=== PATIENT | female | born 1930 | race Caucasian/White ===

== ENCOUNTER 2016-05-29 21:05 | Emergency (ER) | payer MEDICARE ==
[~2016-05-29] VITALS: Ht 167.6 cm; Wt 59.0 kg
[~2016-05-29 21:05] MED LIST: /BISO10TA OR; ACET65TA; AMLO10TA PO; APRESOLINE; ASPI325T; ASPI325T PO; ASPI325T28 PO; BISO10TA6 PO; CALC1TAB21 PO; CALCIUM+D PO; CIPR-250 PO; CIPR500S PO; CIPR500T89 PO; CIPRO PO; COLA100C2; COUM2.5T11 PO; DIAZ10TA2 PO; ECOT500T OR; ESTR62CR PV; ESTR62CR VA; EXTR500C4 PO; FLAG500T PO; HYDR10TAB PO; HYDROXYCHLOROQUINE; HYDROXYCHLOROQUINE PO; INDA125TA PO; INDAPAMIDE; INDAPAMIDE PO; LISI-538 PO; LISI20TA5 PO; LISI5TAB; MAG400TA PO; METR500T10 PO; MIRA3350 PO; MULTCAP PO; OSCA200T PO; PRO-CAP PO; SENO8.6T10 PO; SERT25TA PO; TENO1TAB3 PO; THERGRAN; TRAM50TA2 PO; TUMS500C PO; TYLE650T30 PO; VALI5TAB; VALI5TAB PO; VALSARTAN PO; VITA500C14 PO; VITA500T; VITAMIN D; ZEBE5TAB PO
--- NOTE | 2016-05-29 21:58 | ECGEPIP ---
Stationary ECG Study [facility] - ED Test Date: 2016-05-29 Pat Name: TREVER STEWARD Department: Room: - Gender: F Clinic Lpn: reba : 1930 Requested By: RONY LANDERS Order Number: [id number] Reading MD: Rose Pemberton Measurements Intervals [place] Rate: 62 P: 69 IA: 137 QRS: -1 QRSD: 89 T: 63 QT: 465 QTc: 473 Interpretive Statements SINUS RHYTHM WITH SINUS ARRHYTHMIA NONSPECIFIC T-WAVE ABNORMALITY DELAYED R PROGRESSION DECREASED RATE 03/03/15 Electronically Signed On 05-29-2016 21:58:39 EDT by Rose Pemberton
[2016-05-29] MEDS ORDERED: NS 500 ML IV ONE (22:00)
[2016-05-29] MEDS ORDERED: MORPHINE 2 MG/ML 1ML SYRINGE IV ONE ×2 (22:00→23:15)
[2016-05-29 22:06] LABS: BASO % 0.1 % (0.0-1.0); EOS # 0.1 K/mm3 (0.0-0.50); EOS % 1.4 % (0.0-3.0); LARGE UNSTAINED CELL % 0.2 % (0.0-4.0); LYMPH # 0.6 K/mm3 (1.5-4.5); LYMPH % 7.2 % (24.0-44.0); MEAN CORPUSCULAR HGB CONC 33.6 g/dl (32.0-36.5); MEAN CORPUSCULAR VOLUME 98.2 fl (80.0-96.0); MONO # 0.1 K/mm3 (0.0-0.8); MONO % 1.4 % (0.0-5.0); NEUTROPHILS # 6.8 K/mm3 (1.8-7.7); NEUTROPHILS % 89.6 % (36.0-66.0); PLATELET COUNT, AUTOMATED 160 k/mm3 (150-450); RED CELL DISTRIBUTION WIDTH 12.6 % (11.5-14.5); WHITE BLOOD COUNT 7.6 K/mm3 (4.0-10.0)
[2016-05-29 22:18] LABS: ALBUMIN 3.5 GM/DL (3.2-5.2); ALBUMIN/GLOBULIN RATIO 1.03 (1.00-1.93); ALKALINE PHOSPHATASE 54 U/L (45-117); ALT/SGPT 13 U/L (12-78); AMYLASE 74 U/L (25-115); ANION GAP 9 MEQ/L (8-16); AST/SGOT 30 U/L (15-37); BILIRUBIN,DIRECT < 0.1 MG/DL (0.0-0.2); BILIRUBIN,TOTAL 0.4 MG/DL (0.2-1.0); BLOOD UREA NITROGEN 18 MG/DL (7-18); CALCIUM LEVEL 8.7 MG/DL (8.8-10.2); CARBON DIOXIDE LEVEL 25 MEQ/L (21-32); CHLORIDE LEVEL 102 MEQ/L (98-107); CREATININE FOR GFR 0.73 MG/DL (0.55-1.02); GLOMERULAR FILTRATION RATE > 60.0 (>32); GLUCOSE, FASTING 106 MG/DL (83-110); SODIUM LEVEL 136 MEQ/L (136-145); TOTAL PROTEIN 6.9 GM/DL (6.4-8.2)
[2016-05-29 22:23] LABS: POTASSIUM SERUM 3.3 MEQ/L (3.5-5.1)
[2016-05-29] MEDS ORDERED: ISOVUE-370 76% 100ML VIAL (Q9967) As Ordered ONE (22:32)
--- NOTE | 2016-05-29 23:10 | REPUSA ---
CT of the abdomen and pelvis with contrast Clinical statement: Pain. Technique: Multiple axial CT images were obtained from the base of the lungs through the floor of the pelvis utilizing 5 mm axial slices after administration of nonionic intravenous contrast. Coronal an d sagittal reconstructions were also obtained. No comparison is available. Findings: Chest: The visualized lung bases are clear. Abdomen: The liver, spleen, pancreas, kidneys, gallbladder, and adrenal glands are unremarkable. The aorta demonstrates moderate atherosclerotic disease, but is otherwise within normal limits. There is no evidence of abdominal lymphadenopathy or ascites. Pelvis: Extensive sigmoid diverticulosis is appreciated, without evidence of diverticulitis. The candy l is otherwise unremarkable, with no obstructive or inflammatory changes. The urinary bladder is with in normal limits. The other pelvic structures appear grossly intact. There is no evidence of pelvic l ymphadenopathy or ascites. Bones: There are no suspicious osseous abnormalities seen. Right hip arthroplasty is intact. There is severe joint space narrowing of the left hip joint with osteophytes noted. Moderate degenerative dis c disease is noted at L2/L3 and L3/L4. Mild disc bulging is seen at L3/L4 and L4/L5. Impression: 1. Extensive sigmoid diverticulosis without evidence of diverticulitis. No obstructive or inflammator y bowel changes. 2. Moderate spondylosis of the lumbar spine with degenerative disc disease as described. Mild disc bu lging is seen at L3/L4 and L4/L5. 3. Severe osteoarthritis of the left hip.
--- NOTE | 2016-05-29 23:10 | REPUSA ---
CT angiogram of the chest Clinical statement: Chest pain and shortness of breath. Technique: Multiple axial CT images were obtained from the thoracic inlet through the upper abdomen a fter a bolus administration of nonionic intravenous contrast. Coronal and sagittal reconstructions we re also obtained. No comparison is available. Findings: The pulmonary arteries are well-opacified with contrast, with no intraluminal filling defec ts to suggest embolism. The thoracic aorta demonstrates moderate atherosclerosis, without evidence of aneurysm or dissection. Thyroid gland is within normal limits. There is no thoracic lymphadenopathy. There are no pericardial or pleural effusions. The lungs are clear. Limited imaging of the upper abd omen is unremarkable. There are no suspicious osseous lesions. Impression: 1. No evidence of pulmonary embolism. 2. Moderate atherosclerosis of the thoracic aorta without evidence of aneurysm or dissection. 3. No acute intrapulmonary disease.
[2016-05-29] MEDS ORDERED: METOCLOPRAMIDE INJ 10MG/2ML VIAL (J2765) IV ONE (23:15)
[2016-05-29] MEDS ORDERED: METOCLOPRAMIDE INJ 10MG/2ML VIAL (J2765) As Ordered ONE (23:16)
[2016-05-30] MEDS ORDERED: ASPIRIN 325 MG TAB PO ONE (00:15)
[2016-05-30 07:19] VITALS: BP 180/82
--- NOTE | 2016-05-31 21:26 | ECGEPIP ---
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
== END 2016-05-30 07:43 | disposition home or self-care (01) ==
LOC: EDBD 21:05 → M ED 22:12
DX: R10.9 Unspecified abdominal pain (principal); I10 Essential (primary) hypertension; F41.9 Anxiety disorder, unspecified; K57.30 Diverticulosis of large intestine without perforation or abscess without bleeding; M32.9 Systemic lupus erythematosus, unspecified; M47.896 Other spondylosis, lumbar region; M16.11 Unilateral primary osteoarthritis, right hip; I70.0 Atherosclerosis of aorta; Z87.891 Personal history of nicotine dependence; Z79.899 Other long term (current) drug therapy; Z79.01 Long term (current) use of anticoagulants; Z91.040 Latex allergy status; Z91.013 Allergy to seafood; Z91.89 Other specified personal risk factors, not elsewhere classified; Z88.2 Allergy status to sulfonamides
CPT/HCPCS: 71260; 74177; 80048; 80076; 82150; 82550; 82553; 83605; 83690; 84484; 85025; 93005; 93041; 96374; 96375; 96376; 99285; J2765; Q9967

== ENCOUNTER 2016-09-12 10:44 | Emergency (ER) | payer MEDICARE ==
[~2016-09-12] VITALS: Ht 167.6 cm; Wt 59.1 kg
[~2016-09-12 10:44] MED LIST changes: +CIPR-249 PO; -CIPR500T89 PO; -COUM2.5T11 PO; +COUM2.5T17 PO; +METR1TAB66 PO; -METR500T10 PO
[2016-09-12] MEDS ORDERED: SYNT50TA PO (11:18)
[2016-09-12] MEDS ORDERED: HYDR200T3 PO (11:18)
[2016-09-12] MEDS ORDERED: ESTR62CR PV (11:18)
[2016-09-12] MEDS ORDERED: MIDO2.5T PO (11:18)
[2016-09-12] MEDS ORDERED: ESCI20TA PO (11:18)
[2016-09-12] MEDS ORDERED: MIDO5TA PO (11:18)
[2016-09-12] MEDS ORDERED: ACETAMINOPHEN TAB 650MG DOSE (2X325MG) PO ONE (12:30)
[2016-09-12] MEDS ORDERED: LIDOCAINE W/EPINEPHRINE 1% 20ML VIAL SC ONE (12:30)
--- NOTE | 2016-09-12 13:29 | REP ---
CT of the brain without IV contrast: Comparison is 03/03/2015. I suspect there is a small scalp contusion in the left temporal zone. This should be confirmed clinically. There is no subdural or epidural hematoma. There is no intracranial hemorrhage otherwise. The cortical stripe is unremarkable. Ventricles and sulci are mildly enlarged compatible with diffuse volume loss. This is unchanged. There is no edema, mass effect or midline shift. The visualized paranasal sinuses and mastoid air cells are unremarkable. Impression: No subdural hematoma or other hemorrhage. No edema, mass effect or midline shift. Mild diffuse volume loss. Question of left temporal scalp contusion. This should be confirmed clinically. Signed by Oscar Heredia MD 09/12/2016 01:20 P
--- NOTE | 2016-09-12 13:42 | REP ---
Maxillofacial CT: Axial images are acquired with helical scanning and a reformatted sagittal and coronal projections. There is no nasal bone fracture. There is no orbit fracture. No zygomatic arch fracture. No mandible fracture. The skull base and sella are unremarkable. The ocular lenses and globes are unremarkable. Orbital fat planes are unremarkable. Impression: There is no facial bone fracture. Signed by Oscar Heredia MD 09/12/2016 01:33 P
--- NOTE | 2016-09-12 14:02 | REP ---
CT CERVICAL SPINE WITHOUT CONTRAST: HISTORY: Injury. There is no acute fracture or subluxation. Disc bulges are present at the C3-4 and C4-5 levels. A disc bulge with associated osteophyte formation is present at the C5-6 level. There is minimal narrowing of the spinal canal. Uncinate process and/or facet hypertrophy are present at the C2-3 through C5-6 levels. These findings produce minimal to mild narrowing of the neural foramina. The C4-5 and C5-6 intervertebral discs are decreased in height consistent with disc degeneration. Scarring is present in the lung apices. IMPRESSION: 1. There is no acute fracture or subluxation. 2. There is cervical spondylosis at the C2-3 through C5-6 levels. Signed by Anmol Granado MD 09/12/2016 02:06 P
--- NOTE | 2016-09-12 14:24 | REP ---
LEFT SHOULDER SERIES: Three views. HISTORY: Pain after fall. FINDINGS: Glenohumeral and acromioclavicular joints are normally aligned. No fracture or subluxation is seen. There is some subcortical cyst formation in the superolateral humeral head. IMPRESSION: No acute abnormality. Signed by Mingo Mcnally MD 09/12/2016 04:35 P
[2016-09-12 15:51] VITALS: BP 170/95
== END 2016-09-12 15:58 | disposition home or self-care (01) ==
LOC: EDSEX 10:44 → M ED 10:44 → EDBD 10:44 → M ED 15:58
DX: S01.91XA Laceration without foreign body of unspecified part of head, initial encounter (principal); S00.83XA Contusion of other part of head, initial encounter; W19.XXXA Unspecified fall, initial encounter; Y92.099 Unspecified place in other non-institutional residence as the place of occurrence of the external cause; Y93.9 Activity, unspecified; Y99.9 Unspecified external cause status; I10 Essential (primary) hypertension; M32.9 Systemic lupus erythematosus, unspecified; H26.9 Unspecified cataract; K57.90 Diverticulosis of intestine, part unspecified, without perforation or abscess without bleeding; Z87.891 Personal history of nicotine dependence; M47.812 Spondylosis without myelopathy or radiculopathy, cervical region; Z79.899 Other long term (current) drug therapy; Z91.040 Latex allergy status; Z88.6 Allergy status to analgesic agent; Z91.013 Allergy to seafood; Z88.2 Allergy status to sulfonamides; Z91.89 Other specified personal risk factors, not elsewhere classified

== ENCOUNTER → 2016-09-20 | Outpatient (REF) | payer MEDICARE ==
[~2016-09-20] MED LIST changes: +ESCI20TA PO; +HYDR200T3 PO; +MIDO2.5T PO; +MIDO5TA PO; +SYNT50TA PO
[2016-09-20 16:46] LABS: BASO % 0.5 % (0.0-1.0); EOS # 0.1 K/mm3 (0.0-0.50); EOS % 2.8 % (0.0-3.0); LYMPH # 1.2 K/mm3 (1.5-4.5); LYMPH % 24.8 % (24.0-44.0); MEAN CORPUSCULAR HEMOGLOBIN 33.9 pg (27.0-33.0); MEAN CORPUSCULAR HGB CONC 34.6 g/dl (32.0-36.5); MEAN CORPUSCULAR VOLUME 98.2 fl (80.0-96.0); MONO # 0.3 K/mm3 (0.0-0.8); MONO % 6.6 % (0.0-5.0); NEUTROPHILS # 2.9 K/mm3 (1.8-7.7); NEUTROPHILS % 63.6 % (36.0-66.0); RED CELL DISTRIBUTION WIDTH 13.3 % (11.5-14.5); WHITE BLOOD COUNT 4.5 K/mm3 (4.0-10.0)
[2016-09-20 17:35] LABS: ALBUMIN 3.8 GM/DL (3.2-5.2); ALBUMIN/GLOBULIN RATIO 1.23 (1.00-1.93); ALKALINE PHOSPHATASE 52 U/L (45-117); ALT/SGPT 16 U/L (12-78); ANION GAP 7 MEQ/L (8-16); AST/SGOT 18 U/L (15-37); BILIRUBIN,TOTAL 0.4 MG/DL (0.2-1.0); BLOOD UREA NITROGEN 16 MG/DL (7-18); CALCIUM LEVEL 8.5 MG/DL (8.8-10.2); CARBON DIOXIDE LEVEL 28 MEQ/L (21-32); CHLORIDE LEVEL 97 MEQ/L (98-107); CHOLESTEROL LEVEL 171 MG/DL (<200); CREATININE FOR GFR 0.71 MG/DL (0.55-1.02); GLOMERULAR FILTRATION RATE > 60.0 (>32); GLUCOSE, FASTING 85 MG/DL (83-110); POTASSIUM SERUM 4.2 MEQ/L (3.5-5.1); SODIUM LEVEL 132 MEQ/L (136-145); TOTAL PROTEIN 6.9 GM/DL (6.4-8.2); TRIGLYCERIDES LEVEL 82 MG/DL (<150)
== END ==
LOC: M LABDRAW1 16:11
PROVIDERS: ATTEND Internal Medicine
DX: E03.9 Hypothyroidism, unspecified (principal); D64.9 Anemia, unspecified; E78.00 Pure hypercholesterolemia, unspecified; N03.9 Chronic nephritic syndrome with unspecified morphologic changes

== ENCOUNTER → 2017-01-11 | Outpatient (REF) | payer MEDICARE | LOC: M LAB REF 17:24 | PROVIDERS: ATTEND Internal Medicine | DX: Z11.59 Encounter for screening for other viral diseases (principal) ==

== ENCOUNTER 2017-03-29 09:10 | Emergency (ER) | payer MEDICARE ==
[2017-03-29 10:30] LABS: KETONE, URINE AUTO RFX NEGATIVE (NEGATIVE); LEUKOCYTE ESTERASE UR AUTO RFX NEGATIVE (NEGATIVE); NITRITE, URINE AUTO RFX NEGATIVE (NEGATIVE); RBC, URINE AUTO RFX 0 /HPF (0-3); SPECIFIC GRAVITY UR AUTO RFX 1.004 (1.002-1.035); SQUAM EPITHELIAL CELL UR AURFX 0 /HPF (0-6); WBC, URINE AUTO RFX 0 /HPF (0-3)
[2017-03-29 10:33] LABS: BASO % 0.2 % (0.0-1.0); EOS % 0.1 % (0.0-3.0); HEMATOCRIT 37.9 % (36.0-47.0); HEMOGLOBIN 12.8 g/dl (12.0-16.0); IMMATURE GRANULOCYTE % 0.3 % (0-0); LYMPH # 0.8 10^3/uL (1.5-4.5); LYMPH % 8.1 % (24.0-44.0); MEAN CORPUSCULAR HEMOGLOBIN 31.9 pg (27.0-33.0); MEAN CORPUSCULAR HGB CONC 33.8 g/dl (32.0-36.5); MEAN CORPUSCULAR VOLUME 94.5 fl (80.0-96.0); MONO # 0.8 10^3/uL (0.0-0.8); MONO % 8.6 % (0.0-5.0); NEUTROPHILS # 7.6 10^3/uL (1.8-7.7); NEUTROPHILS % 82.7 % (36.0-66.0); PLATELET COUNT, AUTOMATED 125 10^3/uL (150-450); RED BLOOD COUNT 4.01 10^6/uL (4.00-5.40); WHITE BLOOD COUNT 9.2 10^3/uL (4.0-10.0)
[2017-03-29 11:04] LABS: ANION GAP 6 MEQ/L (8-16); BLOOD UREA NITROGEN 11 MG/DL (7-18); CALCIUM LEVEL 8.2 MG/DL (8.8-10.2); CARBON DIOXIDE LEVEL 28 MEQ/L (21-32); CHLORIDE LEVEL 103 MEQ/L (98-107); CREATININE FOR GFR 0.88 MG/DL (0.55-1.30); FREE T4 0.97 NG/DL (0.76-1.46); GLOMERULAR FILTRATION RATE > 60.0 (>32); GLUCOSE, FASTING 104 MG/DL (70-100); POTASSIUM SERUM 3.5 MEQ/L (3.5-5.1); SODIUM LEVEL 137 MEQ/L (136-145)
== END 2017-03-29 13:56 | disposition home or self-care (01) ==
LOC: M ED 09:10
DX: I95.1 Orthostatic hypotension (principal); R32 Unspecified urinary incontinence; M54.5 Low back pain; G89.29 Other chronic pain; M32.9 Systemic lupus erythematosus, unspecified; E03.9 Hypothyroidism, unspecified; Z96.641 Presence of right artificial hip joint; Z87.891 Personal history of nicotine dependence
CPT/HCPCS: 84443

== ENCOUNTER 2017-08-24 04:00 | Emergency (ER) | payer MEDICARE ==
[2017-08-24] MEDS: cloNIDine 0.1 MG TAB PO (04:56)
[2017-08-24] MEDS: TETANUS/DIPHTHERIA TOX ADSORB ADULT 0.5ML SYR/VIAL (90714) IM (05:18)
== END 2017-08-24 06:55 | disposition home or self-care (01) ==
LOC: M ED 04:00
DX: I95.9 Hypotension, unspecified (principal); S00.81XA Abrasion of other part of head, initial encounter; W18.00XA Striking against unspecified object with subsequent fall, initial encounter; Y92.9 Unspecified place or not applicable; Y93.9 Activity, unspecified; Y99.9 Unspecified external cause status; Z87.891 Personal history of nicotine dependence; M12.9 Arthropathy, unspecified; Z79.82 Long term (current) use of aspirin; Z79.899 Other long term (current) drug therapy; Z88.5 Allergy status to narcotic agent; Z88.2 Allergy status to sulfonamides; Z91.013 Allergy to seafood; Z91.89 Other specified personal risk factors, not elsewhere classified

== ENCOUNTER 2017-08-24 07:13 | Inpatient (IN) | payer MEDICARE ==
[2017-08-24] MEDS: LEVOTHYROXINE 100MCG TABLET (0.1MG) PO (06:00)
[2017-08-24] MEDS: MIDODRINE 5 MG TAB PO ×3 (08:00→15:06)
[2017-08-24 08:18] LABS: BASO % 0.5 % (0.0-1.0); EOS # 0.1 10^3/uL (0.0-0.50); EOS % 1.7 % (0.0-3.0); HEMATOCRIT 35.4 % (36.0-47.0); HEMOGLOBIN 12.2 g/dl (12.0-15.5); IMMATURE GRANULOCYTE % 0.3 % (0-3.0); LYMPH # 1.5 10^3/uL (1.5-4.5); LYMPH % 24.8 % (24.0-44.0); MEAN CORPUSCULAR HEMOGLOBIN 32.6 pg (27.0-33.0); MEAN CORPUSCULAR HGB CONC 34.5 g/dl (32.0-36.5); MEAN CORPUSCULAR VOLUME 94.7 fl (80.0-96.0); MONO # 0.5 10^3/uL (0.0-0.8); NEUTROPHILS # 3.8 10^3/uL (1.8-7.7); NEUTROPHILS % 64.7 % (36.0-66.0); PLATELET COUNT, AUTOMATED 143 10^3/uL (150-450); RED BLOOD COUNT 3.74 10^6/uL (4.00-5.40); WHITE BLOOD COUNT 5.9 10^3/uL (4.0-10.0)
[2017-08-24 08:38] LABS: ANION GAP 8 MEQ/L (8-16); BLOOD UREA NITROGEN 21 MG/DL (7-18); CALCIUM LEVEL 7.8 MG/DL (8.8-10.2); CARBON DIOXIDE LEVEL 27 MEQ/L (21-32); CHLORIDE LEVEL 103 MEQ/L (98-107); CPK CREATINE PHOSPHOKINASE 54 U/L (26-192); CREATININE FOR GFR 0.83 MG/DL (0.55-1.30); FREE T4 0.89 NG/DL (0.76-1.46); GLOMERULAR FILTRATION RATE > 60.0 (>32); GLUCOSE, FASTING 82 MG/DL (70-100); POTASSIUM SERUM 3.9 MEQ/L (3.5-5.1); SODIUM LEVEL 138 MEQ/L (136-145); TROPONIN I < 0.02 NG/ML (< 0.10)
[2017-08-24 08:44] LABS: CK-MB VALUE MASS < 1.0 NG/ML (<3.6); MB/CK RELATIVE INDEX 1.85 (< OR =4)
[2017-08-24] MEDS: ENOXAPARIN 30 MG/0.3 ML SYR (J1650) SC (09:00)
[2017-08-24] MEDS ORDERED: ACETAMINOPHEN TAB 650MG DOSE (2X325MG) PO (09:30)
[2017-08-24] MEDS ORDERED: diazePAM 10 MG TAB PO (11:45)
[2017-08-24] MEDS ORDERED: ISOSORBIDE DIN. (ISORDIL) 5 MG TAB PO (11:45)
[2017-08-24] MEDS ORDERED: ACETAMINOPHEN 650MG ER TAB (TYLENOL ARTHRITIS) PO (11:45)
[2017-08-24] MEDS: ISOSORBIDE DIN. (ISORDIL) 5 MG TAB PO ×2 (14:42→21:00)
[2017-08-24] MEDS: ASPIRIN 325 MG TAB PO (15:05)
[2017-08-24] MEDS: NS 1,000 ML IV (15:05)
[2017-08-24] MEDS: MULTIVITAMINS/MINERALS THERAP 1 TAB PO (15:05)
[2017-08-24] MEDS: ASCORBIC ACID 500 MG TAB PO (15:06)
[2017-08-24] MEDS: FLUDROCORTISONE ACETATE 0.1 MG TAB PO (15:40)
[2017-08-24] MEDS: ESTROGENS VAGINAL CREAM 30GM PV (21:19)
[2017-08-24] MEDS: diazePAM 10 MG TAB PO (23:19)
[2017-08-25 05:24] LABS: AMORPHOUS SEDIMENT RFX SMALL (NEGATIVE); KETONE, URINE AUTO RFX NEGATIVE (NEGATIVE); LEUKOCYTE ESTERASE UR AUTO RFX NEGATIVE (NEGATIVE); MUCUS, URINE RFX SMALL (NEGATIVE); NITRITE, URINE AUTO RFX NEGATIVE (NEGATIVE); RBC, URINE AUTO RFX 4 /HPF (0-3); SPECIFIC GRAVITY UR AUTO RFX 1.005 (1.002-1.035); SQUAM EPITHELIAL CELL UR AURFX 0 /HPF (0-6); WBC, URINE AUTO RFX 5 /HPF (0-3)
[2017-08-25] MEDS: LEVOTHYROXINE 100MCG TABLET (0.1MG) PO (05:57)
[2017-08-25 05:58] LABS: HEMATOCRIT 32.4 % (36.0-47.0); HEMOGLOBIN 11.3 g/dl (12.0-15.5); MEAN CORPUSCULAR HEMOGLOBIN 32.7 pg (27.0-33.0); MEAN CORPUSCULAR HGB CONC 34.9 g/dl (32.0-36.5); MEAN CORPUSCULAR VOLUME 93.6 fl (80.0-96.0); PLATELET COUNT, AUTOMATED 135 10^3/uL (150-450); RED BLOOD COUNT 3.46 10^6/uL (4.00-5.40)
[2017-08-25 06:17] LABS: ANION GAP 7 MEQ/L (8-16); BLOOD UREA NITROGEN 20 MG/DL (7-18); CALCIUM LEVEL 7.8 MG/DL (8.8-10.2); CARBON DIOXIDE LEVEL 29 MEQ/L (21-32); CHLORIDE LEVEL 102 MEQ/L (98-107); CREATININE FOR GFR 0.68 MG/DL (0.55-1.30); GLOMERULAR FILTRATION RATE > 60.0 (>32); GLUCOSE, FASTING 89 MG/DL (70-100); POTASSIUM SERUM 3.8 MEQ/L (3.5-5.1); SODIUM LEVEL 138 MEQ/L (136-145)
[2017-08-25] MEDS: ISOSORBIDE DIN. (ISORDIL) 5 MG TAB PO (09:00)
[2017-08-25] MEDS: MIDODRINE 5 MG TAB PO ×2 (09:08→12:00)
[2017-08-25] MEDS: ASPIRIN 325 MG TAB PO (09:08)
[2017-08-25] MEDS: FLUDROCORTISONE ACETATE 0.1 MG TAB PO (09:08)
[2017-08-25] MEDS: ASCORBIC ACID 500 MG TAB PO (09:09)
[2017-08-25] MEDS: MULTIVITAMINS/MINERALS THERAP 1 TAB PO (09:09)
[2017-08-25] MEDS: ENOXAPARIN 30 MG/0.3 ML SYR (J1650) SC (09:10)
[2017-08-25] MEDS: cloNIDine 0.1 MG TAB PO (12:15)
== END 2017-08-25 13:18 | disposition home or self-care (01) | DRG 312 ==
LOC: M ED 07:13 → M ED INP 09:24 → M MSPAV 13:59
DX: I95.1 Orthostatic hypotension (principal); K57.32 Diverticulitis of large intestine without perforation or abscess without bleeding; E03.9 Hypothyroidism, unspecified; F41.1 Generalized anxiety disorder; E55.9 Vitamin D deficiency, unspecified; M19.90 Unspecified osteoarthritis, unspecified site; Z96.641 Presence of right artificial hip joint; Z88.2 Allergy status to sulfonamides; Z88.8 Allergy status to other drugs, medicaments and biological substances; Z91.040 Latex allergy status

== ENCOUNTER → 2017-09-19 | Outpatient (REF) | payer MEDICARE ==
[2017-09-19 17:45] LABS: APPEARANCE, URINE CLEAR (CLEAR); BACTERIA, URINE AUTO 1+ (NEGATIVE); BILIRUBIN, URINE AUTO NEGATIVE (NEGATIVE); BLOOD, URINE BLOOD NEGATIVE (NEGATIVE); COLOR, URINE YELLOW (YELLOW); GLUCOSE, URINE (UA) AUTO NEGATIVE (NEGATIVE); KETONE, URINE AUTO NEGATIVE (NEGATIVE); LEUKOCYTE ESTERASE, URINE AUTO NEGATIVE (NEGATIVE); NITRITE, URINE AUTO NEGATIVE (NEGATIVE); PROTEIN, URINE AUTO NEGATIVE (NEGATIVE); RBC, URINE AUTO 4 /HPF (0-3); SPECIFIC GRAVITY URINE AUTO 1.003 (1.002-1.035); SQUAMOUS EPITHELIAL CELL UR AU 0 /HPF (0-6); UROBILINOGEN, URINE AUTO 0.2 mg/dL (0.0-2.0); WBC, URINE AUTO 2 /HPF (0-3)
== END ==
LOC: M LAB REF 17:05
DX: N39.0 Urinary tract infection, site not specified (principal)
CPT/HCPCS: 81001

== ENCOUNTER → 2017-10-17 | Outpatient (REF) | payer MEDICARE ==
[2017-10-17 14:27] LABS: APPEARANCE, URINE CLEAR (CLEAR); BACTERIA, URINE AUTO 2+ (NEGATIVE); BILIRUBIN, URINE AUTO NEGATIVE (NEGATIVE); BLOOD, URINE BLOOD NEGATIVE (NEGATIVE); COLOR, URINE STRAW (YELLOW); GLUCOSE, URINE (UA) AUTO NEGATIVE (NEGATIVE); KETONE, URINE AUTO NEGATIVE (NEGATIVE); LEUKOCYTE ESTERASE, URINE AUTO NEGATIVE (NEGATIVE); NITRITE, URINE AUTO NEGATIVE (NEGATIVE); PROTEIN, URINE AUTO NEGATIVE (NEGATIVE); RBC, URINE AUTO 13 /HPF (0-3); SPECIFIC GRAVITY URINE AUTO 1.002 (1.002-1.035); SQUAMOUS EPITHELIAL CELL UR AU 0 /HPF (0-6); UROBILINOGEN, URINE AUTO 0.2 mg/dL (0.0-2.0); WBC, URINE AUTO 0 /HPF (0-3)
== END ==
LOC: M SMT 13:47
DX: R30.0 Dysuria (principal)
CPT/HCPCS: 81001

== ENCOUNTER → 2017-10-19 | Outpatient (CLI) | payer MEDICARE ==
[2017-10-19 12:11] LABS: ANION GAP 8 MEQ/L (8-16); BLOOD UREA NITROGEN 17 MG/DL (7-18); CALCIUM LEVEL 8.8 MG/DL (8.8-10.2); CARBON DIOXIDE LEVEL 29 MEQ/L (21-32); CHLORIDE LEVEL 105 MEQ/L (98-107); CREATININE FOR GFR 0.89 MG/DL (0.55-1.30); GLOMERULAR FILTRATION RATE > 60.0 (>32); GLUCOSE, FASTING 89 MG/DL (70-100); POTASSIUM SERUM 4.5 MEQ/L (3.5-5.1); SODIUM LEVEL 142 MEQ/L (136-145)
== END ==
LOC: M SMT 08:40
DX: R31.29 Other microscopic hematuria (principal)
CPT/HCPCS: 80048

== ENCOUNTER → 2017-10-25 | Outpatient (REF) | payer MEDICARE ==
[2017-10-25 18:51] LABS: APPEARANCE, URINE CLEAR (CLEAR); BACTERIA, URINE AUTO 2+ (NEGATIVE); BILIRUBIN, URINE AUTO NEGATIVE (NEGATIVE); BLOOD, URINE BLOOD NEGATIVE (NEGATIVE); COLOR, URINE YELLOW (YELLOW); GLUCOSE, URINE (UA) AUTO NEGATIVE (NEGATIVE); KETONE, URINE AUTO NEGATIVE (NEGATIVE); LEUKOCYTE ESTERASE, URINE AUTO NEGATIVE (NEGATIVE); NITRITE, URINE AUTO NEGATIVE (NEGATIVE); PROTEIN, URINE AUTO NEGATIVE (NEGATIVE); RBC, URINE AUTO 1 /HPF (0-3); SPECIFIC GRAVITY URINE AUTO 1.006 (1.002-1.035); SQUAMOUS EPITHELIAL CELL UR AU 0 /HPF (0-6); UROBILINOGEN, URINE AUTO 0.2 mg/dL (0.0-2.0); WBC, URINE AUTO 1 /HPF (0-3)
== END ==
LOC: M SMT 17:27
DX: R31.29 Other microscopic hematuria (principal)
CPT/HCPCS: 81001

== ENCOUNTER 2018-03-01 10:14 | Inpatient (IN) | payer MEDICARE ==
[~2018-03-01] VITALS: Ht 167.6 cm; Wt 67.5 kg
[~2018-03-01 10:14] MED LIST changes: +AMOX500C; +ASCO500T PO; +ASPI-222 PO; -ASPI325T28 PO; +ECOT81TA5 PO; +FLUD0.1T PO; +ISOS5TA PO; +LEVO100T5 PO; +METR-201 PO; -METR1TAB66 PO; +MIDO10TA PO; +VITA500C24 PO; +VITMTA PO
[2018-03-01] MEDS ORDERED: ISOSORBIDE DIN. (ISORDIL) 5 MG TAB PO ONE (11:30)
[2018-03-01] MEDS ORDERED: ACETAMINOPHEN TAB 650MG DOSE (2X325MG) PO ONE (11:30)
[2018-03-01] MEDS ORDERED: methylPREDNISolone INJ 125 MG/2 ML VIAL (J2930) IV ONE (11:30)
[2018-03-01] MEDS ORDERED: TUSS1SUS2 PO (11:33)
[2018-03-01] MEDS ORDERED: AZIT-12 PO (11:33)
[2018-03-01] MEDS ORDERED: VENTAER INH (11:33)
[2018-03-01 11:36] LABS: BASO % 0.2 % (0.0-1.0); EOS % 0.1 % (0.0-3.0); HEMATOCRIT 37.4 % (36.0-47.0); HEMOGLOBIN 13.2 g/dl (12.0-15.5); LYMPH # 0.8 10^3/uL (1.5-4.5); LYMPH % 5.8 % (24.0-44.0); MEAN CORPUSCULAR HEMOGLOBIN 33.9 pg (27.0-33.0); MEAN CORPUSCULAR HGB CONC 35.3 g/dl (32.0-36.5); MEAN CORPUSCULAR VOLUME 96.1 fl (80.0-96.0); MONO % 7.4 % (0.0-5.0); NEUTROPHILS # 11.8 10^3/uL (1.8-7.7); NEUTROPHILS % 86.1 % (36.0-66.0); PLATELET COUNT, AUTOMATED 163 10^3/uL (150-450); RED BLOOD COUNT 3.89 10^6/uL (4.00-5.40); WHITE BLOOD COUNT 13.7 10^3/uL (4.0-10.0)
[2018-03-01] MEDS: IPRATROPIUM 0.5MG/ALBUTEROL 2.5MG INH SOL UD 3ML (DUONEB)(J7620) NEB PRN ×3 (11:40→12:01)
[2018-03-01 11:42] LABS: ABG BASE EXCESS 0.3 (-2.0-2.0); ABG O2 SATURATION 95.7 % (95.0-99.0); ABG PARTIAL PRESSURE CO2 40.4 mmHg (35.0-45.0); ABG PARTIAL PRESSURE O2 77.5 mmHg (75.0-100.0); ABG STANDARD HCO3 24.8 MEQ/L (22.0-26.0); ABG TOTAL CO2 26.2 MEQ/L (23.0-31.0); ABG pH (ARTERIAL) 7.409 UNITS (7.350-7.450)
[2018-03-01 11:49] LABS: BLOOD UREA NITROGEN 9 MG/DL (7-18); CALCIUM LEVEL 7.9 MG/DL (8.8-10.2); CARBON DIOXIDE LEVEL 28 MEQ/L (21-32); CHLORIDE LEVEL 94 MEQ/L (98-107); CPK CREATINE PHOSPHOKINASE 83 U/L (26-192); CREATININE FOR GFR 0.78 MG/DL (0.55-1.30); GLOMERULAR FILTRATION RATE > 60.0 (>32); GLUCOSE, FASTING 105 MG/DL (70-100); MB/CK RELATIVE INDEX 1.57 (< OR =4); NT-PRO BNP 8603 PG/ML (<450); POTASSIUM SERUM 3.9 MEQ/L (3.5-5.1); SODIUM LEVEL 130 MEQ/L (136-145); TROPONIN I 0.22 NG/ML (< 0.10)
[2018-03-01] MEDS ORDERED: FUROSEMIDE 40 MG/4 ML VIAL (J1940) IV ONE (12:45)
--- NOTE | 2018-03-01 12:49 | REP ---
Chest two views HISTORY: Shortness of breath Comparison: 03/03/2015 A calcified granuloma is present in the right upper lobe. The left lung is clear. The heart is normal in size. The pulmonary vasculature is normal in appearance. The bony structure is intact. IMPRESSION: No acute disease. Electronically Signed by Anmol Granado MD 03/01/2018 12:40 P
[2018-03-01 13:45] LABS: MB/CK RELATIVE INDEX 1.5 (< OR =4); TROPONIN I 0.21 NG/ML (< 0.10)
[2018-03-01] MEDS ORDERED: ACE65ERTAB PO (14:29)
[2018-03-01] MEDS ORDERED: ISOS5TA PO (14:32)
[2018-03-01] MEDS ORDERED: LEVO75TA4 PO (14:46)
[2018-03-01] MEDS ORDERED: NS 1,000 ML IV SCH (15:25)
[2018-03-01] MEDS ORDERED: ACETAMINOPHEN 650MG ER TAB (TYLENOL ARTHRITIS) PO PRN (15:30)
[2018-03-01] MEDS ORDERED: ALBUTEROL SULFATE 2.5 MG/0.5 ML INH NEB SOLN INH PRN (15:30)
[2018-03-01] MEDS ORDERED: MIDODRINE 5 MG TAB PO PRN (15:30)
[2018-03-01] MEDS ORDERED: ONDANSETRON 4 MG TAB (S0181) PO PRN (15:30)
--- NOTE | 2018-03-01 16:18 | HPEPDOC ---
[facility] Medical History & Physical Date of Admission Mar 01, 2018 Primary Care Physician: JIMI ALEGRIA DO Attending Physician: DEMETRA CALLES MD History and Physical CHIEF COMPLAINT: Cough, shortness of breath, weakness HISTORY OF PRESENT ILLNESS: Patient is an 87-year-old female who presents with 3 days worth of cough that is nonproductive, breathing difficulty. Patient presented to urgent care and was prescribed a Z-Rober and Ventolin inhaler. Upon returning home, she noticed that her symptoms had gotten worse. She admits to low-grade fever at home that Tylenol helps. She denies nausea, vomiting, d iarrhea. She denies any recent travel. She admits to recent sick contacts from her grandkids. On initial presentation, patient was found to be wheezing on physical exam, use of his sensory muscles, with O2 saturation of 87. She was then placed on 2 liters on nasal cannula. Initial EKG was sinus, without any ST elevation, she had a white count of 13.7, sodium of 130, chloride of 94, BNP of 8603, troponin of 0.21, and respiratory panel was positive for RSV. Hospitalist team was called for admission. PAST MEDICAL HISTORY: 1. Labile hypertension. 2. Orthostasis. 3. Diverticulitis. 4. Recurrent urinary tract infection with Klebsiella. 5. Discoid lupus erythematosus. 6. Hypertension without heart failure. 7. Carotid artery disease with carotid endarterectomy. 8. Generalized anxiety disorder. 9. Osteoarthritis of the hips PAST SURGICAL HISTORY: PAST SURGICAL HISTORY: 1. Right hip replacement. 2. Total hysterectomy. SOCIAL HISTORY: Retired, lives alone, most of them was in [place]. Denies alcohol. Denies drugs. Denies cigarette smoking. Patient's daughter is Ankita Early, phone number [phone] FAMILY HISTORY: Mother had CVA, father had CAD, family history is positive for NM ALLERGIES: Please see below. REVIEW OF SYSTEMS: ROS CONSTITUTIONAL: No fevers, denies chills, denies weight loss, denies lethargy, Alert no acute distress. Admits to one episode of fever HEENT: No rhinorrhea, no itchy eyes, no congesion, CARDIOVASCULAR: No chest pain, no palpitations RESPIRATORY: Admits to cough, nonproductive, no hemoptysis GASTROINTESTINAL: No nausea, no vomiting, no difficulty swallowing, no pain with eating, no diarrhea HEMATOLOGICAL: No bleeding GENITOURINARY:No Issues HEMATOLOGIC/LYMPHATIC: No swelling PE GENERAL APPEARANCE: Elderly pleasant female, has difficulty completing sentences without concern of breath SKIN: Warm, well perfused. ENT: Throat is moist, false teeth THORAX: Symmetrical. LUNGS: Expiratory wheeze heard throughout bilateral lung canales upper and lower lungs, no use of accessory muscles, HEART: Normal S1, S2. No murmurs, no rubs, no gallops ABDOMEN: Soft. No masses. Bowel sounds are present. TRUNK/SPINE:Straight. EXTREMITIES: Moves all extremities equally. No gross deformities. PULSES: 2+ upper and lower extremity . HOME MEDICATIONS: Please see below. LABORATORY DATA: See below. IMAGING: [place] x-ray on 03/01/2017: IMPRESSION: No acute disease. MICROBIOLOGY: Positive for RSV ASSESSMENT: Patient is a 87-year-old female with multiple medical conditions, detailed above. Presenting for 3 days worth of cough, difficulty breathing, body weakness. In the ED, she tested positive for RSV. She admitted to positive sick contacts at home. Patient's past medical history is significant for labile hypertension that is either in hypotensive state or hypotensive state. Her current management for this is the use of isosorbide dinitrate for hypertension over 180 or midodrine for Systolic blood pressure less than 115. She will be admitted for supportive management of RSV. PLAN: Shortness of breath, secondary to RSV bronchiolitis -IV fluid hydration, oxygen support via nasal cannula, DuoNeb's ordered PRN for wheezing, and schedule -Continue azithromycin for total 5 days Elevated Troponin -Most likely due to patient's demand ischemia -EKG had no ST elevation Labile hypertension: Uncontrolled Please measure patient's blood pressure on demand. If patient's blood pressure is elevated, above 180 systolic ,please give patient 5 mg of isosorbide dinitrate. If patient's blood pressure is below 115 systolic. Please give patient Midodrine 10 mg. this is for patient's labile hypertension. Patient has been using this regimen for several years and completely understands it. When in doubt, please defer to patient's wishes. --Nursing order place with above instructions. Elevated BNP without diagnosis of CHF --Last echocardiogram had an ejection fraction of 65% to 70%. This was done in 2010. --ECho Pending --BNP of 8603 On presentation, patient does not appear to be fluid overloaded. --Recieved 40 mg of lasix in ED Hypothyroidism Continue home meds Anxiety. On as needed valium. Vitamin C deficiency. On vitamin C daily. Cutaneous Lupus. outpt fu w dermatology DVT -Lovenox Vital Signs Vital Signs Date Time Temp Pulse Resp B/P (MAP) Pulse Ox O2 Delivery O2 Flow Rate FiO2 03/01/18 15:00 88 186/83 (117) Nasal Cannula 2.0 03/01/18 14:00 94 03/01/18 12:27 98.2 03/01/18 10:27 22 Laboratory Data Labs 24H Laboratory Tests 2 03/01/18 10:59: Immature Granulocyte % (Auto) 0.4, White Blood Count 13.7H, Red Blood Count 3.89L, Hemoglobin 13.2, Hematocrit 37.4, Mean Corpuscular Volume 96.1H, Mean Corpuscular Hemoglobin 33.9H, Mean Corpuscular Hemoglobin Concent 35.3, Red Cell Distribution Width 13.0, Platelet Count 163, Neutrophils (%) (Auto) 86.1H, Lymphocytes (%) (Auto) 5.8L, Monocytes (%) (Auto) 7.4H, Eosinophils (%) (Auto) 0.1, Basophils (%) (Auto) 0.2, Neutrophils # (Auto) 11.8H, Lymphocytes # (Auto) 0.8L, Monocytes # (Auto) 1.0H, Eosinophils # (Auto) 0.0, Basophils # (Auto) 0.0, Nucleated Red Blood Cells % (auto) 0.0, Anion Gap 8, Glomerular Filtration Rate > 60.0, Lactic Acid Level 0.9, Blood Urea Nitrogen 9, Creatinine 0.78, Sodium Level 130L, Potassium Level 3.9, Chloride Level 94L, Carbon Dioxide Level 28, Calcium Level 7.9L, Total Creatine Kinase 83, Creatine Kinase MB 1.0, Creatine Kinase MB Relative Index 1.57, Troponin I 0.22H, EQ-Wio-D-Type Natriuretic Peptide 8603H, Thyroid Stimulating Hormone (TSH) 6.170H 03/01/18 11:33: Blood Gas Bicarbonate Standard 24.8, Arterial Blood pH 7.409, Arterial Blood Partial Pressure CO2 40.4, Arterial Blood Partial Pressure O2 77.5, Arterial Blood Total CO2 26.2, Arterial Blood HCO3 25.0, Arterial Blood Base Excess 0.3, Arterial Blood Oxygen Saturation 95.7 03/01/18 13:01: Total Creatine Kinase 80, Creatine Kinase MB 1.0, Creatine Kinase MB Relative Index 1.50, Troponin I 0.21H CBC/BMP Laboratory Tests 03/01/18 10:59 Red Blood Count 3.89 L, Mean Corpuscular Volume 96.1 H, Mean Corpuscular Hemoglobin 33.9 H, Mean Corpuscular Hemoglobin Concent 35.3, Red Cell Distribution Width 13.0, Neutrophils (%) (Auto) 86.1 H, Lymphocytes (%) (Auto) 5.8 L, Monocytes (%) (Auto) 7.4 H, Eosinophils (%) (Auto) 0.1, Basophils (%) (Auto) 0.2, Neutrophils # (Auto) 11.8 H, Lymphocytes # (Auto) 0.8 L, Monocytes # (Auto) 1.0 H, Eosinophils # (Auto) 0.0, Basophils # (Auto) 0.0, Calcium Level 7.9 L, Total Creatine Kinase 83 Microbiology Microbiology 03/01/18 Blood Culture, Received Pending 03/01/18 Blood Culture, Received Pending 03/01/18 Respiratory Virus Panel (PCR) ([facility]) - Final, Complete Respiratory Syncytial Virus Home Medications Scheduled (Calcium 600 + D 600-200 mg-Unit) 1 Tab Tab, 1 TAB PO DAILY Albuterol Sulfate (Ventolin Hfa) 108 Mcg/Act Aer, 2 PUFFS INH QID Ascorbic Acid (Ascorbic Acid) 500 Mg Tab, 500 MG PO DAILY Aspirin (Aspirin) 325 Mg Tab, 325 MG PO DAILY Azithromycin (Azithromycin) 250 Mg Tab, 250 MG PO DAILY X 5 DAYS. STARTED SUNDAY. Conjugated Estrogens (Premarin) 1 Dose/30 Gm Cr, 1 DOSE PV QHS ONE-HALF APPLICATORFUL Levothyroxine Sodium (Synthroid) 75 Mcg Tab, 75 MCG PO DAILY Multivitamins *[facility] STOCKED* (Thera M Plus *[facility] STOCKED*) 1 Tab Tab, 1 TAB PO DAILY Scheduled PRN Acetaminophen (Acetaminophen ER) 650 Mg Tab, 650 MG PO Q4H PRN for PAIN / FEVER Chlorphenir/Hydrocod Polistir (Tussionex Pennkinetic Ext 10-8 mg/5Ml) 1 Marleni Marleni, 5 ML PO BID PRN for cough STARTED SUNDAY. Diazepam (Diazepam) 10 Mg Tab, 10 MG PO QHSP PRN for SLEEP Isosorbide Dinitrate (Isosorbide Dinitrate) 5 Mg Tab, 5 MG PO BID PRN for HYPERTENSION PATIENT TAKES BLOOD PRESSURE FOUR TIMES EACH DAY. Midodrine HCl (Midodrine HCl) 10 Mg Tab, 10 MG PO TID PRN for HYPOTENSION PATIENT TAKES BLOOD PRESSURE FOUR TIMES EACH DAY. Allergies Coded Allergies: Amoxicillin (Verified Allergy, Unknown, 03/01/18) NAUSEA AT HIGH DOSAGE Shellfish Allergy (Verified Allergy, Unknown, PT HAD ? REACTION AFTER EATING SHELLFISH, 03/01/18) Sulfa Drugs (Unverified Adverse Reaction, Intermediate, GI UPSET, 01/27/15) TAPE (Verified Adverse Reaction, Intermediate, SKIN FRAGILE, 01/27/15) Naproxen (Verified Adverse Reaction, Mild, nausea, 08/24/17) Attending Note Attending Note I have both independently examined this patient as well as reviewed the H and P. I have discussed in detail with the resident the findings and plan of treatment as documented in the resident's note. DAVIE JURADO DO Mar 01, 2018 16:17 DEMETRA CALLES MD Mar 01, 2018 22:27
--- NOTE | 2018-03-01 17:13 | ECGEPIP ---
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
--- NOTE | 2018-03-01 17:16 | ECGEPIP ---
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
[2018-03-01 17:40] LABS: HEMATOCRIT 38.2 % (36.0-47.0); HEMOGLOBIN 13.3 g/dl (12.0-15.5); MEAN CORPUSCULAR HEMOGLOBIN 33.2 pg (27.0-33.0); MEAN CORPUSCULAR HGB CONC 34.8 g/dl (32.0-36.5); MEAN CORPUSCULAR VOLUME 95.3 fl (80.0-96.0); PLATELET COUNT, AUTOMATED 165 10^3/uL (150-450); RED BLOOD COUNT 4.01 10^6/uL (4.00-5.40); WHITE BLOOD COUNT 10.5 10^3/uL (4.0-10.0)
[2018-03-01] MEDS: IPRATROPIUM 0.5MG/ALBUTEROL 2.5MG INH SOL UD 3ML (DUONEB)(J7620) NEB SCH (19:33)
--- NOTE | 2018-03-01 19:49 | ECHO ---
DATE OF PROCEDURE: 03/01/2018 REFERRING PHYSICIAN: Dr. Nick Chan INDICATION: Heart failure, unspecified. HEIGHT: 167 cm. WEIGHT: 61 kg. DESCRIPTION: 1. Rhythm was sinus. Severe left ventricle hypertrophy.(Concentric of each)was present. Associated reduced left ventricular (LV) cavity size due to LVH. Hyperdynamic LV systolic function. LVEF 80% by visual estimate. Grade 1 LV diastolic dysfunction. 2. Moderate mitral annular calcification. Very mild mitral regurgitation. No mitral stenosis. 3. Mild aortic valve sclerosis of a three-cupid aortic valve. Very mild aortic regurgitation. 4. Suggestive of mild elevation of estimated right ventricle systolic pressure (35 mmHg). Normal RV systolic function. 5. Tiny pericardial effusion which measured 3 mm over the posterior base of the each ventricle. No diastolic chamber collapse. 2D MEASUREMENTS: Aortic root: 3.2 cm Left atrium: 3.3 cm Ventricular septum: 1.65 cm Posterior wall: 1.64 cm Left ventricle diastole: 3.0 cm DOPPLER MEASUREMENTS: Very mild aortic regurgitation aortic valve velocity 94.8 cm/s LVOT velocity: 100 cm/s LVOT VTI: 19.2 cm Trace mitral regurgitation. Mitral E velocity: 38.3 cm/s Mitral A velocity: 82.0 cm/s Mitral deceleration time: 363 ms Mild tricuspid regurgitation. Estimated right ventricle systolic pressure 35 mmHg assuming a right atrial pressure of 5 mmHg. Pulmonary artery systolic pressure 30 mmHg by pulmonary acceleration time method. MITRAL ANNULAR TISSUE DOPPLER: E-prime lateral: 5.4 cm/s Rhythm was sinus during the study. Image quality was fair. This is a 2D, M-mode, color flow Doppler and pulse wave Doppler examination including mitral annular tissue Doppler. cc: Benja Saldana MD, FACC Ami Michael DO
[2018-03-01] MEDS ORDERED: ALBUTEROL 90 MCG/ACT 8GM HFA INHALER INH SCH (21:00)
[2018-03-01 21:51] LABS: HEMATOCRIT 40.1 % (36.0-47.0); HEMOGLOBIN 13.9 g/dl (12.0-15.5); MEAN CORPUSCULAR HEMOGLOBIN 32.9 pg (27.0-33.0); MEAN CORPUSCULAR HGB CONC 34.7 g/dl (32.0-36.5); PLATELET COUNT, AUTOMATED 163 10^3/uL (150-450); RED BLOOD COUNT 4.22 10^6/uL (4.00-5.40); WHITE BLOOD COUNT 8.2 10^3/uL (4.0-10.0)
[2018-03-01] MEDS: ESTROGENS VAGINAL CREAM 30GM PV SCH (22:29)
[2018-03-01] MEDS: ISOSORBIDE DIN. (ISORDIL) 5 MG TAB PO PRN (22:30)
[2018-03-01] MEDS: diazePAM 10 MG TAB PO PRN (22:38)
[2018-03-02] MEDS: IPRATROPIUM 0.5MG/ALBUTEROL 2.5MG INH SOL UD 3ML (DUONEB)(J7620) NEB SCH ×4 (02:00→22:53)
[2018-03-02 03:20] LABS: HEMATOCRIT 35.8 % (36.0-47.0); HEMOGLOBIN 12.6 g/dl (12.0-15.5); MEAN CORPUSCULAR HEMOGLOBIN 33.1 pg (27.0-33.0); MEAN CORPUSCULAR HGB CONC 35.2 g/dl (32.0-36.5); PLATELET COUNT, AUTOMATED 157 10^3/uL (150-450); RED BLOOD COUNT 3.81 10^6/uL (4.00-5.40); WHITE BLOOD COUNT 6.5 10^3/uL (4.0-10.0)
[2018-03-02 03:47] LABS: CALCIUM LEVEL 8.2 MG/DL (8.8-10.2); CREATININE FOR GFR 0.96 MG/DL (0.55-1.30); GLOMERULAR FILTRATION RATE 58.8 (>32); POTASSIUM SERUM 3.6 MEQ/L (3.5-5.1)
[2018-03-02] MEDS ORDERED: hydrALAZINE INJ 20 MG/ML VIAL IV STA ×2 (04:15→15:18)
[2018-03-02] MEDS ORDERED: ISOSORBIDE DIN. (ISORDIL) 30 MG TAB PO STA ×2 (04:56→16:23)
[2018-03-02] MEDS: LEVOTHYROXINE 75MCG TABLET (0.075MG) PO SCH (06:00)
[2018-03-02] MEDS: IPRATROPIUM 0.5MG/ALBUTEROL 2.5MG INH SOL UD 3ML (DUONEB)(J7620) NEB PRN ×2 (06:04→12:00)
[2018-03-02 08:09] LABS: HEMATOCRIT 36.1 % (36.0-47.0); HEMOGLOBIN 12.7 g/dl (12.0-15.5); MEAN CORPUSCULAR HEMOGLOBIN 33.5 pg (27.0-33.0); MEAN CORPUSCULAR HGB CONC 35.2 g/dl (32.0-36.5); MEAN CORPUSCULAR VOLUME 95.3 fl (80.0-96.0); PLATELET COUNT, AUTOMATED 165 10^3/uL (150-450); RED BLOOD COUNT 3.79 10^6/uL (4.00-5.40); WHITE BLOOD COUNT 11.3 10^3/uL (4.0-10.0)
[2018-03-02] MEDS: ASCORBIC ACID 500 MG TAB PO SCH (08:54)
[2018-03-02] MEDS: AZITHROMYCIN 250 MG TAB PO SCH (08:54)
[2018-03-02] MEDS: PANTOPRAZOLE 40MG TAB (PROTONIX) PO SCH (08:54)
[2018-03-02] MEDS: MULTIVITAMINS/MINERALS THERAP 1 TAB PO SCH (08:54)
[2018-03-02] MEDS: ENOXAPARIN 30 MG/0.3 ML SYR (J1650) SC SCH (08:56)
[2018-03-02] MEDS: methylPREDNISolone INJ 40 MG/1 ML VIAL (J2920) IV SCH ×2 (10:00→17:43)
[2018-03-02] MEDS: ISOSORBIDE DIN. (ISORDIL) 5 MG TAB PO PRN (13:00)
--- NOTE | 2018-03-02 15:31 | IPNPDOC ---
Text Note Date of Service The patient was seen on 03/02/18. NOTE Subjective: Patient is an 87 year old female with a PMHx of Labile HTN, Carotid endarterectomy, Hypothyroidism, Discoid Lupus, Hx of UTIs (Klebsiella), Ge neralized anxiety disorder, Diverticulosis, OA of hips, who presented to the ER with complaints of shortness of breath and nonproductive cough. Patient went to urgent care and received azithromycin as well as an albuterol inhaler. Patient failed to improve and presented to the ER for further evaluation. In the emergency room, patient was found to have a positive RSV on her respiratory panel. He was admitted to hospitalist service for further evaluation and treatment. Patient was seen and examined at the bedside. . Currently, patient reports that her breathing is doing better than yesterday. She denies any chest pain or palpitations. Denies nausea, vomiting, abdominal pain, constipation, diarrhea or discomfort with urination. Objective: Vitals (See below) General: Lying in bed, no acute distress, comfortable, AAOx3 HEENT: NC, AT CVS: RRR, +S1S2 Lungs: Fair air entry b/l, mild wheezing can be appreciated bilaterally. No evidence of rhonchi, rales Abdomen: Soft, ND, NT Extremities: - Edema, - Calf tenderness Assessment and plan: Shortness of breath - possibly 2/2 RSV infection - Presented to the hospital with complaints of shortness of breath associated with a nonproductive cough - Physical reveals wheezing bilaterally - No significant leukocytosis on admission; no lactic acidosis - Respiratory panel 03/01: Respiratory syncytial virus - Blood cultures 03/01: No growth at 24 hours - CXR 03/01: No acute disease. - c/w Azithromycin for immunomodulatory effect - Will start Solumedrol - s/p IV fluids - c/w inhaled therapy as ordered Elevated troponin - likely 2/2 demand ischemia - She denies any chest pain or palpitations - EKG is without any ischemic changes - Troponin have trended down - Will continue to monitor Leukocytosis - possibly 2/2 corticosteroids - Will continue to monitor Labile HTN - Patient has a very fluctuant blood pressure - Patient indicates that she follows with Dr. Cloud an outpatient - She notes a regimen that includes isosorbide as well as a midodrine given her blood pressure measurements - Adjusted. Blood pressure medications with appropriate holding parameters - Will transfer to PCU for potential IV medication control Diastolic CHF - Patient does not appear to be in any signs of fluid overload - BNP mildly elevated - ECHO 03/01: EF of 80%, grade 1 diastolic dysfunction, moderate mitral annular calcification, mild mitral regurgitation, mild aortic stenosis, mild aortic regurgitation, tiny pericardial effusion - s/p Furosemide 40 IV x 1 dose in ER - c/w strict ins/outs, daily weights - Will continue to monitor Carotid endarterectomy - Will restart ASA Hypothyroidism - c/w Levothyroxine Discoid Lupus - Currently not on any medications Hx of UTI (Klebsiella) Generalized anxiety disorder - c/w Alprazolam PRN Hx of Diverticulosis - No evidence of exacerbation / acute flare OA of hips - c/w Tylenol PRN GI prophylaxis - c/w Protonix DVT prophylaxis - c/w Lovenox VS,Fishbone, I+O VS, Fishbone, I+O Laboratory Tests 03/01/18 17:25 Red Blood Count 4.01, Mean Corpuscular Volume 95.3, Mean Corpuscular Hemoglobin 33.2 H, Mean Corpuscular Hemoglobin Concent 34.8, Red Cell Distribution Width 12.9 03/01/18 21:44 Red Blood Count 4.22, Mean Corpuscular Volume 95.0, Mean Corpuscular Hemoglobin 32.9, Mean Corpuscular Hemoglobin Concent 34.7, Red Cell Distribution Width 12.8 03/02/18 03:10 Red Blood Count 3.81 L, Mean Corpuscular Volume 94.0, Mean Corpuscular Hemoglobin 33.1 H, Mean Corpuscular Hemoglobin Concent 35.2, Red Cell Distribution Width 12.6, Calcium Level 8.2 L 03/02/18 07:59 Red Blood Count 3.79 L, Mean Corpuscular Volume 95.3, Mean Corpuscular Hemo globin 33.5 H, Mean Corpuscular Hemoglobin Concent 35.2, Red Cell Distribution Width 12.8 Vital Signs Date Time Temp Pulse Resp B/P (MAP) Pulse Ox O2 Delivery O2 Flow Rate FiO2 03/02/18 13:00 195/84 03/02/18 10:38 90 96 Nasal Cannula 4.0 03/02/18 09:53 97.6 03/02/18 07:01 16 KAIT ELDRIDGE MD Mar 02, 2018 15:31
[2018-03-02 18:33] LABS: AMORPHOUS SEDIMENT MODERATE (NEGATIVE); APPEARANCE, URINE CLOUDY (CLEAR); BACTERIA, URINE AUTO 2+ (NEGATIVE); BILIRUBIN, URINE AUTO NEGATIVE (NEGATIVE); BLOOD, URINE BLOOD NEGATIVE (NEGATIVE); COLOR, URINE YELLOW (YELLOW); GLUCOSE, URINE (UA) AUTO NEGATIVE (NEGATIVE); KETONE, URINE AUTO NEGATIVE (NEGATIVE); LEUKOCYTE ESTERASE, URINE AUTO NEGATIVE (NEGATIVE); MUCUS, URINE SMALL (NEGATIVE); NITRITE, URINE AUTO NEGATIVE (NEGATIVE); PROTEIN, URINE AUTO NEGATIVE (NEGATIVE); RBC, URINE AUTO 2 /HPF (0-3); SPECIFIC GRAVITY URINE AUTO 1.008 (1.002-1.035); SQUAMOUS EPITHELIAL CELL UR AU 3 /HPF (0-6); UROBILINOGEN, URINE AUTO 0.2 mg/dL (0.0-2.0); WBC, URINE AUTO 2 /HPF (0-3)
[2018-03-02 20:00] VITALS: BP 152/80
[2018-03-02] MEDS: diazePAM 10 MG TAB PO PRN (21:17)
[2018-03-02] MEDS: ESTROGENS VAGINAL CREAM 30GM PV SCH (21:18)
[2018-03-03] VITALS (7 sets, daily range): BP systolic 142–180; BP diastolic 78–100
[2018-03-03] MEDS: methylPREDNISolone INJ 40 MG/1 ML VIAL (J2920) IV SCH ×3 (01:58→17:40)
[2018-03-03] MEDS: IPRATROPIUM 0.5MG/ALBUTEROL 2.5MG INH SOL UD 3ML (DUONEB)(J7620) NEB SCH ×4 (02:40→21:57)
[2018-03-03 05:48] LABS: BASO % 0.1 % (0.0-1.0); HEMATOCRIT 34.1 % (36.0-47.0); HEMOGLOBIN 12.1 g/dl (12.0-15.5); LYMPH # 0.9 10^3/uL (1.5-4.5); LYMPH % 4.8 % (24.0-44.0); MEAN CORPUSCULAR HEMOGLOBIN 33.5 pg (27.0-33.0); MEAN CORPUSCULAR HGB CONC 35.5 g/dl (32.0-36.5); MEAN CORPUSCULAR VOLUME 94.5 fl (80.0-96.0); MONO # 0.5 10^3/uL (0.0-0.8); MONO % 2.9 % (0.0-5.0); NEUTROPHILS # 16.9 10^3/uL (1.8-7.7); NEUTROPHILS % 91.5 % (36.0-66.0); PLATELET COUNT, AUTOMATED 183 10^3/uL (150-450); RED BLOOD COUNT 3.61 10^6/uL (4.00-5.40); WHITE BLOOD COUNT 18.4 10^3/uL (4.0-10.0)
[2018-03-03] MEDS: LEVOTHYROXINE 75MCG TABLET (0.075MG) PO SCH (06:04)
[2018-03-03 06:14] LABS: BLOOD UREA NITROGEN 25 MG/DL (7-18); CALCIUM LEVEL 8.3 MG/DL (8.8-10.2); CARBON DIOXIDE LEVEL 25 MEQ/L (21-32); CHLORIDE LEVEL 87 MEQ/L (98-107); CREATININE FOR GFR 0.87 MG/DL (0.55-1.30); GLOMERULAR FILTRATION RATE > 60.0 (>32); GLUCOSE, FASTING 127 MG/DL (70-100); POTASSIUM SERUM 3.5 MEQ/L (3.5-5.1); SODIUM LEVEL 123 MEQ/L (136-145)
[2018-03-03 08:36] LABS: FREE T4 0.86 NG/DL (0.76-1.46); THYROID STIMULATING HORMONE 1.35 uIU/ML (0.358-3.740)
[2018-03-03] MEDS: ASPIRIN 325 MG TAB PO SCH (08:59)
[2018-03-03] MEDS: PANTOPRAZOLE 40MG TAB (PROTONIX) PO SCH (08:59)
[2018-03-03] MEDS: MULTIVITAMINS/MINERALS THERAP 1 TAB PO SCH (09:00)
[2018-03-03] MEDS: ASCORBIC ACID 500 MG TAB PO SCH (09:00)
[2018-03-03] MEDS: AZITHROMYCIN 250 MG TAB PO SCH (09:00)
[2018-03-03] MEDS ORDERED: FLUBLOK(EGG FREE)(QUAD)INFLUENZA VACC 0.5ML SYRINGE (90682)18YRS&OLDER IM ONE (09:00)
[2018-03-03] MEDS: ENOXAPARIN 30 MG/0.3 ML SYR (J1650) SC SCH (09:02)
[2018-03-03] MEDS ORDERED: SODIUM CHLORIDE NASAL 0.65% SPRAY BTL (OCEAN) PRN (10:30)
[2018-03-03 12:48] LABS: AMORPHOUS SEDIMENT MODERATE (NEGATIVE); APPEARANCE, URINE HAZY (CLEAR); BACTERIA, URINE AUTO 2+ (NEGATIVE); BILIRUBIN, URINE AUTO NEGATIVE (NEGATIVE); BLOOD, URINE BLOOD NEGATIVE (NEGATIVE); COLOR, URINE YELLOW (YELLOW); GLUCOSE, URINE (UA) AUTO NEGATIVE (NEGATIVE); KETONE, URINE AUTO NEGATIVE (NEGATIVE); LEUKOCYTE ESTERASE, URINE AUTO NEGATIVE (NEGATIVE); MUCUS, URINE SMALL (NEGATIVE); NITRITE, URINE AUTO NEGATIVE (NEGATIVE); PROTEIN, URINE AUTO NEGATIVE (NEGATIVE); RBC, URINE AUTO 4 /HPF (0-3); SPECIFIC GRAVITY URINE AUTO 1.005 (1.002-1.035); SQUAMOUS EPITHELIAL CELL UR AU 0 /HPF (0-6); UROBILINOGEN, URINE AUTO 0.2 mg/dL (0.0-2.0); WBC, URINE AUTO 3 /HPF (0-3)
[2018-03-03 13:03] LABS: OSMOLALITY URINE 239 MOSM/KG (500-800)
[2018-03-03 13:14] LABS: CREATININE,RANDOM URINE 34.5 MG/DL; SODIUM,RANDOM URINE < 10 MEQ/L
--- NOTE | 2018-03-03 16:38 | IPNPDOC ---
Text Note Date of Service The patient was seen on 03/03/18. NOTE Subjective: Patient is an 87 year old female with a PMHx of Labile HTN, Carotid endarterectomy, Hypothyroidism, Discoid Lupus, Hx of UTIs (Klebsiella), Ge neralized anxiety disorder, Diverticulosis, OA of hips, who presented to the ER with complaints of shortness of breath and nonproductive cough. Patient went to urgent care and received azithromycin as well as an albuterol inhaler. Patient failed to improve and presented to the ER for further evaluation. In the emergency room, patient was found to have a positive RSV on her respiratory panel. He was admitted to hospitalist service for further evaluation and treatment. Patient was seen and examined at the bedside. Patient is that her breathing is doing better. She denies any chest pain or palpitations. Denies nausea, vomiting, abdominal pain, constipation, diarrhea or discomfort with urination. Objective: Vitals (See below) General: Lying in bed, no acute distress, comfortable, AAOx3 HEENT: NC, AT CVS: RRR, +S1S2 Lungs: Fair air entry b/l, auscultation does reveal mild wheezing (however, improved), no appreciable rhonchi or rales Abdomen: Soft, nondistended, without tenderness Extremities: No LE edema, - Calf tenderness Assessment and plan: Shortness of breath - possibly 2/2 RSV infection - Presented to the hospital with complaints of shortness of breath associated with a nonproductive cough - Physical reveals improved aeration - Leukocytosis, likely result of corticosteroid effect - Respiratory panel 03/01: Respiratory syncytial virus - Blood cultures 03/01: No growth at 48 hours - CXR 03/01: No acute disease. 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 Cloud an outpatient - She notes a regimen that includes isosorbide as well as a midodrine given her blood pressure measurements - c/w adjusted blood pressure medications with appropriate holding parameters Diastolic CHF - Patient does not appear to be in any signs of fluid overload - BNP mildly elevated - ECHO 03/01: EF of 80%, grade 1 diastolic dysfunction, moderate mitral annular calcification, mild mitral regurgitation, mild aortic stenosis, mild aortic regurgitation, tiny pericardial effusion - s/p Furosemide 40 IV x 1 dose in ER - c/w strict ins/outs, daily weights - Will continue to monitor Carotid endarterectomy - c/w ASA Hypothyroidism - c/w Levothyroxine Discoid Lupus - Currently not on any medications Hx of UTI (Klebsiella) Generalized anxiety disorder - c/w Alprazolam PRN Hx of Diverticulosis - No evidence of exacerbation / acute flare OA of hips - c/w Tylenol PRN GI prophylaxis - c/w Protonix DVT prophylaxis - c/w Lovenox VS,Fishbone, I+O VS, Fishbone, I+O Laboratory Tests 03/03/18 04:42 Red Blood Count 3.61 L, Mean Corpuscular Volume 94.5, Mean Corpuscular Hemoglobin 33.5 H, Mean Corpuscular Hemoglobin Concent 35.5, Red Cell Distribution Width 12.5, Neutrophils (%) (Auto) 91.5 H, Lymphocytes (%) (Auto) 4.8 L, Monocytes (%) (Auto) 2.9, Eosinophils (%) (Auto) 0.0, Basophils (%) (Auto) 0.1, Neutrophils # (Auto) 16.9 H, Lymphocytes # (Auto) 0.9 L, Monocytes # (Auto) 0.5, Eosinophils # (Auto) 0.0, Basophils # (Auto) 0.0, Calcium Level 8.3 L 03/03/18 06:48 Vital Signs Date Time Temp Pulse Resp B/P (MAP) Pulse Ox O2 Delivery O2 Flow Rate FiO2 03/03/18 15:48 97.4 87 20 142/92 (109) 94 Room Air 03/03/18 08:00 2.0 I&O- Last 24 Hours up to 6 AM 03/03/18 06:00 Intake Total 840 ml Output Total 1200 ml Balance -360 ml ELDRIDGE,VIJESH MD Mar 03, 2018 16:37
[2018-03-03 18:01] LABS: BLOOD UREA NITROGEN 23 MG/DL (7-18); CALCIUM LEVEL 8.4 MG/DL (8.8-10.2); CARBON DIOXIDE LEVEL 24 MEQ/L (21-32); CHLORIDE LEVEL 88 MEQ/L (98-107); GLOMERULAR FILTRATION RATE > 60.0 (>32); GLUCOSE, FASTING 122 MG/DL (70-100); MAGNESIUM LEVEL 2.2 MG/DL (1.8-2.4); POTASSIUM SERUM 3.9 MEQ/L (3.5-5.1); SODIUM LEVEL 121 MEQ/L (136-145)
[2018-03-03] MEDS: ESTROGENS VAGINAL CREAM 30GM PV SCH (21:00)
[2018-03-03] MEDS: diazePAM 10 MG TAB PO PRN (21:34)
[2018-03-03] MEDS: ISOSORBIDE DIN. (ISORDIL) 5 MG TAB PO PRN (23:57)
[2018-03-04] VITALS (8 sets, daily range): BP systolic 146–210; BP diastolic 60–100
[2018-03-04] MEDS: methylPREDNISolone INJ 40 MG/1 ML VIAL (J2920) IV SCH ×3 (02:00→17:28)
[2018-03-04] MEDS: IPRATROPIUM 0.5MG/ALBUTEROL 2.5MG INH SOL UD 3ML (DUONEB)(J7620) NEB SCH ×4 (02:00→20:49)
[2018-03-04 05:21] LABS: BASO % 0.1 % (0.0-1.0); HEMATOCRIT 31.4 % (36.0-47.0); HEMOGLOBIN 11.1 g/dl (12.0-15.5); LYMPH # 0.8 10^3/uL (1.5-4.5); LYMPH % 4.9 % (24.0-44.0); MEAN CORPUSCULAR HEMOGLOBIN 33.3 pg (27.0-33.0); MEAN CORPUSCULAR HGB CONC 35.4 g/dl (32.0-36.5); MEAN CORPUSCULAR VOLUME 94.3 fl (80.0-96.0); MONO # 0.7 10^3/uL (0.0-0.8); MONO % 4.7 % (0.0-5.0); NEUTROPHILS % 89.7 % (36.0-66.0); PLATELET COUNT, AUTOMATED 184 10^3/uL (150-450); RED BLOOD COUNT 3.33 10^6/uL (4.00-5.40); WHITE BLOOD COUNT 15.6 10^3/uL (4.0-10.0)
[2018-03-04 05:33] LABS: BLOOD UREA NITROGEN 27 MG/DL (7-18); CALCIUM LEVEL 8.1 MG/DL (8.8-10.2); CARBON DIOXIDE LEVEL 25 MEQ/L (21-32); CHLORIDE LEVEL 90 MEQ/L (98-107); CREATININE FOR GFR 0.92 MG/DL (0.55-1.30); GLOMERULAR FILTRATION RATE > 60.0 (>32); GLUCOSE, FASTING 121 MG/DL (70-100); MAGNESIUM LEVEL 2.3 MG/DL (1.8-2.4); POTASSIUM SERUM 4.2 MEQ/L (3.5-5.1); SODIUM LEVEL 124 MEQ/L (136-145)
[2018-03-04] MEDS: LEVOTHYROXINE 75MCG TABLET (0.075MG) PO SCH (05:50)
[2018-03-04] MEDS: PANTOPRAZOLE 40MG TAB (PROTONIX) PO SCH (08:33)
[2018-03-04] MEDS: ASPIRIN 325 MG TAB PO SCH (08:33)
[2018-03-04] MEDS: MULTIVITAMINS/MINERALS THERAP 1 TAB PO SCH (08:33)
[2018-03-04] MEDS: ASCORBIC ACID 500 MG TAB PO SCH (08:33)
[2018-03-04] MEDS: ENOXAPARIN 30 MG/0.3 ML SYR (J1650) SC SCH (08:34)
[2018-03-04 11:56] LABS: CORTISOL BASELINE 16.9 UG/DL (4.3-22.4)
[2018-03-04 11:57] LABS: TOTAL T3 39.2 NG/DL (60.0-181.0)
[2018-03-04] MEDS: DOCUSATE SODIUM 100 MG CAP PO SCH (13:46)
[2018-03-04] MEDS: FLUTICASONE PROP 0.05% NASAL SPRAY 16 GM (FLONASE) NARES SCH (13:46)
--- NOTE | 2018-03-04 13:48 | IPNPDOC ---
Date Seen The patient was seen on 03/04/18. Progress Note Subjective: Patient is an 87 year old female with a PMHx of Labile HTN, Carotid endarterectomy, Hypothyroidism, Discoid Lupus, Hx of UTIs (Klebsiella), Generalized anxiety disorder, Diverticulosis, OA of hips, who presented to the ER with complaints of shortness of breath and nonproductive cough. Patient went to urgent care and received azithromycin as well as an albuterol inhaler. Patient failed to improve and presented to the ER for further evaluation. In the emergency room, patient was found to have a positive RSV on her respiratory panel. He was admitted to hospitalist service for further evaluation and treatment. Patient was seen and examined at the bedside. Patient states that her breathing is doing better. She does have a cough which she says is due to drainage from her sinuses. She denies chest pain, fever, but states she did have night sweats overnight. Objective: Vitals (See below) General: Lying in bed, no acute distress, comfortable, AAOx3 HEENT: NC, AT CVS: RRR, +S1S2 Lungs: Fair air entry b/l, auscultation does not reveal any wheezes, rhonchi, or crackles Abdomen: Soft, nondistended, without tenderness Extremities: No LE edema, - Calf tenderness Assessment and plan: Shortness of breath - possibly 2/2 RSV infection - Presented to the hospital with complaints of shortness of breath associated with a nonproductive cough - Physical reveals improved aeration - Leukocytosis, likely result of corticosteroid effect - Respiratory panel 03/01: Respiratory syncytial virus - Blood cultures 03/01: No growth at 72 hours - CXR 03/01: No acute disease - Will DC Azithromycin - c/w Solumedrol - s/p IV fluids - c/w inhaled therapy as ordered Cough possibly 2/2 post-nasal drip - Start Flonase Elevated troponin - likely 2/2 demand ischemia - She denies any chest pain or palpitations - EKG is without any ischemic changes - Troponin have improved Hyponatremia - likely 2/2 hypotonic hypovolemic etiology - 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 Cloud an outpatient - She notes a regimen that includes isosorbide as well as a midodrine given her blood pressure measurements - c/w adjusted blood pressure medications with appropriate holding parameters Diastolic CHF - Patient does not appear to be in any signs of fluid overload - BNP mildly elevated - ECHO 03/01: EF of 80%, grade 1 diastolic dysfunction, moderate mitral annular calcification, mild mitral regurgitation, mild aortic stenosis, mild aortic regurgitation, tiny pericardial effusion - s/p Furosemide 40 IV x 1 dose in ER - c/w strict ins/outs, daily weights - Will continue to monitor Carotid endarterectomy - c/w ASA Hypothyroidism - c/w Levothyroxine Discoid Lupus - Currently not on any medications Hx of UTI (Klebsiella) Generalized anxiety disorder - c/w Alprazolam PRN Hx of Diverticulosis - No evidence of exacerbation / acute flare OA of hips - c/w Tylenol PRN GI prophylaxis - c/w Protonix DVT prophylaxis - c/w Lovenox Consitpation - Start Colace VS, I&O, 24H, Fishbone Vital Signs/I&O Vital Signs Date Time Temp Pulse Resp B/P (MAP) Pulse Ox O2 Delivery O2 Flow Rate FiO2 03/04/18 12:00 97.2 76 18 152/60 (90) 99 Room Air 03/03/18 08:00 2.0 I&O- Last 24 Hours up to 6 AM 03/04/18 06:00 Intake Total 950 ml Output Total 1250 ml Balance -300 ml Laboratory Data 24H LABS Laboratory Tests 2 03/03/18 17:16: Anion Gap 9, Glomerular Filtration Rate > 60.0, Blood Urea Nitrogen 23H, Creatinine 0.90, Sodium Level 121L, Potassium Level 3.9, Chloride Level 88L, Carbon Dioxide Level 24, Calcium Level 8.4L, Magnesium Level 2.2 03/04/18 04:40: Anion Gap 9, Glomerular Filtration Rate > 60.0, Blood Urea Nitrogen 27H, Creatinine 0.92, Sodium Level 124L, Potassium Level 4.2, Chloride Level 90L, Carbon Dioxide Level 25, Calcium Level 8.1L, Magnesium Level 2.3, Immature Granulocyte % (Auto) 0.6, White Blood Count 15.6H, Red Blood Count 3.33L, Hemoglobin 11.1L, Hematocrit 31.4L, Mean Corpuscular Volume 94.3, Mean Corpuscular Hemoglobin 33.3H, Mean Corpuscular Hemoglobin Concent 35.4, Red Cell Distribution Width 12.5, Platelet Count 184, Neutrophils (%) (Auto) 89.7H, Lymphocytes (%) (Auto) 4.9L, Monocytes (%) (Auto) 4.7, Eosinophils (%) (Auto) 0.0, Basophils (%) (Auto) 0.1, Neutrophils # (Auto) 14.0H, Lymphocytes # (Auto) 0.8L, Monocytes # (Auto) 0.7, Eosinophils # (Auto) 0.0, Basophils # (Auto) 0.0, Nucleated Red Blood Cells % (auto) 0.0 CBC/BMP Laboratory Tests 03/03/18 17:16 Calcium Level 8.4 L 03/04/18 04:40 Calcium Level 8.1 L, Red Blood Count 3.33 L, Mean Corpuscular Volume 94.3, Mean Corpuscular Hemoglobin 33.3 H, Mean Corpuscular Hemoglobin Concent 35.4, Red Cell Distribution Width 12.5, Neutrophils (%) (Auto) 89.7 H, Lymphocytes (%) (Auto) 4.9 L, Monocytes (%) (Auto) 4.7, Eosinophils (%) (Auto) 0.0, Basophils (%) (Auto) 0.1, Neutrophils # (Auto) 14.0 H, Lymphocytes # (Auto) 0.8 L, Monocy prabhakar # (Auto) 0.7, Eosinophils # (Auto) 0.0, Basophils # (Auto) 0.0 Microbiology Microbiology 03/01/18 Blood Culture - Preliminary, Resulted No Growth after 72 hours. All specime... 03/01/18 Blood Culture - Preliminary, Resulted No Growth after 72 hours. All specime... 03/01/18 Respiratory Virus Panel (PCR) ([facility]) - Final, Complete Respiratory Syncytial Virus GME ATTESTATION GME ATTESTATION My faculty preceptor for this patient encounter was physically present during the encounter and was fully available. All aspects of the patient interview, examination, medical decision making process, and medical care plan development were reviewed and approved by the faculty preceptor. The faculty preceptor is aware and concurs with the plan as stated in the body of this note and will attest to such by his/her cosignature. ATTENDING NOTE I, Alfonso Eldridge, have both independently examined this patient as well as reviewed the documentation. I have discussed in detail with the resident the findings and plan of treatment as documented in the residents documentation. I will continue to follow the patient and offer further guidance to the patients care as necessary during this hospital stay. MAXIM GLORIA DO Mar 04, 2018 13:48 ALFONSO ELDRIDGE MD Mar 04, 2018 17:46
[2018-03-04 14:46] LABS: BLOOD UREA NITROGEN 31 MG/DL (7-18); CALCIUM LEVEL 8.1 MG/DL (8.8-10.2); CARBON DIOXIDE LEVEL 23 MEQ/L (21-32); CHLORIDE LEVEL 89 MEQ/L (98-107); CREATININE FOR GFR 0.93 MG/DL (0.55-1.30); GLOMERULAR FILTRATION RATE > 60.0 (>32); GLUCOSE, FASTING 109 MG/DL (70-100); MAGNESIUM LEVEL 2.3 MG/DL (1.8-2.4); POTASSIUM SERUM 4.1 MEQ/L (3.5-5.1); SODIUM LEVEL 123 MEQ/L (136-145)
[2018-03-04] MEDS: ISOSORBIDE DIN. (ISORDIL) 5 MG TAB PO PRN (20:12)
[2018-03-04] MEDS: ESTROGENS VAGINAL CREAM 30GM PV SCH (21:38)
[2018-03-04] MEDS: diazePAM 10 MG TAB PO PRN (21:38)
[2018-03-05] VITALS (7 sets, daily range): BP systolic 182–226; BP diastolic 90–108
[2018-03-05] MEDS: methylPREDNISolone INJ 40 MG/1 ML VIAL (J2920) IV SCH ×2 (01:29→09:27)
[2018-03-05] MEDS: ISOSORBIDE DIN. (ISORDIL) 5 MG TAB PO PRN ×2 (01:43→09:26)
[2018-03-05] MEDS: IPRATROPIUM 0.5MG/ALBUTEROL 2.5MG INH SOL UD 3ML (DUONEB)(J7620) NEB SCH ×2 (02:00→07:51)
[2018-03-05] MEDS: LEVOTHYROXINE 75MCG TABLET (0.075MG) PO SCH (05:47)
[2018-03-05 06:06] LABS: BASO % 0.1 % (0.0-1.0); HEMATOCRIT 30.8 % (36.0-47.0); HEMOGLOBIN 10.9 g/dl (12.0-15.5); LYMPH # 0.7 10^3/uL (1.5-4.5); LYMPH % 5.2 % (24.0-44.0); MEAN CORPUSCULAR HEMOGLOBIN 32.8 pg (27.0-33.0); MEAN CORPUSCULAR HGB CONC 35.4 g/dl (32.0-36.5); MEAN CORPUSCULAR VOLUME 92.8 fl (80.0-96.0); MONO # 0.5 10^3/uL (0.0-0.8); MONO % 4.1 % (0.0-5.0); NEUTROPHILS # 11.3 10^3/uL (1.8-7.7); NEUTROPHILS % 89.6 % (36.0-66.0); PLATELET COUNT, AUTOMATED 206 10^3/uL (150-450); RED BLOOD COUNT 3.32 10^6/uL (4.00-5.40); WHITE BLOOD COUNT 12.6 10^3/uL (4.0-10.0)
[2018-03-05 06:25] LABS: BLOOD UREA NITROGEN 28 MG/DL (7-18); CALCIUM LEVEL 8.2 MG/DL (8.8-10.2); CARBON DIOXIDE LEVEL 26 MEQ/L (21-32); CHLORIDE LEVEL 94 MEQ/L (98-107); CREATININE FOR GFR 0.92 MG/DL (0.55-1.30); GLOMERULAR FILTRATION RATE > 60.0 (>32); GLUCOSE, FASTING 112 MG/DL (70-100); MAGNESIUM LEVEL 2.5 MG/DL (1.8-2.4); POTASSIUM SERUM 4.5 MEQ/L (3.5-5.1); SODIUM LEVEL 128 MEQ/L (136-145)
[2018-03-05] MEDS: ASPIRIN 325 MG TAB PO SCH (09:26)
[2018-03-05] MEDS: PANTOPRAZOLE 40MG TAB (PROTONIX) PO SCH (09:26)
[2018-03-05] MEDS: DOCUSATE SODIUM 100 MG CAP PO SCH (09:26)
[2018-03-05] MEDS: MULTIVITAMINS/MINERALS THERAP 1 TAB PO SCH (09:26)
[2018-03-05] MEDS: ASCORBIC ACID 500 MG TAB PO SCH (09:26)
[2018-03-05] MEDS: ENOXAPARIN 30 MG/0.3 ML SYR (J1650) SC SCH (09:27)
[2018-03-05] MEDS: FLUTICASONE PROP 0.05% NASAL SPRAY 16 GM (FLONASE) NARES SCH (09:27)
[2018-03-05] MEDS ORDERED: PRED10TA2 PO (10:57)
[2018-03-05] MEDS ORDERED: FLON1SPR NARES (17:54)
--- NOTE | 2018-03-05 18:10 | DS.PDOC ---
Discharge Summary General Date of Admission Mar 01, 2018 at 16:26 Date of Discharge 03/05/2018 Primary Care Physician: JIMI ALEGRIA DO Attending Physician: DELMER NAVARRO MD Discharge Summary PROCEDURES PERFORMED DURING STAY: 1. Transthoracic echocardiogram - left ventricular hypertrophy on the grade 1 left ventricular diastolic dysfunction with left ventricular ejection fraction 80%, moderate mitral annular calcification, mild mitral regurgitation, mild aort ic valve sclerosis, very mild aortic regurgitation, mild pulmonary hypertension. ADMITTING DIAGNOSES: 1. Shortness of breath secondary to RSV bronchiolitis. 2. Elevated troponin. 3. Uncontrolled labile hypertension. 4. Elevated BNP without diagnosis of CHF. 5. Hypothyroidism. 6. Anxiety. 7. Vitamin C deficiency. 8. Cutaneous lupus. DISCHARGE DIAGNOSES: 1. RSV bronchiolitis. 2. Labile hypertension. 3. Postnasal drip. 4. Hyponatremia likely secondary to SIADH. 5. Leukocytosis likely secondary to corticosteroid administration. 6. Elevated troponin likely secondary to demand ischemia. 7. Compensated diastolic congestive heart failure with left ventricular ejection fraction 80%. 8. Discoid lupus. 9. Generalized anxiety disorder. 10. Hypothyroidism. COMPLICATIONS/CHIEF COMPLAINT: Labile Essential Hypertension, RSV Bronchitis. HISTORY OF PRESENT ILLNESS: Ms. Grayson is an 87-year-old female who presents with 3 days worth of cough that is nonproductive, breathing difficulty. Patient presented to urgent care and was prescribed a Z-Rober and Ventolin inhaler. Upon returning home, she noticed that her symptoms had gotten worse. She admits to low-grade fever at home that Tylenol helps. She denies nausea, vomiting, diarrhea. She denies any recent travel. She admits to recent sick contacts from her grandkids. On initial presentation, patient was found to be wheezing on physical exam, use of his sensory muscles, with O2 saturation of 87. She was then placed on 2 liters on nasal cannula. Initial EKG was sinus, without any ST elevation, she had a white count of 13.7, sodium of 130, chloride of 94, BNP of 8603, troponin of 0.21, and respiratory panel was positive for RSV. Hospitalist team was called for admission.. HOSPITAL COURSE: Patient was admitted and started on intravenous fluid resuscitation, oxygen support, DuoNeb scheduled and as needed for wheezing. Continued azithromycin for a total of 5 days. Respiratory panel for respiratory syncytial virus. Blood cultures were negative. Started patient on Solu-Medrol which resulted in increase in white blood cell count. Discharged on tapering dose of prednisone. Patient developed hyponatremia likely secondary to SIADH. Fluid restriction implemented. BMP ordered for Sunday. Patient developed cough secondary to postnasal drainage. Fluticasone nasal spray ordered and prescribed at discharge. Obtained an electrocardiogram which did not reveal any ST elevation. Maintain the patient's blood pressure based on chronic management wit h isosorbide dinitrate and midodrine. Obtained a transthoracic echocardiogram with results above. Chronic medical conditions otherwise satisfactorily managed. Patient improved symptomatically throughout hospitalization was stable at time of discharge. DISCHARGE MEDICATIONS: Please see below. ALLERGIES: Please see below. PHYSICAL EXAMINATION ON DISCHARGE: VITAL SIGNS: Please see below. GENERAL: Well-nourished, well-developed female, appropriately dressed in hospital attire, alert and conversant, answers questions appropriately, in no acute distress. HEENT: Atraumatic, normocephalic, PERRL, EOMI, oral mucosa appears pink and moist, nasal septum appears midline, nares are patent. NECK: He is midline, no thyromegaly, no lymphadenopathy. CARDIOVASCULAR EXAMINATION: Regular rate and rhythm, normal S1 and S2, no murmur, rub, click. RESPIRATORY EXAMINATION: Clear to auscultation bilaterally in all lung canales, symmetric air entry, no wheeze, rhonchi, crackles, bronchial signs appreciated on the anterior chest wall listening to the heart. ABDOMINAL EXAMINATION: Soft, nontender, nondistended, no organomegaly, no rebound, no guarding, bowel sounds appreciated. EXTREMITIES: No cyanosis, no clubbing, no peripheral edema, peripheral pulses are equal to medical bilaterally. SKIN: Warm, dry, intact, face appears somewhat flushed. NEUROLOGICAL EXAMINATION: No neurological deficits. PSYCHIATRIC EXAMINATION: Mood and affect appear appropriate. LABORATORY DATA: Please see below. IMAGIN. Chest x-ray, two-view, PA and lateral on 03/01/2018 - no acute disease. PROGNOSIS: Stable. ACTIVITY: Continue with activity as prior to admission and as tolerated. DIET: As prior to admission. DISCHARGE PLAN: Problem: Managing health at home Goal: Improve health & wellness Instructions: Follow DC Instruction DISPOSITION: Home, Self-Care. DISCHARGE INSTRUCTIONS: 1. Follow-up with primary care provider, Dr. Alegria, on 03/14/2018 at 2:45 PM. 2. Follow-up with cardiology, Dr. Saldana, on 03/11/2018 at [address] Saldana's office if blood pressure remains elevated and nonresponsive to isosorbide. 4. Return to the emergency department after symptoms worsen or persist. 5. Obtain a basic metabolic profile on Sunday. 6. Complete tapering dose of prednisone. 7. Use Flonase as needed for postnasal drip. 8. Stopped taking azithromycin. ITEMS TO FOLLOWUP ON ON OUTPATIENT: 1. RSV bronchiolitis. 2. Labile hypertension. DISCHARGE CONDITION: Stable. TIME SPENT ON DISCHARGE: Greater than 30 minutes. Vital Signs/I&Os Vital Signs Date Time Temp Pulse Resp B/P (MAP) Pulse Ox O2 Delivery O2 Flow Rate FiO2 03/05/18 11:04 184/92 (122) 03/05/18 09:07 84 80 97 03/05/18 08:00 97.7 18 92 Room Air 03/03/18 08:00 2.0 I&O- Last 24 Hours up to 6 AM 03/05/18 06:00 Intake Total 600 ml Output Total 1225 ml Balance -625 ml Laboratory Data Labs 24H Laboratory Tests 2 03/05/18 05:35: Immature Granulocyte % (Auto) 1.0, White Blood Count 12.6H, Red Blood Count 3.32L, Hemoglobin 10.9L, Hematocrit 30.8L, Mean Corpuscular Volume 92.8, Mean Corpuscular Hemoglobin 32.8, Mean Corpuscular Hemoglobin Concent 35.4, Red Cell Distribution Width 12.5, Platelet Count 206, Neutrophils (%) (Auto) 89.6H, Lymphocytes (%) (Auto) 5.2L, Monocytes (%) (Auto) 4.1, Eosinophils (%) (Auto) 0.0, Basophils (%) (Auto) 0.1, Neutrophils # (Auto) 11.3H, Lymphocytes # (Auto) 0.7L, Monocytes # (Auto) 0.5, Eosinophils # (Auto) 0.0, Basophils # (Auto) 0.0, Nucleated Red Blood Cells % (auto) 0.0, Anion Gap 8, Glomerular Filtration Rate > 60.0, Blood Urea Nitrogen 28H, Creatinine 0.92, Sodium Level 128L, Potassium Level 4.5, Chloride Level 94L, Carbon Dioxide Level 26, Calcium Level 8.2L, Magnesium Level 2.5H CBC/BMP Laboratory Tests 03/05/18 05:35 Red Blood Count 3.32 L, Mean Corpuscular Volume 92.8, Mean Corpuscular Hemo globin 32.8, Mean Corpuscular Hemoglobin Concent 35.4, Red Cell Distribution Width 12.5, Neutrophils (%) (Auto) 89.6 H, Lymphocytes (%) (Auto) 5.2 L, Monocytes (%) (Auto) 4.1, Eosinophils (%) (Auto) 0.0, Basophils (%) (Auto) 0.1, Neutrophils # (Auto) 11.3 H, Lymphocytes # (Auto) 0.7 L, Monocytes # (Auto) 0.5, Eosinophils # (Auto) 0.0, Basophils # (Auto) 0.0, Calcium Level 8.2 L Microbiology Microbiology 03/01/18 Blood Culture - Preliminary, Resulted No Growth after 72 hours. All specime... 03/01/18 Blood Culture - Preliminary, Resulted No Growth after 72 hours. All specime... 03/01/18 Respiratory Virus Panel (PCR) ([facility]) - Final, Complete Respiratory Syncytial Virus Discharge Medications Scheduled (Calcium 600 + D 600-200 mg-Unit) 1 Tab Tab, 1 TAB PO DAILY, (Reported) Albuterol Sulfate (Ventolin Hfa) 108 Mcg/Act Aer, 2 PUFFS INH QID, (Reported) Ascorbic Acid (Ascorbic Acid) 500 Mg Tab, 500 MG PO DAILY, (Reported) Aspirin (Aspirin) 325 Mg Tab, 325 MG PO DAILY, (Reported) Conjugated Estrogens (Premarin) 1 Dose/30 Gm Cr, 1 DOSE PV QHS, (Reported) ONE-HALF APPLICATORFUL Fluticasone Propionate (Flonase Allergy Relief) 50 Mcg/Act Spr, 2 SPRAY NARES DAILY Levothyroxine Sodium (Synthroid) 75 Mcg Tab, 75 MCG PO DAILY, (Reported) Multivitamins *[facility] STOCKED* (Thera M Plus *[facility] STOCKED*) 1 Tab Tab, 1 TAB PO DAILY, (Reported) Prednisone (Prednisone) 10 Mg Tab, 10 MG PO TAPER Take 4 tabs daily x 3 days, then 3 tabs daily x 3 days, then 2 tabs daily x 3 days, then 1 tab daily x 3 days and stop Scheduled PRN Acetaminophen (Acetaminophen ER) 650 Mg Tab, 650 MG PO Q4H PRN for PAIN / FEVER, (Reported) Chlorphenir/Hydrocod Polistir (Tussionex Pennkinetic Ext 10-8 mg/5Ml) 1 Marleni Marleni, 5 ML PO BID PRN for cough, (Reported) STARTED SUNDAY. Diazepam (Diazepam) 10 Mg Tab, 10 MG PO QHSP PRN for SLEEP, (Reported) Isosorbide Dinitrate (Isosorbide Dinitrate) 5 Mg Tab, 5 MG PO BID PRN for HYPERTENSION, (Reported) PATIENT TAKES BLOOD PRESSURE FOUR TIMES EACH DAY. Midodrine HCl (Midodrine HCl) 10 Mg Tab, 10 MG PO TID PRN for HYPOTENSION, (Reported) PATIENT TAKES BLOOD PRESSURE FOUR TIMES EACH DAY. Allergies Coded Allergies: Amoxicillin (Verified Allergy, Unknown, 03/01/18) NAUSEA AT HIGH DOSAGE Hydralazine (Verified Allergy, Unknown, 03/02/18) RASH Shellfish Allergy (Verified Allergy, Unknown, PT HAD ? REACTION AFTER EATING SHELLFISH, 03/01/18) Sulfa Drugs (Unverified Adverse Reaction, Intermediate, GI UPSET, 01/27/15) TAPE (Verified Adverse Reaction, Intermediate, SKIN FRAGILE, 01/27/15) Naproxen (Verified Adverse Reaction, Mild, nausea, 08/24/17) MAXIM GLORIA DO Mar 05, 2018 18:10
== END 2018-03-05 12:21 | disposition home or self-care (01) | DRG 202 ==
LOC: EDBD 10:14 → M ED 10:14 → M ED INP 16:26 → M PCU 03-02 17:10
PROVIDERS: ADMIT Internal Medicine; ATTEND Internal Medicine
DX: J21.0 Acute bronchiolitis due to respiratory syncytial virus (principal); I50.32 Chronic diastolic (congestive) heart failure; E22.2 Syndrome of inappropriate secretion of antidiuretic hormone; I24.8 Other forms of acute ischemic heart disease; I11.0 Hypertensive heart disease with heart failure; E03.9 Hypothyroidism, unspecified; E55.9 Vitamin D deficiency, unspecified; D72.829 Elevated white blood cell count, unspecified; F41.1 Generalized anxiety disorder; L93.0 Discoid lupus erythematosus; Z79.899 Other long term (current) drug therapy; Z79.82 Long term (current) use of aspirin; Z88.0 Allergy status to penicillin; Z88.2 Allergy status to sulfonamides; Z88.8 Allergy status to other drugs, medicaments and biological substances; Z91.013 Allergy to seafood; M16.0 Bilateral primary osteoarthritis of hip; Z96.641 Presence of right artificial hip joint; K57.30 Diverticulosis of large intestine without perforation or abscess without bleeding

== ENCOUNTER → 2018-03-08 | Outpatient (REF) | payer MEDICARE ==
[~2018-03-08] MED LIST changes: +ACE65ERTAB PO; +AZIT-12 PO; +FLON1SPR NARES; +LEVO75TA4 PO; +PRED10TA2 PO; +TUSS1SUS2 PO; +VENTAER INH
[2018-03-08 16:33] LABS: BASO % 0.2 % (0.0-1.0); EOS # 0.3 10^3/uL (0.0-0.50); EOS % 1.9 % (0.0-3.0); HEMATOCRIT 42.3 % (36.0-47.0); HEMOGLOBIN 14.2 g/dl (12.0-15.5); LYMPH % 21.5 % (24.0-44.0); MEAN CORPUSCULAR HGB CONC 33.6 g/dl (32.0-36.5); MEAN CORPUSCULAR VOLUME 98.4 fl (80.0-96.0); MONO # 1.3 10^3/uL (0.0-0.8); MONO % 9.2 % (0.0-5.0); NEUTROPHILS # 9.2 10^3/uL (1.8-7.7); PLATELET COUNT, AUTOMATED 314 10^3/uL (150-450); WHITE BLOOD COUNT 13.9 10^3/uL (4.0-10.0)
[2018-03-08 16:52] LABS: ALBUMIN 3.4 GM/DL (3.2-5.2); ALT/SGPT 23 U/L (12-78); BILIRUBIN,TOTAL 0.5 MG/DL (0.2-1.0); BLOOD UREA NITROGEN 19 MG/DL (7-18); CALCIUM LEVEL 8.7 MG/DL (8.8-10.2); CARBON DIOXIDE LEVEL 28 MEQ/L (21-32); CHLORIDE LEVEL 95 MEQ/L (98-107); CHOLESTEROL LEVEL 208 MG/DL (<200); CHOLESTEROL RISK RATIO 2.666 (<5); GLOMERULAR FILTRATION RATE > 60.0 (>32); GLUCOSE, FASTING 71 MG/DL (70-100); HDL CHOLESTEROL 78 MG/DL (>40); LDL CHOLESTEROL 115 MG/DL (<100); NON-HDL-C 130 MG/DL; POTASSIUM SERUM 4.3 MEQ/L (3.5-5.1); SODIUM LEVEL 134 MEQ/L (136-145); TOTAL PROTEIN 7.6 GM/DL (6.4-8.2); TRIGLYCERIDES LEVEL 74 MG/DL (<150)
== END ==
LOC: M LABDRAW1 16:00
PROVIDERS: ATTEND Internal Medicine
DX: E03.9 Hypothyroidism, unspecified (principal); I95.1 Orthostatic hypotension; D64.9 Anemia, unspecified; I65.23 Occlusion and stenosis of bilateral carotid arteries; E87.1 Hypo-osmolality and hyponatremia

== ENCOUNTER 2018-04-05 05:24 | Emergency (ER) | payer MEDICARE ==
[~2018-04-05] VITALS: Ht 167.6 cm; Wt 65.5 kg
[2018-04-05 05:44] LABS: VENOUS BASE EXCESS 0.2 (-2.0-2.0); VENOUS HCO3 26.7 MEQ/L (23.0-27.0); VENOUS O2 SATURATION 59.8 % (60.0-80.0); VENOUS PARTIAL PRESSURE CO2 50.2 mmHg (38.0-50.0); VENOUS PARTIAL PRESSURE O2 34.3 mmHg (30.0-50.0); VENOUS PH 7.343 UNITS (7.330-7.430); VENOUS STANDARD HCO3 23.7 MEQ/L; VENOUS TOTAL CO2 28.2 MEQ/L (24.0-28.0)
[2018-04-05] MEDS ORDERED: NS 1,000 ML IV ONE (05:45)
[2018-04-05 05:50] LABS: BASO % 0.4 % (0.0-1.0); EOS # 0.1 10^3/uL (0.0-0.50); EOS % 1.7 % (0.0-3.0); HEMATOCRIT 40.3 % (36.0-47.0); HEMOGLOBIN 13.6 g/dl (12.0-15.5); LYMPH # 1.4 10^3/uL (1.5-4.5); LYMPH % 18.8 % (24.0-44.0); MEAN CORPUSCULAR HEMOGLOBIN 32.9 pg (27.0-33.0); MEAN CORPUSCULAR HGB CONC 33.7 g/dl (32.0-36.5); MEAN CORPUSCULAR VOLUME 97.6 fl (80.0-96.0); MONO # 0.7 10^3/uL (0.0-0.8); MONO % 10.2 % (0.0-5.0); NEUTROPHILS # 4.9 10^3/uL (1.8-7.7); NEUTROPHILS % 68.5 % (36.0-66.0); PLATELET COUNT, AUTOMATED 239 10^3/uL (150-450); RED BLOOD COUNT 4.13 10^6/uL (4.00-5.40); WHITE BLOOD COUNT 7.2 10^3/uL (4.0-10.0)
--- NOTE | 2018-04-05 06:09 | REPVR ---
EXAM: CT Head Without Contrast EXAM DATE/TIME: 04/05/2018 5:32 AM CLINICAL HISTORY: 87 years old, female; Signs and symptoms; Altered mental status/memory loss TECHNIQUE: Axial computed tomography images of the head/brain without contrast. All CT scans at this facility use at least one of these dose optimization techniques: automated exposure control; mA and/or kV adjustment per patient size (includes targeted exams where dose is matched to clinical indication); or iterative reconstruction. COMPARISON: CT Head without contrast 08/24/2017 4:56 AM FINDINGS: Brain: There is patchy periventricular and subcortical white matter hypoattenuation without mass effect. Ventricles: There is age-related cerebral atrophy with secondary ventricular dilatation. Bones/joints: Unremarkable. No acute fracture. Sinuses: Visualized sinuses are unremarkable. No acute sinusitis. Mastoid air cells: Visualized mastoid air cells are unremarkable. No mastoid effusion. Soft tissues: Unremarkable. Vasculature: There is significant calcification the carotid arteries in their cavernous portion. IMPRESSION: 1. No CT evidence of intracranial hemorrhage, mass effect or midline shift no enlarged acute territorial infarct. 2. Age-related cerebral atrophy with chronic microangiopathic changes, grossly unchanged since 08/24/2017. Electronically signed by: Arvin Begum On 04/05/2018 06:08:51 AM
[2018-04-05 06:22] LABS: ACETAMINOPHEN LEVEL < 2.0 UG/ML (10.0-30.0); ALBUMIN 3.3 GM/DL (3.2-5.2); ALT/SGPT 10 U/L (12-78); BILIRUBIN,DIRECT 0.2 MG/DL (0.0-0.2); BILIRUBIN,TOTAL 0.5 MG/DL (0.2-1.0); BLOOD UREA NITROGEN 10 MG/DL (7-18); CARBON DIOXIDE LEVEL 26 MEQ/L (21-32); CHLORIDE LEVEL 99 MEQ/L (98-107); CK-MB VALUE MASS < 1.0 NG/ML (<3.6); CPK CREATINE PHOSPHOKINASE 29 U/L (26-192); CREATININE FOR GFR 0.91 MG/DL (0.55-1.30); ETHYL ALCOHOL (ETHANOL) < 0.003 % (0.000-0.010); GLOMERULAR FILTRATION RATE > 60.0 (>32); GLUCOSE, FASTING 111 MG/DL (70-100); MB/CK RELATIVE INDEX 3.45 (< OR =4); POTASSIUM SERUM 3.3 MEQ/L (3.5-5.1); SALICYLATE LEVEL < 1.7 MG/DL (5.0-30.0); SODIUM LEVEL 135 MEQ/L (136-145); TOTAL PROTEIN 6.7 GM/DL (6.4-8.2); TROPONIN I 0.02 NG/ML (< 0.10)
[2018-04-05] MEDS ORDERED: CIPR250T3 PO (07:46)
[2018-04-05] MEDS ORDERED: SYNT75TA PO (07:46)
[2018-04-05] MEDS ORDERED: BENA25CA4 PO (07:46)
[2018-04-05] MEDS ORDERED: LIDOCAINE 2% 5ML JELLY UROJET TOP ONE (08:45)
--- NOTE | 2018-04-05 08:47 | REP ---
Chest x-ray: Two frontal views. History: Altered mental status. Comparison study: March 01, 2018. Findings: There is bibasilar linear fibrosis versus fibro atelectatic change. This is more prominent on the right that appears unchanged. The lungs overall are hyperinflated. Heart is not enlarged. The aorta is calcific and tortuous. Pulmonary vasculature is not increased. EKG electrodes are seen. No significant bony abnormality is seen. Impression: Bibasilar linear densities consistent with fibrosis versus atelectasis. Otherwise no acute disease. Electronically Signed by Mingo Mcnally MD 04/05/2018 08:38 A
[2018-04-05 10:11] LABS: AMPHETAMINES LEVEL URINE NEGATIVE (NEGATIVE); BARBITURATES URINE NEGATIVE (NEGATIVE); BENZODIAZEPINES URINE POSITIVE (NEGATIVE); CANNABINOIDS URINE NEGATIVE (NEGATIVE); COCAINE METABOLITE URINE NEGATIVE (NEGATIVE); METHADONE URINE NEGATIVE (NEGATIVE); OPIATES URINE NEGATIVE (NEGATIVE); PHENCYCLIDINE URINE NEGATIVE (NEGATIVE)
[2018-04-05 10:20] VITALS: BP 194/75
[2018-04-05] MEDS ORDERED: HYDR-3363 PO (10:33)
--- NOTE | 2018-04-05 13:17 | ECGEPIP ---
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
== END 2018-04-05 11:32 | disposition home or self-care (01) ==
LOC: M ED 05:24
DX: R55 Syncope and collapse (principal); I10 Essential (primary) hypertension; K57.30 Diverticulosis of large intestine without perforation or abscess without bleeding; Z87.440 Personal history of urinary (tract) infections; F41.1 Generalized anxiety disorder; M19.90 Unspecified osteoarthritis, unspecified site; Z79.82 Long term (current) use of aspirin; Z79.899 Other long term (current) drug therapy; Z88.0 Allergy status to penicillin; Z88.2 Allergy status to sulfonamides; Z88.8 Allergy status to other drugs, medicaments and biological substances; Z91.89 Other specified personal risk factors, not elsewhere classified; Z91.013 Allergy to seafood

== ENCOUNTER 2018-04-07 09:04 | Inpatient (IN) | payer MEDICARE ==
[~2018-04-07] VITALS: Ht 167.6 cm; Wt 61.3 kg
[~2018-04-07 09:04] MED LIST changes: +BENA25CA4 PO; +CIPR250T3 PO; +HYDR-3363 PO; +SYNT75TA PO; +methylPREDNISolone INJ 125 MG/2 ML VIAL (J2930) IV SCH
[2018-04-07 10:36] LABS: BASO % 0.8 % (0.0-1.0); EOS % 0.8 % (0.0-3.0); HEMATOCRIT 39.1 % (36.0-47.0); HEMOGLOBIN 13.2 g/dl (12.0-15.5); LYMPH # 0.8 10^3/uL (1.5-4.5); LYMPH % 15.8 % (24.0-44.0); MEAN CORPUSCULAR HEMOGLOBIN 32.4 pg (27.0-33.0); MEAN CORPUSCULAR HGB CONC 33.8 g/dl (32.0-36.5); MEAN CORPUSCULAR VOLUME 96.1 fl (80.0-96.0); MONO # 0.7 10^3/uL (0.0-0.8); MONO % 13.1 % (0.0-5.0); NEUTROPHILS # 3.4 10^3/uL (1.8-7.7); NEUTROPHILS % 69.1 % (36.0-66.0); PLATELET COUNT, AUTOMATED 210 10^3/uL (150-450); RED BLOOD COUNT 4.07 10^6/uL (4.00-5.40)
[2018-04-07] MEDS ORDERED: ISOSORBIDE DIN. (ISORDIL) 5 MG TAB PO ONE (11:00)
[2018-04-07 11:04] LABS: INR 1.17; PARTIAL THROMBOPLASTIN TIME 28.9 SECONDS (25.4-37.6); PROTHROMBIN TIME 15.1 SECONDS (12.1-14.4)
[2018-04-07 11:10] LABS: ALT/SGPT 10 U/L (12-78); BILIRUBIN,DIRECT 0.2 MG/DL (0.0-0.2); BILIRUBIN,TOTAL 0.4 MG/DL (0.2-1.0); BLOOD UREA NITROGEN 7 MG/DL (7-18); CALCIUM LEVEL 8.2 MG/DL (8.8-10.2); CARBON DIOXIDE LEVEL 27 MEQ/L (21-32); CHLORIDE LEVEL 100 MEQ/L (98-107); CK-MB VALUE MASS < 1.0 NG/ML (<3.6); CPK CREATINE PHOSPHOKINASE 35 U/L (26-192); CREATININE FOR GFR 0.82 MG/DL (0.55-1.30); FREE T4 1.54 NG/DL (0.76-1.46); GLOMERULAR FILTRATION RATE > 60.0 (>32); GLUCOSE, FASTING 88 MG/DL (70-100); LIPASE 143 U/L (73-393); MB/CK RELATIVE INDEX 2.86 (< OR =4); NT-PRO BNP 4364 PG/ML (<450); POTASSIUM SERUM 3.2 MEQ/L (3.5-5.1); SODIUM LEVEL 135 MEQ/L (136-145); TOTAL PROTEIN 6.8 GM/DL (6.4-8.2); TROPONIN I 0.03 NG/ML (< 0.10)
[2018-04-07] MEDS ORDERED: ISOVUE-370 76% 100ML VIAL (Q9967) As Ordered ONE (11:33)
--- NOTE | 2018-04-07 11:36 | REP ---
CHEST, SINGLE VIEW: AP view of the chest is performed. Bibasilar fibrotic scarring is unchanged. There is no new infiltrate. Heart is normal in size and there is calcification of the thoracic aorta. Mediastinal silhouette is unchanged. IMPRESSION: Stable chronic findings without acute infiltrate. Electronically Signed by Oscar Mcgrath MD 04/07/2018 07:01 P
--- NOTE | 2018-04-07 12:28 | REP ---
CT BRAIN WITHOUT IV CONTRAST: CT brain performed without IV contrast and compared to a prior study of 04/05/2018. Once again there is moderate atrophy. There is no midline shift of mass effect. There are mild to moderate periventricular small vessel ischemic changes. There is no acute intracranial hemorrhage. There is no extra-axial fluid collection. Vascular calcifications are seen in the carotid siphons. IMPRESSION: Atrophy and small vessel ischemic changes. No acute midline shift, mass effect, or hemorrhage. Electronically Signed by Oscar Mcgrath MD 04/07/2018 07:03 P
[2018-04-07 12:56] LABS: C REACTIVE PROTEIN QUANTITATIV 1.09 MG/DL (0.00-0.30); COMPLEMENT C3 111 MG/DL (90-180); COMPLEMENT C4 23 MG/DL (10-40); RHEUMATOID FACTOR QUANT < 10.0 IU/ML (<15.0)
[2018-04-07] MEDS ORDERED: PERCOCET 5MG/325MG TAB PO PRN ×2 (13:45)
--- NOTE | 2018-04-07 14:18 | REP ---
CT ANGIOGRAM OF THE CHEST: TECHNIQUE: Axial contrast enhanced images from the thoracic inlet to the upper abdomen using 100 mL Isovue 370 intravenous contrast material with multiplanar reformations. There is no CT evidence of pulmonary embolism. There is no thoracic aortic aneurysm or dissection with moderate atherosclerotic calcification of the thoracic aorta. Heart is slightly enlarged. There is mild pericardial fluid. No pleural fluid is seen. There is no adenopathy in the chest. Mild patchy densities in each lung base represent mild patchy bibasilar atelectasis/infiltrate. There are other scattered areas of pleural and parenchymal scarring appearing similar to the prior CT of 05/29/2016. There are degenerative changes of the spine. IMPRESSION: No CT evidence of pulmonary embolism or aortic dissection. Mild cardiomegaly and pericardial fluid. Mild patchy bibasilar atelectasis/infiltrate. Electronically Signed by Oscar Mcgrath MD 04/07/2018 07:07 P
--- NOTE | 2018-04-07 14:23 | REP ---
CT ABDOMEN AND PELVIS WITH IV CONTRAST: TECHNIQUE: Axial contrast enhanced images from the lung bases to the pubic symphysis using 100 mL Isovue 370 intravenous contrast material with multiplanar reformations. Liver demonstrates diffuse fatty infiltration with a small cyst in the right lobe of the liver. Gallbladder is not well distended, but appears grossly unremarkable. I do not see significant biliary dilatation. Spleen, adrenals, and pancreas are unremarkable. There is no hydronephrosis bilaterally. There is a tiny cyst in the upper pole of the left kidney. There is no abdominal aortic aneurysm. There is no adenopathy, free air or free fluid. No bowel wall thickening is seen. There is colonic diverticulosis predominantly involving the sigmoid and left colon. No acute diverticulitis is noted. Urinary bladder is grossly unremarkable. There is streak artifact limiting evaluation of the pelvic structures from a metallic right hip prosthesis. There are degenerative changes of the spine. IMPRESSION: No acute abnormalities detected. No free air or free fluid. Sigmoid diverticulosis without evidence of acute diverticulitis. Fatty infiltration of the liver. Electronically Signed by Oscar Mcgrath MD 04/07/2018 07:07 P
--- NOTE | 2018-04-07 14:40 | HPEPDOC ---
[facility] Medical History & Physical Date of Admission Apr 07, 2018 History and Physical CHIEF COMPLAINT: CHEST PAIN HISTORY OF PRESENT ILLNESS: This is an 87 yo female with multiple comorbidities who presented to the ED for disseminated rash and chest pain from her throat to pelvis.Patient was recently dx with RSV infection and was started on steroids which was tapered off few days after. Patient noted that after the steroids ended she started having a erythematous rash on her left thigh then it spread to the rest of body. She spoke to her banquet captain about this who recommended to start benadryl; however that was unsuccessful, she came to ED today because she start having chest pain from her throat to he pelvis area. She denied fever, chills, sob, wheezes , headache or blurred vision. PAST MEDICAL HISTORY: last admission - RSV virus 1. Labile hypertension. 2. Orthostasis. 3. Diverticulitis. 4. Recurrent urinary tract infection with Klebsiella. 5. Discoid lupus erythematosus. 6. Hypertension without heart failure. 7. Carotid artery disease with carotid endarterectomy. 8. Generalized anxiety disorder. 9. Osteoarthritis of the hips PAST SURGICAL HISTORY: 1. Right hip replacement. 2. Total hysterectomy. SOCIAL HISTORY: Retired, lives alone, most of them was in [place]. Denies alcohol. Denies drugs. Denies cigarette smoking. Patient's daughter is Ankita Early, phone number [phone] FAMILY HISTORY: Mother had CVA, father had CAD, family history is positive for [place] ALLERGIES: Please see below. REVIEW OF SYSTEMS: All 14 points ROS is negative except what's stated in HPI PHYSICAL EXAMINATION: GEN: no acute distress HEENT : no lymphadenopathy, PERRLA , no oropharyngeal erythema or exudates CVS: Normal S1/s2, no murmurs, rubs or gallops, RESP: Lungs are clear to auscultation bilaterally, no crackles, wheezes or rhonchi Abd: soft, nontender, nondistended, + BS MSK: full ROM, 5/5 strength in all extremities - some weakness in her left leg strength 4/5 Integumentary: disseminated erythematous nonblanching rashes, no bruises Neuro: AOAx3, left leg weakness psych: normal mood, good judgement and cooperative -EKG - no acute findings, unchanged, sinus rhythm at 91 bpm labs see below images - CXR , CT brain - no acute process CTA and CT abd - mild cardiomegaly and pericardial fluid. basilar infiltrate./atelectasis Assessment and Plan Rashes, chest pain (throat to pelvis), intermittent left sided weakness - unsure of etiology but could be 2/2 viral examthem vs lyme dz, vs Iga vasculitis f/u DsDNA, ELIU, RF. C3, 4 and CH50, lyme maría blot and IgA f/u crp and esr f/u procal f/u rheum consult - pls call tomorrow - not available today monitor off abx will start systemic steroids calamyne lotion for itching c/w contact isolation for now ID consult - paged waiting for call back - pls f./u neuro consult for left sided weakness paged waiting for call back - pls f./u will start 60mg of iv steroids with GI ppx Labile hypertension: Uncontrolled If patient's blood pressure is elevated, above 180 systolic ,please give patient 5 mg of isosorbide dinitrate. If patient's blood pressure is below 115 systolic. Please give patient Midodrine 10 mg. this is for patient's labile hypertension. Patient has been using this regimen for several years and completely understands it. When in doubt, please defer to patient's wishes. --Nursing order place with above instructions. Elevated BNP - Recently dx diastolic HF -- last echo EF of 80% , with diastolic dysfxn --BNP of 4000 On presentation, patient does not appear to be fluid overloaded. --c/w lasix 40mg daily Hypothyroidism Continue home meds Anxiety. On as needed valium. Vitamin C deficiency. On vitamin C daily. Cutaneous Lupus please consult parcel post carrier tomorrow - she is not probation worker schedule today f/u dsdna./eliu will start pain on 60mg of steroids daily dvt ppx - scd gi ppx - protonix full code , from home Vital Signs Vital Signs Date Time Temp Pulse Resp B/P (MAP) Pulse Ox O2 Delivery O2 Flow Rate FiO2 04/07/18 13:00 92 140/61 (87) 95 Room Air 04/07/18 09:21 97.8 19 Laboratory Data Labs 24H Laboratory Tests 2 04/07/18 10:20: Immature Granulocyte % (Auto) 0.4, White Blood Count 5.0, Red Blood Count 4.07, Hemoglobin 13.2, Hematocrit 39.1, Mean Corpuscular Volume 96.1H, Mean Corpuscular Hemoglobin 32.4, Mean Corpuscular Hemoglobin Concent 33.8, Red Cell Distribution Width 12.6, Platelet Count 210, Neutrophils (%) (Auto) 69.1H, L ymphocytes (%) (Auto) 15.8L, Monocytes (%) (Auto) 13.1H, Eosinophils (%) (Auto) 0.8, Basophils (%) (Auto) 0.8, Neutrophils # (Auto) 3.4, Lymphocytes # (Auto) 0.8L, Monocytes # (Auto) 0.7, Eosinophils # (Auto) 0.0, Basophils # (Auto) 0.0, Nucleated Red Blood Cells % (auto) 0.0, Prothrombin Time 15.1H, Prothromb Time International Ratio 1.17, Activated Partial Thromboplast Time 28.9, Anion Gap 8, Glomerular Filtration Rate > 60.0, Calcium Level 8.2L, Aspartate Amino Transf (AST/SGOT) 22, Alanine Aminotransferase (ALT/SGPT) 10L, Alkaline Phosphatase 69, Total Bilirubin 0.4, Direct Bilirubin 0.2, Total Creatine Kinase 35, Creatine Kinase MB < 1.0, Creatine Kinase MB Relative Index 2.86, Troponin I 0.03, C- Reactive Protein, Quantitative 1.09H, RD-Xac-X-Type Natriuretic Peptide 4364H, Total Protein 6.8, Albumin 3.0L, Albumin/Globulin Ratio 0.79L, Lipase 143, Thyroid Stimulating Hormone (TSH) 1.170, Free Thyroxine 1.54H, Rheumatoid Factor < 10.0, Complement C3 111, Complement C4 23 04/07/18 12:49: Erythrocyte Sedimentation Rate 24 CBC/BMP Laboratory Tests 04/07/18 10:20 Red Blood Count 4.07, Mean Corpuscular Volume 96.1 H, Mean Corpuscular Hemoglo bin 32.4, Mean Corpuscular Hemoglobin Concent 33.8, Red Cell Distribution Width 12.6, Neutrophils (%) (Auto) 69.1 H, Lymphocytes (%) (Auto) 15.8 L, Monocytes (%) (Auto) 13.1 H, Eosinophils (%) (Auto) 0.8, Basophils (%) (Auto) 0.8, Neutrophils # (Auto) 3.4, Lymphocytes # (Auto) 0.8 L, Monocytes # (Auto) 0.7, Eosinophils # (Auto) 0.0, Basophils # (Auto) 0.0 Microbiology Microbiology 04/07/18 Blood Culture, Received Pending 04/07/18 Blood Culture, Received Pending Home Medications Scheduled (Calcium 600 + D 600-200 mg-Unit) 1 Tab Tab, 1 TAB PO DAILY Ascorbic Acid (Ascorbic Acid) 500 Mg Tab, 500 MG PO DAILY Aspirin (Aspirin) 325 Mg Tab, 325 MG PO DAILY Conjugated Estrogens (Premarin) 1 Dose/30 Gm Cr, 1 DOSE PV QHS ONE-HALF APPLICATORFUL Levothyroxine Sodium (Synthroid) 75 Mcg Tab, 75 MCG PO DAILY Multivitamins *[facility] STOCKED* (Thera M Plus *[facility] STOCKED*) 1 Tab Tab, 1 TAB PO DAILY Scheduled PRN Acetaminophen (Acetaminophen ER) 650 Mg Tab, 650 MG PO Q4H PRN for PAIN / FEVER Diazepam (Diazepam) 10 Mg Tab, 10 MG PO QHSP PRN for SLEEP Isosorbide Dinitrate (Isosorbide Dinitrate) 5 Mg Tab, 5 MG PO BID PRN for HYPERTENSION PATIENT TAKES BLOOD PRESSURE FOUR TIMES EACH DAY. Midodrine HCl (Midodrine HCl) 10 Mg Tab, 10 MG PO TID PRN for HYPOTENSION PATIENT TAKES BLOOD PRESSURE FOUR TIMES EACH DAY. Allergies Coded Allergies: Hydralazine (Verified Allergy, Mild, RASH, 04/07/18) Shellfish Allergy (Verified Allergy, Unknown, PT HAD ? REACTION AFTER EATING SHELLFISH, 03/01/18) TAPE (Verified Adverse Reaction, Intermediate, SKIN FRAGILE, 01/27/15) Amoxicillin (Verified Adverse Reaction, Mild, NAUSEA AT HIGH DOSAGE, 04/07/18) Diphenhydramine (Unverified Adverse Reaction, Mild, SEVERE NAUSEA/DIAR HHEA, 04/07/18) Naproxen (Verified Adverse Reaction, Mild, nausea, 08/24/17) Sulfa Drugs (Unverified Adverse Reaction, Mild, GI UPSET, 04/07/18) LD AUGUSTE MD Apr 07, 2018 13:46
[2018-04-07] MEDS ORDERED: methylPREDNISolone INJ 40 MG/1 ML VIAL (J2920) IV SCH (15:00)
--- NOTE | 2018-04-07 17:49 | REP ---
CAROTID ULTRASOUND: Real-time ultrasound evaluation and duplex Doppler interrogation of the extracranial carotid vasculature is performed. There is moderate plaquing and narrowing in both carotid bulbs extending into the internal and external carotid arteries. Luminal narrowing is less than 50%. There is no evidence of hemodynamically significant stenosis of either internal carotid artery. Normal flow velocities are seen. The vertebral arteries demonstrate normal direction of flow. RIGHT LEFT Peak systolic velocity ICA 112.5 cm/s 95.6 cm/s End diastolic velocity ICA 14.1 cm/s 19.5 cm/s Peak systolic velocity CCA 164.9 cm/s 175.8 cm/s Peak systolic velocity ECA 135.5 cm/s 224.88 cm/s ICA/CCA ratio 0.68 0.54 IMPRESSION: Bilateral luminal narrowing of the internal carotid arteries less than 50%. No evidence of hemodynamically significant stenosis. Electronically Signed by Oscar Mcgrath MD 04/07/2018 05:40 P
[2018-04-07] MEDS: ISOSORBIDE DIN. (ISORDIL) 5 MG TAB PO PRN (18:46)
[2018-04-07 19:20] VITALS: BP 230/140
[2018-04-07 19:30] VITALS: BP 230/140
[2018-04-07 19:40] VITALS: BP 190/110
--- NOTE | 2018-04-07 19:43 | ECGEPIP ---
Stationary ECG Study [facility] - ED Test Date: 2018-04-07 Pat Name: TREVER STEWARD Department: Room: - Gender: F Direct Sales Consultant: EYAL : [id number] Requested By: Tracie Bauer Order Number: [id number] Reading MD: Tracie Bauer Measurements Intervals [place] Rate: 91 P: 80 HI: 150 QRS: -4 QRSD: 85 T: 67 QT: 379 QTc: 467 Interpretive Statements SINUS RHYTHM WITH OCCASIONAL SUPRAVENTRICULAR PREMATURE COMPLEXES VOLTAGE CRITERIA FOR LVH AND ST T WAVE CHANGES - Left ventricular hypertrophyVS ISCHEMIA NONSPECIFIC T ISCHEMIA NONSPECIFIC T-WAVE ABNORMALITY LEFTWARD AXIS DELAYED R WAVE PROGRESSION PROLONGED QTC CW 04/05/18 RATE INCREASED Electronically Signed On 04-07-2018 19:43:16 EST by Tracie Bauer
[2018-04-07] MEDS: PANTOPRAZOLE 40MG TAB (PROTONIX) PO SCH (19:55)
[2018-04-07] MEDS: SENOKOT S TAB PO SCH (19:55)
[2018-04-07] MEDS: ACETAMINOPHEN TAB 650MG DOSE (2X325MG) PO PRN (19:59)
[2018-04-07] MEDS ORDERED: diphenhydrAMINE INJ 50MG/ML VIAL (J1200) IV ONE (20:30)
[2018-04-07] MEDS: ESTROGENS VAGINAL CREAM 30GM PV SCH (21:00)
[2018-04-07] MEDS ORDERED: amLODIPine 10 MG TAB PO ONE (21:15)
[2018-04-07 21:30] VITALS: BP 188/110
[2018-04-07 22:00] VITALS: BP 180/110
[2018-04-07 22:07] VITALS: BP 180/110
--- NOTE | 2018-04-07 22:44 | IPNPDOC ---
Date Seen The patient was seen on 04/07/18. Progress Note Rapid assessment was called at about 10:05 PM on account of Ms. Kenan Berry, who was admitted today with labile hypertension and been worked up for possible viral exanthem, versus Lyme disease. She was said to have had inability to move her left lower extremity unsure if this also affected her left upper extremity. However, at time of examination, patient was found back to baseline. Patient reports that this is not new to her. This happens to her as home to that when this happens, she simply falls to the ground and then waits until she can get herself back up. She had a CT brain that was negative for any acute event done today. Patient came up to the unit with systolic blood pressure 200 to 230, and we had earlier started to slowly bring down her blood pressure. Exam VITAL SIGNS: pulse 91, blood pressure 188/110, GENERAL APPEARANCE: Elderly woman, lying calmly in bed, not in any apparent distress. She is communicative, no apparent neurological deficits. Assessment It is Likely this patient has hypertensive emergency at this time and goal is to slowly bring down her blood pressure at least into the range systolic BP between 160 and 180. Further subsequent reduction of her blood pressure can continue in the a.m. tomorrow Plan Patient received a dose of amlodipine 10 mg already. Repeat blood pressure and goal to start Coreg 12.5 mg twice a day keep systolic BP between 160 and 180 for now. We will continue cardiac monitoring. In the event of a repeat episode. We will send patient for a CTA of head and neck. Continue current medical treatment. VS, I&O, 24H, Fishbone Vital Signs/I&O Vital Signs Date Time Temp Pulse Resp B/P (MAP) Pulse Ox O2 Delivery O2 Flow Rate FiO2 04/07/18 22:07 102 18 180/110 99 04/07/18 18:11 98.4 Room Air Laboratory Data 24H LABS Laboratory Tests 2 04/07/18 10:20: Immature Granulocyte % (Auto) 0.4, White Blood Count 5.0, Red Blood Count 4.07, Hemoglobin 13.2, Hematocrit 39.1, Mean Corpuscular Volume 96.1H, Mean Corpuscular Hemoglobin 32.4, Mean Corpuscular Hemoglobin Concent 33.8, Red Cell Distribution Width 12.6, Platelet Count 210, Neutrophils (%) (Auto) 69.1H, Lymphocytes (%) (Auto) 15.8L, Monocytes (%) (Auto) 13.1H, Eosinophils (%) (Auto) 0.8, Basophils (%) (Auto) 0.8, Neutrophils # (Auto) 3.4, Lymphocytes # (Auto) 0.8L, Monocytes # (Auto) 0.7, Eosinophils # (Auto) 0.0, Basophils # (Auto) 0.0, Nucleated Red Blood Cells % (auto) 0.0, Prothrombin Time 15.1H, Prothromb Time International Ratio 1.17, Activated Partial Thromboplast Time 28.9, Anion Gap 8, Glomerular Filtration Rate > 60.0, Calcium Level 8.2L, Aspartate Amino Transf (AST/SGOT) 22, Alanine Aminotransferase (ALT/SGPT) 10L, Alkaline Phosphatase 69, Total Bilirubin 0.4, Direct Bilirubin 0.2, Total Creatine Kinase 35, Creatine Kinase MB < 1.0, Creatine Kinase MB Relative Index 2.86, Troponin I 0.03, C- Reactive Protein, Quantitative 1.09H, [place]-Ain-K-Type Natriuretic Peptide 4364H, Total Protein 6.8, Albumin 3.0L, Albumin/Globulin Ratio 0.79L, Lipase 143, Thyroid Stimulating Hormone (TSH) 1.170, Free Thyroxine 1.54H, Rheumatoid Factor < 10.0, Complement C3 111, Complement C4 23 04/07/18 12:19: 04/07/18 12:49: Erythrocyte Sedimentation Rate 24 CBC/BMP Laboratory Tests 04/07/18 10:20 Red Blood Count 4.07, Mean Corpuscular Volume 96.1 H, Mean Corpuscular Hemoglobin 32.4, Mean Corpuscular Hemoglobin Concent 33.8, Red Cell Distribution Width 12.6, Neutrophils (%) (Auto) 69.1 H, Lymphocytes (%) (Auto) 15.8 L, Monocytes (%) (Auto) 13.1 H, Eosinophils (%) (Auto) 0.8, Basophils (%) (Auto) 0.8, Neutrophils # (Auto) 3.4, Lymphocytes # (Auto) 0.8 L, Monocytes # (Auto) 0.7, Eosinophils # (Auto) 0.0, Basophils # (Auto) 0.0 Microbiology Microbiology 04/07/18 Blood Culture, Received Pending 04/07/18 Blood Culture, Received Pending LANDON KAYE MD Apr 07, 2018 22:44
[2018-04-07] MEDS: CARVedilol 12.5 MG TAB PO SCH (23:47)
[2018-04-08] VITALS (7 sets, daily range): BP systolic 93–174; BP diastolic 58–86
[2018-04-08] MEDS: LEVOTHYROXINE 75MCG TABLET (0.075MG) PO SCH (05:41)
[2018-04-08 06:14] LABS: BASO % 1.1 % (0.0-1.0); EOS # 0.1 10^3/uL (0.0-0.50); EOS % 3.2 % (0.0-3.0); HEMOGLOBIN 11.8 g/dl (12.0-15.5); LYMPH # 0.8 10^3/uL (1.5-4.5); LYMPH % 27.6 % (24.0-44.0); MEAN CORPUSCULAR HEMOGLOBIN 31.9 pg (27.0-33.0); MEAN CORPUSCULAR HGB CONC 32.8 g/dl (32.0-36.5); MEAN CORPUSCULAR VOLUME 97.3 fl (80.0-96.0); MONO # 0.4 10^3/uL (0.0-0.8); MONO % 15.1 % (0.0-5.0); NEUTROPHILS # 1.5 10^3/uL (1.8-7.7); NEUTROPHILS % 52.6 % (36.0-66.0); PLATELET COUNT, AUTOMATED 199 10^3/uL (150-450); WHITE BLOOD COUNT 2.8 10^3/uL (4.0-10.0)
[2018-04-08 06:43] LABS: CALCIUM LEVEL 7.8 MG/DL (8.8-10.2); CREATININE FOR GFR 0.98 MG/DL (0.55-1.30); GLOMERULAR FILTRATION RATE 57.4 (>32); MAGNESIUM LEVEL 1.9 MG/DL (1.8-2.4); POTASSIUM SERUM 3.3 MEQ/L (3.5-5.1)
[2018-04-08] MEDS: ASPIRIN 325 MG TAB PO SCH (08:44)
[2018-04-08] MEDS: MULTIVITAMINS/MINERALS THERAP 1 TAB PO SCH (08:44)
[2018-04-08] MEDS: PANTOPRAZOLE 40MG TAB (PROTONIX) PO SCH (08:44)
[2018-04-08] MEDS: SENOKOT S TAB PO SCH ×3 (08:48→21:17)
[2018-04-08] MEDS: CARVedilol 12.5 MG TAB PO SCH ×2 (08:48→21:18)
[2018-04-08] MEDS: predniSONE 20 MG TAB PO SCH (09:00)
[2018-04-08] MEDS ORDERED: CARVedilol 12.5 MG TAB PO SCH (09:00)
[2018-04-08] MEDS: MIDODRINE 5 MG TAB PO PRN (12:05)
[2018-04-08] MEDS: diazePAM 10 MG TAB PO PRN (14:14)
[2018-04-08] MEDS ORDERED: PROHANCE 279.3MG/ML 15ML VIAL (A9576) As Ordered ONE (14:44)
--- NOTE | 2018-04-08 15:21 | IPN ---
DATE: 04/08/2018 SUBJECTIVE: The patient tells me she is feeling well at the present time. She denies any physical complaints at this moment. Overnight events, she is able to tell me that she had an episode, where she was on the toilet, where she began to have weakness and shakiness in her left leg causing her to fall to her left. At which point, a rapid assessment team was called. At present time, she tells me that her symptoms are resolved. OBJECTIVE: Vital signs: Temperature is 96.8, pulse 65, respiratory rate 16, blood pressure 103/58, oxygen saturation 94% on room air. General: She is a very pleasant, articulate, elderly female, sitting up in bed, speaking in complete sentences, awake, alert, oriented times three. She is a very reliable historian. She does not appear to be in any acute distress whatsoever. HEENT: Moist mucous membranes and no elevation in central venous pressure (CVP). Cardiovascular Exam: S1, S2, regular. Respiratory exam is fairly clear. Abdominal exam was benign. Extremities: No cyanosis or edema. She has diffuse erythematous flaking rash over all four extremities which is nonblanching. LABORATORY STUDIES: WBC 2.8, hemoglobin 11.8, platelet count 199. ESR is 24. Chemistry panel: Sodium 137, potassium 3.3, chloride 101, bicarbonate 27, BUN 11, creatinine 0.9. CRP is 1.0. TSH is within normal limits. Procalcitonin is negative. Rheumatoid factor is negative. Component levels are C3, C4 are within normal limits. Lyme screen is pending. Blood cultures are negative. IMAGING: The patient did have a carotid ultrasound that revealed bilateral luminal narrowing of the internal carotid artery less than 50%. No hemodynamically significant stenosis. She had a CT scan of the abdomen and pelvis that revealed no acute abnormalities and no free air. She did have sigmoid diverticulosis without evidence of diverticulitis. She did have some fatty infiltration of the liver. She had a CT angiography of her chest that revealed no evidence of pulmonary embolism (PE) or dissection. Mild patchy bibasilar atelectasis or infiltrate. She also did have a CT scan of her head that revealed that atrophy and small vessel ischemic changes. ASSESSMENT AND PLAN: This is an 87-year-old female who returns to the hospital with episodes of weakness. PROBLEMS: 1. Weakness predominantly in the left lower extremity. She describes shakiness and loss of motor strength and has had this almost exclusive while she is using the toilet. This happened for the last several months. She has spoken about it with her shank piece tacker, Dr. Saldana, who thought it might have been related to her labile blood pressures and orthostasis. However, it did not upon standing but rather when she remains sitting. She is unable to maintain balance on a commode or a toilet. An MRI/MRA of the brain and the carotids have been ordered. I have also ordered an MRI of the spine as well. A neurology consult has been placed. They have ensured me that they will be seeing the patient. I have ordered the patient physical therapy (PT) and occupational therapy (OT) in addition to this. The etiology is not immediately clear. We will check a B12 level. She does have some macrocytosis. Please note that since this happened on the toilet there was some thought that this could have been a vagal response. However, she does not appear to have loss consciousness during any of the episodes. While she is in hospital, we will monitor closely for this. 2. Diffuse erythema. At this time, I would not call it explicitly erythroderma. However, she does have fairly diffuse erythema and rash for the last, approximately 2 weeks. She tells me it is flaking and beginning to improve and is no longer as pruritic. I did recommend she try taking Solu-Medrol. However, the patient has declined this. She feels though the steroids may have caused her rash since the rash came on at approximately the same time. She was tapering her steroids. I did explain to her that I feel that the steroids if anything may have been playing a protective role from the rash and that when she sees them it may have emerged at that time and not necessarily been the cause for it. We will attempt to contact dermatology consult and provide with her with low dose prednisone. She does not have significant eosinophilia. She does have a history of discoid lupus. However, she tells me that this is not how it typically presents for her. 3. Chest pain. Based on her symptoms and it was substernal, lasted only 5 minutes and was associated with indigestion and passage of gas, I suspect it was more likely related to gastroesophageal reflux disease than to any cardiac issue and she has been monitored on telemetry without event. She has a set of cardiac enzymes which are negative. I will check a second set to definitively rule her out. She may be able to come off telemetry as early as tomorrow, and she is on a proton pump inhibitor (PPI) at this time and has no further symptoms. 4. Menopausal symptoms. She is currently on estrogen and this could certainly increase her risk of transient ischemic attack (TIA) or cerebrovascular accident (CVA). I do not think this is what happened, but it certainly if the MRI returns positive would discontinue this. 5. Hypothyroidism. Thyroid-stimulating hormone (TSH) within normal limits. Continue with levothyroxine. 6. Hypertension. Continue with Coreg and isosorbide dinitrate. She has labile blood pressures and also episodic hypotension. Says she is on midodrine three times a day as needed, hypotension, which she normally follows with Dr. Saldana regarding. 7. Insomnia. She is normally on diazepam at home. This is currently held. 8. Deep venous thrombosis (DVT) prophylaxis. Thromboembolism deterrents (TEDs) and sequentials. DISPOSITION: Pending her clinical improvement.
[2018-04-08 18:22] LABS: TROPONIN I 0.03 NG/ML (< 0.10)
--- NOTE | 2018-04-08 18:35 | REP ---
MRA BRAIN WITHOUT CONTRAST: HISTORY: Left side weakness. 3D [id number] MR angiography was performed at the level of the [place]. COMPARISON: 07/06/2010. Mild atherosclerotic disease involves the cavernous and supraclinoid internal carotid arteries, middle cerebral artery trifurcations and posterior cerebral arteries. Moderate atherosclerotic disease involves the A1 segment of the right anterior cerebral artery. Mild atherosclerotic disease involves the distal right vertebral artery. The distal left vertebral artery is not seen. This is secondary to severe stenosis , occlusion or aplasia. 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 There is collateral blood flow to the posterior cerebral arteries via the posterior communicating arteries. The remaining major intracranial vessels are patent. IMPRESSION:1. There is no aneurysm or arteriovenous malformation. 2. 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 Electronically Signed by Anmol Granado MD 04/09/2018 07:58 A
--- NOTE | 2018-04-08 18:44 | REP ---
MR BRAIN WITHOUT CONTRAST: HISTORY: Left side weakness. COMPARISON: MR 07/06/[address] 04/07/2018. An area of increased signal intensity on T2 weighted images is present in the left thalamus. This represents an old lacunar infarction. Areas of increased signal intensity on T2 weighted images are present in the periventricular and subcortical white matter. This represents small vessel ischemic disease. There is no intraparenchymal hemorrhage, acute infarct mass, or midline shift. The ventricular system and cortical sulci as well as subarachnoid space and the posterior fossa are dilated consistent with mild volume loss. There is no extracerebral collection. The sinuses are clear. IMPRESSION:1. 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 2. Small vessel ischemic disease. 3. Mild volume loss. Electronically Signed by Anmol Granado MD 04/09/2018 07:58 A
--- NOTE | 2018-04-08 19:16 | REP ---
MR CERVICAL SPINE WITHOUT CONTRAST: HISTORY: Left side weakness. A small central disc protrusion is present at the C3-4 level. There is minimal effacement of the thecal sac without spinal cord compression. The C3 neural foramina are patent. A disc bulge is present at the C4-5 level. There is minimal effacement of the thecal sac without spinal cord compression. The C4 neural foramina are patent. A disc bulge with associated osteophyte formation is present at the C5-6 level. There is mild effacement of the thecal sac without spinal cord compression. Bilateral uncinate process hypertrophy is present. This produces minimal and mild narrowing of the right and left C5 neural foramina respectively. A small central disc protrusion is present at the C6-7 level. There is minimal effacement of the thecal sac without spinal cord compression. The C6 neural foramina are patent. There is no other disc bulge or herniation. The remaining neural foramina are patent. The spinal cord is normal in signal intensity. The C4-5 and C5-6 intervertebral discs are decreased in height consistent with disc degeneration. Normal signal intensity is present in the cervical vertebral bodies. IMPRESSION:There is cervical spondylosis at the C3-4 through C6-7 levels without spinal cord compression. Electronically Signed by Anmol Granado MD 04/09/2018 07:59 A
[2018-04-08] MEDS: ESTROGENS VAGINAL CREAM 30GM PV SCH (21:18)
[2018-04-09] MEDS: LEVOTHYROXINE 75MCG TABLET (0.075MG) PO SCH (05:43)
[2018-04-09 05:44] VITALS: BP_SYST 170; BP_SYST 189; BP_DIAS 92; BP_DIAS 93
[2018-04-09 06:00] VITALS: BP 189/93
[2018-04-09] MEDS: ISOSORBIDE DIN. (ISORDIL) 5 MG TAB PO PRN (06:07)
[2018-04-09 07:02] LABS: BASO % 0.6 % (0.0-1.0); EOS # 0.1 10^3/uL (0.0-0.50); EOS % 1.9 % (0.0-3.0); HEMATOCRIT 36.5 % (36.0-47.0); HEMOGLOBIN 12.6 g/dl (12.0-15.5); LYMPH # 0.8 10^3/uL (1.5-4.5); LYMPH % 14.6 % (24.0-44.0); MEAN CORPUSCULAR HEMOGLOBIN 32.2 pg (27.0-33.0); MEAN CORPUSCULAR HGB CONC 34.5 g/dl (32.0-36.5); MEAN CORPUSCULAR VOLUME 93.4 fl (80.0-96.0); MONO # 0.6 10^3/uL (0.0-0.8); MONO % 11.1 % (0.0-5.0); NEUTROPHILS # 3.8 10^3/uL (1.8-7.7); NEUTROPHILS % 71.2 % (36.0-66.0); PLATELET COUNT, AUTOMATED 202 10^3/uL (150-450); RED BLOOD COUNT 3.91 10^6/uL (4.00-5.40); WHITE BLOOD COUNT 5.3 10^3/uL (4.0-10.0)
[2018-04-09 07:19] LABS: BLOOD UREA NITROGEN 15 MG/DL (7-18); CARBON DIOXIDE LEVEL 28 MEQ/L (21-32); CHLORIDE LEVEL 99 MEQ/L (98-107); CREATININE FOR GFR 0.86 MG/DL (0.55-1.30); GLOMERULAR FILTRATION RATE > 60.0 (>32); GLUCOSE, FASTING 85 MG/DL (70-100); MAGNESIUM LEVEL 1.8 MG/DL (1.8-2.4); POTASSIUM SERUM 3.2 MEQ/L (3.5-5.1); SODIUM LEVEL 134 MEQ/L (136-145)
[2018-04-09] MEDS ORDERED: POTASSIUM CHLORIDE 10 MEQ SR TABLET PO ONE (08:00)
--- NOTE | 2018-04-09 08:35 | REP ---
MRA CAROTIDS WITHOUT AND WITH CONTRAST: HISTORY: Left sided weakness. CONTRAST: ProHance 12 mL. Unenhanced 3D [id number] and contrast enhanced MR angiography were performed at the level of the carotid bifurcations. The patient appears to be status post right carotid endarterectomy. There is mild stenosis of 35% of the distal right common carotid artery immediately proximal to the endarterectomy. The endarterectomy is patent. There is no significant stenosis at the origin of the right internal carotid artery. There is mild stenosis of 20% of the right external carotid artery at its origin. The distal left common carotid artery and origins of the left external and internal carotid arteries are normal. 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 There is reconstitution of the right vertebral artery at the level of the right carotid bifurcation. Mild to moderate atherosclerotic disease involves the right vertebral artery. The right vertebral artery is dominant. Mild atherosclerotic disease involves the left vertebral artery. IMPRESSION: 1. The patient appears to be status post right carotid endarterectomy. The endarterectomy is patent. 2. 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 Mild to moderate atherosclerotic disease involves the right vertebral artery. 3. Mild atherosclerotic disease involves the left vertebral artery. Electronically Signed by Anmol Granado MD 04/09/2018 08:44 A
[2018-04-09] MEDS: PANTOPRAZOLE 40MG TAB (PROTONIX) PO SCH (08:39)
[2018-04-09] MEDS: ASPIRIN 325 MG TAB PO SCH (08:39)
[2018-04-09] MEDS: MULTIVITAMINS/MINERALS THERAP 1 TAB PO SCH (08:39)
[2018-04-09] MEDS: CARVedilol 12.5 MG TAB PO SCH ×2 (08:39→20:57)
[2018-04-09] MEDS: SENOKOT S TAB PO SCH ×2 (08:40→20:58)
[2018-04-09] MEDS: predniSONE 20 MG TAB PO SCH (09:00)
[2018-04-09] MEDS: MIDODRINE 5 MG TAB PO PRN ×2 (10:00→15:02)
[2018-04-09 10:01] VITALS: BP 82/56
--- NOTE | 2018-04-09 10:10 | CR ---
DATE OF CONSULTATION: 04/08/2018 REASON FOR CONSULTATION: Is intermittent left-sided weakness with shaking episode, possible focal motor seizure. The patient is an 87-year-old female with a past medical history significant for uncontrolled labile hypertension, hypotension, probable underlying dysautonomia, with symptoms of sudden weakness of the left lower extremity with shaking progressing to the whole body resulting in a collapse. During these episodes, the patient has checked her blood pressure. Her blood pressure can drop from 150 down to 80 systolic. The patient recovers afterwards. The patient has not had any generalized tonic-clonic seizure. The patient is currently under the care of Dr. Benja Saldana. MRI of the brain was completed. The official report at the time of the patient evaluation was not available. Upon my independent review, the patient was noted to have an acute stroke involving the left basal ganglia. Later, the MRI report came back as negative for an acute stroke. I had a discussion with Dr. Anmol Granado, the reading radiologist, who agreed that the stroke is evident, and a corrected dictation will be provided for the radiological report. The patient did have MRA carotids, which reveals occlusion of the right vertebral artery with reconstitution of the level of the right carotid bifurcation. Mild to moderate atherosclerotic disease involving the right vertebral artery was noted. Mild atherosclerotic disease involving the left vertebral artery was noted. The patient appears to be status post right carotid endarterectomy. The endarterectomy is patent. There is mild stenosis 35% of the distal right common carotid artery immediately proximal to the endarterectomy. There is no significant stenosis origin of the right internal carotid artery. There is mild stenosis of 20% of the right external carotid artery. The distal left common carotid artery and origins of the left external and internal carotid arteries were normal. The patient was placed on aspirin 325 mg therapy since this admission. Likely, this dose can be reduced down to 81 mg to be taken every day. The patient should remain on statin therapy. The patient currently is not treated with statin therapy. Atorvastatin 40 mg daily can be added. Systolic blood pressures can remain 140-180 over the next 72 hours. The patient will need to wear compression stockings to prevent significant sudden decline in blood pressure with her dysautonomia. Electroencephalogram (EEG) would be beneficial to rule out any seizure. PAST MEDICAL HISTORY: Labile hypertension, orthostatic hypotension, diverticulitis, recurrent urinary tract infections with Klebsiella, discoid lupus erythematosus, hypertension without heart failure, carotid artery disease status post carotid endarterectomy on the right, generalized anxiety disorder, osteoarthritis of the hips. PAST SURGICAL HISTORY: Right hip replacement, total hysterectomy. SOCIAL HISTORY: The patient to denies use of tobacco, alcohol, or illicit drugs. FAMILY HISTORY: Mother with stroke. Father with coronary artery disease. ALLERGIES: AMOXICILLIN, DIPHENHYDRAMINE, HYDRALAZINE, NAPROXEN, SHELLFISH ALLERGY, SULFA DRUGS, TAPE. REVIEW OF SYSTEMS: 14-point review of systems obtained and is negative except as per history of present illness (HPI). PHYSICAL EXAMINATION: Blood pressure is 174/80, pulse rate 69, respiratory rate is 17, oxygenation is 96% on room air, temperature is 97.1 degrees Fahrenheit. Current height is 5 feet 6 inches. Current weight is 61.3 kg. The patient is awake, alert, oriented to person, place, and time. Speech, language, comprehension, and repetition are intact. Pupils are 3 mm, round, reactive to light. Extraocular movements are intact in all directions. Sensation V1, V2, V3 is intact to light touch. No facial asymmetry to activation. Palate elevates symmetrically. Tongue is midline. No weakness of sternocleidomastoids bilaterally. There is no pronator drift. Strength is 5/5, including bilateral deltoids, biceps, triceps, handgrip, iliopsoas, quadriceps, anterior tibialis. Deep tendon reflexes are 2s throughout. Babinski signs are absent. Sensory is intact to light touch in all four extremities. Coordination: Normal [id number] without any signs of ataxia or dysmetria. Gait deferred. ASSESSMENT: 1. 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 Likely resulting from uncontrolled hypertension. 2. Abnormal involuntary movement of the left lower extremity resulting in spread to the entire body. Possible focal motor seizure with secondary generalization. 3. Possible orthostatic hypotension causing hypoperfusion resulting in abnormal involuntary movement and episodes of near syncope and syncope. PLAN: 1. Obtain EEG. 2. Continue aspirin, however, can reduce dosage to 81 mg by mouth every day unless cardiology wants her to remain on a higher dosage. 3. Start atorvastatin 40 mg by mouth every day. 4. Obtain echocardiogram. 5. Continue telemetry monitoring. 6. MR angiogram of the carotids and head already completed. 7. Physical therapy (PT) and occupational therapy (OT) evaluation. History obtained from both the patient the patient's friend at bedside.
[2018-04-09 11:34] LABS: C REACTIVE PROTEIN QUANTITATIV 0.87 MG/DL (0.00-0.30)
--- NOTE | 2018-04-09 12:18 | REP ---
MR THORACIC SPINE WITHOUT CONTRAST: HISTORY: Left side weakness. A disc bulge is present at the T12-L1 level. There is minimal effacement of the thecal sac without spinal cord compression. The T12 neural foramina are patent. There is no other disc bulge or herniation. The remaining neural foramina are patent. The spinal cord is normal in signal intensity. There are old compression fractures of the T5 and T8-10 vertebral bodies with minimal height loss. Normal signal intensity is present in the thoracic vertebral bodies. IMPRESSION:Disc bulge at the T12-L1 level without spinal cord compression. Electronically Signed by Anmol Granado MD 04/09/2018 07:59 A
--- NOTE | 2018-04-09 12:19 | REP ---
MRI LUMBAR SPINE WITHOUT CONTRAST: HISTORY: Lower extremity weakness. Decreased signal intensity on T2 weighted is present in the L1-2 through L5-S1 intervertebral discs. The L2-3 through L4-5 intervertebral discs are decreased in height. These findings are consistent with disc degeneration. A diffuse disc bulge is present at the L1-2 level. There is minimal compression of the thecal sac. The L1 nerves exit the neural foramina without compression. A diffuse disc bulge is present at the L2-3 level. There is hypertrophy of the ligamenta flava and posterior articulating facets. These findings produce minimal central canal stenosis. The L2 nerves exit the neural foramina without compression. A diffuse disc bulge and small disc protrusion central and eccentric to the right are present at the L3-4 level. There is hypertrophy of the ligamenta flava and posterior articulating facets. There are 2 mm of retrolisthesis of L3 on 4. These findings produce mild central canal stenosis. The L3 nerves exit the neural foramina without compression. A diffuse disc bulge is present at the L4-5 level. There is hypertrophy of the ligamenta flava and posterior articulating facets. These findings produce mild central canal stenosis. The L4 nerves exit the neural foramina without compression. A diffuse disc bulge is present at the L5-S1 level. There is minimal compression of the thecal sac. There is hypertrophy of the posterior articulating facets. The L5 nerves exit the neural foramina without compression. The conus medullaris is normal in appearance terminating at the level of the T12-L1 intervertebral discs . Increased signal intensity on T2-weighted images is present in the end plates of the L2-4 vertebral bodies. This represents degenerative change. There is scoliosis convex to the left. IMPRESSION: 1. Diffuse disc bulges at the L1-2 and L5-S1 levels with minimal thecal sac compression. 2. Minimal central canal stenosis at the L2-3 level secondary to disc bulge, ligamentous, and facet hypertrophy. 3. Mild central canal stenosis at the L3-4 level secondary to disc bulge, disc protrusion, ligamentous and facet hypertrophy and retrolisthesis. 4. Mild central canal stenosis at the L4-5 level secondary to disc bulge, ligamentous and facet hypertrophy. Electronically Signed by Anmol Granado MD 04/09/2018 08:01 A
[2018-04-09 14:30] VITALS: BP_SYST 134; BP_SYST 158; BP_DIAS 74; BP_DIAS 76
--- NOTE | 2018-04-09 19:49 | IPNPDOC ---
Text Note Date of Service The patient was seen on 04/09/18. NOTE Subjective: Patient is an 87 year old female with a PMHx of Labile HTN, Carotid endarterectomy, Hypothyroidism, Discoid Lupus, Hx of UTIs (Klebsiella), G eneralized anxiety disorder, Diverticulosis, OA of hips, who presented to the ER with complaints of frequent falls and complaints of left sided weakness. Patient was admitted to the hospitalist service for further evaluation and treatment. Patient was seen and examined at the bedside. Patient notes that her BP has been much more labile than usual. She denies any CP, SOB or palpitations. Denies any N/V, abdominal pain, C/D. Has not complained of any urinary discomfort this morning. Objective: Vitals (See below) General: Lying in bed, no acute distress, comfortable, AAOx3 HEENT: NC, AT CVS: RRR, +S1S2 Lungs: Fair air entry b/l,-w/r/r Abdomen: Soft, nondistended, without tenderness Extremities: No LE edema, - Calf tenderness Skin: Erythematous skin rash diffusely over arms / legs, chest back - non- blanching, non-itching Assessment and plan: Lower extremity weakness, predominately on left leg - possibly 2/2 acute CVA - Physical does not reveal any significant weakness - MRA Brain 04/09: 1. There is no aneurysm or arteriovenous malformation. 2. 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 - MRI Brain 04/09: 1. 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 2. Small vessel ischemic disease. 3. Mild volume loss. 4. A punctate focus of increased signal intensity on diffusion weighted images is present in the left basal ganglia. This is decreased in signal intensity on ADCimages and is consistent with an acute infarction. - Cervical MRI 04/09: There is cervical spondylosis at the C3-4 through C6-7 levels without spinal cord compression. - Cervical MRA 04/09: 1. The patient appears to be status post right carotid endarterectomy. The endarterectomy is patent. 2. 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 Mild to moderate atherosclerotic disease involves the right vertebral artery. 3. Mild atherosclerotic disease involves the left vertebral artery. - Will continue with physical therapy outpatient therapy - EEG pending an ECHO complete; report pending - c/w Atorvastatin 40, ASA 81 - c/w Telemetry monitoring - Neurology on consultation; appreciate their input Diffuse erythema - Has occurred after completion of Prednisone - Patient is a rash to prednisone; over possible that prednisone has provided her protective mechanism and rash has cleared after discontinuation - Elevated ESR / CRP - Discussed with patient about considering starting Prednisone for controlling rash - currently is refusing s/p Atypical chest pain - likely 2/2 GI etiology - EKG without ischemic changes - Troponin negative - c/w Atorvastatin and ASA s/p RSV infection - s/p Prednisone taper as an outpatient Labile HTN - possibly 2/2 adrenal insufficiency - Patient has a very fluctuant blood pressure - Patient indicates that she follows with Dr. Saldana as an outpatient - She notes a regimen that includes isosorbide as well as a midodrine given her blood pressure measurements - c/w adjusted blood pressure medications with appropriate holding parameters - Baseline cortisol level low - Will check cosyntropin stimulation test Diastolic CHF - Patient does not appear to be in any signs of fluid overload - ECHO 03/01: EF of 80%, grade 1 diastolic dysfunction, moderate mitral annular calcification, mild mitral regurgitation, mild aortic stenosis, mild aortic regurgitation, tiny pericardial effusion - c/w strict ins/outs, daily weights - Will continue to monitor Carotid endarterectomy - c/w ASA Hypothyroidism - c/w Levothyroxine Discoid Lupus - Currently not on any medications Hx of UTI (Klebsiella) Generalized anxiety disorder - c/w Alprazolam PRN Hx of Diverticulosis - No evidence of exacerbation / acute flare OA of hips - c/w Tylenol PRN GI prophylaxis - c/w Protonix DVT prophylaxis - c/w Lovenox VS,Fishbone, I+O VS, Fishbone, I+O Laboratory Tests 04/09/18 05:27 Red Blood Count 3.91 L, Mean Corpuscular Volume 93.4, Mean Corpuscular Hemoglobin 32.2, Mean Corpuscular Hemoglobin Concent 34.5, Red Cell Distribution Width 12.7, Neutrophils (%) (Auto) 71.2 H, Lymphocytes (%) (Auto) 14.6 L, Monocytes (%) (Auto) 11.1 H, Eosinophils (%) (Auto) 1.9, Basophils (%) (Auto) 0.6, Neutrophils # (Auto) 3.8, Lymphocytes # (Auto) 0.8 L, Monocytes # (Auto) 0.6, Eosinophils # (Auto) 0.1, Basophils # (Auto) 0.0, Calcium Level 8.0 L Vital Signs Date Time Temp Pulse Resp B/P (MAP) Pulse Ox O2 Delivery O2 Flow Rate FiO2 04/09/18 14:30 72 158/76 (103) 80 134/74 (94) 04/09/18 06:00 98.5 17 98 04/07/18 18:11 Room Air I&O- Last 24 Hours up to 6 AM 04/09/18 06:00 Intake Total 800 ml Output Total 400 ml Balance 400 ml KAIT ELDRIDGE MD Apr 09, 2018 19:49
[2018-04-09] MEDS: CIPROFLOXACIN 250 MG TAB PO SCH (20:57)
[2018-04-09] MEDS: ESTROGENS VAGINAL CREAM 30GM PV SCH (20:58)
[2018-04-09] MEDS: diazePAM 10 MG TAB PO PRN (20:58)
[2018-04-09 22:00] VITALS: BP_SYST 168; BP_SYST 173; BP_SYST 93; BP_DIAS 61; BP_DIAS 98; BP_DIAS 99
[2018-04-10 00:11] LABS: COMPLEMENT TOTAL (CH50) > 60 U/mL (>41)
[2018-04-10] MEDS ORDERED: COSYNTROPIN 0.25 MG/ML VIAL (J0834 PER 0.25MG) IV ONE (05:00)
[2018-04-10] MEDS: CIPROFLOXACIN 250 MG TAB PO SCH ×2 (05:30→17:43)
[2018-04-10] MEDS: LEVOTHYROXINE 75MCG TABLET (0.075MG) PO SCH (05:30)
[2018-04-10 06:00] VITALS: BP_SYST 107; BP_SYST 148; BP_SYST 154; BP_DIAS 62; BP_DIAS 87
[2018-04-10] MEDS: MIDODRINE 5 MG TAB PO PRN ×2 (06:04→14:23)
[2018-04-10 06:30] LABS: BASO % 0.3 % (0.0-1.0); EOS % 0.8 % (0.0-3.0); HEMOGLOBIN 12.4 g/dl (12.0-15.5); LYMPH # 0.6 10^3/uL (1.5-4.5); LYMPH % 15.6 % (24.0-44.0); MEAN CORPUSCULAR HEMOGLOBIN 32.4 pg (27.0-33.0); MEAN CORPUSCULAR HGB CONC 34.4 g/dl (32.0-36.5); MONO # 0.5 10^3/uL (0.0-0.8); MONO % 13.6 % (0.0-5.0); NEUTROPHILS # 2.8 10^3/uL (1.8-7.7); NEUTROPHILS % 68.9 % (36.0-66.0); PLATELET COUNT, AUTOMATED 201 10^3/uL (150-450); RED BLOOD COUNT 3.83 10^6/uL (4.00-5.40)
[2018-04-10 06:53] LABS: BLOOD UREA NITROGEN 14 MG/DL (7-18); CALCIUM LEVEL 7.6 MG/DL (8.8-10.2); CARBON DIOXIDE LEVEL 26 MEQ/L (21-32); CHLORIDE LEVEL 99 MEQ/L (98-107); CREATININE FOR GFR 0.94 MG/DL (0.55-1.30); GLOMERULAR FILTRATION RATE > 60.0 (>32); GLUCOSE, FASTING 85 MG/DL (70-100); MAGNESIUM LEVEL 1.8 MG/DL (1.8-2.4); POTASSIUM SERUM 3.7 MEQ/L (3.5-5.1); SODIUM LEVEL 133 MEQ/L (136-145)
[2018-04-10 07:23] LABS: C REACTIVE PROTEIN QUANTITATIV 0.77 MG/DL (0.00-0.30)
[2018-04-10] MEDS: PANTOPRAZOLE 40MG TAB (PROTONIX) PO SCH (08:48)
[2018-04-10] MEDS: ASPIRIN 325 MG TAB PO SCH (08:48)
[2018-04-10] MEDS: MULTIVITAMINS/MINERALS THERAP 1 TAB PO SCH (08:48)
[2018-04-10] MEDS: CARVedilol 12.5 MG TAB PO SCH (08:49)
[2018-04-10] MEDS: predniSONE 20 MG TAB PO SCH (08:51)
[2018-04-10] MEDS: SENOKOT S TAB PO SCH ×2 (08:51→21:13)
--- NOTE | 2018-04-10 09:08 | ECHO ---
DATE OF PROCEDURE: 04/08/2018 AGE: 87 GENDER: Female. HEIGHT: 66 inches. WEIGHT: 134 pounds. BODY SURFACE AREA: 1.69 sq m INPATIENT: [address] [place] [address], room 4205. REFERRING PHYSICIAN: Salma Shook MD INDICATION: TIA - cardiac source of embolic material?. MEASUREMENTS: 2D Measurements: RV: 3.8 cm LV: 3.2 cm Septum: 1.4 cm Posterior wall: 1.4 cm Aortic root: 3.1 cm LA: 3.8 cm LVEF: 75% Doppler Measurements: AV: 1.12 m/s LVOT: 0.9 m/s LVOT diameter: 2.1 cm MV-E: 44 A: 86 EA ratio: 0.5 Early mitral deceleration time: Unable to measure. E prime: 2.8 A prime: 8 E/E prime ratio: 15.5 PCWP: 20.4 mmHg PV: 0.8 m/s Pulmonary artery acceleration time: 137 ms RVSP: 21 mmHg IVC: 1.3 cm COMMENTS: Normal sinus rhythm without intraventricular conduction disturbance. M-mode and two-dimensional echocardiography was performed with pulsed, continuous wave, color flow, and tissue Doppler studies. Moderately severe concentric left ventricular hypertrophy with hyperkinetic wall motion. Borderline left atrial enlargement with impairment of left ventricle (LV) diastolic function and currently elevated mean left atrial pressure. Normal right heart chamber sizes and motion and current estimated pulmonary arterial pressure. Normal inferior vena cava (IVC) size and collapse against an elevated central venous pressure. Aortic valvular sclerosis of a moderate degree without stenosis but very mild insufficiency. Normal aortic root size. Moderate mitral annular calcification without inflow tract obstruction but mild insufficiency. Normal appearing tricuspid valve with mild-moderate insufficiency. No apparent intracardiac mass or pericardial effusion. If a cardiac source of embolic material is seriously suspect in this patient, would recommend a transesophageal echocardiogram. The above test findings were not significantly changed from those described by Dr. Saldana on her prior study performed 03/01/2018. [facility]
[2018-04-10 14:00] VITALS: BP 124/65
--- NOTE | 2018-04-10 15:42 | IPNPDOC ---
Text Note Date of Service The patient was seen on 04/10/18. NOTE Subjective: Patient is an 87 year old female with a PMHx of Labile HTN, Carotid endarterectomy, Hypothyroidism, Discoid Lupus, Hx of UTIs (Klebsiella), G eneralized anxiety disorder, Diverticulosis, OA of hips, who presented to the ER with complaints of frequent falls and complaints of left sided weakness. Patient was admitted to the hospitalist service for further evaluation and treatment. Patient was seen and examined at the bedside. Patient denies chest pain, shortness breath or palpitations. Denies nausea, vomiting, abdominal pain, constipation or diarrhea. Still some lightheadedness on standing restricting her ability to work with physical therapy. Objective: Vitals (See below) General: Lying in bed, no acute distress, comfortable, AAOx3 HEENT: NC, AT CVS: RRR, +S1S2 Lungs: Fair air entry b/l, no evidence of wheezing, rhonchi, rales Abdomen: Soft, ND, without tenderness Extremities: No LE edema, - Calf tenderness Skin: Erythematous skin rash diffusely over arms / legs, chest back - non- blanching, non-itching; appears to have a significant decrease in the amount of erythema Assessment and plan: Lower extremity weakness, predominately on left leg - possibly 2/2 acute CVA - Physical does not reveal any significant weakness - MRA Brain 04/09: 1. There is no aneurysm or arteriovenous malformation. 2. 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 - MRI Brain 04/09: 1. 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 2. Small vessel ischemic disease. 3. Mild volume loss. 4. A punctate focus of increased signal intensity on diffusion weighted images is present in the left basal ganglia. This is decreased in signal intensity on ADCimages and is consistent with an acute infarction. - Cervical MRI 04/09: There is cervical spondylosis at the C3-4 through C6-7 levels without spinal cord compression. - Cervical MRA 04/09: 1. The patient appears to be status post right carotid endarterectomy. The endarterectomy is patent. 2. 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 Mild to moderate atherosclerotic disease involves the right vertebral artery. 3. Mild atherosclerotic disease involves the left vertebral artery. - Will continue with physical therapy outpatient therapy - ECHO 04/09: Impairment of diastolic function - EEG pending - c/w Atorvastatin 40, ASA 81 - c/w Telemetry monitoring - Neurology on consultation; appreciate their input Diffuse erythema - Has occurred after completion of Prednisone - Patient is a rash to prednisone; over possible that prednisone has provided her protective mechanism and rash has cleared after discontinuation - Clinically patient has had improvement of the rash; level of erythema has improved - CRP trending down - Discussed with patient about considering starting Prednisone for controlling rash - currently is refusing s/p Atypical chest pain - likely 2/2 GI etiology - EKG without ischemic changes - Troponin negative - c/w Atorvastatin and ASA s/p RSV infection - s/p Prednisone taper as an outpatient Labile HTN - possibly 2/2 autonomic dysfunction, less likely 2/2 adrenal insufficiency - Patient has a very fluctuant blood pressure - Patient indicates that she follows with Dr. Saldana as an outpatient - She notes a regimen that includes isosorbide as well as a midodrine given her blood pressure measurements - Cosyntropin stimulation test complete; negative - c/w adjusted blood pressure medications with appropriate holding parameters - Discussed with Dr. Saldana; no additional recommendations for blood pressure regimen - Advised patient that ultimately getting control of her BP will be difficult given that current medications have been maximized - Advised patient that possibility of future strokes exists; however there are not many options available for optimizing her orthostatic hypotension - Patient understands what I've said and acknowledges limits to medications - Will attempt thigh high compression stockings Diastolic CHF - Patient does not appear to be in any signs of fluid overload - ECHO 03/01: EF of 80%, grade 1 diastolic dysfunction, moderate mitral annular calcification, mild mitral regurgitation, mild aortic stenosis, mild aortic regurgitation, tiny pericardial effusion - c/w strict ins/outs, daily weights - Will continue to monitor Carotid endarterectomy - c/w ASA Hypothyroidism - c/w Levothyroxine Discoid Lupus - Currently not on any medications Hx of UTI (Klebsiella) Generalized anxiety disorder - c/w Alprazolam PRN Hx of Diverticulosis - No evidence of exacerbation / acute flare OA of hips - c/w Tylenol PRN GI prophylaxis - c/w Protonix DVT prophylaxis - c/w Lovenox VS,Fishbone, I+O VS, Fishbone, I+O Laboratory Tests 04/10/18 05:31 Red Blood Count 3.83 L, Mean Corpuscular Volume 94.0, Mean Corpuscular Hemoglobin 32.4, Mean Corpuscular Hemoglobin Concent 34.4, Red Cell Distribution Width 12.8, Neutrophils (%) (Auto) 68.9 H, Lymphocytes (%) (Auto) 15.6 L, Monocytes (%) (Auto) 13.6 H, Eosinophils (%) (Auto) 0.8, Basophils (%) (Auto) 0.3, Neutrophils # (Auto) 2.8, Lymphocytes # (Auto) 0.6 L, Monocytes # (Auto) 0.5, Eosinophils # (Auto) 0.0, Basophils # (Auto) 0.0, Calcium Level 7.6 L Vital Signs Date Time Temp Pulse Resp B/P (MAP) Pulse Ox O2 Delivery O2 Flow Rate FiO2 04/10/18 14:00 97.7 73 17 124/65 (84) 98 04/07/18 18:11 Room Air I&O- Last 24 Hours up to 6 AM 04/10/18 06:00 Intake Total 3120 ml Output Total 1200 ml Balance 1920 ml KAIT ELDRIDGE MD Apr 10, 2018 15:42
[2018-04-10] MEDS: diazePAM 10 MG TAB PO PRN (21:33)
[2018-04-10 22:00] VITALS: BP 164/67
[2018-04-11] MEDS: ESTROGENS VAGINAL CREAM 30GM PV SCH ×2 (00:51→20:19)
[2018-04-11] MEDS: RAMELTEON 8 MG TAB (ROZEREM) PO PRN (00:51)
[2018-04-11 05:47] LABS: BASO % 0.5 % (0.0-1.0); EOS # 0.1 10^3/uL (0.0-0.50); EOS % 2.4 % (0.0-3.0); HEMATOCRIT 33.4 % (36.0-47.0); HEMOGLOBIN 11.6 g/dl (12.0-15.5); LYMPH # 0.8 10^3/uL (1.5-4.5); LYMPH % 17.6 % (24.0-44.0); MEAN CORPUSCULAR HEMOGLOBIN 32.4 pg (27.0-33.0); MEAN CORPUSCULAR HGB CONC 34.7 g/dl (32.0-36.5); MEAN CORPUSCULAR VOLUME 93.3 fl (80.0-96.0); MONO # 0.6 10^3/uL (0.0-0.8); MONO % 13.6 % (0.0-5.0); NEUTROPHILS # 2.8 10^3/uL (1.8-7.7); NEUTROPHILS % 65.2 % (36.0-66.0); PLATELET COUNT, AUTOMATED 181 10^3/uL (150-450); RED BLOOD COUNT 3.58 10^6/uL (4.00-5.40); WHITE BLOOD COUNT 4.3 10^3/uL (4.0-10.0)
[2018-04-11 06:00] VITALS: BP 165/80
[2018-04-11] MEDS: LEVOTHYROXINE 75MCG TABLET (0.075MG) PO SCH (06:02)
[2018-04-11] MEDS: CIPROFLOXACIN 250 MG TAB PO SCH ×2 (06:02→18:17)
[2018-04-11 06:03] VITALS: BP_SYST 106; BP_SYST 165; BP_DIAS 63; BP_DIAS 68
[2018-04-11 06:05] LABS: BLOOD UREA NITROGEN 20 MG/DL (7-18); CALCIUM LEVEL 7.5 MG/DL (8.8-10.2); CARBON DIOXIDE LEVEL 26 MEQ/L (21-32); CHLORIDE LEVEL 100 MEQ/L (98-107); CREATININE FOR GFR 0.94 MG/DL (0.55-1.30); GLOMERULAR FILTRATION RATE > 60.0 (>32); GLUCOSE, FASTING 104 MG/DL (70-100); MAGNESIUM LEVEL 1.9 MG/DL (1.8-2.4); POTASSIUM SERUM 3.4 MEQ/L (3.5-5.1); SODIUM LEVEL 133 MEQ/L (136-145)
[2018-04-11] MEDS: MIDODRINE 5 MG TAB PO PRN (06:13)
[2018-04-11] MEDS ORDERED: POTASSIUM CHLORIDE 10 MEQ SR TABLET PO ONE (07:30)
[2018-04-11] MEDS: SENOKOT S TAB PO SCH ×2 (09:00→20:24)
[2018-04-11] MEDS: predniSONE 20 MG TAB PO SCH (09:00)
[2018-04-11] MEDS: MULTIVITAMINS/MINERALS THERAP 1 TAB PO SCH (09:09)
[2018-04-11] MEDS: ASPIRIN 325 MG TAB PO SCH (09:09)
[2018-04-11] MEDS: PANTOPRAZOLE 40MG TAB (PROTONIX) PO SCH (09:09)
[2018-04-11] MEDS: ONDANSETRON 4 MG TAB (S0181) PO PRN ×2 (09:12→14:46)
[2018-04-11 10:57] LABS: ANTI DOUBLE STRAND-DNA AB 1 IU/mL (0-9); ANTINUCLEAR ANTIBODIES DIRECT Positive (Negative); IGASUB3 30.8 mg/dL (13.4-97.9); IgA SERUM (part of Subclasses) 216 mg/dL (64-422); Lyme Disease IgG/IgM Antibodie <0.91 ISR (0.00-0.90); Lyme Disease IgM Ab Quantitati <0.80 index (0.00-0.79); RNP ANTIBODIES <0.2 AI (0.0-0.9); SJOGREN'S ANTI SS-A >8.0 AI (0.0-0.9); SJOGREN'S ANTI SS-B >8.0 AI (0.0-0.9); SMITH ANTIBODIES <0.2 AI (0.0-0.9)
[2018-04-11] MEDS: methylPREDNISolone INJ 40 MG/1 ML VIAL (J2920) IV SCH ×2 (11:33→23:35)
--- NOTE | 2018-04-11 12:13 | IPNPDOC ---
Text Note Date of Service The patient was seen on 04/11/18. NOTE Subjective: Patient is an 87 year old female with a PMHx of Labile HTN, Carotid endarterectomy, Hypothyroidism, Discoid Lupus, Hx of UTIs (Klebsiella), G eneralized anxiety disorder, Diverticulosis, OA of hips, who presented to the ER with complaints of frequent falls and complaints of left sided weakness. Patient was admitted to the hospitalist service for further evaluation and treatment. Patient was seen and examined at the bedside. Patient has noted that her rashes have become more blistered. She denies any chest pain, shortness of breath or palpitations. Denies nausea, vomiting, abdominal pain, constipation, diarrhea or discomfort with urination. Is still having difficulty standing from a sitting position because of lightheadedness and low blood pressure. Objective: Vitals (See below) General: Lying in bed, no acute distress, comfortable, AAOx3 HEENT: NC, AT CVS: RRR, +S1S2 Lungs: Fair air entry b/l, no evidence of w/r/r Abdomen: Soft, ND, NT Extremities: No LE edema, - Calf tenderness Skin: Erythematous skin rash diffusely over arms / legs, chest back - non- blanching, non-itching; areas of unroofed blisters Assessment and plan: Lower extremity weakness, predominately on left leg - possibly 2/2 acute CVA - Physical does not reveal any significant weakness - MRA Brain 04/09: 1. There is no aneurysm or arteriovenous malformation. 2. 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 - MRI Brain 04/09: 1. 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 2. Small vessel ischemic disease. 3. Mild volume loss. 4. A punctate focus of increased signal intensity on diffusion weighted images is present in the left basal ganglia. This is decreased in signal intensity on ADCimages and is consistent with an acute infarction. - Cervical MRI 04/09: There is cervical spondylosis at the C3-4 through C6-7 levels without spinal cord compression. - Cervical MRA 04/09: 1. The patient appears to be status post right carotid endarterectomy. The endarterectomy is patent. 2. 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 Mild to moderate atherosclerotic disease involves the right vertebral artery. 3. Mild atherosclerotic disease involves the left vertebral artery. - ECHO 04/09: Impairment of diastolic function - EEG pending - c/w Atorvastatin 40, ASA 81 - c/w Telemetry monitoring - Neurology on consultation; appreciate their input - c/w PT & OT Diffuse erythematous rash - Has occurred after completion of Prednisone; patient said the rash has occurred because of prednisone - However it's possible that prednisone has provided her a protective mechanism and rash has cleared after discontinuation - Clinically patient has had improvement of the rash; level of erythema has improved; however is blistered today - CRP stable - Refused prednisone; Will start Solumedrol s/p Atypical chest pain - likely 2/2 GI etiology - EKG without ischemic changes - Troponin negative - c/w Atorvastatin and ASA s/p RSV infection - s/p Prednisone taper as an outpatient Labile HTN - possibly 2/2 autonomic dysfunction, less likely 2/2 adrenal insufficiency - Patient has a very fluctuant blood pressure - Patient indicates that she follows with Dr. Saldana as an outpatient - She notes a regimen that includes isosorbide as well as a midodrine given her blood pressure measurements - Cosyntropin stimulation test complete; negative - c/w adjusted blood pressure medications with appropriate holding parameters - Discussed with Dr. Saldana; no additional recommendations for blood pressure regimen - Advised patient that ultimately getting control of her BP will be difficult given that current medications have been maximized - Advised patient that possibility of future strokes exists; however there are not many options available for optimizing her orthostatic hypotension - Patient understands what I've said and acknowledges limits to medications - Will start thigh high compression stockings when tolerated Diastolic CHF - Patient does not appear to be in any signs of fluid overload - ECHO 03/01: EF of 80%, grade 1 diastolic dysfunction, moderate mitral annular calcification, mild mitral regurgitation, mild aortic stenosis, mild aortic regurgitation, tiny pericardial effusion - c/w strict ins/outs, daily weights - Will continue to monitor Carotid endarterectomy - c/w ASA Hypothyroidism - c/w Levothyroxine Discoid Lupus - Currently not on any medications Hx of UTI (Klebsiella) Generalized anxiety disorder - c/w Alprazolam PRN Hx of Diverticulosis - No evidence of exacerbation / acute flare OA of hips - c/w Tylenol PRN GI prophylaxis - c/w Protonix DVT prophylaxis - c/w Lovenox VS,Fishbone, I+O VS, Fishbone, I+O Laboratory Tests 04/11/18 05:21 Red Blood Count 3.58 L, Mean Corpuscular Volume 93.3, Mean Corpuscular Hemoglobin 32.4, Mean Corpuscular Hemoglobin Concent 34.7, Red Cell Distribution Width 12.7, Neutrophils (%) (Auto) 65.2, Lymphocytes (%) (Auto) 17.6 L, Monocytes (%) (Auto) 13.6 H, Eosinophils (%) (Auto) 2.4, Basophils (%) (Auto) 0.5, Neutrophils # (Auto) 2.8, Lymphocytes # (Auto) 0.8 L, Monocytes # (Auto) 0.6, Eosinophils # (Auto) 0.1, Basophils # (Auto) 0.0, Calcium Level 7.5 L Vital Signs Date Time Temp Pulse Resp B/P (MAP) Pulse Ox O2 Delivery O2 Flow Rate FiO2 04/11/18 06:03 71 165/68 (100) 89 106/63 (77) 04/11/18 06:00 97.9 18 95 04/07/18 18:11 Room Air I&O- Last 24 Hours up to 6 AM 04/11/18 06:00 Intake Total 420 ml Output Total 1875 ml Balance -1455 ml KAIT ELDRIDGE MD Apr 11, 2018 12:13
[2018-04-11 14:00] VITALS: BP 132/75
[2018-04-11 14:13] VITALS: BP 180/80
[2018-04-11 15:00] VITALS: BP 170/78
[2018-04-11 22:00] VITALS: BP 166/84
[2018-04-11] MEDS: diazePAM 10 MG TAB PO PRN (23:35)
[2018-04-12] MEDS: CIPROFLOXACIN 250 MG TAB PO SCH ×2 (05:19→17:06)
[2018-04-12] MEDS: LEVOTHYROXINE 75MCG TABLET (0.075MG) PO SCH (05:20)
[2018-04-12 05:46] LABS: HEMATOCRIT 35.4 % (36.0-47.0); HEMOGLOBIN 12.3 g/dl (12.0-15.5); LYMPH # 0.5 10^3/uL (1.5-4.5); LYMPH % 19.6 % (24.0-44.0); MEAN CORPUSCULAR HEMOGLOBIN 32.5 pg (27.0-33.0); MEAN CORPUSCULAR HGB CONC 34.7 g/dl (32.0-36.5); MEAN CORPUSCULAR VOLUME 93.4 fl (80.0-96.0); MONO # 0.1 10^3/uL (0.0-0.8); MONO % 4.2 % (0.0-5.0); NEUTROPHILS % 75.8 % (36.0-66.0); PLATELET COUNT, AUTOMATED 208 10^3/uL (150-450); RED BLOOD COUNT 3.79 10^6/uL (4.00-5.40); WHITE BLOOD COUNT 2.6 10^3/uL (4.0-10.0)
[2018-04-12] MEDS: ISOSORBIDE DIN. (ISORDIL) 5 MG TAB PO PRN ×2 (05:50→21:14)
[2018-04-12 06:00] VITALS: BP 195/103
[2018-04-12 06:12] LABS: BLOOD UREA NITROGEN 16 MG/DL (7-18); C REACTIVE PROTEIN QUANTITATIV 0.81 MG/DL (0.00-0.30); CALCIUM LEVEL 7.8 MG/DL (8.8-10.2); CARBON DIOXIDE LEVEL 24 MEQ/L (21-32); CHLORIDE LEVEL 101 MEQ/L (98-107); CREATININE FOR GFR 0.87 MG/DL (0.55-1.30); GLOMERULAR FILTRATION RATE > 60.0 (>32); GLUCOSE, FASTING 139 MG/DL (70-100); MAGNESIUM LEVEL 2.2 MG/DL (1.8-2.4); POTASSIUM SERUM 4.2 MEQ/L (3.5-5.1); SODIUM LEVEL 133 MEQ/L (136-145)
[2018-04-12 07:00] VITALS: BP 158/76
[2018-04-12] MEDS: SENOKOT S TAB PO SCH ×3 (09:00→21:13)
[2018-04-12] MEDS: ASPIRIN 325 MG TAB PO SCH (09:35)
[2018-04-12] MEDS: MULTIVITAMINS/MINERALS THERAP 1 TAB PO SCH (09:35)
[2018-04-12] MEDS: PANTOPRAZOLE 40MG TAB (PROTONIX) PO SCH (09:35)
[2018-04-12] MEDS: methylPREDNISolone INJ 40 MG/1 ML VIAL (J2920) IV SCH ×2 (11:43→23:28)
[2018-04-12 14:00] VITALS: BP 162/88
--- NOTE | 2018-04-12 16:54 | IPNPDOC ---
Text Note Date of Service The patient was seen on 04/12/18. NOTE Subjective: Patient is an 87 year old female with a PMHx of Labile HTN, Carotid endarterectomy, Hypothyroidism, Discoid Lupus, Hx of UTIs (Klebsiella), G eneralized anxiety disorder, Diverticulosis, OA of hips, who presented to the ER with complaints of frequent falls and complaints of left sided weakness. Patient was admitted to the hospitalist service for further evaluation and treatment. Patient was seen and examined at the bedside. Currently patient notes that her rash has not changed significantly. She denies chest pain, shortness breath or palpitations. Still is expressing dizziness upon standing. Denies any nausea, vomiting, abdominal pain, constipation, diarrhea or discomfort with urination. Objective: Vitals (See below) General: Lying in bed, no acute distress, comfortable, AAOx3 HEENT: NC, AT CVS: RRR, +S1S2 Lungs: Fair air entry b/l, there is no auscultated evidence of rhonchi, rales or wheezing Abdomen: Abdomen is nondistended, nontender, and remain soft Extremities: No LE edema, - Calf tenderness Skin: Erythematous skin rash diffusely over arms / legs, chest back - non- blanching, non-itching; areas of unroofed blisters - has remain unchanged from yesterday Assessment and plan: Lower extremity weakness, predominately on left leg - possibly 2/2 acute CVA - Physical does not reveal any significant weakness - MRA Brain 04/09: 1. There is no aneurysm or arteriovenous malformation. 2. 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 - MRI Brain 04/09: 1. 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 2. Small vessel ischemic disease. 3. Mild volume loss. 4. A punctate focus of increased signal intensity on diffusion weighted images is present in the left basal ganglia. This is decreased in signal intensity on ADC images and is consistent with an acute infarction. - Cervical MRI 04/09: There is cervical spondylosis at the C3-4 through C6-7 levels without spinal cord compression. - Cervical MRA 04/09: 1. The patient appears to be status post right carotid endarterectomy. The endarterectomy is patent. 2. 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 Mild to moderate atherosclerotic disease involves the right vertebral artery. 3. Mild atherosclerotic disease involves the left vertebral artery. - ECHO 04/09: Impairment of diastolic function - c/w Atorvastatin 40, ASA 81 - c/w Telemetry monitoring - Neurology on consultation; appreciate their input - c/w PT & OT Diffuse erythematous rash - Has occurred after completion of Prednisone; patient said the rash has occurred because of prednisone - However it's possible that prednisone has provided her a protective mechanism and rash has cleared after discontinuation - Clinically patient has had improvement of the rash; level of erythema has improved; however is blistered today - CRP stable - c/w Solumedrol (Day #2) s/p Atypical chest pain - likely 2/2 GI etiology - EKG without ischemic changes - Troponin negative - c/w Atorvastatin and ASA s/p RSV infection - s/p Prednisone taper as an outpatient Labile HTN - possibly 2/2 autonomic dysfunction, less likely 2/2 adrenal insufficiency - Patient has a very fluctuant blood pressure - Patient indicates that she follows with Dr. Saldana as an outpatient - She notes a regimen that includes isosorbide as well as a midodrine given her blood pressure measurements - Cosyntropin stimulation test complete; negative - c/w adjusted blood pressure medications with appropriate holding parameters - Discussed with Dr. Saldana; no additional recommendations for blood pressure regimen - Advised patient that ultimately getting control of her BP will be difficult given that current medications have been maximized - Advised patient that possibility of future strokes exists; however there are not many options available for optimizing her orthostatic hypotension - Patient understands what I've said and acknowledges limits to medications - Will c/w thigh high compression stockings when tolerated (re: skin rash) Diastolic CHF - Patient does not appear to be in any signs of fluid overload - ECHO 03/01: EF of 80%, grade 1 diastolic dysfunction, moderate mitral annular calcification, mild mitral regurgitation, mild aortic stenosis, mild aortic regurgitation, tiny pericardial effusion - c/w strict ins/outs, daily weights - Will continue to monitor Carotid endarterectomy - c/w ASA Hypothyroidism - c/w Levothyroxine Discoid Lupus - Currently not on any medications Hx of UTI (Klebsiella) Generalized anxiety disorder - c/w Alprazolam PRN Hx of Diverticulosis - No evidence of exacerbation / acute flare OA of hips - c/w Tylenol PRN GI prophylaxis - c/w Protonix DVT prophylaxis - c/w Lovenox VS,Fishbone, I+O VS, Fishbone, I+O Laboratory Tests 04/12/18 05:17 Red Blood Count 3.79 L, Mean Corpuscular Volume 93.4, Mean Corpuscular Hemoglobin 32.5, Mean Corpuscular Hemoglobin Concent 34.7, Red Cell Distribution Width 12.6, Neutrophils (%) (Auto) 75.8 H, Lymphocytes (%) (Auto) 19.6 L, Monocytes (%) (Auto) 4.2, Eosinophils (%) (Auto) 0.0, Basophils (%) (Auto) 0.0, Neutrophils # (Auto) 2.0, Lymphocytes # (Auto) 0.5 L, Monocytes # (Auto) 0.1, Eosinophils # (Auto) 0.0, Basophils # (Auto) 0.0, Calcium Level 7.8 L Vital Signs Date Time Temp Pulse Resp B/P (MAP) Pulse Ox O2 Delivery O2 Flow Rate FiO2 04/12/18 14:00 97.9 75 17 162/88 (112) 96 04/07/18 18:11 Room Air I&O- Last 24 Hours up to 6 AM 04/12/18 06:00 Intake Total 1270 ml Output Total 2850 ml Balance -1580 ml KAIT ELDRIDGE MD Apr 12, 2018 16:54
[2018-04-12] MEDS: ACETAMINOPHEN TAB 650MG DOSE (2X325MG) PO PRN (17:09)
[2018-04-12 19:27] LABS: RHEUMATOID FACTOR QUANT < 10.0 IU/ML (<15.0)
[2018-04-12 21:00] VITALS: BP_SYST 143; BP_SYST 150; BP_SYST 167; BP_DIAS 85; BP_DIAS 87
[2018-04-12] MEDS: ESTROGENS VAGINAL CREAM 30GM PV SCH (21:13)
[2018-04-12] MEDS: diazePAM 10 MG TAB PO PRN (21:16)
[2018-04-12 22:00] VITALS: BP 180/80
[2018-04-13] MEDS: LEVOTHYROXINE 75MCG TABLET (0.075MG) PO SCH (05:53)
[2018-04-13] MEDS: CIPROFLOXACIN 250 MG TAB PO SCH ×2 (05:53→17:43)
[2018-04-13 06:00] VITALS: BP 180/82
[2018-04-13 06:24] LABS: CREATININE,RANDOM URINE 16.1 MG/DL
[2018-04-13 06:24] LABS: C REACTIVE PROTEIN QUANTITATIV 0.38 MG/DL (0.00-0.30)
[2018-04-13 06:26] LABS: CRYOGLOBULINS NEGATIVE (NEGATIVE)
[2018-04-13 06:49] LABS: PROTEIN, URINE AUTO NEGATIVE (NEGATIVE)
[2018-04-13 07:22] LABS: BASO % 0.1 % (0.0-1.0); HEMATOCRIT 34.8 % (36.0-47.0); HEMOGLOBIN 11.9 g/dl (12.0-15.5); LYMPH # 0.7 10^3/uL (1.5-4.5); LYMPH % 6.1 % (24.0-44.0); MEAN CORPUSCULAR HGB CONC 34.2 g/dl (32.0-36.5); MEAN CORPUSCULAR VOLUME 96.4 fl (80.0-96.0); MONO # 0.3 10^3/uL (0.0-0.8); MONO % 2.7 % (0.0-5.0); NEUTROPHILS # 10.9 10^3/uL (1.8-7.7); NEUTROPHILS % 90.4 % (36.0-66.0); PLATELET COUNT, AUTOMATED 216 10^3/uL (150-450); RED BLOOD COUNT 3.61 10^6/uL (4.00-5.40)
[2018-04-13 07:34] LABS: BILIRUBIN,TOTAL 0.2 MG/DL (0.2-1.0); GLOMERULAR FILTRATION RATE 56.1 (>32); MAGNESIUM LEVEL 2.1 MG/DL (1.8-2.4); POTASSIUM SERUM 4.5 MEQ/L (3.5-5.1); TOTAL PROTEIN 6.5 GM/DL (6.4-8.2)
[2018-04-13] MEDS: SENOKOT S TAB PO SCH ×2 (09:00→21:05)
[2018-04-13] MEDS: ONDANSETRON 4MG/2ML VIAL (J2405) IV PRN (11:04)
[2018-04-13] MEDS: PANTOPRAZOLE 40MG TAB (PROTONIX) PO SCH (11:18)
[2018-04-13] MEDS: MULTIVITAMINS/MINERALS THERAP 1 TAB PO SCH (11:18)
[2018-04-13] MEDS: ISOSORBIDE DIN. (ISORDIL) 5 MG TAB PO PRN ×2 (11:18→21:04)
[2018-04-13] MEDS: ASPIRIN 325 MG TAB PO SCH (11:18)
[2018-04-13] MEDS: D5W/0.45% SODIUM CHLORIDE 1,000 ML IV SCH (11:19)
[2018-04-13] MEDS: methylPREDNISolone INJ 40 MG/1 ML VIAL (J2920) IV SCH ×2 (11:19→23:01)
--- NOTE | 2018-04-13 12:10 | IPNPDOC ---
Text Note Date of Service The patient was seen on 04/13/18. NOTE Subjective: Patient is an 87 year old female with a PMHx of Labile HTN, Carotid endarterectomy, Hypothyroidism, Discoid Lupus, Hx of UTIs (Klebsiella), G eneralized anxiety disorder, Diverticulosis, OA of hips, who presented to the ER with complaints of frequent falls and complaints of left sided weakness. Patient was admitted to the hospitalist service for further evaluation and treatment. Patient was seen and examined at the bedside. Patient with that her rash is doing slightly better, still expresses areas of her blistering have been covered with barrier reduction. Denies any chest pain, short of breath or palpitations. Is experiencing some nausea, however, has not vomited. Denies any abdominal pain, constipation, diarrhea. Patient is noted that her discomfort with urination has resolved, however is still experiencing urinary frequency. Objective: Vitals (See below) General: Lying in bed, no acute distress, comfortable, AAOx3 HEENT: NC, AT CVS: RRR, +S1S2 Lungs: Fair air entry b/l, auscultation does not reveal any rhonchi, wheezing or rales Abdomen: Abdomen is nondistended, nontender, and remain soft Extremities: No LE edema, - Calf tenderness Skin: Erythematous skin rash diffusely over arms / legs, chest back - non- blanching, non-itching; areas of roofed and unroofed blisters - has remain unchanged from yesterday; no involvement of oral mucosa or genitalia Assessment and plan: Lower extremity weakness, predominately on left leg - possibly 2/2 acute CVA - Physical does not reveal any significant weakness - MRA Brain 04/09: 1. There is no aneurysm or arteriovenous malformation. 2. 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 - MRI Brain 04/09: 1. 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 2. Small vessel ischemic disease. 3. Mild volume loss. 4. A punctate focus of increased signal intensity on diffusion weighted images is present in the left basal ganglia. This is decreased in signal intensity on ADC images and is consistent with an acute infarction. - Cervical MRI 04/09: There is cervical spondylosis at the C3-4 through C6-7 levels without spinal cord compression. - Cervical MRA 04/09: 1. The patient appears to be status post right carotid endarterectomy. The endarterectomy is patent. 2. 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 Mild to moderate atherosclerotic disease involves the right vertebral artery. 3. Mild atherosclerotic disease involves the left vertebral artery. - ECHO 04/09: Impairment of diastolic function - c/w Atorvastatin 40, ASA 81 - c/w Telemetry monitoring - Neurology on consultation; appreciate their input - c/w PT & OT Diffuse erythematous rash - possibly 2/2 rheumatalgic etiology, possibly vas culitis - Has occurred after completion of Prednisone; patient said the rash has occurred because of prednisone - However it's possible that prednisone has provided her a protective mechanism and rash has cleared after discontinuation - Clinically patient has had improvement of the rash; level of erythema has improved; however is blistered today - CRP has trended down - Rheumatologic workup pending - Discussed with Rheumatology will be on consult Sunday - c/w Solumedrol (Day #3); will reduce dose Leukocytosis - likely 2/2 corticosteroids - Remains afebrile Urinary tract infection - likely 2/2 E. coli - Patient had complained of dysuria - UA consistent with infection - Urine culture 04/09: E. Coli - c/w Ciprofloxacin (Day #4) s/p Atypical chest pain - likely 2/2 GI etiology - EKG without ischemic changes - Troponin negative - c/w Atorvastatin and ASA s/p RSV infection - s/p Prednisone taper as an outpatient Labile HTN - possibly 2/2 autonomic dysfunction, less likely 2/2 adrenal insufficiency - Patient has a very fluctuant blood pressure - Patient indicates that she follows with Dr. Saldana as an outpatient - She notes a regimen that includes isosorbide as well as a midodrine given her blood pressure measurements - Cosyntropin stimulation test complete; negative - c/w adjusted blood pressure medications with appropriate holding parameters - Discussed with Dr. Saldana; no additional recommendations for blood pressure regimen - Advised patient that ultimately getting control of her BP will be difficult given that current medications have been maximized - Advised patient that possibility of future strokes exists; however there are not many options available for optimizing her orthostatic hypotension - Patient understands what I've said and acknowledges limits to medications - Will c/w thigh high compression stockings when tolerated (re: skin rash) Diastolic CHF - Patient does not appear to be in any signs of fluid overload - ECHO 03/01: EF of 80%, grade 1 diastolic dysfunction, moderate mitral annular calcification, mild mitral regurgitation, mild aortic stenosis, mild aortic regurgitation, tiny pericardial effusion - c/w strict ins/outs, daily weights - Will continue to monitor Carotid endarterectomy - c/w ASA Hypothyroidism - c/w Levothyroxine Discoid Lupus - Currently not on any medications Generalized anxiety disorder - c/w Alprazolam PRN Hx of Diverticulosis - No evidence of exacerbation / acute flare OA of hips - c/w Tylenol PRN GI prophylaxis - c/w Protonix DVT prophylaxis - c/w Lovenox VS,Fishbone, I+O VS, Fishbone, I+O Laboratory Tests 04/13/18 05:38 Red Blood Count 3.61 L, Mean Corpuscular Volume 96.4 H, Mean Corpuscular Hemoglobin 33.0, Mean Corpuscular Hemoglobin Concent 34.2, Red Cell Distribution Width 12.7, Neutrophils (%) (Auto) 90.4 H, Lymphocytes (%) (Auto) 6.1 L, Monocytes (%) (Auto) 2.7, Eosinophils (%) (Auto) 0.0, Basophils (%) (Auto) 0.1, Neutrophils # (Auto) 10.9 H, Lymphocytes # (Auto) 0.7 L, Monocytes # (Auto) 0.3, Eosinophils # (Auto) 0.0, Basophils # (Auto) 0.0, Calcium Level 8.0 L, Aspartate Amino Transf (AST/SGOT) 19, Alanine Aminotransferase (ALT/SGPT) 14, Alkaline Phosphatase 62, Total Bilirubin 0.2, Total Protein 6.5, Albumin 3.0 L Vital Signs Date Time Temp Pulse Resp B/P (MAP) Pulse Ox O2 Delivery O2 Flow Rate FiO2 04/13/18 11:18 210/101 04/13/18 06:00 97.6 77 18 95 04/07/18 18:11 Room Air I&O- Last 24 Hours up to 6 AM 04/13/18 06:00 Intake Total 1050 ml Output Total 2175 ml Balance -1125 ml KAIT ELDRIDGE MD Apr 13, 2018 12:10
[2018-04-13] MEDS ORDERED: ONDANSETRON 4 MG ORAL DISINTEGRATING TAB (Q0162 PER 1MG) PO ONE (13:30)
[2018-04-13 14:00] VITALS: BP 190/110
[2018-04-13] MEDS: ENOXAPARIN 40 MG/0.4 ML SYRINGE (J1650) SC SCH (14:01)
[2018-04-13 16:30] VITALS: BP_SYST 158; BP_SYST 220; BP_DIAS 100; BP_DIAS 82
[2018-04-13 18:00] VITALS: BP_SYST 154; BP_SYST 210; BP_SYST 222; BP_DIAS 100; BP_DIAS 104; BP_DIAS 84
[2018-04-13 21:00] VITALS: BP_SYST 160; BP_SYST 191; BP_SYST 205; BP_DIAS 102; BP_DIAS 110; BP_DIAS 80
[2018-04-13] MEDS: ESTROGENS VAGINAL CREAM 30GM PV SCH (21:05)
[2018-04-13] MEDS: diazePAM 10 MG TAB PO PRN (21:06)
[2018-04-13 22:00] VITALS: BP 190/99
[2018-04-13] MEDS: RAMELTEON 8 MG TAB (ROZEREM) PO PRN (23:21)
[2018-04-14 00:06] LABS: ANA (HEP2) Positive (.)
[2018-04-14] MEDS: CIPROFLOXACIN 250 MG TAB PO SCH (05:05)
[2018-04-14] MEDS: LEVOTHYROXINE 75MCG TABLET (0.075MG) PO SCH (05:05)
[2018-04-14] MEDS: ISOSORBIDE DIN. (ISORDIL) 5 MG TAB PO PRN ×2 (05:06→21:13)
[2018-04-14] MEDS: D5W/0.45% SODIUM CHLORIDE 1,000 ML IV SCH ×2 (05:06→17:52)
[2018-04-14 05:07] VITALS: BP 200/115
[2018-04-14 06:40] LABS: BASO % 0.1 % (0.0-1.0); HEMATOCRIT 32.4 % (36.0-47.0); HEMOGLOBIN 11.1 g/dl (12.0-15.5); LYMPH # 0.8 10^3/uL (1.5-4.5); LYMPH % 7.3 % (24.0-44.0); MEAN CORPUSCULAR HEMOGLOBIN 32.6 pg (27.0-33.0); MEAN CORPUSCULAR HGB CONC 34.3 g/dl (32.0-36.5); MONO # 0.6 10^3/uL (0.0-0.8); MONO % 4.8 % (0.0-5.0); NEUTROPHILS # 9.8 10^3/uL (1.8-7.7); NEUTROPHILS % 86.7 % (36.0-66.0); PLATELET COUNT, AUTOMATED 223 10^3/uL (150-450); RED BLOOD COUNT 3.41 10^6/uL (4.00-5.40); WHITE BLOOD COUNT 11.4 10^3/uL (4.0-10.0)
[2018-04-14 07:01] VITALS: BP_SYST 188; BP_SYST 192; BP_SYST 200; BP_DIAS 115
[2018-04-14 07:04] LABS: ALBUMIN 2.7 GM/DL (3.2-5.2); ALT/SGPT 13 U/L (12-78); BILIRUBIN,TOTAL 0.2 MG/DL (0.2-1.0); BLOOD UREA NITROGEN 21 MG/DL (7-18); C REACTIVE PROTEIN QUANTITATIV < 0.30 MG/DL (0.00-0.30); CALCIUM LEVEL 7.6 MG/DL (8.8-10.2); CARBON DIOXIDE LEVEL 26 MEQ/L (21-32); CHLORIDE LEVEL 102 MEQ/L (98-107); CREATININE FOR GFR 0.88 MG/DL (0.55-1.30); GLOMERULAR FILTRATION RATE > 60.0 (>32); GLUCOSE, FASTING 128 MG/DL (70-100); MAGNESIUM LEVEL 2.1 MG/DL (1.8-2.4); POTASSIUM SERUM 4.1 MEQ/L (3.5-5.1); SODIUM LEVEL 133 MEQ/L (136-145)
[2018-04-14 07:08] LABS: ERYTHROCYTE SEDIMENTATION RATE 17 mm/hr (0-42)
[2018-04-14] MEDS: SENOKOT S TAB PO SCH ×2 (09:00→21:12)
[2018-04-14] MEDS: PANTOPRAZOLE 40MG TAB (PROTONIX) PO SCH (10:24)
[2018-04-14] MEDS: MULTIVITAMINS/MINERALS THERAP 1 TAB PO SCH (10:24)
[2018-04-14] MEDS: ASPIRIN 325 MG TAB PO SCH (10:24)
[2018-04-14] MEDS: ENOXAPARIN 40 MG/0.4 ML SYRINGE (J1650) SC SCH (10:24)
--- NOTE | 2018-04-14 11:51 | IPNPDOC ---
Text Note Date of Service The patient was seen on 04/14/18. NOTE Subjective: Patient is an 87 year old female with a PMHx of Labile HTN, Carotid endarterectomy, Hypothyroidism, Discoid Lupus, Hx of UTIs (Klebsiella), G eneralized anxiety disorder, Diverticulosis, OA of hips, who presented to the ER with complaints of frequent falls and complaints of left sided weakness. Patient was admitted to the hospitalist service for further evaluation and treatment. Patient was seen and examined at the bedside. Currently patient notes that her rash. It is generally better. She was sitting up in chair this morning. Denies any dizziness. Denies shortness of breath or chest pain. Has not experienced a cough. Denies any new nausea or vomiting. Denies abdominal pain, constipation, diarrhea and has noted that her discomfort urination has resolved. Objective: Vitals (See below) General: Lying in bed, no acute distress, comfortable, AAOx3 HEENT: NC, AT CVS: RRR, +S1S2 Lungs: Fair air entry b/l, does not appear to be any auscultated evidence of rhonchi, rales or wheezing Abdomen: Abdomen is nondistended, nontender, and remains soft Extremities: No LE edema, - Calf tenderness Skin: Erythematous skin rash diffusely over arms / legs - appears to be improving; again no involvement of oral mucosa or genitalia Assessment and plan: Lower extremity weakness, predominately on left leg - possibly 2/2 orthostatic hypotension, possibly 2/2 acute CVA - Physical does not reveal any significant weakness - MRA Brain 04/09: 1. There is no aneurysm or arteriovenous malformation. 2. 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 - MRI Brain 04/09: 1. 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 2. Small vessel ischemic disease. 3. Mild volume loss. 4. A punctate focus of increased signal intensity on diffusion weighted images is present in the left basal ganglia. This is decreased in signal intensity on ADC images and is consistent with an acute infarction. - Cervical MRI 04/09: There is cervical spondylosis at the C3-4 through C6-7 levels without spinal cord compression. - Cervical MRA 04/09: 1. The patient appears to be status post right carotid endarterectomy. The endarterectomy is patent. 2. 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 Mild to moderate atherosclerotic disease involves the right vertebral artery. 3. Mild atherosclerotic disease involves the left vertebral artery. - ECHO 04/09: Impairment of diastolic function - c/w Atorvastatin 40, ASA 81 - c/w Telemetry monitoring - Neurology on consultation; appreciate their input - c/w PT & OT Diffuse erythematous rash - possibly 2/2 rheumatalgic etiology, possibly vasculitis - Has occurred after completion of Prednisone; patient said the rash has occurred because of prednisone - However it's possible that prednisone has provided her a protective mechanism and rash has cleared after discontinuation - Clinically patient has had improvement of the rash; level of erythema has improved; however is blistered today - CRP has trended down - Rheumatologic workup pending - Discussed with Rheumatology will be on consult Sunday - c/w Solumedrol (Day #4) - will change to once daily Leukocytosis - likely 2/2 corticosteroids - Remains afebrile Urinary tract infection - likely 2/2 E. coli - Patient had complained of dysuria - UA consistent with infection - Urine culture 04/09: E. Coli - c/w Ciprofloxacin (Day #5); will discontinue today s/p Atypical chest pain - likely 2/2 GI etiology - EKG without ischemic changes - Troponin negative - c/w Atorvastatin and ASA s/p RSV infection - s/p Prednisone taper as an outpatient Labile HTN - possibly 2/2 autonomic dysfunction, less likely 2/2 adrenal insufficiency - Patient has a very fluctuant blood pressure - Patient indicates that she follows with Dr. Saldana as an outpatient - She notes a regimen that includes isosorbide as well as a midodrine given her blood pressure measurements - Cosyntropin stimulation test complete; negative - c/w adjusted blood pressure medications with appropriate holding parameters - Discussed with Dr. Saldana; no additional recommendations for blood pressure regimen - Advised patient that ultimately getting control of her BP will be difficult given that current medications have been maximized - Advised patient that possibility of future strokes exists; however there are not many options available for optimizing her orthostatic hypotension - Patient understands what I've said and acknowledges limits to medications - c/w thigh high compression stockings when tolerated (re: skin rash) Diastolic CHF - Patient does not appear to be in any signs of fluid overload - ECHO 03/01: EF of 80%, grade 1 diastolic dysfunction, moderate mitral annular calcification, mild mitral regurgitation, mild aortic stenosis, mild aortic regurgitation, tiny pericardial effusion - c/w strict ins/outs, daily weights - Will continue to monitor Carotid endarterectomy - c/w ASA Hypothyroidism - c/w Levothyroxine Discoid Lupus - Currently not on any medications Generalized anxiety disorder - c/w Alprazolam PRN Hx of Diverticulosis - No evidence of exacerbation / acute flare OA of hips - c/w Tylenol PRN GI prophylaxis - c/w Protonix DVT prophylaxis - c/w Lovenox Disposition: - c/w PT; has been seen sitting up in chair this morning VS,David, I+O VS, David, I+O Laboratory Tests 04/14/18 05:50 Red Blood Count 3.41 L, Mean Corpuscular Volume 95.0, Mean Corpuscular Hemoglobin 32.6, Mean Corpuscular Hemoglobin Concent 34.3, Red Cell Distribution Width 13.0, Neutrophils (%) (Auto) 86.7 H, Lymphocytes (%) (Auto) 7.3 L, Monocytes (%) (Auto) 4.8, Eosinophils (%) (Auto) 0.0, Basophils (%) (Auto) 0.1, Neutrophils # (Auto) 9.8 H, Lymphocytes # (Auto) 0.8 L, Monocytes # (Auto) 0.6, Eosinophils # (Auto) 0.0, Basophils # (Auto) 0.0, Calcium Level 7.6 L, Aspartate Amino Transf (AST/SGOT) 20, Alanine Aminotransferase (ALT/SGPT) 13, Alkaline Phosphatase 56, Total Bilirubin 0.2, Total Protein 6.0 L, Albumin 2.7 L Vital Signs Date Time Temp Pulse Resp B/P (MAP) Pulse Ox O2 Delivery O2 Flow Rate FiO2 04/14/18 07:01 82 200/115 (143) 76 188/115 (139) 72 192/115 (140) 04/14/18 05:07 97.1 18 95 I&O- Last 24 Hours up to 6 AM 04/14/18 06:00 Intake Total 1080 ml Output Total 2360 ml Balance -1280 ml KAIT ELDRIDGE MD Apr 14, 2018 11:51
[2018-04-14 14:00] VITALS: BP_SYST 150; BP_SYST 210; BP_DIAS 88; BP_DIAS 90
[2018-04-14] MEDS: methylPREDNISolone INJ 40 MG/1 ML VIAL (J2920) IV SCH (17:52)
[2018-04-14 18:00] VITALS: BP_SYST 138; BP_SYST 190; BP_DIAS 80
[2018-04-14] MEDS ORDERED: MIRALAX *UNIT DOSE* 17GM PACKET PO PRN (18:15)
[2018-04-14] MEDS: RAMELTEON 8 MG TAB (ROZEREM) PO PRN (21:13)
[2018-04-14] MEDS: ESTROGENS VAGINAL CREAM 30GM PV SCH (21:13)
[2018-04-14] MEDS: diazePAM 10 MG TAB PO PRN (21:13)
[2018-04-14 22:00] VITALS: BP 173/95
[2018-04-14] MEDS ORDERED: methylPREDNISolone INJ 40 MG/1 ML VIAL (J2920) IV SCH (23:00)
[2018-04-15 05:54] LABS: BASO % 0.1 % (0.0-1.0); HEMATOCRIT 33.3 % (36.0-47.0); HEMOGLOBIN 11.3 g/dl (12.0-15.5); LYMPH % 12.9 % (24.0-44.0); MEAN CORPUSCULAR HEMOGLOBIN 32.3 pg (27.0-33.0); MEAN CORPUSCULAR HGB CONC 33.9 g/dl (32.0-36.5); MEAN CORPUSCULAR VOLUME 95.1 fl (80.0-96.0); MONO # 0.7 10^3/uL (0.0-0.8); MONO % 9.4 % (0.0-5.0); NEUTROPHILS % 76.4 % (36.0-66.0); PLATELET COUNT, AUTOMATED 204 10^3/uL (150-450); WHITE BLOOD COUNT 7.8 10^3/uL (4.0-10.0)
[2018-04-15 06:00] VITALS: BP 200/105
[2018-04-15] MEDS: LEVOTHYROXINE 75MCG TABLET (0.075MG) PO SCH (06:10)
[2018-04-15 06:15] LABS: ALT/SGPT 19 U/L (12-78); BLOOD UREA NITROGEN 16 MG/DL (7-18); CALCIUM LEVEL 7.6 MG/DL (8.8-10.2); CARBON DIOXIDE LEVEL 27 MEQ/L (21-32); CHLORIDE LEVEL 105 MEQ/L (98-107); CREATININE FOR GFR 0.87 MG/DL (0.55-1.30); GLOMERULAR FILTRATION RATE > 60.0 (>32); GLUCOSE, FASTING 116 MG/DL (70-100); POTASSIUM SERUM 4.2 MEQ/L (3.5-5.1); SODIUM LEVEL 138 MEQ/L (136-145)
[2018-04-15 06:16] LABS: ALBUMIN 2.7 GM/DL (3.2-5.2); BILIRUBIN,TOTAL 0.2 MG/DL (0.2-1.0); C REACTIVE PROTEIN QUANTITATIV < 0.30 MG/DL (0.00-0.30); ERYTHROCYTE SEDIMENTATION RATE 15 mm/hr (0-42); TOTAL PROTEIN 5.9 GM/DL (6.4-8.2)
[2018-04-15] MEDS: ISOSORBIDE DIN. (ISORDIL) 5 MG TAB PO PRN ×2 (06:52→20:27)
[2018-04-15] MEDS: ONDANSETRON 4MG/2ML VIAL (J2405) IV PRN ×2 (08:13→18:49)
[2018-04-15] MEDS: MULTIVITAMINS/MINERALS THERAP 1 TAB PO SCH (08:13)
[2018-04-15] MEDS: ASPIRIN 325 MG TAB PO SCH (08:13)
[2018-04-15] MEDS: SENOKOT S TAB PO SCH ×2 (08:13→20:28)
[2018-04-15] MEDS: PANTOPRAZOLE 40MG TAB (PROTONIX) PO SCH (08:13)
[2018-04-15] MEDS: ENOXAPARIN 40 MG/0.4 ML SYRINGE (J1650) SC SCH (08:14)
[2018-04-15 09:35] LABS: HEPATITIS B SURFACE ANTIBODY NEGATIVE (POSITIVE); HEPATITIS C VIRUS ABY INDEX < 0.0 INDEX (<0.8)
[2018-04-15] MEDS: D5W/0.45% SODIUM CHLORIDE 1,000 ML IV SCH (11:15)
--- NOTE | 2018-04-15 11:31 | IPNPDOC ---
Text Note Date of Service The patient was seen on 04/15/18. NOTE Subjective: Patient is an 87 year old female with a PMHx of Labile HTN, Carotid endarterectomy, Hypothyroidism, Discoid Lupus, Hx of UTIs (Klebsiella), G eneralized anxiety disorder, Diverticulosis, OA of hips, who presented to the ER with complaints of frequent falls and complaints of left sided weakness. Patient was admitted to the hospitalist service for further evaluation and treatment. Patient was seen and examined at the bedside. Currently does not have any CP, SOB or palpitations. Reports that she generally feels uncomfortable. Denies any vomiting, continues to experience nausea. Denies abdominal pain. No constipation / diarrhea. Objective: Vitals (See below) General: Lying in bed, no acute distress, comfortable, AAOx3 HEENT: NC, AT CVS: RRR, +S1S2 Lungs: Fair air entry b/l, does not appear to be any auscultated evidence of rhonchi, rales or wheezing Abdomen: Abdomen is nondistended, nontender, and remains soft Extremities: No LE edema, - Calf tenderness Skin: Erythematous skin rash diffusely over arms / legs - appears to be improving; again no involvement of oral mucosa or genitalia Assessment and plan: Lower extremity weakness, predominately on left leg - possibly 2/2 orthostatic hypotension, possibly 2/2 acute CVA - Physical does not reveal any significant weakness - MRA Brain 04/09: 1. There is no aneurysm or arteriovenous malformation. 2. 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 - MRI Brain 04/09: 1. 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 2. Small vessel ischemic disease. 3. Mild volume loss. 4. A punctate focus of increased signal intensity on diffusion weighted images is present in the left basal ganglia. This is decreased in signal intensity on ADC images and is consistent with an acute infarction. - Cervical MRI 04/09: There is cervical spondylosis at the C3-4 through C6-7 levels without spinal cord compression. - Cervical MRA 04/09: 1. The patient appears to be status post right carotid endarterectomy. The endarterectomy is patent. 2. 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 Mild to moderate atherosclerotic disease involves the right vertebral artery. 3. Mild atherosclerotic disease involves the left vertebral artery. - ECHO 04/09: Impairment of diastolic function - c/w Atorvastatin 40, ASA 81 - c/w Telemetry monitoring - Neurology on consultation; appreciate their input - c/w PT & OT Diffuse erythematous rash - possibly 2/2 rheumatalgic etiology, possibly vasculitis - Has occurred after completion of Prednisone; patient said the rash has occurred because of prednisone - However it's possible that prednisone has provided her a protective mechanism and rash has cleared after discontinuation - Clinically patient has had improvement of the rash; level of erythema has improved; however is blistered today - CRP has normalized - Rheumatologic workup pending - Consulted Rheumatology and Dermatology - will evaluate today - c/w Solumedrol q24h (Day #5) Leukocytosis - likely 2/2 corticosteroids - Remains afebrile Urinary tract infection - likely 2/2 E. coli - Patient had complained of dysuria - UA consistent with infection - Urine culture 04/09: E. Coli - c/w Ciprofloxacin (Day #5); will discontinue today s/p Atypical chest pain - likely 2/2 GI etiology - EKG without ischemic changes - Troponin negative - c/w Atorvastatin and ASA s/p RSV infection - s/p Prednisone taper as an outpatient Labile HTN - possibly 2/2 autonomic dysfunction, less likely 2/2 adrenal insufficiency - Patient has a very fluctuant blood pressure - Patient indicates that she follows with Dr. Saldana as an outpatient - She notes a regimen that includes isosorbide as well as a midodrine given her blood pressure measurements - Cosyntropin stimulation test complete; negative - c/w adjusted blood pressure medications with appropriate holding parameters - Discussed with Dr. Saldana; no additional recommendations for blood pressure regimen - Advised patient that ultimately getting control of her BP will be difficult given that current medications have been maximized - Advised patient that possibility of future strokes exists; however there are not many options available for optimizing her orthostatic hypotension - Patient understands what I've said and acknowledges limits to medications - c/w thigh high compression stockings when tolerated (re: skin rash) Diastolic CHF - Patient does not appear to be in any signs of fluid overload - ECHO 03/01: EF of 80%, grade 1 diastolic dysfunction, moderate mitral annular calcification, mild mitral regurgitation, mild aortic stenosis, mild aortic re gurgitation, tiny pericardial effusion - c/w strict ins/outs, daily weights - Will continue to monitor Carotid endarterectomy - c/w ASA Hypothyroidism - c/w Levothyroxine Discoid Lupus - Currently not on any medications Generalized anxiety disorder - c/w Alprazolam PRN Hx of Diverticulosis - No evidence of exacerbation / acute flare OA of hips - c/w Tylenol PRN GI prophylaxis - c/w Protonix DVT prophylaxis - c/w Lovenox Disposition: - c/w PT; has been seen sitting up in chair this morning VS,David, I+O VS, David, I+O Laboratory Tests 04/15/18 05:33 Red Blood Count 3.50 L, Mean Corpuscular Volume 95.1, Mean Corpuscular Hemoglobin 32.3, Mean Corpuscular Hemoglobin Concent 33.9, Red Cell Distribution Width 12.9, Neutrophils (%) (Auto) 76.4 H, Lymphocytes (%) (Auto) 12.9 L, Monocytes (%) (Auto) 9.4 H, Eosinophils (%) (Auto) 0.0, Basophils (%) (Auto) 0.1, Neutrophils # (Auto) 6.0, Lymphocytes # (Auto) 1.0 L, Monocytes # (Auto) 0.7, Eosinophils # (Auto) 0.0, Basophils # (Auto) 0.0, Calcium Level 7.6 L, Aspartate Amino Transf (AST/SGOT) 23, Alanine Aminotransferase (ALT/SGPT) 19, Alkaline Phosphatase 56, Total Bilirubin 0.2, Total Protein 5.9 L, Albumin 2.7 L Vital Signs Date Time Temp Pulse Resp B/P (MAP) Pulse Ox O2 Delivery O2 Flow Rate FiO2 04/15/18 06:52 200/105 04/15/18 06:00 97.8 74 17 93 I&O- Last 24 Hours up to 6 AM 04/15/18 06:00 Intake Total 1900 ml Output Total 3800 ml Balance -1900 ml KAIT ELDRIDGE MD Apr 15, 2018 11:31
[2018-04-15] MEDS ORDERED: SIMETHICONE 80 MG CHEW TAB PO ONE (13:00)
[2018-04-15 14:00] VITALS: BP 189/83
[2018-04-15 15:00] VITALS: BP_SYST 183; BP_SYST 189; BP_DIAS 80; BP_DIAS 83
[2018-04-15 15:44] LABS: APPEARANCE, URINE CLEAR (CLEAR); BACTERIA, URINE AUTO 1+ (NEGATIVE); BILIRUBIN, URINE AUTO NEGATIVE (NEGATIVE); BLOOD, URINE BLOOD NEGATIVE (NEGATIVE); COLOR, URINE STRAW (YELLOW); GLUCOSE, URINE (UA) AUTO NEGATIVE (NEGATIVE); KETONE, URINE AUTO NEGATIVE (NEGATIVE); LEUKOCYTE ESTERASE, URINE AUTO NEGATIVE (NEGATIVE); NITRITE, URINE AUTO NEGATIVE (NEGATIVE); PROTEIN, URINE AUTO NEGATIVE (NEGATIVE); RBC, URINE AUTO 0 /HPF (0-3); SPECIFIC GRAVITY URINE AUTO 1.003 (1.002-1.035); SQUAMOUS EPITHELIAL CELL UR AU 1 /HPF (0-6); UROBILINOGEN, URINE AUTO 0.2 mg/dL (0.0-2.0); WBC, URINE AUTO 0 /HPF (0-3)
--- NOTE | 2018-04-15 16:15 | CR.PDOC ---
General Date of Consultation: Apr 15, 2018 Referring Provider: KAIT ELDRIDGE MD Primary Care Physician: JIMI ALEGRIA DO Attending Physician: SHEKHAR WINTERS MD Consultation REASON FOR CONSULTATION/CHIEF COMPLAINT: Rash / skin biopsy. HISTORY OF PRESENT ILLNESS: Ms. Grayson is an 87-year-old female who initially presented to [facility]'s Emergency Department with chest pain and a diffuse, pruritic rash. Dermatology has been consulted for further evaluation of rash. Patient states that she was previously admitted to [facility] from 03/01/2018 to 03/05/2018 for non-productive cough with shortness of breath and was diagnosed with respiratory syncytial virus. She was initially started on intravenous SoluMedrol and transitioned to oral tapering dose of Prednisone at time of discharge. Patient states that on 03/20/2018, after the completion of the oral Prednisone taper, a circular rash with centralized clearing and surrounding erythema appeared on her left thigh. The rash subsequently spread from her left thigh to the rest of her left leg, onto her right leg, to the back of her calves, buttocks, back, upper chest, and bilateral upper extremities. The rash never spread to her abdomen. The rash was initially quite pruritic which lasted for about week when the pruritus peaked, but it has since abated. The rash would progress to form blisters that would weep clear liquid. No blood was noted to drain. Initially she thought that she was having a exacerbation of her subcutaneous lupus and began to use a specialized cream (Halobetasol Propionate 0.05% cream) she has for lupus, but quickly realized that it was not a flare-up of her lupus as this rash was pruritic and lupus is not. She discontinued the lupus cream. She then, as a one-time dose, used CeraVe cream without symptomatic relief. The patient has not used any other topical or systemic products. She had follow-up appointments with her primary care aliza pleitez and distributor sales consultant. There was a misunderstanding regarding her thyroid medication and she had temporarily discontinued the medication for 10 days. Patient has a history of subacute cutaneous lupus erythematosus for which she has been on Plaquenil 200mg by mouth daily since 2009. She states that this is not a flare-up on her lupus as it does not present this way. She denies changes to detergents, soaps, pets (she has none), or new clothing. She has has never reported a rash that looks similar to this one she has now. She admits to blurry vision with double vision and a headache, chronic back pain, nausea, and an episode of chills that was related to a diagnosed urinary tract infection. Her appetite is decreased, but her documented weight has remained stable. She has a dry mouth, but associates that with steroid use and does not report a history of dry mouth prior to steroid use. Denies fever, night sweats, joint pains, vomiting, abdominal pain, urinary symptoms. ALLERGIES: Please see below. HOME MEDICATIONS: Please see below. PAST MEDICAL HISTORY: 1. Labile hypertension. 2. Hypothyroidism. 3. Subacute cutaneous lupus erythematosus. 4. History of basal cell carcinoma. 5. Lentigines. 6. Seborrheic keratoses. 7. Generalized anxiety disorder. 8. Diverticulosis. 9. Osteoarthritis. 10. Diastolic congestive heart failure with a left ventricular ejection fraction, 75%, compensated. 11. Left basal ganglia cerebrovascular accident. 12. History of urinary tract infections with Klebsiella. 13. History of carotid endarterectomy. 14. History of RSV bronchiolitis. PAST SURGICAL HISTORY: 1. Right hip arthroplasty. 2. Right yo excisional biopsy. 3. Colonoscopy. 4. Abdominal hysterectomy. 5. Cholecystectomy. FAMILY HISTORY: Father: , age 79, Alzheimer's disease. Mother: , age 83, stroke from carotid endarterectomy. Siblings: - Brother: Alive, age 77. - Brother: , age 75, aneurysm. - Sister: , age 79, end-stage renal disease. Children: 5, all alive and healthy. Hereditary Diseases: None. Unexpected deaths due to medical reasons: None. SOCIAL HISTORY: Marital status and/or living arrangements: for the past 13 years; mar ried for 54 years. Children: 5. Grandchildren: 5. Great grandchildren: 3. 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 Tobacco use: Former. ETOH: None. Illicit drug use: None. IV drug use: None. Other relevant social factors: None. REVIEW OF SYSTEMS: CONSTITUTIONAL: Admits to an episode of chills, headache; denies fever, night sweats. HEENT: Admits to headache, blurry vision, double vision. CARDIOVASCULAR: Admits to improved shortness of breath; denies chest pain. RESPIRATORY: Admits to improved non-productive cough. GENITOURINARY: Denies dysuria, hematuria, pelvic pain, urinary frequency, urinary urgency. MUSCULOSKELETAL: Denies joint pain, muscle pain. GASTROINTESTINAL: Admits to nausea; denies vomiting, abdominal pain, oral lesions. SKIN: Admits to diffuse pruritic, erythematous rash. NEUROLOGICAL: Denies numbness, tingling. ENDOCRINE: Admits to decreased appetite. HEMATOLOGIC/LYMPHATIC: Denies lumps/bumps in neck, axilla, or groin. PHYSICAL EXAMINATION: VITAL SIGNS: Please see below. SKIN: Miguel II, interactive, pleasant, reserved affect, alert and oriented x4, patient sitting comfortably in hospital bed in no acute distress. A full skin exam was conducted today. An examination of the skin on the back, neck, buttocks, scalp, face, eyelids, chest, abdomen, left and right arms and hands, left and right legs and feet, fingernails, and toenails was found to be normal except for the following findings: Diffuse erythematous confluent patches with isolated bullae noted on the bilater al lower extremities, upper thorax, bilateral upper extremities, and back. Some areas are blanchable while other are non-blanchable. Circular erythematous plaque with centralized crusting on the anterior left thigh. Small bulla with what appears to be serosanguineous fluid noted on the lateral aspect of the right thigh that is fluctuant and freely tracks along under the epidermis when manipulated with mild pressure. Positive Nikolsky sign. Areas of excoriation and hyperkeratosis noted in the left neck/clavicle and upper back. Abdomen spared. LABORATORY DATA: Please see below. ASSESSMENT/PLAN: Diffuse erythematous confluent patches. Differential includes erythema multiforme, exanthematous drug eruption, erythroderma, and less likely cutaneous lupus erythematosus flare, pemphigus vulgaris, and much lower on the differential bullous dermatomyositis. Immunologic work-up is pending. TAMANNA screen is positive. SS-A/Ro IgG and SS-B/La IgG antibodies are positive at > 8.0. IgA antibodies are within normal limits. Total complement is within normal limits. Lyme disease work-up was negative. HSV work-up is pending. C-reactive protein has normalized. Erythrocyte sedimentation rate has remained within normal limits. Performed two skin biopsies to possibly further delineate possible melinda ologies of current rash. Four sutures have been placed which should be removed in two weeks from 04/15/2018. Would recommend topical Clobetasol 0.05% twice daily to areas of rash which has been ordered. Would strongly consider Valtrex 1g by mouth thrice daily given history of HSV-I and recent RSV bronchiolitis which could possibly contribute to erythema multiforme. Apply cool compresses to areas of denuded skin for discomfort and Exu Dry to aid with weeping areas. Apply cooled Eucerin to entire body (could cool Eucerin in refrigerator). Would defer steroid taper to primary team. Thank you for this interesting consult. Dermatology will continue to follow along. I spent 1 hour at the patient's bedside. The patient should be seen in follow up for dermatology as an outpatient by calling [phone] to schedule an appointment within 2-3 weeks of discharge. Vital Signs/I&O Vital Signs Date Time Temp Pulse Resp B/P (MAP) Pulse Ox O2 Delivery O2 Flow Rate FiO2 04/15/18 06:52 200/105 04/15/18 06:00 97.8 74 17 93 I&O- Last 24 Hours up to 6 AM 04/15/18 05:59 Intake Total 1520 ml Output Total 3325 ml Balance -1805 ml Laboratory Data Labs 24H Laboratory Tests 2 04/15/18 05:33: Immature Granulocyte % (Auto) 1.2, White Blood Count 7.8, Red Blood Count 3.50L, Hemoglobin 11.3L, Hematocrit 33.3L, Mean Corpuscular Volume 95.1, Mean Corpu scular Hemoglobin 32.3, Mean Corpuscular Hemoglobin Concent 33.9, Red Cell Distribution Width 12.9, Platelet Count 204, Neutrophils (%) (Auto) 76.4H, Lymphocytes (%) (Auto) 12.9L, Monocytes (%) (Auto) 9.4H, Eosinophils (%) (Auto) 0.0, Basophils (%) (Auto) 0.1, Neutrophils # (Auto) 6.0, Lymphocytes # (Auto) 1.0L, Monocytes # (Auto) 0.7, Eosinophils # (Auto) 0.0, Basophils # (Auto) 0.0, Nucleated Red Blood Cells % (auto) 0.0, Erythrocyte Sedimentation Rate 15, Anion Gap 6L, Glomerular Filtration Rate > 60.0, Blood Urea Nitrogen 16, Creatinine 0.87, Sodium Level 138, Potassium Level 4.2, Chloride Level 105, Carbon Dioxide Level 27, Calcium Level 7.6L, Aspartate Amino Transf (AST/SGOT) 23, Alanine Aminotransferase (ALT/SGPT) 19, Alkaline Phosphatase 56, Total Bilirubin 0.2, Total Protein 5.9L, Albumin 2.7L, Magnesium Level 2.0, C-Reactive Protein, Quantitative < 0.30, Albumin/Globulin Ratio 0.84L CBC/BMP Laboratory Tests 04/15/18 05:33 Red Blood Count 3.50 L, Mean Corpuscular Volume 95.1, Mean Corpuscular Hemoglobin 32.3, Mean Corpuscular Hemoglobin Concent 33.9, Red Cell Distribution Width 12.9, Neutrophils (%) (Auto) 76.4 H, Lymphocytes (%) (Auto) 12.9 L, Monocy prabhakar (%) (Auto) 9.4 H, Eosinophils (%) (Auto) 0.0, Basophils (%) (Auto) 0.1, Neutrophils # (Auto) 6.0, Lymphocytes # (Auto) 1.0 L, Monocytes # (Auto) 0.7, Eosinophils # (Auto) 0.0, Basophils # (Auto) 0.0, Calcium Level 7.6 L, Aspartate Amino Transf (AST/SGOT) 23, Alanine Aminotransferase (ALT/SGPT) 19, Alkaline Phosphatase 56, Total Bilirubin 0.2, Total Protein 5.9 L, Albumin 2.7 L Microbiology Microbiology 04/07/18 Blood Culture - Final, Complete NO GROWTH AFTER 5 DAYS 04/07/18 Blood Culture - Final, Complete NO GROWTH AFTER 5 DAYS 04/09/18 Urine Culture - Final, Complete Escherichia Coli Allergies Coded Allergies: Hydralazine (Verified Allergy, Mild, RASH, 04/07/18) Shellfish Allergy (Verified Allergy, Unknown, PT HAD ? REACTION AFTER EATING SHELLFISH, 03/01/18) TAPE (Verified Adverse Reaction, Intermediate, SKIN FRAGILE, 01/27/15) Amoxicillin (Verified Adverse Reaction, Mild, NAUSEA AT HIGH DOSAGE, 04/07/18) Diphenhydramine (Unverified Adverse Reaction, Mild, SEVERE NAUSEA/DIARHHEA, 04/07/18) Naproxen (Verified Adverse Reaction, Mild, nausea, 6/29/18) Sulfa Drugs (Unverified Adverse Reaction, Mild, GI UPSET, 04/07/18) Home Medications Scheduled (Calcium 600 + D 600-200 mg-Unit) 1 Tab Tab, 1 TAB PO DAILY, (Reported) Ascorbic Acid (Ascorbic Acid) 500 Mg Tab, 500 MG PO DAILY, (Reported) Aspirin (Aspirin) 325 Mg Tab, 325 MG PO DAILY, (Reported) Conjugated Estrogens (Premarin) 1 Dose/30 Gm Cr, 1 DOSE PV QHS, (Reported) ONE-HALF APPLICATORFUL Levothyroxine Sodium (Synthroid) 75 Mcg Tab, 75 MCG PO DAILY, (Reported) Multivitamins *[facility] STOCKED* (Thera M Plus *[facility] STOCKED*) 1 Tab Tab, 1 TAB PO DAILY, (Reported) Scheduled PRN Acetaminophen (Acetaminophen ER) 650 Mg Tab, 650 MG PO Q4H PRN for PAIN / FEVER, (Reported) Diazepam (Diazepam) 10 Mg Tab, 10 MG PO QHSP PRN for SLEEP, (Reported) Isosorbide Dinitrate (Isosorbide Dinitrate) 5 Mg Tab, 5 MG PO BID PRN for HYPERTENSION, (Reported) PATIENT TAKES BLOOD PRESSURE FOUR TIMES EACH DAY. Midodrine HCl (Midodrine HCl) 10 Mg Tab, 10 MG PO TID PRN for HYPOTENSION, (Reported) PATIENT TAKES BLOOD PRESSURE FOUR TIMES EACH DAY. MAXIM GLORIA DO Apr 15, 2018 16:15 SHEKHAR WINTERS MD Apr 16, 2018 08:38
[2018-04-15] MEDS ORDERED: LIDOCAINE 1% MDV 20ML VIAL As Ordered ONE (18:04)
[2018-04-15] MEDS: methylPREDNISolone INJ 40 MG/1 ML VIAL (J2920) IV SCH (18:40)
[2018-04-15] MEDS ORDERED: diphenhydrAMINE CREAM 30GM TOP PRN (18:45)
[2018-04-15] MEDS: SIMETHICONE 80 MG CHEW TAB PO PRN (20:28)
[2018-04-15] MEDS: valACYclovir HCL 500 MG TAB PO SCH (20:28)
[2018-04-15] MEDS: diazePAM 10 MG TAB PO PRN (20:28)
[2018-04-15] MEDS: EUCERIN 120GM CREAM TOP SCH (20:29)
[2018-04-15] MEDS: CLOBETASOL PROPIONATE EMOLLIENT 0.05% CR 60 GM TOP SCH (20:29)
[2018-04-15] MEDS: ESTROGENS VAGINAL CREAM 30GM PV SCH (20:29)
--- NOTE | 2018-04-15 20:37 | CR.PDOC ---
General Date of Consultation: Apr 15, 2018 Referring Provider: KAIT ELDRIDGE MD Consultation REASON FOR CONSULTATION/CHIEF COMPLAINT: rash with history of "lupus rash" HISTORY OF PRESENT ILLNESS: Patient is a 87 year-old woman with history of uncontrolled hypertension along with frequent episodes of orthostatic hypotens ion, admitted on 04/07/18 due to chest pain and diffuse rash. She was previously admitted to [facility] from 03/01/2018 to 03/05/2018 for non- productive cough with shortness of breath and was diagnosed with respiratory syncytial virus infection. Steroid was given for respiratory symptoms, and oral tapering dose of Prednisone for discharge. Patient says the rash started on 03/21/2018 after taking the last dose of prednisone. She describes the rash started as a circular rash with centralized clearing and surrounding erythema appeared on her left anterior thigh. The rash subsequently spread from her left thigh to the rest of her left leg, onto her right leg, to the back of her ca lves, buttocks, back, upper chest, and bilateral upper extremities. Her abdomen is spared. The rash was very pruritic which seems better now after steroids. The rash has been worsening to form blisters and some of them broke with oozing clear liquid. No blood was noted to drain. There is no pain. Initially she thought that she was having a exacerbation of her subcutaneous lupus and tried topical cream that she has for lupus. She had follow-up appointments with her primary care provider and agricultural technician. There was a misunderstanding regarding her thyroid medication and she had temporarily discontinued the medication for 10 days. Patient has a history of subacute cutaneous lupus erythematosus for which she has been on Plaquenil in the past, but she is not sure when she has stopped it. She never seen a robot designer. Patient used to follow up with Dr. Lety Chun and was told to have "subcutaneous lupus". She never had any other organ involvement from lupus. Denies kidney biopsy, pericarditis, lungs, bowel problem from lupus. Denies dry eyes, pink or red eyes, no uveitis, no hair loss, no similar rash in the past. Denies joint swelling, joint pain, vomiting, diarrhea, blood stool. She states that this is not a flare-up on her lupus as it does not present this way. She denies changes to detergents, soaps, lotion, new clothing. She admits to blurry vision with double vision and a headache, chronic back pain, nausea, and an episode of chills that was related to a diagnosed urinary tract infection. Her appetite is decreased, but her documented weight has remained stable. She has a dry mouth, but associates that with steroid use and does not report a history of dry mouth prior to steroid use. ALLERGIES: Please see below. HOME MEDICATIONS: Please see below. PAST MEDICAL HISTORY: 1. Labile hypertension. 2. Hypothyroidism. 3. Subacute cutaneous lupus erythematosus. 4. History of basal cell carcinoma. 5. Lentigines. 6. Seborrheic keratoses. 7. Generalized anxiety disorder. 8. Diverticulosis. 9. Osteoarthritis. 10. Diastolic congestive heart failure with a left ventricular ejection fraction, 75%, compensated. 11. Left basal ganglia cerebrovascular accident. 12. History of urinary tract infections with Klebsiella. 13. History of carotid endarterectomy. 14. History of RSV bronchiolitis. PAST SURGICAL HISTORY: 1. Right hip arthroplasty. 2. Right yo excisional biopsy. 3. Colonoscopy. 4. Abdominal hysterectomy. 5. Cholecystectomy. FAMILY HISTORY: Father: , age 79, Alzheimer's disease. Mother: , age 83, stroke from carotid endarterectomy. Siblings: - Brother: Alive, age 77. - Brother: , age 75, aneurysm. - Sister: , age 79, end-stage renal disease. Children: 5, all alive and healthy. Hereditary Diseases: None. Unexpected deaths due to medical reasons: None. SOCIAL HISTORY: Marital status and/or living arrangements: for the past 13 years; for 54 years. Children: 5. Grandchildren: 5. Great grandchildren: 3. 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 Tobacco use: Former. ETOH: None. Illicit drug use: None. IV drug use: None. Other relevant social factors: None. REVIEW OF SYSTEMS: Constitutional: Denies fever or weight loss. Eyes: Denies acute vision changes, eye pain, dry eyes or red eyes. ENT: Denies hearing changes, dysphagia, sore throat, runny nose, dry mouth. Cardiac: Denies chest pain, edema or orthopnea. Respiratory: Denies dyspnea, cough or wheeze. Gastroenterology: Denies abdominal pain, nausea and vomiting. Genitourinary: Denies dysuria or hematuria. Neurologic: Denies seizures, blackout, numbness or focal weakness. Psychiatric: No depression, denies confusion. Endocrine: Denies polyuria or polydipsia. Hematologic: Denies blood clots or easy bleeding. Skin: rash as per HPI. Musculoskeletal: Denies joint swelling, joint pain, muscle weakness. PHYSICAL EXAMINATION: VITAL SIGNS: Please see below. GENERAL: The patient was lying in bed without acute distress. HEENT: Normocephalic, atraumatic. Extraocular movements intact. No sinus tenderness. Oropharynx clear. Mucous membranes are moist. NECK: Supple without lymph node. CHEST: Clear and good breath sounds equally. No wheezing. +rales at both bases left more than right. HEART: S1, S2. Regular rate and rhythm. ABDOMEN: Soft, nontender. No organomegaly. EXTREMITIES: No clubbing, cyanosis or edema of lower extremities. NEUROLOGIC: Patient is alert and oriented x3. No gross focal deficit. No sensory deficit. PSYCHOSOCIAL: Patient is in a good mood. No signs of depression. INTEGUMENT: Diffuse erythematous confluent patches with isolated bullae noted on the bilateral lower extremities, upper thorax, bilateral upper extremities, and back. Some areas are blanchable while other are non-blanchable. Circular erythematous plaque with central clearing and crusting on the anterior left thigh. Positive Nikolsky sign. Areas of excoriation and hyperkeratosis noted in the left neck/clavicle and upper back. There is erythematous macules in hands. Abdomen spared. MUSCULOSKELETAL: Hands: There is no synovitis and no swelling with full range of motion in the hands, no deformities. Wrist: There is full range of motion with no tender points in both wrists. No swelling. Elbows: Full range of motion no synovitis and no pain on extension in both elbows. Shoulders: Full range of motion without the discomfort including abduction and internal rotation in both shoulders. Knees: There is no tenderness to palpation along the joint line in both knees, full range of motion and no effusion. Hips: There is no pain in the groin with internal or external rotation. Legs: no pain and swelling. Ankles: Full range of motion with no tenderness, no swelling in the ankles Feet: no pain and swelling of toes with normal range of motion. Back: no tenderness in the spine and paraspinal muscles, straight leg raise n egative. Misc: No tophi and nodules are appreciated. LABORATORY DATA: Please see below. TAMANNA homogenous 1:80, SSA >8, SSB>8, negative dsDNA, rdz, [employer]. CRP and ESR normal C3 and C4 normal UA negative protein, no cast Leukopenia improved. ASSESSMENT/PLAN: No evidence of systemic lupus erythematous at this moment. She has history of cutaneous lupus erythematous, but not systemic lupus erythematous. However, she has TAMANNA positive (low titers) with positive SSA and SSB, episodes of leukopenia. The vast majority of acute cutaneous lupus erythematous would eventually develop fully systemic lupus erythematous, but her diagnosis was not clear. I agree with dermatology that current differential diagnosis includes erythema multiforme, exanthematous drug eruption, and cutaneous lupus erythematosus, pemphigus vulgaris, and much lower on the differential bullous dermatomyositis. TAMANNA screen is positive. SS-A/Ro IgG and SS-B/La IgG antibodies are positive at > 8.0. IgA antibodies are within normal limits. Complement level is within normal limits. Lyme disease work-up was negative. HSV work-up is pending. C- reactive protein has normalized. Erythrocyte sedimentation rate has remained wi thin normal limits. Recommendations: Follow up rest of vasculitis work up Follow up skin biopsy with dermatology Taper steroids over one week Previous US abdomen showed renal artery stenosis. I am not sure if that could cause the uncontrolled hypertension. It should be followed and addressed as well to avoid further fluctuation of her blood pressure which seems to be debilitating for patient. She should follow up with dermatology upon discharge and with me as needed if new findings more suggestive for systemic lupus erythematous. I have discussed my findings and recommendations with patient and her daughter, and I have answered all her questions. Vital Signs/I&O Vital Signs Date Time Temp Pulse Resp B/P (MAP) Pulse Ox O2 Delivery O2 Flow Rate FiO2 04/15/18 15:00 189/83 (118) 183/80 (114) 04/15/18 14:00 97.5 77 16 91 I&O- Last 24 Hours up to 6 AM 04/15/18 06:00 Intake Total 1900 ml Output Total 3800 ml Balance -1900 ml Laboratory Data Labs 24H Laboratory Tests 2 04/15/18 05:33: Immature Granulocyte % (Auto) 1.2, White Blood Count 7.8, Red Blood Count 3.50L, Hemoglobin 11.3L, Hematocrit 33.3L, Mean Corpuscular Volume 95.1, Mean Corpuscular Hemoglobin 32.3, Mean Corpuscular Hemoglobin Concent 33.9, Red Cell Distribution Width 12.9, Platelet Count 204, Neutrophils (%) (Auto) 76.4H, Lymphocytes (%) (Auto) 12.9L, Monocytes (%) (Auto) 9.4H, Eosinophils (%) (Auto) 0.0, Basophils (%) (Auto) 0.1, Neutrophils # (Auto) 6.0, Lymphocytes # (Auto) 1.0L, Monocytes # (Auto) 0.7, Eosinophils # (Auto) 0.0, Basophils # (Auto) 0.0, Nucleated Red Blood Cells % (auto) 0.0, Erythrocyte Sedimentation Rate 15, Anion Gap 6L, Glomerular Filtration Rate > 60.0, Blood Urea Nitrogen 16, Creatinine 0.87, Sodium Level 138, Potassium Level 4.2, Chloride Level 105, Carbon Dioxide Level 27, Calcium Level 7.6L, Aspartate Amino Transf (AST/SGOT) 23, Alanine Aminotransferase (ALT/SGPT) 19, Alkaline Phosphatase 56, Total Bilirubin 0.2, Total Protein 5.9L, Albumin 2.7L, Magnesium Level 2.0, C-Reactive Protein, Quantitative < 0.30, Albumin/Globulin Ratio 0.84L 04/15/18 15:23: Urine Appearance CLEAR, Urine Color STRAW, Urine pH 7.0, Urine Specific [place] 1.003, Urine Protein NEGATIVE, Urine Glucose (UA) NEGATIVE, Urine Ketones NEGATIVE, Urine Urobilinogen 0.2, Urine Bilirubin NEGATIVE, Urine Leukocyte Esterase NEGATIVE, Urine Blood NEGATIVE, Urine Nitrite NEGATIVE, Urine WBC (Auto) 0, Urine RBC (Auto) 0, Urine Hyaline Casts (Auto) 0, Urine Bacteria (Auto) 1+H, Urine Squamous Epithelial Cells 1, Urine Sperm (Auto) CBC/BMP Laboratory Tests 04/15/18 05:33 Red Blood Count 3.50 L, Mean Corpuscular Volume 95.1, Mean Corpuscular Hemoglobin 32.3, Mean Corpuscular Hemoglobin Concent 33.9, Red Cell Distribution Width 12.9, Neutrophils (%) (Auto) 76.4 H, Lymphocytes (%) (Auto) 12.9 L, Mon ocytes (%) (Auto) 9.4 H, Eosinophils (%) (Auto) 0.0, Basophils (%) (Auto) 0.1, Neutrophils # (Auto) 6.0, Lymphocytes # (Auto) 1.0 L, Monocytes # (Auto) 0.7, Eosinophils # (Auto) 0.0, Basophils # (Auto) 0.0, Calcium Level 7.6 L, Aspartate Amino Transf (AST/SGOT) 23, Alanine Aminotransferase (ALT/SGPT) 19, Alkaline Phosphatase 56, Total Bilirubin 0.2, Total Protein 5.9 L, Albumin 2.7 L Microbiology Microbiology 04/07/18 Blood Culture - Final, Complete NO GROWTH AFTER 5 DAYS 04/07/18 Blood Culture - Final, Complete NO GROWTH AFTER 5 DAYS 04/09/18 Urine Culture - Final, Complete Escherichia Coli Allergies Coded Allergies: Hydralazine (Verified Allergy, Mild, RASH, 04/07/18) Shellfish Allergy (Verified Allergy, Unknown, PT HAD ? REACTION AFTER EATING SHELLFISH, 03/01/18) TAPE (Verified Adverse Reaction, Intermediate, SKIN FRAGILE, 01/27/15) Amoxicillin (Verified Adverse Reaction, Mild, NAUSEA AT HIGH DOSAGE, 04/07/18) Diphenhydramine (Unverified Adverse Reaction, Mild, SEVERE NAUSEA/DIARHHEA, 04/07/18) Naproxen (Verified Adverse Reaction, Mild, nausea, 08/24/17) Sulfa Drugs (Unverified Adverse Reaction, Mild, GI UPSET, 04/07/18) Home Medications Scheduled (Calcium 600 + D 600-200 mg-Unit) 1 Tab Tab, 1 TAB PO DAILY, (Reported) Ascorbic Acid (Ascorbic Acid) 500 Mg Tab, 500 MG PO DAILY, (Reported) Aspirin (Aspirin) 325 Mg Tab, 325 MG PO DAILY, (Reported) Conjugated Estrogens (Premarin) 1 Dose/30 Gm Cr, 1 DOSE PV QHS, (Reported) ONE-HALF APPLICATORFUL Levothyroxine Sodium (Synthroid) 75 Mcg Tab, 75 MCG PO DAILY, (Reported) Multivitamins *[facility] STOCKED* (Thera M Plus *[facility] STOCKED*) 1 Tab Tab, 1 TAB PO DAILY, (Reported) Scheduled PRN Acetaminophen (Acetaminophen ER) 650 Mg Tab, 650 MG PO Q4H PRN for PAIN / FEVER, (Reported) Diazepam (Diazepam) 10 Mg Tab, 10 MG PO QHSP PRN for SLEEP, (Reported) Isosorbide Dinitrate (Isosorbide Dinitrate) 5 Mg Tab, 5 MG PO BID PRN for HYPERTENSION, (Reported) PATIENT TAKES BLOOD PRESSURE FOUR TIMES EACH DAY. Midodrine HCl (Midodrine HCl) 10 Mg Tab, 10 MG PO TID PRN for HYPOTENSION, (Reported) PATIENT TAKES BLOOD PRESSURE FOUR TIMES EACH DAY. SHARON PINK MD Apr 15, 2018 19:57
[2018-04-15 22:00] VITALS: BP 149/84
[2018-04-15 22:20] VITALS: BP 151/84
[2018-04-16 00:13] LABS: CYCLIC CITRULLINATED PEPTIDE 6 units (0-19)
[2018-04-16] MEDS: LEVOTHYROXINE 75MCG TABLET (0.075MG) PO SCH (05:35)
[2018-04-16] MEDS: valACYclovir HCL 500 MG TAB PO SCH ×3 (05:35→21:42)
[2018-04-16] MEDS: ISOSORBIDE DIN. (ISORDIL) 5 MG TAB PO PRN (05:45)
[2018-04-16 05:59] LABS: BASO % 0.3 % (0.0-1.0); HEMATOCRIT 34.2 % (36.0-47.0); HEMOGLOBIN 11.7 g/dl (12.0-15.5); LYMPH # 0.7 10^3/uL (1.5-4.5); LYMPH % 10.1 % (24.0-44.0); MEAN CORPUSCULAR HEMOGLOBIN 33.1 pg (27.0-33.0); MEAN CORPUSCULAR HGB CONC 34.2 g/dl (32.0-36.5); MEAN CORPUSCULAR VOLUME 96.9 fl (80.0-96.0); MONO # 0.5 10^3/uL (0.0-0.8); NEUTROPHILS # 5.6 10^3/uL (1.8-7.7); NEUTROPHILS % 81.9 % (36.0-66.0); RED BLOOD COUNT 3.53 10^6/uL (4.00-5.40); WHITE BLOOD COUNT 6.8 10^3/uL (4.0-10.0)
[2018-04-16 06:00] VITALS: BP 136/92
[2018-04-16 06:19] LABS: ERYTHROCYTE SEDIMENTATION RATE 8 mm/hr (0-42); PLATELET COUNT, AUTOMATED 112 10^3/uL (150-450)
[2018-04-16 06:25] LABS: ALBUMIN 2.5 GM/DL (3.2-5.2); ALT/SGPT 17 U/L (12-78); BILIRUBIN,TOTAL 0.2 MG/DL (0.2-1.0); BLOOD UREA NITROGEN 11 MG/DL (7-18); C REACTIVE PROTEIN QUANTITATIV 0.34 MG/DL (0.00-0.30); CALCIUM LEVEL 7.6 MG/DL (8.8-10.2); CARBON DIOXIDE LEVEL 28 MEQ/L (21-32); CHLORIDE LEVEL 105 MEQ/L (98-107); CREATININE FOR GFR 0.79 MG/DL (0.55-1.30); GLOMERULAR FILTRATION RATE > 60.0 (>32); GLUCOSE, FASTING 113 MG/DL (70-100); MAGNESIUM LEVEL 1.7 MG/DL (1.8-2.4); POTASSIUM SERUM 4.2 MEQ/L (3.5-5.1); SODIUM LEVEL 138 MEQ/L (136-145); TOTAL PROTEIN 5.7 GM/DL (6.4-8.2)
[2018-04-16] MEDS: ENOXAPARIN 40 MG/0.4 ML SYRINGE (J1650) SC SCH (08:10)
[2018-04-16] MEDS: ASPIRIN 325 MG TAB PO SCH (08:10)
[2018-04-16] MEDS: PANTOPRAZOLE 40MG TAB (PROTONIX) PO SCH (08:10)
[2018-04-16] MEDS: MULTIVITAMINS/MINERALS THERAP 1 TAB PO SCH (08:10)
[2018-04-16] MEDS: SENOKOT S TAB PO SCH ×2 (08:10→21:00)
[2018-04-16] MEDS: EUCERIN 120GM CREAM TOP SCH ×2 (08:11→21:42)
[2018-04-16] MEDS: CLOBETASOL PROPIONATE EMOLLIENT 0.05% CR 60 GM TOP SCH ×2 (08:11→21:42)
--- NOTE | 2018-04-16 09:06 | REP ---
RENAL ULTRASOUND OF THE RENAL ARTERY DOPPLER ULTRASOUND: 04/16/2018. COMPARISON: US 09/29/2014, CT 04/07/2018. CLINICAL HISTORY: Uncontrolled hypertension. FINDINGS: RENAL ULTRASOUND: The right kidney 10.5 x 4.5 x 4 cm. Cortical echogenicity is increased. There is extrarenal pelvis. Cortex is thinned. There is increased renal sinus fat and some vascular calcifications of vessels in the renal sinus. There is no hydronephrosis, hydroureter, mass or cyst. No perinephric fluid. The left kidney measures 8.4 x 4.5 x 4.7 cm. It has cortical thinning with hyperechoic cortex and no hydronephrosis, hydroureter. No mass, cyst or stone. Sinus lipomatosis with calcified vessels in the renal sinus fat. Bladder is only partially filled at no gross wall thickening, mass, debris or stone. IMPRESSION: 1. Chronic medical renal disease with more atrophy of the cortex left than right kidney. There is no hydronephrosis, hydroureter, solid or cystic mass, stone or perinephric fluid. 2. Bladder only partially filled. No gross abnormality. RENAL ARTERY DOPPLER ULTRASOUND: Right Kidney: 10.5 cm long. Peak renal artery velocity 92.2 cm/S Peak aortic velocity 64.5 cm/S Renal aortic ratio 1.4. Upper mid lower Resistive index: 0.78 0.77 0.73 Acceleration time : 0.038 0.042 0.048 sec Left kidney: 8.4 cm long. Peak renal artery velocity: not visible due to gas shadowing. Upper mid lower Resistive index: 0.66 0.69 0.70 Acceleration time : 0.080 0.076 0.090 sec Exam is very limited due to extensive bowel gas shadowing. The patient unable to breath hold or go into decubitus position. There are abnormal Doppler tardus parvus waveforms intrarenally seen bilaterally. Acceleration times are elevated on the left. Impression: 1. Findings suggest likely left renal artery stenosis with significantly elevated acceleration x in the antrum renal arteries. The extrarenal artery is not seen due to extensive gas shadowing. 2. 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 Suspect right renal artery stenosis as well. MRA or CTA renal arteries might give more information. Electronically Signed by Trung Horan MD 04/16/2018 08:57 A
[2018-04-16] MEDS ORDERED: MAG SULF 1GM/100ML (MAG RUN) 1 GM in APPROPRIATE DILUENT 1 EA IV ONE (09:45)
[2018-04-16 10:00] VITALS: BP 181/82
[2018-04-16] MEDS: ONDANSETRON 4MG/2ML VIAL (J2405) IV PRN (11:05)
[2018-04-16 14:00] VITALS: BP 172/110
[2018-04-16 14:15] LABS: HEPATITIS C QUANTITATION HCV Not Detected IU/mL (.)
--- NOTE | 2018-04-16 14:28 | IPNPDOC ---
Date Seen The patient was seen on 04/17/18. Progress Note SUBJECTIVE: Patient is an 87-year-old female with diffuse erythematous rash with blistering. She is evaluated at bedside. She is sitting up in bed with her daughter at bedside. She states that upon removal of a dressing on her left upper extremity her skin tore resulting in modification of the dressings. She is using the topical products as prescribed. Stable. She had renal ultrasound that demonstrated stenosis of the renal arteries more so than in 2015 u/s. Vascular surgery consult pending. OBJECTIVE PHYSICAL EXAMINATION: VITAL SIGNS: Please see below. SKIN: Miguel II, interactive, pleasant, reserved affect, alert and oriented x4, patient sitting comfortably in hospital bed in no acute distress. A full skin exam was conducted today. An examination of the skin on the back, neck, scalp, face, eyelids, chest, abdomen, left and right arms and hands, left and right legs and feet, fingernails, and toenails was found to be normal except for the following findings: Diffuse erythematous confluent patches with isolated bullae noted (targetoid in appearance) on the bilateral lower extremities, upper thorax, bilateral upper extremities, and back. Some areas are blanchable while other are non- blanchable. Circular erythematous plaque with centralized crusting on the anterior left thigh with pigment deposition. Small bulla with what appears to be serosanguineous fluid noted on the lateral aspect of the right thigh that freely tracks along under the epidermis when manipulated with mild pressure. Positive Nikolsky sign. Areas of excoriation and hyperkeratosis noted in the left neck/clavicle and upper back. Abdomen spared. Biopsy sites are clean, dry, intact with Tegaderm dressing in place. Skin tear noted on left upper extremity. LABORATORY DATA, IMAGING STUDIES, MICROBIOLOGY: Please see below. ASSESSMENT AND PLAN: This is an 87-year-old female with diffuse erythematous confluent rash with blistering with labile hypertension with possible progression of renal artery stenosis. Differential includes erythema multiforme (interface dermatitis process favored), exanthematous drug eruption, erythroderma, and less likely cutaneous lupus erythematosus flare, pemphigus vulgaris, and much lower on the differential bullous dermatomyositis. Biopsy results are pending. Steroid tapering by mouth per primary team. Continue with current dermatology recommen dations of Valtrex 1g by mouth thrice daily, topical Clobetasol 0.05% twice daily (may chill medicine prior to application as may feel better on patient's skin), cooled Eucerin to the entire body, and cool compresses to areas of denuded skin for discomfort with EXU dry to aid with weeping areas. Please have patient follow-up in the dermatology office in 2-3 weeks following discharge as described in original note. DISPOSITION: As deemed appropriate by the primary care team. Dermatology will continue to follow. I spent 25 minutes at the patient's bedside. VS, I&O, 24H, Fishbone Vital Signs/I&O Vital Signs Date Time Temp Pulse Resp B/P (MAP) Pulse Ox O2 Delivery O2 Flow Rate FiO2 04/16/18 10:00 97.4 95 16 181/82 (115) 97 I&O- Last 24 Hours up to 6 AM 04/16/18 05:59 Intake Total 2600 ml Output Total 2835 ml Balance -235 ml Laboratory Data 24H LABS Laboratory Tests 2 04/15/18 15:23: Urine Appearance CLEAR, Urine Color STRAW, Urine pH 7.0, Urine Specific [place] 1.003, Urine Protein NEGATIVE, Urine Glucose (UA) NEGATIVE, Urine Ketones NEGATIVE, Urine Urobilinogen 0.2, Urine Bilirubin NEGATIVE, Urine Leukocyte Esterase NEGATIVE, Urine Blood NEGATIVE, Urine Nitrite NEGATIVE, Urine WBC (Auto) 0, Urine RBC (Auto) 0, Urine Hyaline Casts (Auto) 0, Urine Bacteria (Auto) 1+H, Urine Squamous Epithelial Cells 1, Urine Sperm (Auto) 04/16/18 05:28: Immature Granulocyte % (Auto) 0.7, White Blood Count 6.8, Red Blood Count 3.53L, Hemoglobin 11.7L, Hematocrit 34.2L, Mean Corpuscular Volume 96.9H, Mean Corpuscular Hemoglobin 33.1H, Mean Corpuscular Hemoglobin Concent 34.2, Red Cell Distribution Width 13.0, Platelet Count 112L, Neutrophils (%) (Auto) 81.9H, Lymphocytes (%) (Auto) 10.1L, Monocytes (%) (Auto) 7.0H, Eosinophils (%) (Auto) 0.0, Basophils (%) (Auto) 0.3, Neutrophils # (Auto) 5.6, Lymphocytes # (Auto) 0.7L, Monocytes # (Auto) 0.5, Eosinophils # (Auto) 0.0, Basophils # (Auto) 0.0, Nucleated Red Blood Cells % (auto) 0.0, Erythrocyte Sedimentation Rate 8, Anion Gap 5L, Glomerular Filtration Rate > 60.0, Blood Urea Nitrogen 11, Creatinine 0.79, Sodium Level 138, Potassium Level 4.2, Chloride Level 105, Carbon Dioxide Level 28, Calcium Level 7.6L, Aspartate Amino Transf (AST/SGOT) 18, Alanine A minotransferase (ALT/SGPT) 17, Alkaline Phosphatase 62, Total Bilirubin 0.2, Total Protein 5.7L, Albumin 2.5L, Magnesium Level 1.7L, C-Reactive Protein, Quantitative 0.34H, Albumin/Globulin Ratio 0.78L CBC/BMP Laboratory Tests 04/16/18 05:28 Red Blood Count 3.53 L, Mean Corpuscular Volume 96.9 H, Mean Corpuscular Hemoglobin 33.1 H, Mean Corpuscular Hemoglobin Concent 34.2, Red Cell Distribution Width 13.0, Neutrophils (%) (Auto) 81.9 H, Lymphocytes (%) (Auto) 10.1 L, Monocytes (%) (Auto) 7.0 H, Eosinophils (%) (Auto) 0.0, Basophils (%) (Auto) 0.3, Neutrophils # (Auto) 5.6, Lymphocytes # (Auto) 0.7 L, Monocytes # (Auto) 0.5, Eosinophils # (Auto) 0.0, Basophils # (Auto) 0.0, Calcium Level 7.6 L, Aspartate Amino Transf (AST/SGOT) 18, Alanine Aminotransferase (ALT/SGPT) 17, Alkaline Phosphatase 62, Total Bilirubin 0.2, Total Protein 5.7 L, Albumin 2.5 L Microbiology Microbiology 04/07/18 Blood Culture - Final, Complete NO GROWTH AFTER 5 DAYS 04/07/18 Blood Culture - Final, Complete NO GROWTH AFTER 5 DAYS 04/09/18 Urine Culture - Final, Complete Escherichia Coli MAXIM GLORIA DO Apr 16, 2018 14:28 SHEKHAR WINTERS MD Apr 17, 2018 16:07
--- NOTE | 2018-04-16 16:39 | IPNPDOC ---
Date Seen The patient was seen on 04/16/18. Progress Note SUBJECTIVE: Patient denies any complaints at this time tells me she is feeling well she insists to me that she is going home OBJECTIVE PHYSICAL EXAMINATION: VITAL SIGNS: Please see below. GENERAL: Frail elderly articulate woman sitting up in a chair she has a fairly flat affect awake alert oriented 3 no acute distress HEENT: Cranial nerves II through XII intact CARDIOVASCULAR: Is 1 S2 regular. RESPIRATORY: Clear to auscultation bilaterally. ABDOMINAL: Bowel sounds present abdomen soft and nontender EXTREMITIES:. Erythematous rash appears less diffuse less dry today possibly some mild improvement since the last time I visited her LABORATORY DATA, IMAGING STUDIES, MICROBIOLOGY: Please see below. Echocardiogram: Moderately severe concentric left ventricular hypertrophy with hyperkinetic wall motion. Borderline left atrial enlargement with impairment of left ventricle (LV) diastolic function and currently elevated mean left atrial pressure. Normal right heart chamber sizes and motion and current estimated pulmonary arterial pressure. Normal inferior vena cava (IVC) size and collapse against an elevated central venous pressure. Aortic valvular sclerosis of a moderate degree without stenosis bu very mild insufficiency. Normal aortic root size. Moderate mitral annular calcification without inflow tract obstruction but mild insufficiency. Normal appearing tricuspid valve with mild-moderate insufficiency No apparent intracardiac mass or pericardial effusion.. DVT prophylaxis ordered?: Lovenox Assessment and plan: Lower extremity weakness, predominately on left leg possibly 2/2 acute CVA in combination with a long-standing labile hypertension hypotension - MRI Brain 04/09: 1. 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 2. Small vessel ischemic disease. 3. Mild volume loss. 4. A punctate focus of increased signal intensity on diffusion weighted images is present in the left basal ganglia. This is decreased in signal intensity on ADC images and is consistent with an acute infarction. Cervical MRI 04/09: There is cervical spondylosis at the C3-4 through C6-7 levels without spinal cord compression. - Cervical MRA 04/09: 1. The patient appears to be status post right carotid endarterectomy. The endarterectomy is patent. 2. 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 Mild to moderate atherosclerotic disease involves the right vertebral artery. 3. Mild atherosclerotic disease involves the left vertebral artery. C/w Atorvastatin 40, ASA 81, Neurology on consultation appreciated, c/w PT & OT I did encourage her to dissipate more so with them today. I suspect she'll benefit from subacute rehabilitation placement Diffuse erythematous rash - possibly 2/2 viral etiology versus drug reaction rheumatology and dermatology help greatly appreciated status post skin biopsy for the time being I will transition her to by mouth prednisone, suspected benefit from close outpatient follow-up with rheumatology dermatology and neurology plus or minus vascular intervention. Leukocytosis - likely 2/2 corticosteroids - Remains afebrile Urinary tract infection - 2/2 E. coli patient completed a course of by mouth antibiotics while in hospital s/p Atypical chest pain - likely 2/2 GI etiology EKG without ischemic changes Troponin negative Likely secondary to some reflux s/p RSV infection - s/p Prednisone taper as an outpatient from previous hospitalization Labile HTN - possibly 2/2 autonomic dysfunction versus renal artery stenosis. Patient only follows Dr. Nava regarding this she has when necessary midodrine as well as numerous antihypertensives which she monitors her blood pressure closely and takes them as needed. She was noted to have some renal artery stenosis on her bilateral Dopplers and I've asked Dr. Preston guzman to evaluate her he has graciously accepted. - c/w thigh high compression stockings when tolerated (re: skin rash). Continue outpatient follow-up with Dr. 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 felt to be less likely playing a role in her current rash Generalized anxiety disorder - c/w Alprazolam PRN Hx of Diverticulosis - No evidence of exacerbation / acute flare OA of hips - c/w Tylenol PRN Gastroesophageal reflux disease - c/w Protonix DVT prophylaxis - c/w Lovenox Disposition: Pending PT possibly subacute rehabilitation versus home with additional services VS, I&O, 24H, Fishbone Vital Signs/I&O Vital Signs Date Time Temp Pulse Resp B/P (MAP) Pulse Ox O2 Delivery O2 Flow Rate FiO2 04/16/18 14:00 96.9 79 16 172/110 (130) 97 I&O- Last 24 Hours up to 6 AM 04/16/18 06:00 Intake Total 2220 ml Output Total 2060 ml Balance 160 ml Laboratory Data 24H LABS Laboratory Tests 2 04/16/18 05:28: Immature Granulocyte % (Auto) 0.7, White Blood Count 6.8, Red Blood Count 3.53L, Hemoglobin 11.7L, Hematocrit 34.2L, Mean Corpuscular Volume 96.9H, Mean Corpuscular Hemoglobin 33.1H, Mean Corpuscular Hemoglobin Concent 34.2, Red Cell Distribution Width 13.0, Platelet Count 112L, Neutrophils (%) (Auto) 81.9H, Ly mphocytes (%) (Auto) 10.1L, Monocytes (%) (Auto) 7.0H, Eosinophils (%) (Auto) 0.0, Basophils (%) (Auto) 0.3, Neutrophils # (Auto) 5.6, Lymphocytes # (Auto) 0.7L, Monocytes # (Auto) 0.5, Eosinophils # (Auto) 0.0, Basophils # (Auto) 0.0, Nucleated Red Blood Cells % (auto) 0.0, Erythrocyte Sedimentation Rate 8, Anion Gap 5L, Glomerular Filtration Rate > 60.0, Blood Urea Nitrogen 11, Creatinine 0.79, Sodium Level 138, Potassium Level 4.2, Chloride Level 105, Carbon Dioxide Level 28, Calcium Level 7.6L, Aspartate Amino Transf (AST/SGOT) 18, Alanine Aminotransferase (ALT/SGPT) 17, Alkaline Phosphatase 62, Total Bilirubin 0.2, Total Protein 5.7L, Albumin 2.5L, Magnesium Level 1.7L, C-Reactive Protein, Quantitative 0.34H, Albumin/Globulin Ratio 0.78L CBC/BMP Laboratory Tests 04/16/18 05:28 Red Blood Count 3.53 L, Mean Corpuscular Volume 96.9 H, Mean Corpuscular Hemoglobin 33.1 H, Mean Corpuscular Hemoglobin Concent 34.2, Red Cell Distribution Width 13.0, Neutrophils (%) (Auto) 81.9 H, Lymphocytes (%) (Auto) 10.1 L, Monocytes (%) (Auto) 7.0 H, Eosinophils (%) (Auto) 0.0, Basophils (%) (Auto) 0.3, Neutrophils # (Auto) 5.6, Lymphocytes # (Auto) 0.7 L, Monocytes # (Auto) 0.5, Eosinophils # (Auto) 0.0, Basophils # (Auto) 0.0, Calcium Level 7.6 L, Aspartate Amino Transf (AST/SGOT) 18, Alanine Aminotransferase (ALT/SGPT) 17, Alkaline Phosphatase 62, Total Bilirubin 0.2, Total Protein 5.7 L, Albumin 2.5 L Microbiology Microbiology 04/07/18 Blood Culture - Final, Complete NO GROWTH AFTER 5 DAYS 04/07/18 Blood Culture - Final, Complete NO GROWTH AFTER 5 DAYS 04/09/18 Urine Culture - Final, Complete Escherichia Coli DELMER NAVARRO MD Apr 16, 2018 16:38
[2018-04-16] MEDS: ESTROGENS VAGINAL CREAM 30GM PV SCH (21:43)
[2018-04-16 22:00] VITALS: BP 154/86
[2018-04-16] MEDS: ACETAMINOPHEN TAB 650MG DOSE (2X325MG) PO PRN (22:15)
[2018-04-16] MEDS: diazePAM 10 MG TAB PO PRN (22:15)
[2018-04-16] MEDS: SIMETHICONE 80 MG CHEW TAB PO PRN (22:15)
[2018-04-17] MEDS: SIMETHICONE 80 MG CHEW TAB PO PRN ×3 (04:31→20:21)
[2018-04-17 05:52] LABS: BASO % 0.3 % (0.0-1.0); EOS # 0.1 10^3/uL (0.0-0.50); EOS % 1.2 % (0.0-3.0); HEMATOCRIT 34.9 % (36.0-47.0); HEMOGLOBIN 11.8 g/dl (12.0-15.5); LYMPH # 1.4 10^3/uL (1.5-4.5); LYMPH % 23.1 % (24.0-44.0); MEAN CORPUSCULAR HEMOGLOBIN 32.5 pg (27.0-33.0); MEAN CORPUSCULAR HGB CONC 33.8 g/dl (32.0-36.5); MEAN CORPUSCULAR VOLUME 96.1 fl (80.0-96.0); MONO # 0.8 10^3/uL (0.0-0.8); MONO % 12.8 % (0.0-5.0); NEUTROPHILS # 3.6 10^3/uL (1.8-7.7); NEUTROPHILS % 61.3 % (36.0-66.0); PLATELET COUNT, AUTOMATED 211 10^3/uL (150-450); RED BLOOD COUNT 3.63 10^6/uL (4.00-5.40); WHITE BLOOD COUNT 5.9 10^3/uL (4.0-10.0)
[2018-04-17] MEDS: ISOSORBIDE DIN. (ISORDIL) 5 MG TAB PO PRN ×2 (05:57→22:18)
[2018-04-17] MEDS: LEVOTHYROXINE 75MCG TABLET (0.075MG) PO SCH (05:58)
[2018-04-17] MEDS: valACYclovir HCL 500 MG TAB PO SCH ×3 (05:58→20:54)
[2018-04-17 06:00] VITALS: BP 252/110
[2018-04-17 06:11] LABS: ERYTHROCYTE SEDIMENTATION RATE 14 mm/hr (0-42)
[2018-04-17 06:12] LABS: ALBUMIN 2.5 GM/DL (3.2-5.2); ALT/SGPT 16 U/L (12-78); BILIRUBIN,TOTAL 0.3 MG/DL (0.2-1.0); BLOOD UREA NITROGEN 12 MG/DL (7-18); C REACTIVE PROTEIN QUANTITATIV < 0.30 MG/DL (0.00-0.30); CALCIUM LEVEL 7.6 MG/DL (8.8-10.2); CARBON DIOXIDE LEVEL 28 MEQ/L (21-32); CHLORIDE LEVEL 105 MEQ/L (98-107); CREATININE FOR GFR 0.84 MG/DL (0.55-1.30); GLOMERULAR FILTRATION RATE > 60.0 (>32); GLUCOSE, FASTING 83 MG/DL (70-100); MAGNESIUM LEVEL 2.2 MG/DL (1.8-2.4); POTASSIUM SERUM 3.6 MEQ/L (3.5-5.1); SODIUM LEVEL 139 MEQ/L (136-145); TOTAL PROTEIN 5.7 GM/DL (6.4-8.2)
[2018-04-17 06:27] VITALS: BP 192/108
[2018-04-17] MEDS: SENOKOT S TAB PO SCH ×3 (08:04→20:21)
[2018-04-17] MEDS: PANTOPRAZOLE 40MG TAB (PROTONIX) PO SCH (08:04)
[2018-04-17] MEDS: predniSONE 20 MG TAB PO SCH (08:04)
[2018-04-17] MEDS: ASPIRIN 325 MG TAB PO SCH (08:04)
[2018-04-17] MEDS: MULTIVITAMINS/MINERALS THERAP 1 TAB PO SCH (08:05)
[2018-04-17] MEDS: ENOXAPARIN 40 MG/0.4 ML SYRINGE (J1650) SC SCH (08:05)
[2018-04-17] MEDS: ONDANSETRON 4MG/2ML VIAL (J2405) IV PRN (08:17)
[2018-04-17 08:30] VITALS: BP 185/81
[2018-04-17] MEDS: CLOBETASOL PROPIONATE EMOLLIENT 0.05% CR 60 GM TOP SCH ×2 (09:30→20:22)
[2018-04-17] MEDS: EUCERIN 120GM CREAM TOP SCH ×2 (09:30→20:22)
[2018-04-17] MEDS ORDERED: MIRALAX *UNIT DOSE* 17GM PACKET PO PRN (11:30)
[2018-04-17] MEDS ORDERED: MOM 30ML SUSPENSION UDC PO PRN (11:30)
[2018-04-17 14:00] VITALS: BP_SYST 168; BP_SYST 186; BP_DIAS 86; BP_DIAS 88
--- NOTE | 2018-04-17 15:12 | IPNPDOC ---
Date Seen The patient was seen on 04/17/18. Progress Note SUBJECTIVE: Patient complains that she is having difficulty moving her gas causing her some abdominal distention and that this does have an her occasionally at home she doesn't appear normal she takes a laxative which helps her with this OBJECTIVE PHYSICAL EXAMINATION: VITAL SIGNS: Please see below. GENERAL: Frail elderly articulate woman sitting up in bed she has a fairly flat affect awake alert oriented 3 no acute distress HEENT: Cranial nerves II through XII intact CARDIOVASCULAR: s1 S2 regular. RESPIRATORY: Clear to auscultation bilaterally. ABDOMINAL: Bowel sounds present abdomen soft and nontender EXTREMITIES:. Erythematous rash appears less diffuse less dry and not quite as a deep a red today possibly some improvement since yesterday LABORATORY DATA, IMAGING STUDIES, MICROBIOLOGY: Please see below. Echocardiogram: Moderately severe concentric left ventricular hypertrophy with hyperkinetic wall motion. Borderline left atrial enlargement with impairment of left ventricle (LV) diastolic function and currently elevated mean left atrial pressure. Normal right heart chamber sizes and motion and current estimated pulmonary arterial pressure. Normal inferior vena cava (IVC) size and collapse against an elevated central venous pressure. Aortic valvular sclerosis of a moderate degree without stenosis bu very mild insufficiency. Normal aortic root size. Moderate mitral annular calcification without inflow tract obstruction but mild insufficiency. Normal appearing tricuspid valve with mild-moderate insufficiency No apparent intracardiac mass or pericardial effusion.. DVT prophylaxis ordered?: Lovenox Assessment and plan: This is an 87 female who presented with falls and diffuse rash 1. Lower extremity weakness, predominately on left leg possibly 2/2 acute CVA in combination with a long-standing labile hypertension hypotension - MRI Brain 04/09: 1. 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 2. Small vessel ischemic disease. 3. Mild volume loss. 4. A punctate focus of increased signal intensity on diffusion weighted images is present in the left basal ganglia. This is decreased in signal intensity on ADC images and is consistent with an acute infarction. Cervical MRI 04/09: There is cervical spondylosis at the C3-4 through C6-7 levels without spinal cord compression. - Cervical MRA 04/09: 1. The patient appears to be status post right carotid endarterectomy. The endarterectomy is patent. 2. 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 Mild to moderate atherosclerotic disease involves the right vertebral artery. 3. Mild atherosclerotic disease involves the left vertebral artery. C/w Atorvastatin 40, ASA 81, Neurology on consultation appreciated, c/w PT & OT I did encourage her to participate more so with them and she appears to be doing so. I suspect she'll benefit from subacute rehabilitation placement. Should she remain in hospital awaiting PTOT clearance consider making her altered level care 2. Diffuse erythematous rash - possibly 2/2 viral etiology versus drug reaction rheumatology and dermatology help greatly appreciated status post skin biopsy for the time being I have transitioned her to by mouth prednisone, I believe she would benefit from close outpatient follow-up with rheumatology dermatology and neurology 3. Leukocytosis - likely 2/2 corticosteroids Remains afebrile 4. Urinary tract infection - 2/2 E. coli patient completed a course of by mouth antibiotics while in hospital 5. s/p Atypical chest pain - likely 2/2 GI etiology EKG without ischemic changes, Troponin negative, Likely secondary to some reflux 6. s/p RSV infection: s/p Prednisone taper as an outpatient from previous hospitalization 7. Labile HTN - possibly 2/2 autonomic dysfunction versus renal artery stenosis. Patient only follows Dr. Nava regarding this she has when necessary midodrine as well as numerous antihypertensives which she monitors her blood pressure closely and takes them as needed. She was noted to have some renal artery stenosis on her bilateral Dopplers and I've asked Dr. Johnston vascular surgery to evaluate her he has graciously accepted. c/w thigh high compression stockings when tolerated (re: skin rash). Continue outpatient follow-up with Dr. Nava 8. Diastolic CHF: Patient does not appear to be in any signs of fluid overload possibly related to her blood pressure as outlined above, c/w strict ins/outs, daily weights, Will continue to monitor 9. Carotid endarterectomy: c/w ASA 10. Hypothyroidism: c/w Levothyroxine 11. 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 Generalized anxiety disorder: c/w Alprazolam PRN 13. Hx of Diverticulosis: No evidence of exacerbation / acute flare 14. OA of hips: c/w Tylenol PRN 15. Gastroesophageal reflux disease: c/w Protonix Disposition: Pending PT possibly subacute rehabilitation versus home with additional services VS, I&O, 24H, Fishbone Vital Signs/I&O Vital Signs Date Time Temp Pulse Resp B/P (MAP) Pulse Ox O2 Delivery O2 Flow Rate FiO2 04/17/18 14:00 97.3 82 18 168/86 (113 94 I&O- Last 24 Hours up to 6 AM 04/17/18 06:00 Intake Total 1240 ml Output Total 2325 ml Balance -1085 ml Laboratory Data 24H LABS Laboratory Tests 2 04/17/18 05:20: Immature Granulocyte % (Auto) 1.3, White Blood Count 5.9, Red Blood Count 3.63L, Hemoglobin 11.8L, Hematocrit 34.9L, Mean Corpuscular Volume 96.1H, Mean Corpuscular Hemoglobin 32.5, Mean Corpuscular Hemoglobin Concent 33.8, Red Cell Distribution Width 12.9, Platelet Count 211, Neutrophils (%) (Auto) 61.3, Lymphocytes (%) (Auto) 23.1L, Monocytes (%) (Auto) 12.8H, Eosinophils (%) (Auto) 1.2, Basophils (%) (Auto) 0.3, Neutrophils # (Auto) 3.6, Lymphocytes # (Auto) 1.4L, Monocytes # (Auto) 0.8, Eosinophils # (Auto) 0.1, Basophils # (Auto) 0.0, Nucleated Red Blood Cells % (auto) 0.0, Erythrocyte Sedimentation Rate 14, Anion Gap 6L, Glomerular Filtration Rate > 60.0, Blood Urea Nitrogen 12, Creatinine 0.84, Sodium Level 139, Potassium Level 3.6, Chloride Level 105, Carbon Dioxide Level 28, Calcium Level 7.6L, Aspartate Amino Transf (AST/SGOT) 21, Alanine Aminotransferase (ALT/SGPT) 16, Alkaline Phosphatase 61, Total Bilirubin 0.3, Total Protein 5.7L, Albumin 2.5L, Magnesium Level 2.2, C-Reactive Protein, Quantitative < 0.30, Albumin/Globulin Ratio 0.78L CBC/BMP Laboratory Tests 04/17/18 05:20 Red Blood Count 3.63 L, Mean Corpuscular Volume 96.1 H, Mean Corpuscular Hemoglobin 32.5, Mean Corpuscular Hemoglobin Concent 33.8, Red Cell Distribution Width 12.9, Neutrophils (%) (Auto) 61.3, Lymphocytes (%) (Auto) 23.1 L, Monocytes (%) (Auto) 12.8 H, Eosinophils (%) (Auto) 1.2, Basophils (%) (Auto) 0.3, Neutrophils # (Auto) 3.6, Lymphocytes # (Auto) 1.4 L, Monocytes # (Auto) 0.8, Eosinophils # (Auto) 0.1, Basophils # (Auto) 0.0, Calcium Level 7.6 L, Aspartate Amino Transf (AST/SGOT) 21, Alanine Aminotransferase (ALT/SGPT) 16, Alkaline Phosphatase 61, Total Bilirubin 0.3, Total Protein 5.7 L, Albumin 2.5 L Microbiology Microbiology 04/07/18 Blood Culture - Final, Complete NO GROWTH AFTER 5 DAYS 04/07/18 Blood Culture - Final, Complete NO GROWTH AFTER 5 DAYS 04/09/18 Urine Culture - Final, Complete Escherichia Coli DELMER NAVARRO MD Apr 17, 2018 15:12
[2018-04-17] MEDS: ESTROGENS VAGINAL CREAM 30GM PV SCH (20:22)
--- NOTE | 2018-04-17 20:42 | CR.PDOC ---
Subjective General Date/Time Seen The patient was seen on 04/17/18 at 20:40. Subject Chief Complaint/History The patient is a 87-year-old female admitted with a reason for visit of Chest Pain Chf Labile Hypertension Rash. Current Medications Current Medications Current Medications Acetaminophen (Tylenol Tab) 650 mg Q4HP PRN PO MILD PAIN OR FEVER Last administered on 04/16/18at 22:15; Start 04/07/18 at 13:45 Aspirin (Aspirin) 325 mg DAILY PO Last administered on 04/17/18at 08:04; Start 04/08/18 at 09:00 Carvedilol (COReg) 12.5 mg BID PO Last administered on 04/09/18at 20:57; Start 04/07/18 at 21:45; Stop 04/10/18 at 10:28; Status DC Carvedilol (COReg) 12.5 mg BID PO ; Start 04/08/18 at 09:00; Stop 04/08/18 at 09:00; Status DC Ciprofloxacin (Cipro) 250 mg BID@06,18 PO Last administered on 04/14/18at 05:05; Start 04/09/18 at 20:15; Stop 04/14/18 at 11:51; Status DC Clobetasol Propionate (Temovate Emollient 0.05%) APPLY TO AREAS OF RASH... BID TOP Last administered on 04/17/18at 20:22; Start 04/15/18 at 21:00 Dextrose/Sodium Chloride 1,000 ml @ 60 mls/hr [id number] IV Last administered on 04/15/18at 11:15; Start 04/13/18 at 09:15; Stop 04/15/18 at 17:00; Status DC Diazepam (Valium) 10 mg DAILYPRN PRN PO ANXIETY Last administered on 04/16/18 22:15; Start 04/08/18 at 14:15 Diphenhydramine HCl (Benadryl Cream) APPLY ONLY TO AREAS OF INTE... BIDP PRN TOP ITCHING; Start 04/15/18 at 18:45 Enoxaparin Sodium (Lovenox) 40 mg DAILY SC Last administered on 04/17/18at 08:05; Start 04/13/18 at 13:00 Estrogens Conjugated (Premarin Vag Cream w/Mik) 1/2 APPLICATORFUL S... QHS PV Last administered on 04/17/18at 20:22; Start 04/07/18 at 21:00 Home Med (Med Rec Complete!) ASDIRECTED XX ; Start 04/07/18 at 10:15; Stop 04/07/18 at 10:15; Status DC Isosorbide Dinitrate (Isordil) 5 mg BID PRN PO HYPERTENSION Last administered on 04/17/18at 05:57; Start 04/07/18 at 17:15 Levothyroxine Sodium (Synthroid) 75 mcg DAILY@0600 PO Last administered on 04/17at 05:58; Start 04/08/18 at 06:00 Magnesium Hydroxide (Milk Of Magnesia) 30 ml BIDP PRN PO CONSTIPATION; Start 04/17/18 at 11:30 Methylprednisolone (SOLU medrol) 20 mg Q12H IV Last administered on 04/13/18at 23:01; Start 04/13/18 at 11:00; Stop 04/14/18 at 10:10; Status DC Methylprednisolone (SOLU medrol) 20 mg Q24H IV Last administered on 04/15/18at 18:40; Start 04/14/18 at 18:00; Stop 04/16/18 at 16:36; Status DC Methylprednisolone (SOLU medrol) 20 mg Q24H IV ; Start 04/14/18 at 23:00; Stop 04/14/18 at 23:00; Status DC Methylprednisolone (SOLU medrol) 40 mg Q12H IV Last administered on 04/12/18at 23:28; Start 04/11/18 at 11:00; Stop 04/13/18 at 09:02; Status DC Methylprednisolone (SOLU medrol) 40 mg Q24H IV ; Start 04/07/18 at 15:00; Stop 04/08/18 at 14:02; Status DC Methylprednisolone (SOLUmedrol) 60 mg DAILY IV ; Start 04/07/18 at 09:00; Stop 04/07/18 at 14:48; Status DC Midodrine (Proamatine) 10 mg TID PRN PO HYPOTENSION Last administered on 04/11/18at 06:13; Start 04/07/18 at 17:15 Mineral Oil/White Petrolatum (Eucerin) PLACE CREAM IN REFRIGERA... BID TOP Last administered on 04/17/18 20:22; Start 04/15/18 at 21:00 Multivitamins (Theragram-M) 1 tab DAILY PO Last administered on 04/17/18 08:05; Start 04/08/18 at 09:00 Ondansetron HCl (ZOFRAN INJection) 4 mg Q6HP PRN IV NAUSEA OR VOMITING Last administered on 04/17/18 08:17; Start 04/13/18 at 09:15 Ondansetron HCl (Zofran) 4 mg Q6HP PRN PO NAUSEA OR VOMITING Last administered on 04/11/18 14:46; Start 04/07/18 at 13:45; Stop 04/13/18 at 09:04; Status DC Oxycodone/ Acetaminophen (Percocet 5mg/ 325mg Tablet) 1 tab Q4HP PRN PO MODERATE PAIN (PS 5-7); Start 04/07/18 at 13:45 Oxycodone/ Acetaminophen (Percocet 5mg/ 325mg Tablet) 2 tab Q4HP PRN PO SEVERE PAIN (PS 8-10); Start 04/07/18 at 13:45 Pantoprazole Sodium (Protonix) 40 mg DAILY PO Last administered on 04/17/18at 08:04; Start 04/07/18 at 09:00 Polyethylene Glycol (Miralax) 1 pkt DAILYPRN PRN PO CONSTIPATION; Start 04/14/18 at 18:15 Polyethylene Glycol (Miralax) 1 pkt DAILYPRN PRN PO CONSTIPATION; Start 04/17/18 at 11:30; Stop 04/17/18 at 11:30; Status DC Prednisone (Deltasone) 20 mg DAILY PO ; Start 04/08/18 at 09:00; Stop 04/11/18 at 10:32; Status DC Prednisone (Deltasone) 20 mg DAILY PO Last administered on 04/17/18 08:04; Start 04/17/18 at 09:00 Ramelteon (Rozerem) 8 mg QHSP PRN PO INSOMNIA Last administered on 04/14/18 21 :13; Start 04/11/18 at 00:00 Senna/Docusate Sodium (Senokot S) 1 tab BID PO Last administered on 04/17/18at 20:21; Start 04/07/18 at 21:00 Simethicone (Mylicon) 80 mg Q6HP PRN PO GAS PAIN Last administered on 04/17/18at 20:21; Start 04/15/18 at 15:45 Valacyclovir HCl (Valtrex) 1,000 mg Q8H PO Last administered on 04/17/18at 13:30; Start 04/15/18 at 22:00 Allergies Coded Allergies: Hydralazine (Verified Allergy, Mild, RASH, 04/07/18) Shellfish Allergy (Verified Allergy, Unknown, PT HAD ? REACTION AFTER EATING SHELLFISH, 03/01/18) TAPE (Verified Adverse Reaction, Intermediate, SKIN FRAGILE, 01/27/15) Amoxicillin (Verified Adverse Reaction, Mild, NAUSEA AT HIGH DOSAGE, 04/07/18) Diphenhydramine (Unverified Adverse Reaction, Mild, SEVERE NAUSEA/DIARHHEA, 04/07/18) Naproxen (Verified Adverse Reaction, Mild, nausea, 08/24/17) Sulfa Drugs (Unverified Adverse Reaction, Mild, GI UPSET, 04/07/18) Home Medications Home Medications Scheduled (Calcium 600 + D 600-200 mg-Unit) 1 Tab Tab, 1 TAB PO DAILY, (Reported) Ascorbic Acid (Ascorbic Acid) 500 Mg Tab, 500 MG PO DAILY, (Reported) Aspirin (Aspirin) 325 Mg Tab, 325 MG PO DAILY, (Reported) Atorvastatin Calcium (Atorvastatin Calcium) 40 Mg Tab, 1 TAB PO DAILY Clobetasol Propionate (Clobetasol Propionate Emo) 1 Dose/60 Gm Cream, 0 DOSE TOP BID Levothyroxine Sodium (Synthroid) 75 Mcg Tab, 75 MCG PO DAILY, (Reported) Multivitamins *[facility] STOCKED* (Thera M Plus *[facility] STOCKED*) 1 Tab Tab, 1 TAB PO DAILY, (Reported) Scheduled PRN Acetaminophen (Acetaminophen ER) 650 Mg Tab, 650 MG PO Q4H PRN for PAIN / FEVER, (Reported) Diazepam (Diazepam) 10 Mg Tab, 10 MG PO QHSP PRN for SLEEP, (Reported) Isosorbide Dinitrate (Isosorbide Dinitrate) 5 Mg Tab, 5 MG PO BID PRN for HYPERTENSION, (Reported) PATIENT TAKES BLOOD PRESSURE FOUR TIMES EACH DAY. Midodrine HCl (Midodrine HCl) 10 Mg Tab, 10 MG PO TID PRN for HYPOTENSION, (Reported) PATIENT TAKES BLOOD PRESSURE FOUR TIMES EACH DAY. Current Medications Current Medications Acetaminophen (Tylenol Tab) 650 mg Q4HP PRN PO MILD PAIN OR FEVER Last administered on 04/16/18 22:15; Start 04/07/18 at 13:45 Aspirin (Aspirin) 325 mg DAILY PO Last administered on 04/17/18 08:04; Start 04/08/18 at 09:00 Carvedilol (COReg) 12.5 mg BID PO Last administered on 04/09/18 20:57; Start 04/07/18 at 21:45; Stop 04/10/18 at 10:28; Status DC Carvedilol (COReg) 12.5 mg BID PO ; Start 04/08/18 at 09:00; Stop 04/08/18 at 09:00; Status DC Ciprofloxacin (Cipro) 250 mg BID@06,18 PO Last administered on 04/14/18 05:05; Start 04/09/18 at 20:15; Stop 04/14/18 at 11:51; Status DC Clobetasol Propionate (Temovate Emollient 0.05%) APPLY TO AREAS OF RASH... BID TOP Last administered on 04/17/18 20:22; Start 04/15/18 at 21:00 Dextrose/Sodium Chloride 1,000 ml @ 60 mls/hr [id number] IV Last administered on 04/15/18 11:15; Start 04/13/18 at 09:15; Stop 04/15/18 at 17:00; Status DC Diazepam (Valium) 10 mg DAILYPRN PRN PO ANXIETY Last administered on 04/16/18 22:15; Start 04/08/18 at 14:15 Diphenhydramine HCl (Benadryl Cream) APPLY ONLY TO AREAS OF INTE... BIDP PRN TOP ITCHING; Start 04/15/18 at 18:45 Enoxaparin Sodium (Lovenox) 40 mg DAILY SC Last administered on 04/17/18 08:05; Start 04/13/18 at 13:00 Estrogens Conjugated (Premarin Vag Cream w/Mik) 02/27 APPLICATORFUL S... QHS PV Last administered on 04/17/18 20:22; Start 04/07/18 at 21:00 Home Med (Med Rec Complete!) ASDIRECTED XX ; Start 04/07/18 at 10:15; Stop 04/07/18 at 10:15; Status DC Isosorbide Dinitrate (Isordil) 5 mg BID PRN PO HYPERTENSION Last administered on 04/17/18at 05:57; Start 04/07/18 at 17:15 Levothyroxine Sodium (Synthroid) 75 mcg DAILY@0600 PO Last administered on 04/17/18at 05:58; Start 04/08/18 at 06:00 Magnesium Hydroxide (Milk Of Magnesia) 30 ml BIDP PRN PO CONSTIPATION; Start 04/17/18 at 11:30 Methylprednisolone (SOLU medrol) 20 mg Q12H IV Last administered on 04/13/18at 23:01; Start 04/13/18 at 11:00; Stop 04/14/18 at 10:10; Status DC Methylprednisolone (SOLU medrol) 20 mg Q24H IV Last administered on 04/15/18at 18:40; Start 04/14/18 at 18:00; Stop 04/16/18 at 16:36; Status DC Methylprednisolone (SOLU medrol) 20 mg Q24H IV ; Start 04/14/18 at 23:00; Stop 04/14/18 at 23:00; Status DC Methylprednisolone (SOLU medrol) 40 mg Q12H IV Last administered on 04/12/18at 23:28; Start 04/11/18 at 11:00; Stop 04/13/18 at 09:02; Status DC Methylprednisolone (SOLU medrol) 40 mg Q24H IV ; Start 04/07/18 at 15:00; Stop 04/08/18 at 14:02; Status DC Methylprednisolone (SOLUmedrol) 60 mg DAILY IV ; Start 04/07/18 at 09:00; Stop 04/07/18 at 14:48; Status DC Midodrine (Proamatine) 10 mg TID PRN PO HYPOTENSION Last administered on 04/11/18at 06:13; Start 04/07/18 at 17:15 Mineral Oil/White Petrolatum (Eucerin) PLACE CREAM IN REFRIGERA... BID TOP Last administered on 04/17/18at 20:22; Start 04/15/18 at 21:00 Multivitamins (Theragram-M) 1 tab DAILY PO Last administered on 04/17/18 08:05; Start 04/08/18 at 09:00 Ondansetron HCl (ZOFRAN INJection) 4 mg Q6HP PRN IV NAUSEA OR VOMITING Last administered on 04/17/18 08:17; Start 04/13/18 at 09:15 Ondansetron HCl (Zofran) 4 mg Q6HP PRN PO NAUSEA OR VOMITING Last administered on 04/11/18 14:46; Start 04/07/18 at 13:45; Stop 04/13/18 at 09:04; Status DC Oxycodone/ Acetaminophen (Percocet 5mg/ 325mg Tablet) 1 tab Q4HP PRN PO MODERATE PAIN (PS 5-7); Start 04/07/18 at 13:45 Oxycodone/ Acetaminophen (Percocet 5mg/ 325mg Tablet) 2 tab Q4HP PRN PO SEVERE PAIN (PS 8-10); Start 04/07/18 at 13:45 Pantoprazole Sodium (Protonix) 40 mg DAILY PO Last administered on 04/17/18at 08:04; Start 04/07/18 at 09:00 Polyethylene Glycol (Miralax) 1 pkt DAILYPRN PRN PO CONSTIPATION; Start 04/14/18 at 18:15 Polyethylene Glycol (Miralax) 1 pkt DAILYPRN PRN PO CONSTIPATION; Start 04/17/18 at 11:30; Stop 04/17/18 at 11:30; Status DC Prednisone (Deltasone) 20 mg DAILY PO ; Start 04/08/18 at 09:00; Stop 04/11/18 at 10:32; Status DC Prednisone (Deltasone) 20 mg DAILY PO Last administered on 04/17/18at 08:04; Start 04/17/18 at 09:00 Ramelteon (Rozerem) 8 mg QHSP PRN PO INSOMNIA Last administered on 04/14/18 21:13; Start 04/11/18 at 00:00 Senna/Docusate Sodium (Senokot S) 1 tab BID PO Last administered on 04/17/18 20:21; Start 04/07/18 at 21:00 Simethicone (Mylicon) 80 mg Q6HP PRN PO GAS PAIN Last administered on 04/17/18 20:21; Start 04/15/18 at 15:45 Valacyclovir HCl (Valtrex) 1,000 mg Q8H PO Last administered on 04/17/18at 13:30; Start 04/15/18 at 22:00 General Date of Admission Apr 07, 2018 at 13:37 Chief Complaint The patient is a 87-year-old female admitted with a reason for visit of Chest Pain Chf Labile Hypertension Rash. VITAL SIGNS VITAL SIGNS Vital Signs Date Time Temp Pulse Resp B/P (MAP) Pulse Ox O2 Delivery O2 Flow Rate FiO2 04/17/18 14:00 97.3 82 18 168/86 (113) 94 04/17/18 08:30 97.1 92 18 185/81 (115) 95 04/17/18 06:27 192/108 (136) 04/17/18 06:00 98.1 78 18 252/110 (157) 92 04/17/18 05:57 252/110 04/16/18 22:00 98.1 79 18 154/86 (108) 99 Intake & Output 04/17/18 06:00 Intake Total 1240 ml Output Total 2325 ml Balance -1085 ml Laboratory Tests 04/17/18 05:20: White Blood Count 5.9, Red Blood Count 3.63L, Hemoglobin 11.8L, Hematocrit 34.9L, Mean Corpuscular Volume 96.1H, Mean Corpuscular Hemoglobin 32.5, Mean Corpuscular Hemoglobin Concent 33.8, Red Cell Distribution Width 12.9, Platelet Count 211, Neutrophils (%) (Auto) 61.3, Lymphocytes (%) (Auto) 23.1L, Monocytes (%) (Auto) 12.8H, Eosinophils (%) (Auto) 1.2, Basophils (%) (Auto) 0.3, Neutrophils # (Auto) 3.6, Lymphocytes # (Auto) 1.4L, Monocytes # (Auto) 0.8, Eosinophils # (Auto) 0.1, Basophils # (Auto) 0.0, Immature Granulocyte % (Auto) 1.3, Nucleated Red Blood Cells % (auto) 0.0, Erythrocyte Sedimentation Rate 14, Blood Urea Nitrogen 12, Creatinine 0.84, Sodium Level 139, Potassium Level 3.6, Chloride Level 105, Carbon Dioxide Level 28, Calcium Level 7.6L, Aspartate Amino Transf (AST/SGOT) 21, Alanine Aminotransferase (ALT/SGPT) 16, Alkaline Maira sphatase 61, Total Bilirubin 0.3, Total Protein 5.7L, Albumin 2.5L, Anion Gap 6L, Glomerular Filtration Rate > 60.0, Fasting Glucose 83, Magnesium Level 2.2, C-Reactive Protein, Quantitative < 0.30, Albumin/Globulin Ratio 0.78L Microbiology 04/07/18 Blood Culture - Final, Complete NO GROWTH AFTER 5 DAYS 04/07/18 Blood Culture - Final, Complete NO GROWTH AFTER 5 DAYS 04/09/18 Urine Culture - Final, Complete Escherichia Coli Current Medications Medications (Trade) Dose Ordered Sig/Debbie Route PRN Reason Start Time Stop Time Status Last Admin Dose Admin Acetaminophen (Tylenol Tab) 650 mg Q4HP PRN PO MILD PAIN OR FEVER 04/07/18 13:45 04/16/18 22:15 Aspirin (Aspirin) 325 mg DAILY PO 04/08/18 09:00 04/17/18 08:04 Clobetasol Propionate (Temovate Emollient 0.05%) APPLY TO AREAS OF RASH... BID TOP 04/15/18 21:00 04/17/18 20:22 Diazepam (Valium) 10 mg DAILYPRN PRN PO ANXIETY 04/08/18 14:15 04/16/18 22:15 Enoxaparin Sodium (Lovenox) 40 mg DAILY SC 04/13/18 13:00 04/17/18 08:05 Estrogens Conjugated (Premarin Vag Cream w/Mik) 02/27 APPLICATORFUL S... QHS PV 04/07/18 21:00 04/17/18 20:22 Isosorbide Dinitrate (Isordil) 5 mg BID PRN PO HYPERTENSION 04/07/18 17:15 04/17/18 05:57 Levothyroxine Sodium (Synthroid) 75 mcg DAILY@0600 PO 04/08/18 06:00 04/17/18 05:58 Midodrine (Proamatine) 10 mg TID PRN PO HYPOTENSION 04/07/18 17:15 04/11/18 06:13 Mineral Oil/White Petrolatum (Eucerin) PLACE CREAM IN REFRIGERA... BID TOP 04/15/18 21:00 04/17/18 20:22 Multivitamins (Theragram-M) 1 tab DAILY PO 04/08/18 09:00 04/17/18 08:05 Ondansetron HCl (ZOFRAN INJection) 4 mg Q6HP PRN IV NAUSEA OR VOMITING 04/13/18 09:15 04/17/18 08:17 Pantoprazole Sodium (Protonix) 40 mg DAILY PO 04/07/18 09:00 04/17/18 08:04 Prednisone (Deltasone) 20 mg DAILY PO 04/17/18 09:00 04/17/18 08:04 Ramelteon (Rozerem) 8 mg QHSP PRN PO INSOMNIA 04/11/18 00:00 04/14/18 21:13 Senna/Docusate Sodium (Senokot S) 1 tab BID PO 04/07/18 21:00 04/17/18 20:21 Simethicone (Mylicon) 80 mg Q6HP PRN PO GAS PAIN 04/15/18 15:45 04/17/18 20:21 Valacyclovir HCl (Valtrex) 1,000 mg Q8H PO 04/15/18 22:00 04/17/18 13:30 Laboratory Tests 04/16/18 05:28 Red Blood Count 3.53 L, Mean Corpuscular Volume 96.9 H, Mean Corpuscular Hemoglobin 33.1 H, Mean Corpuscular Hemoglobin Concent 34.2, Red Cell Distribution Width 13.0, Neutrophils (%) (Auto) 81.9 H, Lymphocytes (%) (Auto) 10.1 L, Monocytes (%) (Auto) 7.0 H, Eosinophils (%) (Auto) 0.0, Basophils (%) (Auto) 0.3, Neutrophils # (Auto) 5.6, Lymphocytes # (Auto) 0.7 L, Monocytes # (Auto) 0.5, Eosinophils # (Auto) 0.0, Basophils # (Auto) 0.0, Calcium Level 7.6 L, Aspartate Amino Transf (AST/SGOT) 18, Alanine Aminotransferase (ALT/SGPT) 17, Alkaline Phosphatase 62, Total Bilirubin 0.2, Total Protein 5.7 L, Albumin 2.5 L 04/17/18 05:20 Red Blood Count 3.63 L, Mean Corpuscular Volume 96.1 H, Mean Corpuscular Hemoglobin 32.5, Mean Corpuscular Hemoglobin Concent 33.8, Red Cell Distribution Width 12.9, Neutrophils (%) (Auto) 61.3, Lymphocytes (%) (Auto) 23.1 L, Monocytes (%) (Auto) 12.8 H, Eosinophils (%) (Auto) 1.2, Basophils (%) (Auto) 0.3, Neutrophils # (Auto) 3.6, Lymphocytes # (Auto) 1.4 L, Monocytes # (Auto) 0.8, Eosinophils # (Auto) 0.1, Basophils # (Auto) 0.0, Calcium Level 7.6 L, Aspartate Amino Transf (AST/SGOT) 21, Alanine Aminotransferase (ALT/SGPT) 16, Alkaline Phosphatase 61, Total Bilirubin 0.3, Total Protein 5.7 L, Albumin 2.5 L Microbiology 04/07/18 Blood Culture - Final, Complete NO GROWTH AFTER 5 DAYS 04/07/18 Blood Culture - Final, Complete NO GROWTH AFTER 5 DAYS 04/09/18 Urine Culture - Final, Complete Escherichia Coli Objective Date of Service NOTE NAME: TREVER STEWARD DATE OF : 1930 AGE: 87 SEX: F REPORT #: [id number] ROOM: [facility] TECHNOLOGIST: [facility] DOCTOR: MAXIM GLORIA DO Ordered for Date&Time: 04/15/18 172 cc: [~ rep ct ivmn] Service Date&Time: 04/16/18 0737 EXAMINATION REQUESTED: RENAL US REASON FOR PATIENT VISIT: CHEST PAIN CHF LABILE HYPERTENSION RASH REASON FOR EXAM/COMMENT: UNCONTROLLED HTN RENAL ULTRASOUND OF THE RENAL ARTERY DOPPLER ULTRASOUND: 04/16/2018. COMPARISON: US 09/29/2014, CT 04/07/2018. CLINICAL HISTORY: Uncontrolled hypertension. FINDINGS: RENAL ULTRASOUND: The right kidney 10.5 x 4.5 x 4 cm. Cortical echogenicity is increased. There is extrarenal pelvis. Cortex is thinned. There is increased renal sinus fat and some vascular calcifications of vessels in the renal sinus. There is no hydronephrosis, hydroureter, mass or cyst. No perinephric fluid. The left kidney measures 8.4 x 4.5 x 4.7 cm. It has cortical thinning with hyperechoic cortex and no hydronephrosis, hydroureter. No mass, cyst or stone. Sinus lipomatosis with calcified vessels in the renal sinus fat. Bladder is only partially filled at no gross wall thickening, mass, debris or stone. IMPRESSION: 1. Chronic medical renal disease with more atrophy of the cortex left than right kidney. There is no hydronephrosis, hydroureter, solid or cystic mass, stone or perinephric fluid. 2. Bladder only partially filled. No gross abnormality. RENAL ARTERY DOPPLER ULTRASOUND: Right Kidney: 10.5 cm long. Peak renal artery velocity 92.2 cm/S Peak aortic velocity 64.5 cm/S Renal aortic ratio 1.4. Upper mid lower Resistive index: 0.78 0.77 0.73 Acceleration time : 0.038 0.042 0.048 sec Left kidney: 8.4 cm long. Peak renal artery velocity: not visible due to gas shadowing. Upper mid lower Resistive index: 0.66 0.69 0.70 Acceleration time : 0.080 0.076 0.090 sec Exam is very limited due to extensive bowel gas shadowing. The patient unable to breath hold or go into decubitus position. There are abnormal Doppler tardus parvus waveforms intrarenally seen bilaterally. Acceleration times are elevated on the left. Impression: 1. Findings suggest likely left renal artery stenosis with significantly elevated acceleration x in the antrum renal arteries. The extrarenal artery is not seen due to extensive gas shadowing. 2. 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 Suspect right renal artery stenosis as well. MRA or CTA renal arteries might give more information. Electronically Signed by Trung Horan MD 04/16/2018 08:57 A Assessment/Plan Assessment Patient with labile hypertension and renal artery stenosis bilaterally on ultrasound evaluation. Plan Patient has stable creatinine and recommend getting a CT angiogram of the renal arteries. Noam Johnston MD Apr 17, 2018 20:42
[2018-04-17] MEDS: diazePAM 10 MG TAB PO PRN (20:54)
[2018-04-17 22:00] VITALS: BP 200/101
[2018-04-17] MEDS ORDERED: amLODIPine 10 MG TAB PO ONE (22:30)
[2018-04-17 23:45] VITALS: BP 185/90
[2018-04-18 00:07] LABS: ANCA-ATYPICAL <1:20 titer (Neg:<1:20); CYTOPLASMIC NEUTROP AB ANCA-C <1:20 titer (Neg:<1:20); PERINUCLEAR AB ANCA-P <1:20 titer (Neg:<1:20)
[2018-04-18] MEDS: SIMETHICONE 80 MG CHEW TAB PO PRN (05:27)
[2018-04-18] MEDS: valACYclovir HCL 500 MG TAB PO SCH ×3 (05:27→21:28)
[2018-04-18] MEDS: LEVOTHYROXINE 75MCG TABLET (0.075MG) PO SCH (05:27)
[2018-04-18 05:51] LABS: BASO % 0.4 % (0.0-1.0); EOS # 0.1 10^3/uL (0.0-0.50); EOS % 1.6 % (0.0-3.0); HEMATOCRIT 33.5 % (36.0-47.0); HEMOGLOBIN 11.3 g/dl (12.0-15.5); LYMPH # 1.3 10^3/uL (1.5-4.5); LYMPH % 16.8 % (24.0-44.0); MEAN CORPUSCULAR HEMOGLOBIN 32.5 pg (27.0-33.0); MEAN CORPUSCULAR HGB CONC 33.7 g/dl (32.0-36.5); MEAN CORPUSCULAR VOLUME 96.3 fl (80.0-96.0); MONO # 0.9 10^3/uL (0.0-0.8); MONO % 11.7 % (0.0-5.0); NEUTROPHILS # 5.2 10^3/uL (1.8-7.7); NEUTROPHILS % 68.7 % (36.0-66.0); PLATELET COUNT, AUTOMATED 206 10^3/uL (150-450); RED BLOOD COUNT 3.48 10^6/uL (4.00-5.40); WHITE BLOOD COUNT 7.6 10^3/uL (4.0-10.0)
[2018-04-18 06:00] VITALS: BP 190/85
[2018-04-18 06:13] LABS: ERYTHROCYTE SEDIMENTATION RATE 16 mm/hr (0-42)
[2018-04-18 06:21] LABS: ALBUMIN 2.6 GM/DL (3.2-5.2); ALT/SGPT 16 U/L (12-78); BILIRUBIN,TOTAL 0.3 MG/DL (0.2-1.0); BLOOD UREA NITROGEN 9 MG/DL (7-18); CALCIUM LEVEL 7.5 MG/DL (8.8-10.2); CARBON DIOXIDE LEVEL 29 MEQ/L (21-32); CHLORIDE LEVEL 103 MEQ/L (98-107); CREATININE FOR GFR 0.75 MG/DL (0.55-1.30); GLOMERULAR FILTRATION RATE > 60.0 (>32); GLUCOSE, FASTING 85 MG/DL (70-100); MAGNESIUM LEVEL 1.9 MG/DL (1.8-2.4); POTASSIUM SERUM 3.4 MEQ/L (3.5-5.1); SODIUM LEVEL 137 MEQ/L (136-145); TOTAL PROTEIN 5.7 GM/DL (6.4-8.2)
[2018-04-18 08:00] VITALS: BP 191/82
[2018-04-18] MEDS: ASPIRIN 325 MG TAB PO SCH (08:18)
[2018-04-18] MEDS: ISOSORBIDE DIN. (ISORDIL) 5 MG TAB PO PRN (08:18)
[2018-04-18] MEDS: MULTIVITAMINS/MINERALS THERAP 1 TAB PO SCH (08:19)
[2018-04-18] MEDS: predniSONE 20 MG TAB PO SCH (08:19)
[2018-04-18] MEDS: SENOKOT S TAB PO SCH ×2 (08:19→21:28)
[2018-04-18] MEDS: ENOXAPARIN 40 MG/0.4 ML SYRINGE (J1650) SC SCH (08:19)
[2018-04-18] MEDS: PANTOPRAZOLE 40MG TAB (PROTONIX) PO SCH (08:19)
[2018-04-18] MEDS: CLOBETASOL PROPIONATE EMOLLIENT 0.05% CR 60 GM TOP SCH ×2 (08:20→21:00)
[2018-04-18] MEDS: EUCERIN 120GM CREAM TOP SCH ×2 (08:20→22:53)
[2018-04-18] MEDS: ONDANSETRON 4MG/2ML VIAL (J2405) IV PRN (08:39)
[2018-04-18] MEDS ORDERED: ONDANSETRON 4 MG ORAL DISINTEGRATING TAB (Q0162 PER 1MG) SL PRN (11:00)
[2018-04-18 14:30] VITALS: BP 142/79
[2018-04-18] MEDS: ESTROGENS VAGINAL CREAM 30GM PV SCH (21:28)
[2018-04-18] MEDS: diazePAM 10 MG TAB PO PRN (21:28)
[2018-04-18 22:00] VITALS: BP 181/123
[2018-04-19] MEDS: LEVOTHYROXINE 75MCG TABLET (0.075MG) PO SCH (05:42)
[2018-04-19] MEDS: valACYclovir HCL 500 MG TAB PO SCH ×3 (05:43→21:32)
[2018-04-19 06:00] VITALS: BP 171/105
[2018-04-19 06:00] LABS: BASO % 0.5 % (0.0-1.0); EOS % 0.5 % (0.0-3.0); HEMATOCRIT 31.4 % (36.0-47.0); HEMOGLOBIN 10.5 g/dl (12.0-15.5); LYMPH # 1.1 10^3/uL (1.5-4.5); LYMPH % 17.9 % (24.0-44.0); MEAN CORPUSCULAR HEMOGLOBIN 31.9 pg (27.0-33.0); MEAN CORPUSCULAR HGB CONC 33.4 g/dl (32.0-36.5); MEAN CORPUSCULAR VOLUME 95.4 fl (80.0-96.0); MONO # 0.8 10^3/uL (0.0-0.8); MONO % 13.4 % (0.0-5.0); NEUTROPHILS # 4.2 10^3/uL (1.8-7.7); NEUTROPHILS % 66.9 % (36.0-66.0); PLATELET COUNT, AUTOMATED 194 10^3/uL (150-450); RED BLOOD COUNT 3.29 10^6/uL (4.00-5.40); WHITE BLOOD COUNT 6.3 10^3/uL (4.0-10.0)
[2018-04-19 06:24] LABS: ALBUMIN 2.5 GM/DL (3.2-5.2); ALT/SGPT 13 U/L (12-78); BILIRUBIN,TOTAL 0.3 MG/DL (0.2-1.0); BLOOD UREA NITROGEN 13 MG/DL (7-18); CALCIUM LEVEL 7.6 MG/DL (8.8-10.2); CARBON DIOXIDE LEVEL 28 MEQ/L (21-32); CHLORIDE LEVEL 101 MEQ/L (98-107); CREATININE FOR GFR 0.87 MG/DL (0.55-1.30); GLOMERULAR FILTRATION RATE > 60.0 (>32); GLUCOSE, FASTING 91 MG/DL (70-100); MAGNESIUM LEVEL 1.9 MG/DL (1.8-2.4); POTASSIUM SERUM 3.4 MEQ/L (3.5-5.1); SODIUM LEVEL 136 MEQ/L (136-145); TOTAL PROTEIN 5.7 GM/DL (6.4-8.2)
[2018-04-19] MEDS ORDERED: ISOVUE-370 76% 100ML VIAL (Q9967) As Ordered ONE (07:42)
--- NOTE | 2018-04-19 07:45 | IPNPDOC ---
Date Seen The patient was seen on 04/19/18. Progress Note SUBJECTIVE: Patient is an 87-year-old female with diffuse erythematous rash with blistering. She is evaluated at bedside. She is laying in bed in the supine position. She is alert and oriented. She is set for CT angiogram today, per vascular surgery's recommendations. She continues to use the topical products recommended with very slight improvements. Oral steroid taper managed by primary team. No oral or genital lesions. OBJECTIVE PHYSICAL EXAMINATION: VITAL SIGNS: Please see below. SKIN: Miguel II, interactive, pleasant, reserved affect, alert and oriented x4, patient sitting comfortably in hospital bed in no acute distress. A partial skin exam was conducted today. An examination of the skin on the back, neck, scalp, face, eyelids, chest, abdomen, left and right arms and hands, left and right legs and feet, fingernails was found to be normal except for the following findings: 10-20% improvement in diffuse erythematous confluent patches with isolated bullae noted (targetoid in appearance) on the bilateral lower extremities, upper thorax, bilateral upper extremities, and back. Some areas are blanchable while other are non-blanchable. Circular erythematous plaque with centralized crusting on the anterior left thigh with pigment deposition. Unroofed bullae with crusting and scaling noted on upper and lower extremities bilaterally. Bilateral upper extremities are dressed with OptiLock and Kerlix. Abdomen spared. Biopsy sites are clean, dry, intact with Tegaderm dressing in place. LABORATORY DATA, IMAGING STUDIES, MICROBIOLOGY: Please see below. ASSESSMENT AND PLAN: This is an 87-year-old female with diffuse erythematous confluent rash with blistering with labile hypertension with possible progression of renal artery stenosis. Differential includes erythema multiforme (interface dermatitis process favored) 2/2 recent RSV vs. medication exposure that was revealed after prednisone was finished 2018, Samira syndrome (overlap between erythema multiforme and lupus), cutaneous lupus erythematosus flare, bullous drug eruption, pemphigus vulgaris, and much lower on the differential bullous dermatomyositis. Two x punch biopsies obtained from right anterior thigh which have been sent to [facility] for evaluation and identification. Steroid tapering by mouth per primary team. Continue Valtrex 1g by mouth thrice daily for a total of 7 days, topical Clobetasol 0.05% twice daily (may chill medicine prior to application as may feel better on patient's skin), cooled Eucerin to the entire body, and cool compresses to areas of denuded skin for discomfort with EXU dry to aid with weeping areas vs. OptiLock with Kerlex (careful attention to wound care and gentle cleansing of the skin daily). May apply topical Benadryl to areas of extreme pruritus. Please have patient follow-up in the dermatology office in 2- 3 weeks following discharge as described in original note. DISPOSITION: As deemed appropriate by the primary care team. Dermatology will continue to follow. A total of 25 minutes was spent at patient's bedside. Dermatology will continue to follow. VS, I&O, 24H, Fishbone Vital Signs/I&O Vital Signs Date Time Temp Pulse Resp B/P (MAP) Pulse Ox O2 Delivery O2 Flow Rate FiO2 04/18/18 22:00 98.6 106 17 181/123 (142) 93 I&O- Last 24 Hours up to 6 AM 04/19/18 06:00 Intake Total 1060 ml Output Total 1150 ml Balance -90 ml Laboratory Data 24H LABS Laboratory Tests 2 04/19/18 05:25: Immature Granulocyte % (Auto) 0.8, White Blood Count 6.3, Red Blood Count 3.29L, Hemoglobin 10.5L, Hematocrit 31.4L, Mean Corpuscular Volume 95.4, Mean Corpuscular Hemoglobin 31.9, Mean Corpuscular Hemoglobin Concent 33.4, Red Cell Distribution Width 12.9, Platelet Count 194, Neutrophils (%) (Auto) 66.9H, Lymphocytes (%) (Auto) 17.9L, Monocytes (%) (Auto) 13.4H, Eosinophils (%) (Auto) 0.5, Basophils (%) (Auto) 0.5, Neutrophils # (Auto) 4.2, Lymphocytes # (Auto) 1.1L, Monocytes # (Auto) 0.8, Eosinophils # (Auto) 0.0, Basophils # (Auto) 0.0, Nucleated Red Blood Cells % (auto) 0.0, Anion Gap 7L, Glomerular Filtration Rate > 60.0, Blood Urea Nitrogen 13, Creatinine 0.87, Sodium Level 136, Potassium Level 3.4L, Chloride Level 101, Carbon Dioxide Level 28, Calcium Level 7.6L, Aspartate Amino Transf (AST/SGOT) 18, Alanine Aminotransferase (ALT/SGPT) 13, Alkaline Phosphatase 58, Total Bilirubin 0.3, Total Protein 5.7L, Albumin 2.5L, Magnesium Level 1.9, Albumin/Globulin Ratio 0.78L CBC/BMP Laboratory Tests 04/19/18 05:25 Red Blood Count 3.29 L, Mean Corpuscular Volume 95.4, Mean Corpuscular Hemoglobin 31.9, Mean Corpuscular Hemoglobin Concent 33.4, Red Cell Distribution Width 12.9, Neutrophils (%) (Auto) 66.9 H, Lymphocytes (%) (Auto) 17.9 L, Monocytes (%) (Auto) 13.4 H, Eosinophils (%) (Auto) 0.5, Basophils (%) (Auto) 0.5, Neutrophils # (Auto) 4.2, Lymphocytes # (Auto) 1.1 L, Monocytes # (Auto) 0.8, Eosinophils # (Auto) 0.0, Basophils # (Auto) 0.0, Calcium Level 7.6 L, Aspartate Amino Transf (AST/SGOT) 18, Alanine Aminotransferase (ALT/SGPT) 13, Alkaline Phosphatase 58, Total Bilirubin 0.3, Total Protein 5.7 L, Albumin 2.5 L Microbiology Microbiology 04/09/18 Urine Culture - Final, Complete Escherichia Coli MAXIM GLORIA DO Apr 19, 2018 07:45 SHEKHAR WINTERS MD Apr 20, 2018 13:35
[2018-04-19] MEDS ORDERED: LIDOCAINE 1% SDV 5 ML VIAL SC ONE (10:00)
[2018-04-19] MEDS: PANTOPRAZOLE 40MG TAB (PROTONIX) PO SCH (11:39)
[2018-04-19] MEDS: SENOKOT S TAB PO SCH ×2 (11:39→21:32)
[2018-04-19] MEDS: predniSONE 20 MG TAB PO SCH (11:39)
[2018-04-19] MEDS: ENOXAPARIN 40 MG/0.4 ML SYRINGE (J1650) SC SCH (11:39)
[2018-04-19] MEDS: ISOSORBIDE DIN. (ISORDIL) 5 MG TAB PO PRN ×2 (11:43→18:03)
[2018-04-19] MEDS: ASPIRIN 325 MG TAB PO SCH (11:43)
[2018-04-19] MEDS: MULTIVITAMINS/MINERALS THERAP 1 TAB PO SCH (11:44)
[2018-04-19] MEDS: EUCERIN 120GM CREAM TOP SCH ×2 (11:44→21:32)
[2018-04-19] MEDS: CLOBETASOL PROPIONATE EMOLLIENT 0.05% CR 60 GM TOP SCH ×2 (11:44→21:35)
--- NOTE | 2018-04-19 15:32 | REP ---
ANGIOGRAM OF THE AORTA AND BRANCHES: On the initial studies the lung bases visualized are grossly unremarkable. There are some linear scarring or discoid atelectasis at the right lung base. Several calcifications are seen in the aorta. The heart and cardiac chambers are grossly unremarkable. On the aortogram there is extensive tortuosity and plaquing of the aorta. At the origin of the renal arteries bilaterally there is excessive calcifications but there is good arterial flow visualization distal to the severe calcifications. The remaining vessels of the pelvis and vessels also show extensive calcifications without gross obstructions. The remaining structures of the abdomen and pelvis are essentially unremarkable. The spine shows extensive degenerative change with severe disc space narrowing. There is also involvement of the facets. At the right hip is a total right hip replacement. IMPRESSION: Extensive calcifications in the abdominal aorta and pelvic vessels. The origins of the renal arteries show significant areas of calcifications with good filling beyond that areas of calcifications. The degree of stenosis cannot be determined on this study. Electronically Signed by Kuldeep Patton MD 04/19/2018 03:46 P
[2018-04-19] MEDS: ESTROGENS VAGINAL CREAM 30GM PV SCH (21:31)
[2018-04-20 05:42] LABS: BASO % 0.4 % (0.0-1.0); EOS % 0.1 % (0.0-3.0); HEMATOCRIT 30.5 % (36.0-47.0); HEMOGLOBIN 10.5 g/dl (12.0-15.5); LYMPH # 0.9 10^3/uL (1.5-4.5); MEAN CORPUSCULAR HEMOGLOBIN 32.5 pg (27.0-33.0); MEAN CORPUSCULAR HGB CONC 34.4 g/dl (32.0-36.5); MEAN CORPUSCULAR VOLUME 94.4 fl (80.0-96.0); MONO # 0.8 10^3/uL (0.0-0.8); MONO % 11.7 % (0.0-5.0); NEUTROPHILS # 5.2 10^3/uL (1.8-7.7); NEUTROPHILS % 73.5 % (36.0-66.0); PLATELET COUNT, AUTOMATED 200 10^3/uL (150-450); RED BLOOD COUNT 3.23 10^6/uL (4.00-5.40); WHITE BLOOD COUNT 7.1 10^3/uL (4.0-10.0)
[2018-04-20 06:00] VITALS: BP 203/103
[2018-04-20] MEDS: valACYclovir HCL 500 MG TAB PO SCH ×3 (06:00→21:55)
[2018-04-20] MEDS: LEVOTHYROXINE 75MCG TABLET (0.075MG) PO SCH (06:00)
[2018-04-20] MEDS: ISOSORBIDE DIN. (ISORDIL) 5 MG TAB PO PRN (06:00)
[2018-04-20 06:04] LABS: ALBUMIN 2.6 GM/DL (3.2-5.2); ALT/SGPT 20 U/L (12-78); BILIRUBIN,TOTAL 0.4 MG/DL (0.2-1.0); BLOOD UREA NITROGEN 12 MG/DL (7-18); CALCIUM LEVEL 7.9 MG/DL (8.8-10.2); CARBON DIOXIDE LEVEL 27 MEQ/L (21-32); CHLORIDE LEVEL 102 MEQ/L (98-107); CREATININE FOR GFR 0.91 MG/DL (0.55-1.30); GLOMERULAR FILTRATION RATE > 60.0 (>32); GLUCOSE, FASTING 95 MG/DL (70-100); MAGNESIUM LEVEL 2.2 MG/DL (1.8-2.4); POTASSIUM SERUM 3.6 MEQ/L (3.5-5.1); SODIUM LEVEL 138 MEQ/L (136-145); TOTAL PROTEIN 5.8 GM/DL (6.4-8.2)
[2018-04-20] MEDS: PANTOPRAZOLE 40MG TAB (PROTONIX) PO SCH (08:30)
[2018-04-20] MEDS: ASPIRIN 325 MG TAB PO SCH (08:30)
[2018-04-20] MEDS: MULTIVITAMINS/MINERALS THERAP 1 TAB PO SCH (08:30)
[2018-04-20] MEDS: predniSONE 20 MG TAB PO SCH (08:30)
[2018-04-20] MEDS: SENOKOT S TAB PO SCH ×2 (08:30→20:38)
[2018-04-20] MEDS: EUCERIN 120GM CREAM TOP SCH ×2 (08:31→20:39)
[2018-04-20] MEDS: ENOXAPARIN 40 MG/0.4 ML SYRINGE (J1650) SC SCH (08:31)
[2018-04-20] MEDS: CLOBETASOL PROPIONATE EMOLLIENT 0.05% CR 60 GM TOP SCH ×2 (08:32→20:39)
[2018-04-20 08:42] VITALS: BP 152/100
[2018-04-20 09:25] VITALS: BP 132/98
[2018-04-20 15:30] VITALS: BP 142/96
[2018-04-20] MEDS: diazePAM 10 MG TAB PO PRN (20:38)
[2018-04-20] MEDS: ESTROGENS VAGINAL CREAM 30GM PV SCH (20:39)
[2018-04-21] MEDS: ISOSORBIDE DIN. (ISORDIL) 5 MG TAB PO PRN (05:52)
[2018-04-21] MEDS: LEVOTHYROXINE 75MCG TABLET (0.075MG) PO SCH (05:53)
[2018-04-21] MEDS: valACYclovir HCL 500 MG TAB PO SCH ×3 (05:53→21:02)
[2018-04-21 06:00] VITALS: BP 210/108
[2018-04-21 06:20] VITALS: BP_SYST 146; BP_SYST 208; BP_SYST 220; BP_DIAS 110; BP_DIAS 120; BP_DIAS 84
[2018-04-21] MEDS: SENOKOT S TAB PO SCH ×2 (08:19→21:02)
[2018-04-21] MEDS: PANTOPRAZOLE 40MG TAB (PROTONIX) PO SCH (08:19)
[2018-04-21] MEDS: ASPIRIN 325 MG TAB PO SCH (08:19)
[2018-04-21] MEDS: MULTIVITAMINS/MINERALS THERAP 1 TAB PO SCH (08:19)
[2018-04-21] MEDS: predniSONE 10 MG TAB PO SCH (08:19)
[2018-04-21] MEDS: ENOXAPARIN 40 MG/0.4 ML SYRINGE (J1650) SC SCH (08:20)
[2018-04-21] MEDS: EUCERIN 120GM CREAM TOP SCH ×2 (09:33→21:02)
[2018-04-21] MEDS: CLOBETASOL PROPIONATE EMOLLIENT 0.05% CR 60 GM TOP SCH ×2 (09:34→21:03)
[2018-04-21 17:33] VITALS: BP_SYST 148; BP_SYST 150; BP_SYST 152; BP_DIAS 70; BP_DIAS 90; BP_DIAS 98
[2018-04-21] MEDS: ESTROGENS VAGINAL CREAM 30GM PV SCH (21:02)
[2018-04-21] MEDS: diazePAM 10 MG TAB PO PRN (21:02)
[2018-04-22] MEDS: LEVOTHYROXINE 75MCG TABLET (0.075MG) PO SCH (05:27)
[2018-04-22] MEDS: valACYclovir HCL 500 MG TAB PO SCH ×2 (05:27→17:23)
[2018-04-22 05:30] VITALS: BP_SYST 166; BP_SYST 170; BP_SYST 228; BP_DIAS 78; BP_DIAS 82; BP_DIAS 86
[2018-04-22] MEDS: ISOSORBIDE DIN. (ISORDIL) 5 MG TAB PO PRN ×2 (05:43→18:36)
[2018-04-22] MEDS: EUCERIN 120GM CREAM TOP SCH ×2 (08:27→21:44)
[2018-04-22] MEDS: CLOBETASOL PROPIONATE EMOLLIENT 0.05% CR 60 GM TOP SCH ×2 (08:28→21:45)
[2018-04-22] MEDS: predniSONE 10 MG TAB PO SCH (08:30)
[2018-04-22] MEDS: PANTOPRAZOLE 40MG TAB (PROTONIX) PO SCH (08:30)
[2018-04-22] MEDS: MULTIVITAMINS/MINERALS THERAP 1 TAB PO SCH (08:30)
[2018-04-22] MEDS: ASPIRIN 325 MG TAB PO SCH (08:30)
[2018-04-22] MEDS: ENOXAPARIN 40 MG/0.4 ML SYRINGE (J1650) SC SCH (08:31)
[2018-04-22] MEDS: SENOKOT S TAB PO SCH ×2 (09:00→21:41)
[2018-04-22 18:20] VITALS: BP_SYST 158; BP_SYST 204; BP_SYST 220; BP_DIAS 90; BP_DIAS 98
[2018-04-22 20:30] VITALS: BP 201/90
[2018-04-22] MEDS: diazePAM 10 MG TAB PO PRN (21:20)
[2018-04-22] MEDS: ESTROGENS VAGINAL CREAM 30GM PV SCH (21:42)
[2018-04-22] MEDS ORDERED: amLODIPine 10 MG TAB PO ONE (21:45)
[2018-04-22 23:15] VITALS: BP 220/92
[2018-04-23] MEDS: RAMELTEON 8 MG TAB (ROZEREM) PO PRN (00:24)
[2018-04-23 06:00] VITALS: BP 196/82
[2018-04-23 06:26] VITALS: BP_SYST 180; BP_SYST 196; BP_DIAS 82; BP_DIAS 88
[2018-04-23] MEDS: LEVOTHYROXINE 75MCG TABLET (0.075MG) PO SCH (06:30)
[2018-04-23 07:05] VITALS: BP 196/82
[2018-04-23] MEDS: ISOSORBIDE DIN. (ISORDIL) 5 MG TAB PO PRN (07:05)
[2018-04-23] MEDS: MULTIVITAMINS/MINERALS THERAP 1 TAB PO SCH (08:23)
[2018-04-23] MEDS: ASPIRIN 325 MG TAB PO SCH (08:23)
[2018-04-23] MEDS: predniSONE 10 MG TAB PO SCH (08:23)
[2018-04-23] MEDS: SENOKOT S TAB PO SCH (08:23)
[2018-04-23] MEDS: PANTOPRAZOLE 40MG TAB (PROTONIX) PO SCH (08:23)
[2018-04-23] MEDS: ENOXAPARIN 40 MG/0.4 ML SYRINGE (J1650) SC SCH (08:24)
[2018-04-23] MEDS: EUCERIN 120GM CREAM TOP SCH (08:25)
[2018-04-23] MEDS: CLOBETASOL PROPIONATE EMOLLIENT 0.05% CR 60 GM TOP SCH (08:25)
[2018-04-23] MEDS ORDERED: CLOB5CR TOP (09:47)
--- NOTE | 2018-04-23 12:59 | IPNPDOC ---
Date Seen The patient was seen on 04/23/18. Progress Note SUBJECTIVE: Patient is an 87-year-old female with diffuse erythematous rash with blistering. She is evaluated at bedside. She is laying in bed in the supine position. She is alert and oriented. She is being discharged today and will be receiving home health care. She has completed an oral tapering dose of steroid successfully while hospitalized. No oral or genital lesions. No arthralgias. OBJECTIVE PHYSICAL EXAMINATION: VITAL SIGNS: Please see below. SKIN: Miguel II, interactive, pleasant, reserved affect, alert and oriented x4, patient sitting comfortably in hospital bed in no acute distress. A partial skin exam was conducted today. An examination of the skin on the back, neck, scalp, face, eyelids, chest, abdomen, left and right arms and hands, left and right l egs and feet, fingernails was found to be normal except for the following findings: 50% improvement in diffuse erythematous confluent patches on the bilateral lower extremities, upper thorax, bilateral upper extremities, and back. Some areas are blanchable while other are non-blanchable. Circular erythematous plaque with circumferential crusting noted on the anterior left thigh with pigment deposition. Improved lesions with crusting and scaling noted on upper and lower extremities bilaterally. Abdomen spared. Biopsy sites are clean, dry, intact with Tegaderm dressing in place. LABORATORY DATA, IMAGING STUDIES, MICROBIOLOGY: Please see below. ASSESSMENT AND PLAN: This is an 87-year-old female with diffuse erythematous confluent rash with blistering with labile hypertension with possible progression of renal artery stenosis. Differential includes erythema multiforme (interface dermatitis process favored) secondary to recent RSV versus medication exposure that was revealed after prednisone was finished 03/20/2018, Samira syndrome (overlap between erythema multiforme and lupus), cutaneous lupus erythematosus flare, bullous drug eruption, pemphigus vulgaris, and much lower on the differential bullous dermatomyositis. Two x punch biopsies obtained from right anterior thigh which have been sent to [facility] for evaluation and identification. Steroid tapering has been completed. Completed Valtrex 1g by mouth thrice daily for a total of 7 days. Continue topical Clobetasol 0.05% twice daily (may chill medicine prior to application as may feel better on patient's skin). Dermatology will call patient with appointment for suture removal in 2-3 weeks. DISPOSITION: Discharged by primary team today. Dermatology will call patient with appointment. A total of 15 minutes was spent at patient's bedside. VS, I&O, 24H, Fishbone Vital Signs/I&O Vital Signs Date Time Temp Pulse Resp B/P (MAP) Pulse Ox O2 Delivery O2 Flow Rate FiO2 04/23/18 07:05 196/82 04/23/18 06:26 92 104 04/23/18 06:00 97.6 15 93 I&O- Last 24 Hours up to 6 AM 04/23/18 06:00 Intake Total 1440 ml Output Total 3300 ml Balance -1860 ml MAXIM GLORIA DO Apr 23, 2018 12:59
[2018-04-23] MEDS ORDERED: ATOR40TA75 PO (18:21)
--- NOTE | 2018-04-24 07:42 | DSES ---
DATE OF ADMISSION: 04/07/2018 DATE OF DISCHARGE: 04/23/2018 DISCHARGE DIAGNOSIS: Acute cerebrovascular accident (CVA). SECONDARY DIAGNOSIS: Erythematous rash. Leukocytosis. Urinary tract infection. Atypical chest pain. Recent respiratory syncytial virus (RSV) infection. Labile orthostatic hypertension. History of compensated diastolic congestive heart failure. Hypothyroidism. Discoid lupus. Generalized anxiety disorder. History of diverticulosis. Osteoarthritis. Gastroesophageal reflux disease. CONSULTATIONS: Dr. Samaniego of neurology. Dr. Mayes of rheumatology. Dr. Morse of Dermatology HOSPITAL COURSE: The patient is an 87-year-old female who was recently admitted with Respiratory syncytial virus (RSV) who was completing a steroid taper at home. Shortly after completing her taper, she developed a diffuse erythematous rash. She has a history of discoid lupus. She also has a struggle with her blood pressure and follows with Dr. Saldana regarding her orthostatic hypertension. She did have a fall at home but she had had several falls in the recent past all in the same setting while using the toilet. Her left leg became weak. She did present to the hospital for this and was seen in consultation by the neurology service. She was found to have an acute cerebrovascular accident and left basal ganglia. She was started on a statin. She was cleared by physical therapy and occupational therapy although this took significant time and she was maintained on alternative level of care for several days while awaiting this. She was noted to have some renal artery stenosis on her previous ultrasound and was seen by vascular surgery here who had requested a CTA and further outpatient evaluation and followup. Given her rash, she was also seen by rheumatology service who suggested outpatient followup with rheumatology but did not feel that this was secondary to systemic lupus or discoid lupus. The dermatology service were suspicious for urothelial multiforme versus medication adverse effect versus Samira syndrome versus cutaneous lupus flare versus Pemphigus vulgaris or a bolus dermatomyositis. Punch biopsies were completed and were sent to [place]. Results are currently pending at the time of discharge. Patient was started on clobetasol for her rash which gradually improved. At this time, she is medically stable for discharge home to the care of her daughter. OBJECTIVE: Vital signs: Temperature 97.9, pulse 92, respiratory rate 15, blood pressure 180/88, oxygen saturation 90% on room air. General: She is an elderly, female, awake, alert, oriented times three sitting up in bed, no acute distress. HEENT: Moist mucous membranes, no elevation of CVP. Cardiovascular: S1, S2, regular. Respiratory exam is clear. Abdominal exam benign. Extremities: No clubbing, cyanosis. She does have diffuse erythematous rash which appears to be fading and less dry. LABORATORY STUDIES: WBC 7.1, hemoglobin 10.5, platelet count 200. Chemistry panel: Sodium 130, potassium 3.6, chloride 102, bicarbonate 27, BUN 12, creatinine 0.9. Inflammatory markers have trended down. She had multiple sets of cardiac enzymes that were negative. TSH was within normal limits. She did have an extensive vasculitic workup. She was TAMANNA positive and did have elevated SSA and SSB. Otherwise it was fairly unremarkable. He Lyme titers were pending. Hepatitis panels were negative. Her HSV titers currently pending. She did have a urine culture positive for E. Coli and completed a course of antibiotics while in the hospital. She had blood cultures that were negative. She had an abdominal CTA that revealed extensive calcifications in the abdominal aorta and pelvic vessels. The origins of the renal arteries show significant areas of calcifications with good filling beyond the areas of calcifications. The degree of stenosis could not be determined during the study. She had a renal ultrasound that revealed chronic medical renal disease, more atrophy of the cortex left than right. She had MRI of the brain that revealed a punctate focus and left basal ganglia consistent with an acute infarct. She also had an MRI of the brain that revealed no aneurysm or AV malformation. 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 Moderate atherosclerosis involving the A1 segment of the right anterior cerebral artery. The left vertebral artery was not seen secondary to severe stenosis, occlusion or aplasia. 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 She underwent an MRA of the carotid that revealed patent endarterectomy on the right, occlusion of the right vertebral artery and reconstitution at the level of the right carotid bifurcation. Mild to moderate atherosclerotic disease involving the right vertebral artery. Mild to moderate atherosclerotic disease involving the left vertebral artery. She had a cervical MRI that revealed spondylosis without cord compression as well as MRI of the lumbar spine that revealed some disc bulging, minimal thecal sac compression and mild central canal stenosis. She had an MRI of the thoracic spine that revealed a disc bulge at T12-L1 without any cord compression. Carotid duplex that revealed bilateral luminal narrowing less than 50%. ASSESSMENT AND PLAN: This is an 87-year-old female who presented with falls and diffuse rash. PROBLEMS: 1. Lower extremity weakness predominately in the left leg possibly secondary to her acute cerebrovascular accident and multifactorial nature related to her fragility, labile orthostatic hypotension followed by Dr. Saldana. She does have significant intracranial atherosclerotic disease and she has been on aspirin. She is being discharged on atorvastatin 40 mg daily. Neurology consult was appreciated. She is to have close followup with them. She is cleared with physical therapy (PT) and occupational therapy (OT). She is likely to continue to be somewhat of a fall risk and she has been advised and taught how to lower herself to the ground should she begin to feel falling. Her difficulty with blood pressure should be continued on patient followup with Dr. Saldana. Her medications were not adjusted during this stay. 2. Diffuse erythematous rash possibly viral etiology versus drug reaction versus differential as outlined above. She will followup with dermatology within 2 weeks to get the results of her skin biopsy as well as rheumatology for her rheumatological work. Prednisone taper has been completed. She is being discharged on topical steroid cream. 3. Leukocytosis secondary to corticosteroids. She was afebrile while hospitalized. 4. Urinary tract infection. She completed a course of antibiotics for E. Coli by mouth while she was hospitalized. 5. Labile hypertension as outlined above, there was also some concern that she had some renal vascular artery stenosis, as such, vascular surgery consult was placed while she was here and they did order a CTA of her abdomen that did not reveal any significant disease. She will followup the results with them in the outpatient setting as well as Dr. Saldana. 6. Diastolic congestive heart failure, well compensated throughout her stay. 7. Carotid endarterectomy, she is on aspirin and statin. 8. Hypothyroidism, she is on Synthroid. 9. Generalized anxiety disorder. She is to continue on alprazolam. 10. Discoid lupus as outlined above in regards to her rash. 11. Osteoarthritis. She did receive Tylenol as needed. 12. Gastroesophageal reflux disease, she is on Protonix. DISPOSITION: Patient will be discharged home to the care of her daughter, 18/09 care. She was cleared by physical therapy and occupational therapy. She is to followup with her primary care provider within 7 days, Dr. Johnston without 2 weeks, Dr. Saldana within 2 weeks, neurology within 2 weeks, dermatology within 2 weeks. Her activity is as tolerated. Diet is as prior to admission. She is to return to the emergency room if symptoms worsen. She is to followup with rheumatology as needed. MEDICATIONS AT TIME OF DISCHARGE: - atorvastatin 40 mg daily - clobetasol topically twice a day - acetaminophen extended release 650 every 4 hours as needed for pain or fever - vitamins - ascorbic acid 500 mg daily - aspirin 325 mg daily - calcium with vitamin D 600/200 one tablet daily - diazepam 10 mg as needed for sleep - isosorbide dinitrate 5 mg twice a day - Synthroid 75 mcg daily - midodrine 10 mg three times daily as needed for hypotension - multivitamin one tablet daily I have advised her to stop taking her estrogen cream as she did have an acute cerebrovascular accident until she is seen in followup by neurology. Greater than 45 minutes spent organizing safe disposition. MTDD
[2018-04-25 00:08] LABS: HEPATITIS B CORE ANTIBODY IGG Negative (Negative); HSV TYPE I IgM AB <1:10 titer (<1:10); HSV TYPE II IgG SPECIFIC <0.91 index (0.00-0.90); HSV TYPE II IgM ABY <1:10 titer (<1:10); HSV-1 DNA Negative (Negative); HSV-2 DNA Negative (Negative)
[2018-05-16] MEDS ORDERED: SERT50TA PO (21:26)
[2018-05-16] MEDS ORDERED: LISI2.5T5 PO (21:32)
== END 2018-04-23 13:51 | disposition home health service (06) | DRG 595 ==
LOC: M ED 09:04 → M ED INP 13:37 → M MSPAV 19:20
PROVIDERS: ADMIT Internal Medicine; ATTEND Internal Medicine
PROC: 0HBHXZX Excision of Right Upper Leg Skin, External Approach, Diagnostic (ICD-10-PCS; principal; 2018-04-15)
DX: L93.0 Discoid lupus erythematosus (principal); I63.9 Cerebral infarction, unspecified; I50.32 Chronic diastolic (congestive) heart failure; N39.0 Urinary tract infection, site not specified; I95.1 Orthostatic hypotension; I69.344 Monoplegia of lower limb following cerebral infarction affecting left non-dominant side; I70.1 Atherosclerosis of renal artery; F41.1 Generalized anxiety disorder; K21.9 Gastro-esophageal reflux disease without esophagitis; E03.9 Hypothyroidism, unspecified; D72.829 Elevated white blood cell count, unspecified; K57.30 Diverticulosis of large intestine without perforation or abscess without bleeding; M19.90 Unspecified osteoarthritis, unspecified site; I11.0 Hypertensive heart disease with heart failure; Z96.641 Presence of right artificial hip joint; R07.2 Precordial pain; G47.00 Insomnia, unspecified; I08.0 Rheumatic disorders of both mitral and aortic valves; B96.29 Other Escherichia coli [E. coli] as the cause of diseases classified elsewhere; Z88.0 Allergy status to penicillin; Z88.8 Allergy status to other drugs, medicaments and biological substances; Z91.013 Allergy to seafood; Z88.2 Allergy status to sulfonamides

== ENCOUNTER → 2018-04-15 | Outpatient (REF) | payer MEDICARE ==
[~2018-04-15] MED LIST changes: +ATOR40TA75 PO; +CLOB5CR TOP; -methylPREDNISolone INJ 125 MG/2 ML VIAL (J2930) IV SCH
== END ==
LOC: M LAB REF 18:55
PROVIDERS: ATTEND Dermatology
DX: R21 Rash and other nonspecific skin eruption (principal)

== ENCOUNTER 2018-05-01 13:38 | Emergency (ER) | payer MEDICARE ==
[~2018-05-01] VITALS: Ht 167.6 cm; Wt 61.4 kg
[2018-05-01] MEDS ORDERED: NS 1,000 ML IV ONE (14:45)
[2018-05-01] MEDS: METOPROLOL 5 MG/5 ML VIAL IV SCH ×4 (14:52→15:57)
[2018-05-01 15:52] LABS: BASO # 0.1 10^3/uL (0.0-0.2); BASO % 0.8 % (0.0-1.0); EOS % 0.6 % (0.0-3.0); HEMATOCRIT 38.5 % (36.0-47.0); HEMOGLOBIN 13.2 g/dl (12.0-15.5); LYMPH # 0.6 10^3/uL (1.5-4.5); LYMPH % 8.8 % (24.0-44.0); MEAN CORPUSCULAR HEMOGLOBIN 33.4 pg (27.0-33.0); MEAN CORPUSCULAR HGB CONC 34.3 g/dl (32.0-36.5); MEAN CORPUSCULAR VOLUME 97.5 fl (80.0-96.0); MONO # 0.6 10^3/uL (0.0-0.8); MONO % 9.3 % (0.0-5.0); NEUTROPHILS # 5.2 10^3/uL (1.8-7.7); NEUTROPHILS % 80.2 % (36.0-66.0); PLATELET COUNT, AUTOMATED 181 10^3/uL (150-450); RED BLOOD COUNT 3.95 10^6/uL (4.00-5.40); WHITE BLOOD COUNT 6.5 10^3/uL (4.0-10.0)
[2018-05-01 16:29] LABS: ALBUMIN 3.6 GM/DL (3.2-5.2); ALT/SGPT 19 U/L (12-78); BILIRUBIN,DIRECT 0.2 MG/DL (0.0-0.2); BILIRUBIN,TOTAL 0.5 MG/DL (0.2-1.0); BLOOD UREA NITROGEN 8 MG/DL (7-18); CALCIUM LEVEL 8.4 MG/DL (8.8-10.2); CARBON DIOXIDE LEVEL 28 MEQ/L (21-32); CHLORIDE LEVEL 103 MEQ/L (98-107); CK-MB VALUE MASS < 1.0 NG/ML (<3.6); CPK CREATINE PHOSPHOKINASE 27 U/L (26-192); CREATININE FOR GFR 0.71 MG/DL (0.55-1.30); GLOMERULAR FILTRATION RATE > 60.0 (>32); GLUCOSE, FASTING 108 MG/DL (70-100); POTASSIUM SERUM 3.7 MEQ/L (3.5-5.1); SODIUM LEVEL 138 MEQ/L (136-145); TOTAL PROTEIN 7.1 GM/DL (6.4-8.2); TROPONIN I 0.02 NG/ML (< 0.10)
[2018-05-01] MEDS ORDERED: cloNIDine 0.2 MG TAB PO ONE (16:30)
[2018-05-01 16:34] VITALS: BP 226/102
[2018-05-01 18:47] VITALS: BP 173/80
--- NOTE | 2018-05-03 06:44 | ECGEPIP ---
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
[2018-05-16] MEDS ORDERED: SERT50TA PO (21:26)
[2018-05-16] MEDS ORDERED: LISI2.5T5 PO (21:32)
== END 2018-05-01 18:53 | disposition home or self-care (01) ==
LOC: EDBD 13:38 → M ED 13:38
DX: I10 Essential (primary) hypertension (principal); K21.9 Gastro-esophageal reflux disease without esophagitis; M32.9 Systemic lupus erythematosus, unspecified; E03.9 Hypothyroidism, unspecified; E55.9 Vitamin D deficiency, unspecified; G89.29 Other chronic pain; M54.9 Dorsalgia, unspecified; Z79.899 Other long term (current) drug therapy; Z79.82 Long term (current) use of aspirin; Z79.890 Hormone replacement therapy; Z88.0 Allergy status to penicillin; Z88.2 Allergy status to sulfonamides; Z88.8 Allergy status to other drugs, medicaments and biological substances; Z91.013 Allergy to seafood; Z91.048 Other nonmedicinal substance allergy status; Z87.891 Personal history of nicotine dependence

== ENCOUNTER 2018-05-04 11:00 | Inpatient (IN) | payer MEDICARE ==
[~2018-05-04] VITALS: Ht 167.6 cm; Wt 63.0 kg
[~2018-05-04 11:00] MED LIST changes: -/BISO10TA OR; +ASPI-1 PO; -ASPI325T PO; +HYDR-2773 PO; -HYDR10TAB PO; -METR-201 PO; +METR-265 PO; -SERT25TA PO; +SERT25TA85 PO; +ZEBE1TAB OR
[2018-05-04] MEDS ORDERED: ZOLO25TA PO (11:11)
[2018-05-04] MEDS ORDERED: AMLO25TA PO (11:11)
[2018-05-04 11:32] LABS: BASO # 0.1 10^3/uL (0.0-0.2); BASO % 0.9 % (0.0-1.0); EOS % 0.3 % (0.0-3.0); HEMATOCRIT 37.9 % (36.0-47.0); HEMOGLOBIN 12.7 g/dl (12.0-15.5); LYMPH # 0.7 10^3/uL (1.5-4.5); LYMPH % 10.5 % (24.0-44.0); MEAN CORPUSCULAR HEMOGLOBIN 32.9 pg (27.0-33.0); MEAN CORPUSCULAR HGB CONC 33.5 g/dl (32.0-36.5); MEAN CORPUSCULAR VOLUME 98.2 fl (80.0-96.0); MONO # 0.5 10^3/uL (0.0-0.8); MONO % 8.2 % (0.0-5.0); NEUTROPHILS # 5.2 10^3/uL (1.8-7.7); NEUTROPHILS % 79.8 % (36.0-66.0); PLATELET COUNT, AUTOMATED 194 10^3/uL (150-450); RED BLOOD COUNT 3.86 10^6/uL (4.00-5.40); WHITE BLOOD COUNT 6.5 10^3/uL (4.0-10.0)
[2018-05-04] MEDS ORDERED: LABETALOL HCL 100 MG/20 ML VIAL IV STA ×2 (11:46→12:31)
[2018-05-04] MEDS ORDERED: ONDANSETRON 4MG/2ML VIAL (J2405) IV ONE (12:00)
--- NOTE | 2018-05-04 12:05 | REP ---
PA and lateral chest: Comparison is 04/07/2018. Chronic bibasilar parenchymal scarring is again identified, unchanged. There are no focal infiltrates. There is no interstitial edema. There are no pleural effusions. Cardiac size is normal. The sammi, mediastinum, skeletal structures are unchanged. Impression: No acute cardiopulmonary findings. There are stable chronic changes as described. Electronically Signed by Oscar Heredia MD 05/04/2018 11:57 A
[2018-05-04 12:18] LABS: BLOOD UREA NITROGEN 7 MG/DL (7-18); CALCIUM LEVEL 8.6 MG/DL (8.8-10.2); CARBON DIOXIDE LEVEL 27 MEQ/L (21-32); CHLORIDE LEVEL 97 MEQ/L (98-107); CK-MB VALUE MASS < 1.0 NG/ML (<3.6); CPK CREATINE PHOSPHOKINASE 35 U/L (26-192); CREATININE FOR GFR 0.75 MG/DL (0.55-1.30); GLOMERULAR FILTRATION RATE > 60.0 (>32); GLUCOSE, FASTING 98 MG/DL (70-100); MB/CK RELATIVE INDEX 2.86 (< OR =4); POTASSIUM SERUM 3.6 MEQ/L (3.5-5.1); SODIUM LEVEL 131 MEQ/L (136-145); TROPONIN I < 0.02 NG/ML (< 0.10)
[2018-05-04] MEDS ORDERED: AUGM0.05 TOP (13:56)
[2018-05-04] MEDS ORDERED: ACET1TAB55 PO (13:56)
[2018-05-04] MEDS ORDERED: ESTR62CR PV (13:59)
[2018-05-04] MEDS ORDERED: ACET-683 PO (14:01)
[2018-05-04] MEDS ORDERED: VITA-122 PO (14:02)
[2018-05-04 15:20] VITALS: BP 176/86
[2018-05-04] MEDS ORDERED: MIDODRINE 5 MG TAB PO PRN (15:45)
[2018-05-04] MEDS ORDERED: LABETALOL HCL 100 MG/20 ML VIAL IV PRN (15:45)
[2018-05-04] MEDS ORDERED: ISOSORBIDE DIN. (ISORDIL) 5 MG TAB PO PRN (15:45)
--- NOTE | 2018-05-04 16:20 | HPEPDOC ---
[facility] Medical History & Physical Date of Admission May 04, 2018 Primary Care Physician: JIMI ALEGRIA DO Attending Physician: DEMETRA CALLES MD History and Physical CHIEF COMPLAINT: Shortness of breath and hypertension HISTORY OF PRESENT ILLNESS: Kristi Grayson is an 87-year-old female who presented to the emergency department this afternoon via EMS with a chief complaint of dyspnea and hypertension per home blood pressure monitor. Patient was previously admitted to the hospital on 04/07/2018 and discharged 2 weeks later on 04/23/2018. At that time she was diagnosed with a CVA. Patient has a history of labile orthostatic hypotension and is being followed by Dr. Saldana. During her previous hospitalization the patient presented with diffuse erythematous rash. That time it was questioned whether it was related to viral etiology or cutaneous lupus. Per patient, following biopsy, it was confirmed the rash to be of lupoid origin. She was also diagnosed and treated for a UTI. While in the emergency department, the patient was given 10 mg of labetalol initially and a subsequent 20 mg dose IV stat. A chest x-ray was performed and read as negative. BMP shows mildly decreased sodium: 131, good renal function, and negative cardiac enzymes. No white count per CBC. Hemoglobin and hematocrit are stable. Patient will be admitted to the PCU for further evaluation and management of her blood pressure. 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 Tobacco use: Former smoker, smoked one half PPD starting at age 19 and quit in the 1960s ETOH: Denies alcohol use Illicit drug use: Denies illicit drug use Other relevant social factors: Baptism, level of education: Professional, hard of hearing, utilizes cane FAMILY HISTORY: Father: , 79 years, Alzheimer's Mother: , 83 years, CVA, history of hypertension Siblings: Brother: , CVA post embolism. Sister: , kidney failure, dialysis, CVA Children: One son diagnosed prostate cancer, receiving radiation No family history of breast, colon or ovarian cancer] ALLERGIES: Please see below. Adhesive: Rash Sulfa: Rash Amoxicillin: Upset stomach REVIEW OF SYSTEMS: CONSTITUTIONAL: Reports prolonged fatigue, trouble sleeping due to anxiety Denies fevers, chills, night sweats or changes in weight HEENT: Reports epistaxis last evening (easily controlled). Denies headache, changes in vision, changes in hearing, rhinorrhea, nasal congestion, sore throat, difficulty swallowing CARDIOVASCULAR: Denies chest pain/pressure, palpitations RESPIRATORY: Reports dyspnea's morning, relieved in the emergency department with blood pressure medication. Denies history of coughing, wheezing GASTROINTESTINAL: Reports history of constipation (chronic) Denies reflux, nausea/vomiting, abdominal pain, diarrhea GENITOURINARY: Denies urinary frequency, urgency, hesitancy, dysuria SKIN: Reports a resolving rash mostly on her legs and upper back. NEUROLOGICAL: Denies dizziness, PSYCHIATRIC: Reports increased depression and anxiety related to her medical conditions. All 14 points ROS is negative except for that stated above HOME MEDICATIONS: Please see below. PHYSICAL EXAMINATION: VITAL SIGNS: Temperature 97.1F, pulse 70, respiratory rate 18, blood pressure 203/86, initial presentation: 252/110, pulse oximetry 96 % on room air. GENERAL APPEARANCE: Awake, alert, oriented 3, in no acute distress HEENT: Normocephalic atraumatic, sclera nonicteric, EOMI, PERRLA, mild JVD appreciated, no lymphadenopathy CARDIOVASCULAR: Regular rate and rhythm, normal S1/S2, no murmurs gallops or rubs LUNGS: Clear to auscultation bilaterally, no wheezing rhonchi or rales ABDOMEN: Soft, nontender, no masses palpated, active bowel sounds MUSCULOSKELETAL: 5 out of 5 strength in all extremities, no weakness on the left as reported by the patient EXTREMITIES: Moves all extremities equally and freely bilaterally NEUROLOGICAL: No facial weakness or asymmetry, no focal neurologic deficits, no weakness PSYCHIATRIC: Anxious mood and flat affect noted SKIN: Resolving disseminated erythematous nonblanching rash, no bruising, status post cutaneous biopsy of right thigh (2 stitches remain) LABORATORY DATA: See below. IMAGING: Renal artery ultrasound (04/16/18): Consistent with left renal artery stenosis with recommended follow-up CTA CT angiogram abdomen (04/19/18): Extensive calcifications in the abdominal aorta and pelvic vessels. Origins of the renal arteries show significant areas of calcifications with good filling beyond that areas calcifications. The degree of stenosis could not be determined Chest x-ray (05/04/18): No acute cardiopulmonary findings, stable chronic ch anges. ASSESSMENT: Kristi Grayson is an 87-year-old white female who presents with dyspnea and hype rtensive urgency PLAN: Hypertensive urgency -Patient reported dyspnea this morning when she had a home blood pressure reading that was too high for her monitor to display. Her symptoms have resolved since receiving her initial dose of labetalol in the emergency department. She is currently asymptomatic. Abdominal CTA performed on 04/19/18 does not seem to indicate clinically significant stenosis of the renal arteries. Patient is scheduled to follow-up with vascular surgery on an outpatient basis. - Continue home medications, amlodipine 2.5 mg by mouth daily - Isosorbide 5 mg PO BID for hypertension, midodrine 10 mg PO TID for hypotension - Labetalol 5mg IV PRN for pressure over 190 mmHg - Cardiology consult for medication management and setting medication parameters, we appreciate their input. 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 - Continue the betamethasone ointment 0.05% - Continue Eucerin as needed History of carotid disease -Continue patient's home dose of aspirin 325 mg by mouth daily -Patient's previous discharge summaries discuss the patient being on statin therapy. However, today's med rec does not seem mention a statin. She will likely need to be restarted on this given her history of peripheral vascular disease. Hypothyroid -Continue patient's home medication of levothyroxine 75 mcg by mouth daily Depression -Continue patient's home medication of sertraline 25 mg by mouth daily Generalized anxiety disorder -Continue patient's home medication of Diazepam 10 mg by mouth at night Osteoarthritis -Acetaminophen 650 mg as needed for pain DVT Proph: Lovenox 40 mg Vital Signs Vital Signs Date Time Temp Pulse Resp B/P (MAP) Pulse Ox O2 Delivery O2 Flow Rate FiO2 05/04/18 12:40 70 203/86 05/04/18 11:36 97.1 96 Room Air 05/04/18 11:32 18 Laboratory Data Labs 24H Laboratory Tests 2 05/04/18 11:18: Immature Granulocyte % (Auto) 0.3, White Blood Count 6.5, Red Blood Count 3.86L, Hemoglobin 12.7, Hematocrit 37.9, Mean Corpuscular Volume 98.2H, Mean Corpu scular Hemoglobin 32.9, Mean Corpuscular Hemoglobin Concent 33.5, Red Cell Distribution Width 14.8H, Platelet Count 194, Neutrophils (%) (Auto) 79.8H, Lymphocytes (%) (Auto) 10.5L, Monocytes (%) (Auto) 8.2H, Eosinophils (%) (Auto) 0.3, Basophils (%) (Auto) 0.9, Neutrophils # (Auto) 5.2, Lymphocytes # (Auto) 0.7L, Monocytes # (Auto) 0.5, Eosinophils # (Auto) 0.0, Basophils # (Auto) 0.1, Nucleated Red Blood Cells % (auto) 0.0, Anion Gap 7L, Glomerular Filtration Rate > 60.0, Blood Urea Nitrogen 7, Creatinine 0.75, Sodium Level 131#L, Potassium Level 3.6, Chloride Level 97L, Carbon Dioxide Level 27, Calcium Level 8.6L, Total Creatine Kinase 35, Creatine Kinase MB < 1.0, Creatine Kinase MB Relative Index 2.86, Troponin I < 0.02 CBC/BMP Laboratory Tests 05/04/18 11:18 Red Blood Count 3.86 L, Mean Corpuscular Volume 98.2 H, Mean Corpuscular Hemoglobin 32.9, Mean Corpuscular Hemoglobin Concent 33.5, Red Cell Distribution Width 14.8 H, Neutrophils (%) (Auto) 79.8 H, Lymphocytes (%) (Auto) 10.5 L, Monocytes (%) (Auto) 8.2 H, Eosinophils (%) (Auto) 0.3, Basophils (%) (Auto) 0.9, Neutrophils # (Auto) 5.2, Lymphocytes # (Auto) 0.7 L, Monocytes # (Auto) 0.5, Eosinophils # (Auto) 0.0, Basophils # (Auto) 0.1, Calcium Level 8.6 L, Total Creatine Kinase 35 Home Medications Scheduled (Calcium 600 + D 600-200 mg-Unit) 1 Tab Tab, 1 TAB PO DAILY (Augmented Betamethasone D) 0.05 % Cre, 1 APLCT TOP BID APPLY TO AFFECTED AREA(S) Amlodipine Besylate (Norvasc) 2.5 Mg Tab, 2.5 MG PO DAILY TO TAKE WHEN BP IS OVER 160 STANDING Ascorbic Acid (Ascorbic Acid) 500 Mg Tab, 500 MG PO DAILY Aspirin (Aspirin) 325 Mg Tab, 325 MG PO DAILY Cholecalciferol (Vitamin D3) 1,000 Unit Tab, 1,000 UNIT PO DAILY Conjugated Estrogens (Premarin) 1 Dose/30 Gm Cr, 1.5 GRAMS PV QHS PT CURRENTLY USING EVERY NIGHT Diazepam (Diazepam) 10 Mg Tab, 10 MG PO QHS Levothyroxine Sodium (Synthroid) 75 Mcg Tab, 75 MCG PO DAILY Multivitamins *[facility] STOCKED* (Thera M Plus *[facility] STOCKED*) 1 Tab Tab, 1 TAB PO DAILY Sertraline Hcl (Zoloft) 25 Mg Tab, 25 MG PO DAILY Scheduled PRN Acetaminophen (Acetaminophen Extra Stren) 500 Mg Tab, 500 MG PO Q6H PRN for PAIN / FEVER Isosorbide Dinitrate (Isosorbide Dinitrate) 5 Mg Tab, 5 MG PO BID PRN for HYPERTENSION PATIENT TAKES BLOOD PRESSURE FOUR TIMES EACH DAY. Midodrine HCl (Midodrine HCl) 10 Mg Tab, 10 MG PO TID PRN for HYPOTENSION PATIENT TAKES BLOOD PRESSURE FOUR TIMES EACH DAY. Allergies Coded Allergies: Hydralazine (Verified Allergy, Mild, RASH, 04/07/18) Shellfish Allergy (Verified Allergy, Unknown, PT HAD ? REACTION AFTER EATING SHELLFISH, 03/01/18) TAPE (Verified Adverse Reaction, Intermediate, SKIN FRAGILE, 01/27/15) Amoxicillin (Verified Adverse Reaction, Mild, NAUSEA AT HIGH DOSAGE, 04/07/18) Diphenhydramine (Unverified Adverse Reaction, Mild, SEVERE NAUSEA/DIARHHEA, 04/07/18) Naproxen (Verified Adverse Reaction, Mild, nausea, 08/24/17) Sulfa Drugs (Unverified Adverse Reaction, Mild, GI UPSET, 04/07/18) GME ATTESTATION GME ATTESTATION My faculty preceptor for this patient encounter was physically present during the encounter and was fully available. All aspects of the patient interview, examination, medical decision making process, and medical care plan development were reviewed and approved by the faculty preceptor. The faculty preceptor is aware and concurs with the plan as stated in the body of this note and will attest to such by his/her cosignature. Attending Note Attending Note I have both independently examined this patient as well as reviewed the H&P. I have discussed in detail with the resident the findings and plan of treatment as documented in the resident's note PEDRO PABLO NEWMAN DO May 04, 2018 15:41 DEMETRA CALLES MD May 05, 2018 18:00
[2018-05-04 17:20] VITALS: BP 198/98
[2018-05-04 20:00] VITALS: BP 164/80
[2018-05-04] MEDS ORDERED: BETAMETHASONE DIP 0.05% OINT 15 GM TOP PRN (20:45)
[2018-05-04] MEDS: diazePAM 10 MG TAB PO SCH (21:39)
[2018-05-04] MEDS: ENOXAPARIN 40 MG/0.4 ML SYRINGE (J1650) SC SCH (21:40)
[2018-05-04] MEDS: ESTROGENS VAGINAL CREAM 30GM PV SCH (21:42)
[2018-05-05] VITALS (11 sets, daily range): BP systolic 138–224; BP diastolic 68–100
[2018-05-05 04:55] LABS: HEMOGLOBIN 10.9 g/dl (12.0-15.5); MEAN CORPUSCULAR HEMOGLOBIN 33.4 pg (27.0-33.0); MEAN CORPUSCULAR HGB CONC 34.1 g/dl (32.0-36.5); MEAN CORPUSCULAR VOLUME 98.2 fl (80.0-96.0); PLATELET COUNT, AUTOMATED 164 10^3/uL (150-450); RED BLOOD COUNT 3.26 10^6/uL (4.00-5.40)
[2018-05-05 05:05] LABS: BLOOD UREA NITROGEN 9 MG/DL (7-18); CALCIUM LEVEL 7.8 MG/DL (8.8-10.2); CARBON DIOXIDE LEVEL 29 MEQ/L (21-32); CHLORIDE LEVEL 100 MEQ/L (98-107); CREATININE FOR GFR 0.76 MG/DL (0.55-1.30); GLOMERULAR FILTRATION RATE > 60.0 (>32); GLUCOSE, FASTING 84 MG/DL (70-100); POTASSIUM SERUM 3.8 MEQ/L (3.5-5.1); SODIUM LEVEL 134 MEQ/L (136-145)
[2018-05-05] MEDS: LEVOTHYROXINE 75MCG TABLET (0.075MG) PO SCH (05:25)
[2018-05-05] MEDS: ASCORBIC ACID 500 MG TAB PO SCH (07:39)
[2018-05-05] MEDS: MULTIVITAMINS/MINERALS THERAP 1 TAB PO SCH (07:39)
[2018-05-05] MEDS: ASPIRIN 325 MG TAB PO SCH (07:39)
[2018-05-05] MEDS: VITAMIN D 1,000 INTERNATIONAL UNITS TABLET PO SCH (07:39)
[2018-05-05] MEDS: SERTRALINE HCL 25 MG TABLET PO SCH (07:39)
--- NOTE | 2018-05-05 08:36 | IPNPDOC ---
Date Seen The patient was seen on 05/05/18. Progress Note SUBJECTIVE: Pt is very anxious about getting stents for her bilateral renal artery stenosis. bp improved after iv labetalol and isosorbide. still c/o generalized rash s/p biopsy in right LE by Public Administration Professor with no signs of cellulitis at the suture site. no c/o headache, changes in vision, chest pain, pressure, sob, tightness, or pressure. no dizziness or lightheadedness sbp 150's and usually sees Dr. Nava and Dr. Johnston. Pt is worried about hypertension becoming uncontrolled again at home, and says her son makes her meals and usually does not add any salt. PHYSICAL EXAMINATION: VITAL SIGNS: PLS SEE BELOW GENERAL APPEARANCE: Awake, alert, oriented 3, in no acute distress HEENT: Normocephalic atraumatic, sclera nonicteric, EOMI, PERRLA, mild JVD appreciated, no lymphadenopathy CARDIOVASCULAR: Regular rate and rhythm, normal S1/S2, no murmurs gallops or rubs LUNGS: Clear to auscultation bilaterally, no wheezing rhonchi or rales ABDOMEN: Soft, nontender, no masses palpated, active bowel sounds MUSCULOSKELETAL: 5 out of 5 strength in all extremities, no weakness on the left as reported by the patient EXTREMITIES: Moves all extremities equally and freely bilaterally NEUROLOGICAL: No facial weakness or asymmetry, no focal neurologic deficits, no weakness PSYCHIATRIC: Anxious mood and flat affect noted SKIN: Resolving disseminated erythematous nonblanching rash, no bruising, status post cutaneous biopsy of right thigh (2 stitches remain) LABORATORY DATA: See below. IMAGING: Renal artery ultrasound (04/16/18): Consistent with left renal artery stenosis with recommended follow-up CTA CT angiogram abdomen (04/19/18): Extensive calcifications in the abdominal aorta and pelvic vessels. Origins of the renal arteries show significant areas of calcifications with good filling beyond that areas calcifications. The degree of stenosis could not be determined Chest x-ray (05/04/18): No acute cardiopulmonary findings, stable chronic changes. ASSESSMENT/PLAN: Kristi Grayson is an 87-year-old female who presented to the emergency department this afternoon via EMS with a chief complaint of dyspnea and hypertension per home blood pressure monitor.Patient was previously admitted to the hospital on 04/07/2018 and discharged 2 weeks later on 04/23/2018. At that time she was diagnosed with a CVA. Patient has a history of labile orthostatic hypotension and is being followed by Dr. Saldana. During her previous hospitalization the patient presented with diffuse erythematous rash. That time it was questioned whether it was related to viral etiology or cutaneous lupus. Per patient, following biopsy, it was confirmed the rash to be of lupoid origin. She was also diagnosed and treated for a UTI.While in the emergency department, the patient was given 10 mg of labetalol initially and a subsequent 20 mg dose IV stat. A chest x-ray was performed and read as negative. BMP shows mildly decreased sodium: 131, good renal function, and negative cardiac enzymes. No white count per CBC. Hemoglobin and hematocrit are stable. Patient will be admitted to the PCU for further evaluation and management of her blood pressure. Hypertensive urgency, improved s/p iv labetalol and norvasc. changed to po meds with po isosorbide. allergy to hydralazine. due to c/o "not feeling well," check CT head r/o hemorrhage w [id number] due to bilateral renal artery stenosis documented on renal doppler in 04/16. vascular surgery Dr. Johnston has been consulted for stent placement. currently improved with sbp 150's from 220 on admission. no mental status changes or focal neuro deficits. 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 - Continue the betamethasone ointment 0.05% - Continue Eucerin as needed History of carotid disease s/p CEA -Continue patient's home dose of aspirin 325 mg by mouth daily -defer to vascular surgery. currently no TIA symptoms Hypothyroid -Continue patient's home medication of levothyroxine 75 mcg by mouth daily Depression -Continue patient's home medication of sertraline 25 mg by mouth daily Generalized anxiety disorder -Continue patient's home medication of Diazepam 10 mg by mouth at night Osteoarthritis -Acetaminophen 650 mg as needed for pain Subacute cutaneous lupus erythematosus (diagnosed in 2006 by biopsy of left arm, on Plaquenil 200 mg per day) Significant vaginal atrophy history of Diverticulitis history of Recurrent UTIs Osteoarthritis of the hips Generalized anxiety disorder DVT Proph: Lovenox 40 mg VS, I&O, 24H, Fishbone Vital Signs/I&O Vital Signs Date Time Temp Pulse Resp B/P (MAP) Pulse Ox O2 Delivery O2 Flow Rate FiO2 05/05/18 08:00 96.6 68 18 156/68 (97) 95 05/04/18 11:36 Room Air I&O- Last 24 Hours up to 6 AM 05/05/18 06:00 Intake Total 240 ml Output Total 750 ml Balance -510 ml Laboratory Data 24H LABS Laboratory Tests 2 05/04/18 11:18: Immature Granulocyte % (Auto) 0.3, White Blood Count 6.5, Red Blood Count 3.86L, Hemoglobin 12.7, Hematocrit 37.9, Mean Corpuscular Volume 98.2H, Mean Corpuscular Hemoglobin 32.9, Mean Corpuscular Hemoglobin Concent 33.5, Red Cell Distribution Width 14.8H, Platelet Count 194, Neutrophils (%) (Auto) 79.8H, Lymphocytes (%) (Auto) 10.5L, Monocytes (%) (Auto) 8.2H, Eosinophils (%) (Auto) 0.3, Basophils (%) (Auto) 0.9, Neutrophils # (Auto) 5.2, Lymphocytes # (Auto) 0.7L, Monocytes # (Auto) 0.5, Eosinophils # (Auto) 0.0, Basophils # (Auto) 0.1, Nucleated Red Blood Cells % (auto) 0.0, Anion Gap 7L, Glomerular Filtration Rate > 60.0, Blood Urea Nitrogen 7, Creatinine 0.75, Sodium Level 131#L, Potassium Level 3.6, Chloride Level 97L, Carbon Dioxide Level 27, Calcium Level 8.6L, Total Creatine Kinase 35, Creatine Kinase MB < 1.0, Creatine Kinase MB Relative Index 2.86, Troponin I < 0.02 05/05/18 04:19: Nucleated Red Blood Cells % (auto) 0.0, Anion Gap 5L, Glomerular Filtration Rate > 60.0, Blood Urea Nitrogen 9, Creatinine 0.76, Sodium Level 134L, Potassium Level 3.8, Chloride Level 100, Carbon Dioxide Level 29, Calcium Level 7.8L CBC/BMP Laboratory Tests 05/04/18 11:18 Red Blood Count 3.86 L, Mean Corpuscular Volume 98.2 H, Mean Corpuscular Hemoglobin 32.9, Mean Corpuscular Hemoglobin Concent 33.5, Red Cell Distribution Width 14.8 H, Neutrophils (%) (Auto) 79.8 H, Lymphocytes (%) (Auto) 10.5 L, Monocytes (%) (Auto) 8.2 H, Eosinophils (%) (Auto) 0.3, Basophils (%) (Auto) 0.9, Neutrophils # (Auto) 5.2, Lymphocytes # (Auto) 0.7 L, Monocytes # (Auto) 0.5, Eosinophils # (Auto) 0.0, Basophils # (Auto) 0.1, Calcium Level 8.6 L, Total Creatine Kinase 35 05/05/18 04:19 Red Blood Count 3.26 L, Mean Corpuscular Volume 98.2 H, Mean Corpuscular Hemoglobin 33.4 H, Mean Corpuscular Hemoglobin Concent 34.1, Red Cell Distribution Width 15.0 H, Calcium Level 7.8 L LIANNE DOWNS MD May 05, 2018 08:32
[2018-05-05] MEDS ORDERED: LABETALOL HCL 100 MG/20 ML VIAL IV PRN (08:45)
[2018-05-05] MEDS ORDERED: CHLORTHALIDONE 25 MG TAB PO SCH (09:00)
[2018-05-05] MEDS ORDERED: LISINOPRIL 5 MG TAB PO ONE (09:00)
[2018-05-05] MEDS: SENOKOT S TAB PO SCH ×2 (09:38→21:17)
[2018-05-05] MEDS ORDERED: BETAMETHASONE DIP 0.05% OINT 15 GM TOP PRN (10:00)
[2018-05-05] MEDS ORDERED: MOM 30ML SUSPENSION UDC PO ONE (10:00)
[2018-05-05] MEDS ORDERED: EUCERIN 120GM CREAM TOP PRN (10:00)
[2018-05-05 10:16] LABS: CHOLESTEROL LEVEL 123 MG/DL (<200); CHOLESTEROL RISK RATIO 2.157 (<5); HDL CHOLESTEROL 57 MG/DL (>40); LDL CHOLESTEROL 55 MG/DL (<100); NON-HDL-C 66 MG/DL; TRIGLYCERIDES LEVEL 53 MG/DL (<150)
--- NOTE | 2018-05-05 10:17 | REP ---
CT of the brain without IV contrast: Comparison is 04/07/2018. There is no hemorrhage. There is no edema, mass effect or midline shift. The sulci are mildly enlarged diffusely, unchanged, compatible with diffuse volume loss. The cortical stripe is unremarkable. There is heterogeneity in the deep white matter compatible with chronic microvascular ischemia, unchanged. The visualized paranasal sinuses and mastoid air cells are clear. Impression: There is no hemorrhage, acute infarct or mass. There is diffuse volume loss. There are findings compatible with chronic microvascular ischemia. No change from 04/07/2089. Electronically Signed by Oscar Heredia MD 05/05/2018 10:08 A
[2018-05-05] MEDS: ISOSORBIDE DIN. (ISORDIL) 20 MG TAB PO SCH ×3 (12:27→23:48)
--- NOTE | 2018-05-05 20:50 | ECGEPIP ---
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
[2018-05-05] MEDS ORDERED: LISINOPRIL 5 MG TAB PO SCH (21:00)
[2018-05-05] MEDS: diazePAM 10 MG TAB PO SCH (21:16)
[2018-05-05] MEDS: amLODIPine 10 MG TAB PO SCH (21:16)
[2018-05-05] MEDS: ENOXAPARIN 40 MG/0.4 ML SYRINGE (J1650) SC SCH (21:17)
[2018-05-05] MEDS: ESTROGENS VAGINAL CREAM 30GM PV SCH (21:18)
[2018-05-06] VITALS (9 sets, daily range): BP systolic 170–200; BP diastolic 70–100
[2018-05-06 04:33] LABS: HEMATOCRIT 33.2 % (36.0-47.0); HEMOGLOBIN 11.3 g/dl (12.0-15.5); MEAN CORPUSCULAR HEMOGLOBIN 32.9 pg (27.0-33.0); MEAN CORPUSCULAR VOLUME 96.8 fl (80.0-96.0); PLATELET COUNT, AUTOMATED 169 10^3/uL (150-450); RED BLOOD COUNT 3.43 10^6/uL (4.00-5.40); WHITE BLOOD COUNT 4.1 10^3/uL (4.0-10.0)
[2018-05-06 04:52] LABS: BLOOD UREA NITROGEN 7 MG/DL (7-18); CALCIUM LEVEL 8.3 MG/DL (8.8-10.2); CARBON DIOXIDE LEVEL 28 MEQ/L (21-32); CHLORIDE LEVEL 98 MEQ/L (98-107); CREATININE FOR GFR 0.67 MG/DL (0.55-1.30); GLOMERULAR FILTRATION RATE > 60.0 (>32); GLUCOSE, FASTING 93 MG/DL (70-100); POTASSIUM SERUM 3.3 MEQ/L (3.5-5.1); SODIUM LEVEL 134 MEQ/L (136-145)
[2018-05-06] MEDS: ISOSORBIDE DIN. (ISORDIL) 5 MG TAB PO SCH ×3 (05:43→11:42)
[2018-05-06] MEDS: LEVOTHYROXINE 75MCG TABLET (0.075MG) PO SCH (05:43)
--- NOTE | 2018-05-06 07:48 | IPNPDOC ---
Date Seen The patient was seen on 05/06/18. Progress Note Per my conversation with fishing boat mate special education associate, Dr. Noam Alcanatr , , pt is a known patient of Dr. Nava's in the office who is demented and does not take her medications despite risk of hemorrhagic stroke, paralysis and . He will not see the patient, and advises the patient to have an outpt fu withh Dr. Nava either after she leaves AGAINST MEDICAL ADVICE or when she is DISCHARGED if she agrees to take her medications or agrees to bilateral renal stents. VS, I&O, 24H, Fishbone Vital Signs/I&O Vital Signs Date Time Temp Pulse Resp B/P (MAP) Pulse Ox O2 Delivery O2 Flow Rate FiO2 05/06/18 05:43 200/80 05/06/18 04:45 98.4 82 20 96 05/04/18 11:36 Room Air I&O- Last 24 Hours up to 6 AM 05/06/18 06:00 Intake Total 1890 ml Output Total 3350 ml Balance -1460 ml Laboratory Data 24H LABS Laboratory Tests 2 05/06/18 04:09: Nucleated Red Blood Cells % (auto) 0.0, Anion Gap 8, Glomerular Filtration Rate > 60.0, Blood Urea Nitrogen 7, Creatinine 0.67, Sodium Level 134L, Potassium Level 3.3L, Chloride Level 98, Carbon Dioxide Level 28, Calcium Level 8.3L CBC/BMP Laboratory Tests 05/06/18 04:09 Red Blood Count 3.43 L, Mean Corpuscular Volume 96.8 H, Mean Corpuscular Hemogl obin 32.9, Mean Corpuscular Hemoglobin Concent 34.0, Red Cell Distribution Width 14.6 H, Calcium Level 8.3 L LIANNE DOWNS MD May 06, 2018 07:48
[2018-05-06] MEDS: ASCORBIC ACID 500 MG TAB PO SCH (09:29)
[2018-05-06] MEDS: VITAMIN D 1,000 INTERNATIONAL UNITS TABLET PO SCH (09:29)
[2018-05-06] MEDS: SERTRALINE HCL 25 MG TABLET PO SCH (09:29)
[2018-05-06] MEDS: ASPIRIN 325 MG TAB PO SCH (09:29)
[2018-05-06] MEDS: SENOKOT S TAB PO SCH ×2 (09:29→20:56)
[2018-05-06] MEDS: MULTIVITAMINS/MINERALS THERAP 1 TAB PO SCH (09:29)
[2018-05-06] MEDS ORDERED: ALPRAZolam 0.25 MG TAB PO ONE (10:15)
[2018-05-06] MEDS ORDERED: SLF 3 ML SYR IV PRN (11:45)
[2018-05-06] MEDS: SLF 3 ML SYR IV SCH ×2 (13:27→20:55)
[2018-05-06] MEDS ORDERED: POTASSIUM CHLORIDE 10 MEQ SR TABLET PO ONE (16:45)
--- NOTE | 2018-05-06 17:16 | IPNPDOC ---
Date Seen The patient was seen on 05/06/18. Progress Note SUBJECTIVE: Yesterday, patient ADAMANTLY REFUSED iv labetalol despite systolic blood pressure >200mmHg even after extensive discussion of hemorrhage, CVA, paralysis, . Her son and daughter have been contacted this morning to urge the patient to take her medications. Patient was concerned about dropping her blood pressure if she takes her medications. Her son explained that she has always had severe anxiety and may benefit from sedatives despite being on valium at night already. Per Dr. Alcantar, flight readiness technician avionics electronics technician this morning, pt is known to be noncompliant with her meds, and is demented. Dr. Alcantar advises no Inpatient consultation and to simply have the patient take recommended meds and have an immediate fu with Dr. Nava as outpt. She c/o "not feeling well." Pt is very anxious about getting stents for her bilateral renal artery stenosis. bp improved after iv labetalol and isosorbide. still c/o generalized rash s/p biopsy in right LE by Logistics Tech with no signs of cellulitis at the suture site. no c/o headache, changes in vision, chest pain, pressure, sob, tightness, or pressure. no dizziness or lightheadedness and usually sees Dr. Nava and Dr. Johnston. Pt is worried about hypertension becoming uncontrolled again at home, and says her son makes her meals and usually does not add any salt. PHYSICAL EXAMINATION: VITAL SIGNS: PLS SEE BELOW GENERAL APPEARANCE: Awake, alert, oriented 3, in no acute distress HEENT: Normocephalic atraumatic, sclera nonicteric, EOMI, PERRLA, mild JVD appreciated, no lymphadenopathy CARDIOVASCULAR: Regular rate and rhythm, normal S1/S2, no murmurs gallops or rubs LUNGS: Clear to auscultation bilaterally, no wheezing rhonchi or rales ABDOMEN: Soft, nontender, no masses palpated, active bowel sounds MUSCULOSKELETAL: 5 out of 5 strength in all extremities, no weakness on the left as reported by the patient EXTREMITIES: Moves all extremities equally and freely bilaterally NEUROLOGICAL: No facial weakness or asymmetry, no focal neurologic deficits, no weakness PSYCHIATRIC: Anxious mood and flat affect noted SKIN: Resolving disseminated erythematous nonblanching rash, no bruising, status post cutaneous biopsy of right thigh (2 stitches remain) LABORATORY DATA: See below. IMAGING: Renal artery ultrasound (04/16/18): Consistent with left renal artery stenosis with recommended follow-up CTA CT angiogram abdomen (04/19/18): Extensive calcifications in the abdominal aorta and pelvic vessels. Origins of the renal arteries show significant areas of calcifications with good filling beyond that areas calcifications. The degree of stenosis could not be determined Chest x-ray (05/04/18): No acute cardiopulmonary findings, stable chronic changes. ASSESSMENT/PLAN: Kristi Grayson is an 87-year-old female who presented to the emergency department this afternoon via EMS with a chief complaint of dyspnea and hypertension per home blood pressure monitor.Patient was previously admitted to the hospital on 04/07/2018 and discharged 2 weeks later on 04/23/2018. At that time she was diagnosed with a CVA. Patient has a history of labile orthostatic hypotension and is being followed by Dr. Saldana. During her previous hospitalization the patient presented with diffuse erythematous rash. That time it was questioned whether it was related to viral etiology or cutaneous lupus. Per patient, following biopsy, it was confirmed the rash to be of lupoid origin. She was also diagnosed and treated for a UTI.While in the emergency department, the patient was given 10 mg of labetalol initially and a subsequent 20 mg dose IV stat. A chest x-ray was performed and read as negative. BMP shows mildly decreased sodium: 131, good renal function, and negative cardiac enzymes. No white count per CBC. Hemoglobin and hematocrit are stable. Patient will be admitted to the PCU for further evaluation and management of her blood pressure. Hypertensive urgency, UNCONTROLLED DUE TO PATIENT REFUSAL TO TAKE MEDS. FAMILY HAS BEEN INFORMED . ON iv labetalol and norvasc. changed to po meds with po isosorbide WHICH THE PATIENT HAS REFUSED AT RECOMMENDED DOSE AND SUBSEQUENTLY REDUCED . allergy to hydralazine. due to c/o "not feeling well," INITIAL CT head NEGATIVE hemorrhage [id number] due to bilateral renal artery stenosis documented on renal doppler in 04/16. vascular surgery Dr. Johnston has been consulted for stent placement. currently improved with sbp 150's from 220 on admission. no mental status changes or focal neuro deficits. 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 - Continue the betamethasone ointment 0.05% - Continue Eucerin as needed History of carotid disease s/p CEA -Continue patient's home dose of aspirin 325 mg by mouth daily -defer to vascular surgery. 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0, Anion Gap 8, Glomerular Filtration Rate > 60.0, Blood Urea Nitrogen 7, Creatinine 0.67, Sodium Level 134L, Potassium Level 3.3L, Chloride Level 98, Carbon Dioxide Level 28, Calcium Level 8.3L CBC/BMP Laboratory Tests 05/06/18 04:09 Red Blood Count 3.43 L, Mean Corpuscular Volume 96.8 H, Mean Corpuscular Hemoglobin 32.9, Mean Corpuscular Hemoglobin Concent 34.0, Red Cell Distribution Width 14.6 H, Calcium Level 8.3 L LIANNE DOWNS MD May 06, 2018 16:56
--- NOTE | 2018-05-06 17:20 | IPNPDOC ---
Date Seen The patient was seen on 05/06/18. Progress Note RN called due to Altered mental status . Pt was unresponsive and was staring into space when she received her iv labetalol and subsequent reduction in blood pressure from 200 to 170 mmHg systolic. Assessment and plan: Hypertensive Urgency due to medical noncompliance with medications and renal artery stenosis. r/o vasospasm induced infarct. Re-check CT Brain. continue bp monitoring serially. VS, I&O, 24H, Fishbone Vital Signs/I&O Vital Signs Date Time Temp Pulse Resp B/P (MAP) Pulse Ox O2 Delivery O2 Flow Rate FiO2 05/06/18 16:26 170/70 (103) 05/06/18 12:00 97.2 68 18 97 05/04/18 11:36 Room Air I&O- Last 24 Hours up to 6 AM 05/06/18 06:00 Intake Total 1890 ml Output Total 3350 ml Balance -1460 ml Laboratory Data 24H LABS Laboratory Tests 2 05/06/18 04:09: Nucleated Red Blood Cells % (auto) 0.0, Anion Gap 8, Glomerular Filtration Rate > 60.0, Blood Urea Nitrogen 7, Creatinine 0.67, Sodium Level 134L, Potassium Level 3.3L, Chloride Level 98, Carbon Dioxide Level 28, Calcium Level 8.3L CBC/BMP Laboratory Tests 05/06/18 04:09 Red Blood Count 3.43 L, Mean Corpuscular Volume 96.8 H, Mean Corpuscular Hemoglobin 32.9, Mean Corpuscular Hemoglobin Concent 34.0, Red Cell Distribution Width 14.6 H, Calcium Level 8.3 L LIANNE DOWNS MD May 06, 2018 16:58
--- NOTE | 2018-05-06 18:12 | REP ---
CT Head without contrast HISTORY: Altered mental status COMPARISON: 05/05/2018 Areas of decreased attenuation are present in the periventricular and subcortical white matter. This represents small-vessel ischemic disease. There is no intraparenchymal hemorrhage, acute infarct, mass or midline shift. The ventricular system and cortical sulci as well as subarachnoid space in the posterior fossa are dilated consistent with mild volume loss. There is no extra cerebral collection. There is no fracture. The visualized sinuses are clear. IMPRESSION: 1. Small vessel ischemic disease. 2. Mild volume loss. Electronically Signed by Anmol Granado MD 05/06/2018 06:04 P
[2018-05-06] MEDS: ISOSORBIDE DIN (ISORDIL) 10 MG TAB PO SCH (18:27)
[2018-05-06] MEDS: ALPRAZolam 0.25 MG TAB PO SCH (18:27)
[2018-05-06] MEDS: ESTROGENS VAGINAL CREAM 30GM PV SCH (20:54)
[2018-05-06] MEDS: ENOXAPARIN 40 MG/0.4 ML SYRINGE (J1650) SC SCH (20:55)
[2018-05-06] MEDS: amLODIPine 10 MG TAB PO SCH (20:55)
[2018-05-06] MEDS: diazePAM 10 MG TAB PO SCH (20:55)
[2018-05-07] VITALS (8 sets, daily range): BP systolic 150–222; BP diastolic 70–118
[2018-05-07] MEDS: SENOKOT S TAB PO SCH ×3 (00:21→21:00)
[2018-05-07] MEDS: ISOSORBIDE DIN (ISORDIL) 10 MG TAB PO SCH ×4 (00:22→17:56)
[2018-05-07] MEDS: ALPRAZolam 0.25 MG TAB PO SCH ×4 (00:22→17:56)
[2018-05-07] MEDS: SLF 3 ML SYR IV SCH ×3 (06:00→22:00)
[2018-05-07] MEDS: LEVOTHYROXINE 75MCG TABLET (0.075MG) PO SCH (06:15)
[2018-05-07 06:16] LABS: HEMATOCRIT 31.8 % (36.0-47.0); MEAN CORPUSCULAR HEMOGLOBIN 33.2 pg (27.0-33.0); MEAN CORPUSCULAR HGB CONC 34.6 g/dl (32.0-36.5); MEAN CORPUSCULAR VOLUME 96.1 fl (80.0-96.0); PLATELET COUNT, AUTOMATED 180 10^3/uL (150-450); RED BLOOD COUNT 3.31 10^6/uL (4.00-5.40); WHITE BLOOD COUNT 4.2 10^3/uL (4.0-10.0)
[2018-05-07 06:37] LABS: BLOOD UREA NITROGEN 12 MG/DL (7-18); CARBON DIOXIDE LEVEL 29 MEQ/L (21-32); CHLORIDE LEVEL 98 MEQ/L (98-107); CREATININE FOR GFR 0.77 MG/DL (0.55-1.30); GLOMERULAR FILTRATION RATE > 60.0 (>32); GLUCOSE, FASTING 81 MG/DL (70-100); POTASSIUM SERUM 3.5 MEQ/L (3.5-5.1); SODIUM LEVEL 133 MEQ/L (136-145)
[2018-05-07] MEDS: ASCORBIC ACID 500 MG TAB PO SCH (08:47)
[2018-05-07] MEDS: VITAMIN D 1,000 INTERNATIONAL UNITS TABLET PO SCH (08:47)
[2018-05-07] MEDS: ASPIRIN 325 MG TAB PO SCH (08:47)
[2018-05-07] MEDS: MULTIVITAMINS/MINERALS THERAP 1 TAB PO SCH (08:47)
[2018-05-07] MEDS: SERTRALINE HCL 25 MG TABLET PO SCH (08:47)
--- NOTE | 2018-05-07 16:31 | IPNPDOC ---
Text Note Date of Service The patient was seen on 05/07/18. NOTE Subjective: Patient is an 87 year old female with a PMHx of Labile HTN, Carotid endarterectomy, Hypothyroidism, Discoid Lupus, Hx of UTIs (Klebsiella), G eneralized anxiety disorder, Diverticulosis, OA of hips, who presented to the ER with complaints of elevated blood pressure and not feeling well. 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 Patient was admitted to the hospitalist service for further evaluation and treatment. Patient was seen and examined at the bedside. Patient has no new complaints this morning. Denies chest pain churns of breath or palpitations. Denies nausea, vomiting, abdominal pain, constipation, diarrhea or discomfort with urination. Objective: Vitals (See below) General: Lying in bed, no acute distress, comfortable, AAOx3 HEENT: NC, AT CVS: RRR, +S1S2 Lungs: Fair air entry b/l, -w/r/r Abdomen: Soft, ND, NT Extremities: - Edema, - Calf tenderness Assessment and plan: Hypertensive urgency / Labile hypertension; possibly 2/2 renal artery stenosis - Patient has had several admissions for uncontrolled blood pressure - Patient become symptomatic with blood pressures less than 150 - Will target blood pressure between 150 and 170 - CTA Abdomen / pelvis 04/19: Extensive calcifications in the abdominal aorta and pelvic vessels. The origins of the renal arteries show significant areas of calcifications with good filling beyond that areas of calcifications. The degree of stenosis cannot be determined on this study. - Renal US 04/15: 1. Findings suggest likely left renal artery stenosis with significantly elevated acceleration x in the antrum renal arteries. The e xtrarenal artery is not seen due to extensive gas shadowing. 2. 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 Suspect right renal artery stenosis as well. MRA or CTA renal arteries might give more information. - Patient has been strongly advised about compliance with medication - c/w Isosorbide dinitrate and Amlodipine; with holding parameters - Dr. Johnston on consultation Rash - likely 22/ Samira syndrome in a patient with prior cutaneous lupus diagnosi - Biopsy performed by Dr. Morse - Continue the betamethasone ointment 0.05% - Continue Eucerin as needed History of carotid disease s/p CEA -Continue patient's home dose of aspirin 325 mg by mouth daily -defer to vascular surgery. currently no TIA symptoms Hypothyroid - c/w Levothyroxine Depression / LILIYA - c/w Sertraline, Alprazolam; Will DC Diazepam Osteoarthritis - c/w Tylenol PRN Subacute cutaneous lupus erythematosus - Diagnosed in 2006 by biopsy of left arm - Currently not on medications DVT prophylaxis - c/w Lovenox VS,Fishbone, I+O VS, Fishbone, I+O Laboratory Tests 05/07/18 05:09 Red Blood Count 3.31 L, Mean Corpuscular Volume 96.1 H, Mean Corpuscular Hemoglobin 33.2 H, Mean Corpuscular Hemoglobin Concent 34.6, Red Cell Distr ibution Width 14.8 H, Calcium Level 8.0 L Vital Signs Date Time Temp Pulse Resp B/P (MAP) Pulse Ox O2 Delivery O2 Flow Rate FiO2 05/07/18 15:36 172/70 (104) 05/07/18 12:00 98.6 78 19 97 05/04/18 11:36 Room Air I&O- Last 24 Hours up to 6 AM 05/07/18 06:00 Intake Total 1080 ml Output Total 2000 ml Balance -920 ml KAIT ELDRIDGE MD May 07, 2018 16:31
[2018-05-07] MEDS: amLODIPine 10 MG TAB PO SCH (20:18)
[2018-05-07] MEDS: ENOXAPARIN 40 MG/0.4 ML SYRINGE (J1650) SC SCH (20:18)
[2018-05-07] MEDS: ESTROGENS VAGINAL CREAM 30GM PV SCH (20:32)
[2018-05-08] VITALS (7 sets, daily range): BP systolic 138–188; BP diastolic 80–92
[2018-05-08] MEDS: ALPRAZolam 0.25 MG TAB PO SCH ×3 (00:06→11:54)
[2018-05-08] MEDS: ISOSORBIDE DIN (ISORDIL) 10 MG TAB PO SCH ×5 (00:06→23:51)
[2018-05-08 05:43] LABS: HEMATOCRIT 32.6 % (36.0-47.0); HEMOGLOBIN 11.1 g/dl (12.0-15.5); PLATELET COUNT, AUTOMATED 186 10^3/uL (150-450); RED BLOOD COUNT 3.36 10^6/uL (4.00-5.40); WHITE BLOOD COUNT 3.7 10^3/uL (4.0-10.0)
[2018-05-08] MEDS: SLF 3 ML SYR IV SCH ×3 (06:00→21:16)
[2018-05-08 06:05] LABS: BLOOD UREA NITROGEN 11 MG/DL (7-18); CALCIUM LEVEL 8.1 MG/DL (8.8-10.2); CARBON DIOXIDE LEVEL 29 MEQ/L (21-32); CHLORIDE LEVEL 100 MEQ/L (98-107); CREATININE FOR GFR 0.71 MG/DL (0.55-1.30); GLOMERULAR FILTRATION RATE > 60.0 (>32); GLUCOSE, FASTING 86 MG/DL (70-100); POTASSIUM SERUM 3.6 MEQ/L (3.5-5.1); SODIUM LEVEL 135 MEQ/L (136-145)
[2018-05-08] MEDS: LEVOTHYROXINE 75MCG TABLET (0.075MG) PO SCH (06:30)
[2018-05-08] MEDS: SERTRALINE HCL 25 MG TABLET PO SCH (08:43)
[2018-05-08] MEDS: ASCORBIC ACID 500 MG TAB PO SCH (08:43)
[2018-05-08] MEDS: ASPIRIN 325 MG TAB PO SCH (08:43)
[2018-05-08] MEDS: VITAMIN D 1,000 INTERNATIONAL UNITS TABLET PO SCH (08:43)
[2018-05-08] MEDS: MULTIVITAMINS/MINERALS THERAP 1 TAB PO SCH (08:43)
[2018-05-08] MEDS: SENOKOT S TAB PO SCH ×2 (08:43→21:00)
--- NOTE | 2018-05-08 15:18 | IPNPDOC ---
Text Note Date of Service The patient was seen on 05/08/18. NOTE Subjective: Patient is an 87 year old female with a PMHx of Labile HTN, Carotid endarterectomy, Hypothyroidism, Discoid Lupus, Hx of UTIs (Klebsiella), G eneralized anxiety disorder, Diverticulosis, OA of hips, who presented to the ER with complaints of elevated blood pressure and not feeling well. 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 Patient was admitted to the hospitalist service for further evaluation and treatment. Patient was seen and examined at the bedside. . Currently, patient is concerned that she's been taken off of her Valium. She notes that she's been on this for a long time. I have advised her that she is taking Xanax only just a dose to the Valium equivalency. Currently she's been sitting up in chair. She denies headache, chest pain, shortness of breath, palpitations or dizziness. She does report weakness and her hesitancy to start physical therapy, however, she has been noted to ambulate to the bathroom without issues. She denies nausea, vomiting, abdominal pain, constipation or diarrhea. Objective: Vitals (See below) General: Lying in bed, no acute distress, comfortable, AAOx3 HEENT: NC, AT CVS: RRR, +S1S2 Lungs: Fair air entry b/l, auscultation is without any wheezing, rhonchi, rales Abdomen: Soft, nondistended, without tenderness Extremities: No Edema, - Calf tenderness Assessment and plan: Hypertensive urgency / Labile hypertension; possibly 2/2 renal artery stenosis - Patient has had several admissions for uncontrolled blood pressure - Patient become symptomatic with blood pressures less than 150 - Will target blood pressure between 150 and 170 - CTA Abdomen / pelvis 04/19: Extensive calcifications in the abdominal aorta and pelvic vessels. The origins of the renal arteries show significant areas of calcifications with good filling beyond that areas of calcifications. The degree of stenosis cannot be determined on this study. - Renal US 04/15: 1. Findings suggest likely left renal artery stenosis with significantly elevated acceleration x in the antrum renal arteries. The extrarenal artery is not seen due to extensive gas shadowing. 2. 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 Suspect right renal artery stenosis as well. MRA or CTA renal arteries might give more information. - Patient has been strongly advised about compliance with medication - c/w Isosorbide dinitrate and Amlodipine; with holding parameters - Dr. Johnston on consultation; case discussed and patient will be scheduled for angiography tomorrow Rash - likely 2/2 Samira syndrome in a patient with prior cutaneous lupus diagnose - Biopsy performed by Dr. Morse - Continue the betamethasone ointment 0.05% - Continue Eucerin as needed History of carotid disease s/p CEA - Continue patient's home dose of aspirin 325 mg by mouth daily Hypothyroid - c/w Levothyroxine Depression / LILIYA - c/w Sertraline, Alprazolam; Will DC Diazepam Osteoarthritis - c/w Tylenol PRN Subacute cutaneous lupus erythematosus - Diagnosed in 2006 by biopsy of left arm - Currently not on medications DVT prophylaxis - c/w Lovenox VS,Fishbone, I+O VS, Fishbone, I+O Laboratory Tests 05/08/18 05:17 Red Blood Count 3.36 L, Mean Corpuscular Volume 97.0 H, Mean Corpuscular Hemoglobin 33.0, Mean Corpuscular Hemoglobin Concent 34.0, Red Cell Distribution Width 14.9 H, Calcium Level 8.1 L Vital Signs Date Time Temp Pulse Resp B/P (MAP) Pulse Ox O2 Delivery O2 Flow Rate FiO2 05/08/18 12:00 98.3 75 17 178/92 (120) 94 05/04/18 11:36 Room Air I&O- Last 24 Hours up to 6 AM 05/08/18 06:00 Intake Total 870 ml Output Total 1200 ml Balance -330 ml KAIT ELDRIDGE MD May 08, 2018 15:18
[2018-05-08] MEDS: ALPRAZolam 0.5 MG TAB PO SCH ×2 (17:23→23:50)
[2018-05-08] MEDS: amLODIPine 10 MG TAB PO SCH (21:00)
[2018-05-08] MEDS: ESTROGENS VAGINAL CREAM 30GM PV SCH (21:00)
[2018-05-08] MEDS: ENOXAPARIN 40 MG/0.4 ML SYRINGE (J1650) SC SCH (21:15)
[2018-05-08] MEDS: RAMELTEON 8 MG TAB (ROZEREM) PO SCH (21:15)
[2018-05-09 04:00] VITALS: BP 164/80
[2018-05-09 05:21] LABS: HEMATOCRIT 32.2 % (36.0-47.0); MEAN CORPUSCULAR HEMOGLOBIN 32.8 pg (27.0-33.0); MEAN CORPUSCULAR HGB CONC 34.2 g/dl (32.0-36.5); MEAN CORPUSCULAR VOLUME 96.1 fl (80.0-96.0); PLATELET COUNT, AUTOMATED 181 10^3/uL (150-450); RED BLOOD COUNT 3.35 10^6/uL (4.00-5.40); WHITE BLOOD COUNT 3.6 10^3/uL (4.0-10.0)
[2018-05-09 05:57] LABS: BLOOD UREA NITROGEN 11 MG/DL (7-18); CARBON DIOXIDE LEVEL 29 MEQ/L (21-32); CHLORIDE LEVEL 98 MEQ/L (98-107); CREATININE FOR GFR 0.64 MG/DL (0.55-1.30); GLOMERULAR FILTRATION RATE > 60.0 (>32); GLUCOSE, FASTING 97 MG/DL (70-100); POTASSIUM SERUM 3.4 MEQ/L (3.5-5.1); SODIUM LEVEL 133 MEQ/L (136-145)
[2018-05-09] MEDS: SLF 3 ML SYR IV SCH ×3 (06:00→21:25)
[2018-05-09] MEDS: ALPRAZolam 0.5 MG TAB PO SCH ×2 (06:00→21:24)
[2018-05-09] MEDS: ISOSORBIDE DIN (ISORDIL) 10 MG TAB PO SCH ×3 (06:27→18:19)
[2018-05-09] MEDS: LEVOTHYROXINE 75MCG TABLET (0.075MG) PO SCH (06:27)
[2018-05-09 08:00] VITALS: BP 160/64
[2018-05-09] MEDS: MULTIVITAMINS/MINERALS THERAP 1 TAB PO SCH (08:53)
[2018-05-09] MEDS: MOM 30ML SUSPENSION UDC PO PRN (08:53)
[2018-05-09] MEDS: VITAMIN D 1,000 INTERNATIONAL UNITS TABLET PO SCH (08:53)
[2018-05-09] MEDS: SENOKOT S TAB PO SCH ×2 (08:53→21:24)
[2018-05-09] MEDS: ASPIRIN 325 MG TAB PO SCH (08:53)
[2018-05-09] MEDS: ASCORBIC ACID 500 MG TAB PO SCH (08:53)
[2018-05-09] MEDS: SERTRALINE HCL 25 MG TABLET PO SCH (08:53)
[2018-05-09 12:00] VITALS: BP 178/86
--- NOTE | 2018-05-09 12:57 | IPNPDOC ---
Text Note Date of Service The patient was seen on 05/09/18. NOTE Subjective: Patient is an 87 year old female with a PMHx of Labile HTN, Carotid endarterectomy, Hypothyroidism, Discoid Lupus, Hx of UTIs (Klebsiella), G eneralized anxiety disorder, Diverticulosis, OA of hips, who presented to the ER with complaints of elevated blood pressure and not feeling well. 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 Patient was admitted to the hospitalist service for further evaluation and treatment. Patient was seen and examined at the bedside. Currently has no new complaints. Reports that she slept well last night. Denies chest pain, shortness of breath or palpitations. Denies any nausea, vomiting, abdominal pain, constipation, diarrhea or discomfort with urination. Objective: Vitals (See below) General: Lying in bed, no acute distress, comfortable, AAOx3 HEENT: NC, AT CVS: RRR, +S1S2 Lungs: Fair air entry b/l, does not appear to be auscultated evidence of wheezing, rhonchi, rales Abdomen: Soft, ND without tenderness Extremities: No evidence of LE edema, - Calf tenderness Assessment and plan: Hypertensive urgency / Labile hypertension; possibly 2/2 renal artery stenosis - Patient has had several admissions for uncontrolled blood pressure - Patient become symptomatic with blood pressures less than 150 - Will target blood pressure between 150 and 170 - CTA Abdomen / pelvis 04/19: Extensive calcifications in the abdominal aorta and pelvic vessels. The origins of the renal arteries show significant areas of calcifications with good filling beyond that areas of calcifications. The degree of stenosis cannot be determined on this study. - Renal US 04/15: 1. Findings suggest likely left renal artery stenosis with significantly elevated acceleration x in the antrum renal arteries. The extrarenal artery is not seen due to extensive gas shadowing. 2. 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 Suspect right renal artery stenosis as well. MRA or CTA renal arteries might give more information. - Patient has been strongly advised about compliance with medication - c/w Isosorbide dinitrate and Amlodipine; with holding parameters - Dr. 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 Morse - Continue the betamethasone ointment 0.05% - Continue Eucerin as needed History of carotid disease s/p CEA - Continue patient's home dose of aspirin 325 mg by mouth daily Hypothyroid - c/w Levothyroxine Depression / LILIYA - c/w Sertraline, Alprazolam; Will DC Diazepam Osteoarthritis - c/w Tylenol PRN Subacute cutaneous lupus erythematosus - Diagnosed in 2006 by biopsy of left arm - Currently not on medications DVT prophylaxis - c/w Lovenox VS,Fishbone, I+O VS, Fishbone, I+O Laboratory Tests 05/09/18 05:02 Red Blood Count 3.35 L, Mean Corpuscular Volume 96.1 H, Mean Corpuscular Hemoglobin 32.8, Mean Corpuscular Hemoglobin Concent 34.2, Red Cell Distribution Width 15.0 H, Calcium Level 8.0 L Vital Signs Date Time Temp Pulse Resp B/P (MAP) Pulse Ox O2 Delivery O2 Flow Rate FiO2 05/09/18 12:30 178/86 05/09/18 12:00 97.6 80 17 95 05/04/18 11:36 Room Air I&O- Last 24 Hours up to 6 AM 05/09/18 06:00 Intake Total 1510 ml Output Total 1230 ml Balance 280 ml KAIT ELDRIDGE MD May 09, 2018 12:57
[2018-05-09] MEDS: ALPRAZolam 0.25 MG TAB PO PRN (14:09)
[2018-05-09 16:00] VITALS: BP 160/54
[2018-05-09 20:00] VITALS: BP 162/68
[2018-05-09] MEDS: RAMELTEON 8 MG TAB (ROZEREM) PO SCH (21:23)
[2018-05-09] MEDS: amLODIPine 10 MG TAB PO SCH (21:24)
[2018-05-09] MEDS: ENOXAPARIN 40 MG/0.4 ML SYRINGE (J1650) SC SCH (21:24)
[2018-05-09] MEDS: ESTROGENS VAGINAL CREAM 30GM PV SCH (21:25)
[2018-05-09 23:00] VITALS: BP 158/62
[2018-05-10] VITALS (11 sets, daily range): BP systolic 148–190; BP diastolic 60–84
[2018-05-10] MEDS: ALPRAZolam 0.25 MG TAB PO PRN ×2 (01:14→12:27)
[2018-05-10] MEDS: ISOSORBIDE DIN (ISORDIL) 10 MG TAB PO SCH ×5 (01:15→23:44)
[2018-05-10 05:30] LABS: HEMATOCRIT 33.8 % (36.0-47.0); HEMOGLOBIN 11.6 g/dl (12.0-15.5); MEAN CORPUSCULAR HEMOGLOBIN 33.4 pg (27.0-33.0); MEAN CORPUSCULAR HGB CONC 34.3 g/dl (32.0-36.5); MEAN CORPUSCULAR VOLUME 97.4 fl (80.0-96.0); PLATELET COUNT, AUTOMATED 188 10^3/uL (150-450); RED BLOOD COUNT 3.47 10^6/uL (4.00-5.40); WHITE BLOOD COUNT 3.5 10^3/uL (4.0-10.0)
[2018-05-10 05:54] LABS: BLOOD UREA NITROGEN 10 MG/DL (7-18); CALCIUM LEVEL 8.2 MG/DL (8.8-10.2); CARBON DIOXIDE LEVEL 28 MEQ/L (21-32); CHLORIDE LEVEL 97 MEQ/L (98-107); CREATININE FOR GFR 0.59 MG/DL (0.55-1.30); GLOMERULAR FILTRATION RATE > 60.0 (>32); GLUCOSE, FASTING 93 MG/DL (70-100); POTASSIUM SERUM 3.2 MEQ/L (3.5-5.1); SODIUM LEVEL 133 MEQ/L (136-145)
[2018-05-10] MEDS: SLF 3 ML SYR IV SCH ×3 (06:00→20:54)
[2018-05-10] MEDS: LEVOTHYROXINE 75MCG TABLET (0.075MG) PO SCH (06:35)
[2018-05-10] MEDS ORDERED: POTASSIUM CHLORIDE 10 MEQ SR TABLET PO ONE (07:45)
[2018-05-10] MEDS: ASPIRIN 325 MG TAB PO SCH (08:12)
[2018-05-10] MEDS: SENOKOT S TAB PO SCH ×2 (08:12→20:53)
[2018-05-10] MEDS: SERTRALINE HCL 25 MG TABLET PO SCH (08:12)
[2018-05-10] MEDS: VITAMIN D 1,000 INTERNATIONAL UNITS TABLET PO SCH (08:12)
[2018-05-10] MEDS: ASCORBIC ACID 500 MG TAB PO SCH (08:13)
[2018-05-10] MEDS: MULTIVITAMINS/MINERALS THERAP 1 TAB PO SCH (08:13)
[2018-05-10] MEDS ORDERED: D5W/0.45% SODIUM CHLORIDE 1,000 ML IV SCH ×2 (09:15→20:15)
[2018-05-10] MEDS ORDERED: HEPARIN 1,000 UNITS/ML 10ML VIAL (FOR RADIOLOGY& DIALYSIS ONLY) As Ordered ONE (13:00)
[2018-05-10] MEDS ORDERED: LIDOCAINE 2% MDV 20 ML VIAL As Ordered ONE (13:00)
[2018-05-10] MEDS ORDERED: ISOVUE-300 61% 50ML VIAL (Q9967) As Ordered ONE (13:00)
--- NOTE | 2018-05-10 14:32 | IPNPDOC ---
Text Note Date of Service The patient was seen on 05/10/18. NOTE Subjective: Patient is an 87 year old female with a PMHx of Labile HTN, Carotid endarterectomy, Hypothyroidism, Discoid Lupus, Hx of UTIs (Klebsiella), G eneralized anxiety disorder, Diverticulosis, OA of hips, who presented to the ER with complaints of elevated blood pressure and not feeling well. 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 Patient was admitted to the hospitalist service for further evaluation and treatment. Patient was seen and examined at the bedside. This morning patient was complaining about being nothing by mouth, IV advised her that we will continue with IV fluid hydration for that time period. No complaints of chest pain, shor tness of breath or palpitations. She denies any lightheadedness or dizziness. Denies nausea, vomiting, abdominal pain or diarrhea. Patient has noted constipation, however, also reports that she had 2 bowel movements yesterday. Denies any discomfort with urination. Objective: Vitals (See below) General: Lying in bed, no acute distress, comfortable, AAOx3 HEENT: NC, AT CVS: RRR, +S1S2 Lungs: Fair air entry b/l, auscultation is without any wheezing, rhonchi or rales Abdomen: Soft, nondistended, without tenderness Extremities: No evidence of LE edema, - Calf tenderness Assessment and plan: Hypertensive urgency / Labile hypertension; possibly 2/2 renal artery stenosis - Clinically the patient remains asymptomatic with her blood pressures between 150 and 170; will continue to pursue this target - Patient has had several admissions for uncontrolled blood pressure - Patient become symptomatic with blood pressures less than 150 - CTA Abdomen / pelvis 04/19: Extensive calcifications in the abdominal aorta and pelvic vessels. The origins of the renal arteries show significant areas of calcifications with good filling beyond that areas of calcifications. The degree of stenosis cannot be determined on this study. - Renal US 04/15: 1. Findings suggest likely left renal artery stenosis with significantly elevated acceleration x in the antrum renal arteries. The extrarenal artery is not seen due to extensive gas shadowing. 2. 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 Suspect right renal artery stenosis as well. MRA or CTA renal arteries might give more information. - Patient has been strongly advised about compliance with medication - c/w Isosorbide dinitrate and Amlodipine; with holding parameters - Dr. 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 Morse - Continue the betamethasone ointment 0.05% - Continue Eucerin as needed - Patient is scheduled to follow-up with Dr. Morse on Sunday; will discuss about rescheduling or having inpatient consultation History of carotid disease s/p CEA - Continue patient's home dose of aspirin 325 mg by mouth daily Hypothyroid - c/w Levothyroxine Depression / LILIYA - c/w Sertraline, Alprazolam; Will DC Diazepam Osteoarthritis - c/w Tylenol PRN Subacute cutaneous lupus erythematosus - Diagnosed in 2006 by biopsy of left arm - Currently not on medications DVT prophylaxis - c/w Lovenox Disposition: - Angiography today VS,Marie, I+O VS, David, I+O Laboratory Tests 05/10/18 04:33 Red Blood Count 3.47 L, Mean Corpuscular Volume 97.4 H, Mean Corpuscular Hemoglobin 33.4 H, Mean Corpuscular Hemoglobin Concent 34.3, Red Cell Distribution Width 14.9 H, Calcium Level 8.2 L Vital Signs Date Time Temp Pulse Resp B/P (MAP) Pulse Ox O2 Delivery O2 Flow Rate FiO2 05/10/18 12:28 190/70 05/10/18 12:00 98.6 72 18 95 05/04/18 11:36 Room Air I&O- Last 24 Hours up to 6 AM 05/10/18 06:00 Intake Total 1440 ml Output Total 2550 ml Balance -1110 ml KAIT ELDRIDGE MD May 10, 2018 14:32
[2018-05-10] MEDS ORDERED: fentaNYL 100 MCG/2 ML INJECTION (J3010) As Ordered ONE (17:55)
[2018-05-10] MEDS ORDERED: MIDAZOLAM INJ 2 MG/2 ML VIAL (J2250) As Ordered ONE (17:55)
[2018-05-10] MEDS ORDERED: PROTAMINE SULF INJ 50 MG/5 ML VIAL (J2720) As Ordered ONE (18:46)
[2018-05-10] MEDS ORDERED: diphenhydrAMINE INJ 50MG/ML VIAL (J1200) As Ordered ONE (18:46)
[2018-05-10] MEDS: ALPRAZolam 0.5 MG TAB PO SCH (20:43)
[2018-05-10] MEDS: RAMELTEON 8 MG TAB (ROZEREM) PO SCH (20:43)
[2018-05-10] MEDS: amLODIPine 10 MG TAB PO SCH (20:52)
[2018-05-10] MEDS: ENOXAPARIN 40 MG/0.4 ML SYRINGE (J1650) SC SCH (20:53)
[2018-05-10] MEDS: ESTROGENS VAGINAL CREAM 30GM PV SCH (20:54)
[2018-05-10] MEDS: ONDANSETRON 4MG/2ML VIAL (J2405) IV PRN (23:44)
[2018-05-11 00:25] VITALS: BP 154/60
[2018-05-11 04:00] VITALS: BP 164/62
[2018-05-11] MEDS: LEVOTHYROXINE 75MCG TABLET (0.075MG) PO SCH (06:25)
[2018-05-11] MEDS: ISOSORBIDE DIN (ISORDIL) 10 MG TAB PO SCH ×3 (06:26→17:21)
[2018-05-11] MEDS: SLF 3 ML SYR IV SCH ×3 (06:26→20:51)
[2018-05-11] MEDS: ONDANSETRON 4MG/2ML VIAL (J2405) IV PRN (07:54)
[2018-05-11 08:00] VITALS: BP 170/68
[2018-05-11] MEDS: ACETAMINOPHEN TAB 650MG DOSE (2X325MG) PO PRN (08:33)
[2018-05-11] MEDS: MOM 30ML SUSPENSION UDC PO PRN (08:33)
[2018-05-11] MEDS: ASPIRIN 325 MG TAB PO SCH (08:33)
[2018-05-11] MEDS: ASCORBIC ACID 500 MG TAB PO SCH (08:33)
[2018-05-11] MEDS: VITAMIN D 1,000 INTERNATIONAL UNITS TABLET PO SCH (08:33)
[2018-05-11] MEDS: ALPRAZolam 0.25 MG TAB PO PRN (08:33)
[2018-05-11] MEDS: SERTRALINE HCL 25 MG TABLET PO SCH (08:34)
[2018-05-11] MEDS: MULTIVITAMINS/MINERALS THERAP 1 TAB PO SCH (08:34)
[2018-05-11] MEDS: SENOKOT S TAB PO SCH ×2 (08:34→20:49)
[2018-05-11 08:43] LABS: BASO % 0.3 % (0.0-1.0); EOS % 0.1 % (0.0-3.0); HEMATOCRIT 31.2 % (36.0-47.0); HEMOGLOBIN 10.4 g/dl (12.0-15.5); LYMPH # 0.7 10^3/uL (1.5-4.5); MEAN CORPUSCULAR HEMOGLOBIN 33.1 pg (27.0-33.0); MEAN CORPUSCULAR HGB CONC 33.3 g/dl (32.0-36.5); MEAN CORPUSCULAR VOLUME 99.4 fl (80.0-96.0); MONO # 0.7 10^3/uL (0.0-0.8); NEUTROPHILS # 5.4 10^3/uL (1.8-7.7); NEUTROPHILS % 79.2 % (36.0-66.0); PLATELET COUNT, AUTOMATED 170 10^3/uL (150-450); RED BLOOD COUNT 3.14 10^6/uL (4.00-5.40); WHITE BLOOD COUNT 6.8 10^3/uL (4.0-10.0)
[2018-05-11 09:01] LABS: BLOOD UREA NITROGEN 13 MG/DL (7-18); CALCIUM LEVEL 7.6 MG/DL (8.8-10.2); CARBON DIOXIDE LEVEL 26 MEQ/L (21-32); CHLORIDE LEVEL 99 MEQ/L (98-107); CREATININE FOR GFR 0.78 MG/DL (0.55-1.30); GLOMERULAR FILTRATION RATE > 60.0 (>32); GLUCOSE, FASTING 111 MG/DL (70-100); POTASSIUM SERUM 4.1 MEQ/L (3.5-5.1); SODIUM LEVEL 133 MEQ/L (136-145)
[2018-05-11] MEDS ORDERED: METOCLOPRAMIDE INJ 10MG/2ML VIAL (J2765) IV PRN (09:15)
--- NOTE | 2018-05-11 11:09 | IPNPDOC ---
Text Note Date of Service The patient was seen on 05/11/18. NOTE Subjective: Patient is an 87 year old female with a PMHx of Labile HTN, Carotid endarterectomy, Hypothyroidism, Discoid Lupus, Hx of UTIs (Klebsiella), Generalized anxiety disorder, Diverticulosis, OA of hips, who presented to the ER with complaints of elevated blood pressure and not feeling well. 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 Patient was admitted to the spitalist service for further evaluation and treatment. Patient was interviewed and examined at bedside in the PCU. She is awake, alert and able to engage in conversation. She reports having a difficult night sleeping due to L arm pain (insertion site for angiography). She did have an episode of L-sided weakness last evening when she was up to go to the bathroom. She continues to complain of nausea, alleviated last evening by Zofran. She has not had a BM since her procedure but has been able to urinate without difficulty. No abdominal pain or cramping. She denies chest pain/pressure. She does not have any difficulty breathing or new-onset cough or wheeze. Objective: Vitals (See below) General: Alert and oriented, laying in hospital bed, noted to be more animated that days prior HEENT: normocephalic, atraumatic, mucus membranes moist. CVS: regular rate and rythmn, no murmurs gallops or rubs. Lungs: Clear to auscultation bilaterally, no wheezing, rhonchi or rales Abdomen: Soft, nondistended, nontender Skin: Insertion site on patient's L UE is clear without evidence of erythema or drainage. No bruising. Extremities: No evidence of LE edema, no calf tenderness Imaging: Renal US 04/15: Findings suggest likely left renal artery stenosis with significantly elevated acceleration x in the antrum renal arteries. The extrarenal artery is not seen due to extensive gas shadowing. 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 Suspect right renal artery stenosis as well. MRA or CTA renal arteries might give more information. Abd CTA 04/19: Extensive calcifications in the abdominal aorta and pelvic vessels. The origins of the renal arteries show significant areas of calcifications with good filling beyond that areas of calcifications. The degree of stenosis cannot be determined on this study. Head CT 05/06: Small vessel ischemic disease. Mild volume loss. Assessment and plan: 1. Hypertensive urgency / Labile hypertension; possibly 2/2 renal artery stenosis - Blood pressure remained stable over night with systolic readings between 150 and 170; will continue to pursue this target, possibly may be able to tolerate lower BP - Patient has had several admissions for uncontrolled blood pressure in the past - Patient becomes symptomatic with blood pressures less than 150, history of L- sided weakness with postural hypotension - c/w Isosorbide dinitrate and Amlodipine; with holding parameters - Dr. Johnston on consultation; angiography performed yesterday with stents placed. 2. Rash - likely 2/2 Samira syndrome in a patient with prior cutaneous lupus diagnose - Appears to be improving - Biopsy performed by Dr. Morse during patient's previous hospitalization - 2 sutures removed on 05/09 from biopsy site on patient's R thigh, healing well - Continue the betamethasone ointment 0.05% - Continue Eucerin as needed 3. Nausea - Metoclopramide 10 mg q6 PRN - D/C Zofran 4. History of carotid disease s/p CEA - Continue patient's home dose of aspirin 325 mg by mouth daily 5. Hypothyroid - c/w Levothyroxine 6. Depression / LILIYA - c/w Sertraline, Alprazolam; s/p Diazepam 7. Osteoarthritis - c/w Tylenol PRN 8. Subacute cutaneous lupus erythematosus - Diagnosed in 2006 by biopsy of left arm - Currently not on medications DVT prophylaxis - c/w Lovenox Disposition: - c/w PT VS,Fishbone, I+O VS, Fishbone, I+O Laboratory Tests 05/11/18 08:02 Red Blood Count 3.14 L, Mean Corpuscular Volume 99.4 H, Mean Corpuscular Hemoglobin 33.1 H, Mean Corpuscular Hemoglobin Concent 33.3, Red Cell Distribution Width 15.6 H, Neutrophils (%) (Auto) 79.2 H, Lymphocytes (%) (Auto) 10.0 L, Monocytes (%) (Auto) 10.0 H, Eosinophils (%) (Auto) 0.1, Basophils (%) (Auto) 0.3, Neutrophils # (Auto) 5.4, Lymphocytes # (Auto) 0.7 L, Monocytes # (Auto) 0.7, Eosinophils # (Auto) 0.0, Basophils # (Auto) 0.0, Calcium Level 7.6 L Vital Signs Date Time Temp Pulse Resp B/P (MAP) Pulse Ox O2 Delivery O2 Flow Rate FiO2 05/11/18 08:00 97.8 76 20 170/68 (102) 96 I&O- Last 24 Hours up to 6 AM 05/11/18 06:00 Intake Total 1420 ml Output Total 1000 ml Balance 420 ml GME ATTESTATION GME ATTESTATION My faculty preceptor for this patient encounter was physically present during the encounter and was fully available. All aspects of the patient interview, examination, medical decision making process, and medical care plan development were reviewed and approved by the faculty preceptor. The faculty preceptor is aware and concurs with the plan as stated in the body of this note and will attest to such by his/her cosignature. ATTENDING NOTE I, Alfonso Gordon, have both independently examined this patient as well as reviewed the documentation. I have discussed in detail with the resident the findings and plan of treatment as documented in the residents documentation. I will continue to follow the patient and offer further guidance to the patients care as necessary during this hospital stay. PEDRO PABLO NEWMAN DO May 11, 2018 11:09 ALFONSO GORDON MD May 11, 2018 16:27
[2018-05-11 12:00] VITALS: BP 178/72
[2018-05-11 16:00] VITALS: BP 186/80
[2018-05-11 20:00] VITALS: BP 162/58
[2018-05-11] MEDS: ESTROGENS VAGINAL CREAM 30GM PV SCH (20:48)
[2018-05-11] MEDS: ENOXAPARIN 40 MG/0.4 ML SYRINGE (J1650) SC SCH (20:48)
[2018-05-11] MEDS: amLODIPine 10 MG TAB PO SCH (20:51)
[2018-05-11] MEDS: ALPRAZolam 0.5 MG TAB PO SCH (20:51)
[2018-05-11] MEDS: RAMELTEON 8 MG TAB (ROZEREM) PO SCH (20:51)
[2018-05-12] VITALS: BP 179/68
[2018-05-12] MEDS: ISOSORBIDE DIN (ISORDIL) 10 MG TAB PO SCH ×4 (00:33→17:08)
[2018-05-12] MEDS: cefTRIAXone SOD 1 GM in D5W MINI-BAG PLUS 50 ML IV SCH (03:57)
[2018-05-12 04:00] VITALS: BP 152/62
[2018-05-12 05:34] LABS: BASO % 0.4 % (0.0-1.0); EOS # 0.1 10^3/uL (0.0-0.50); EOS % 1.5 % (0.0-3.0); HEMATOCRIT 27.8 % (36.0-47.0); HEMOGLOBIN 9.3 g/dl (12.0-15.5); LYMPH # 1.1 10^3/uL (1.5-4.5); LYMPH % 20.2 % (24.0-44.0); MEAN CORPUSCULAR HEMOGLOBIN 32.9 pg (27.0-33.0); MEAN CORPUSCULAR HGB CONC 33.5 g/dl (32.0-36.5); MEAN CORPUSCULAR VOLUME 98.2 fl (80.0-96.0); MONO # 0.7 10^3/uL (0.0-0.8); MONO % 12.4 % (0.0-5.0); NEUTROPHILS # 3.5 10^3/uL (1.8-7.7); NEUTROPHILS % 65.1 % (36.0-66.0); PLATELET COUNT, AUTOMATED 160 10^3/uL (150-450); RED BLOOD COUNT 2.83 10^6/uL (4.00-5.40); WHITE BLOOD COUNT 5.3 10^3/uL (4.0-10.0)
[2018-05-12 05:59] LABS: BLOOD UREA NITROGEN 12 MG/DL (7-18); CALCIUM LEVEL 7.5 MG/DL (8.8-10.2); CARBON DIOXIDE LEVEL 26 MEQ/L (21-32); CHLORIDE LEVEL 96 MEQ/L (98-107); GLOMERULAR FILTRATION RATE > 60.0 (>32); GLUCOSE, FASTING 103 MG/DL (70-100); POTASSIUM SERUM 3.5 MEQ/L (3.5-5.1); SODIUM LEVEL 130 MEQ/L (136-145)
[2018-05-12] MEDS: LEVOTHYROXINE 75MCG TABLET (0.075MG) PO SCH (06:43)
[2018-05-12] MEDS: SLF 3 ML SYR IV SCH ×3 (06:43→21:09)
[2018-05-12 08:00] VITALS: BP 168/70
[2018-05-12] MEDS: MULTIVITAMINS/MINERALS THERAP 1 TAB PO SCH (08:22)
[2018-05-12] MEDS: ASPIRIN 325 MG TAB PO SCH (08:22)
[2018-05-12] MEDS: VITAMIN D 1,000 INTERNATIONAL UNITS TABLET PO SCH (08:22)
[2018-05-12] MEDS: SERTRALINE HCL 25 MG TABLET PO SCH (08:22)
[2018-05-12] MEDS: ASCORBIC ACID 500 MG TAB PO SCH (08:22)
[2018-05-12] MEDS: SENOKOT S TAB PO SCH ×3 (08:22→21:09)
[2018-05-12] MEDS: ALPRAZolam 0.25 MG TAB PO PRN (11:14)
[2018-05-12 12:00] VITALS: BP 178/64
[2018-05-12] MEDS ORDERED: SERTRALINE HCL 25 MG TABLET PO ONE (12:00)
[2018-05-12] MEDS: ACETAMINOPHEN TAB 650MG DOSE (2X325MG) PO PRN (12:17)
--- NOTE | 2018-05-12 14:52 | IPNPDOC ---
Text Note Date of Service The patient was seen on 05/12/18. NOTE Subjective: Patient is an 87 year old female with a PMHx of Labile HTN, Carotid endarterectomy, Hypothyroidism, Discoid Lupus, Hx of UTIs (Klebsiella), G eneralized anxiety disorder, Diverticulosis, OA of hips, who presented to the ER with complaints of elevated blood pressure and not feeling well. 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 Patient was admitted to the hospitalist service for further evaluation and treatment. Patient was seen and examined at the bedside. Patient is reporting that she is overwhelmed with all her medical conditions. Appears to be anxious. Denies chest pain, shortness of breath, palpitations. Denies nausea, vomiting, pain, diarrhea. Objective: Vitals (See below) General: Lying in bed, no acute distress, comfortable, AAOx3 HEENT: NC, AT CVS: RRR, +S1S2 Lungs: Fair air entry b/l, rhonchi, rales or wheezing are not appreciated on auscultation Abdomen: Remains soft, nondistended and nontender Extremities: LE are without any edema, - Calf tenderness, Left upper extremity swelling Assessment and plan: Hypertensive urgency / Labile hypertension; possibly 2/2 renal artery stenosis - Clinically the patient remains asymptomatic with her blood pressures between 150 and 170; will continue to pursue this target - Patient has had several admissions for uncontrolled blood pressure - Patient become symptomatic with blood pressures less than 150 - CTA Abdomen / pelvis 04/19: Extensive calcifications in the abdominal aorta and pelvic vessels. The origins of the renal arteries show significant areas of calcifications with good filling beyond that areas of calcifications. The degree of stenosis cannot be determined on this study. - Renal US 04/15: 1. Findings suggest likely left renal artery stenosis with significantly elevated acceleration x in the antrum renal arteries. The extrarenal artery is not seen due to extensive gas shadowing. 2. 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 Suspect right renal artery stenosis as well. MRA or CTA renal arteries might give more information. - Patient has been strongly advised about compliance with medication - c/w Isosorbide dinitrate and Amlodipine; with holding parameters - Dr. Johnston on consultation; s/p Angiography and bilateral stenting on 05/10; Hypotonic hyponatremia - likely euvoemic - Patient has had excessive water intake yesterday - Cortisol level pending - TSH level noted - Will continue with fluid restrictions Left upper extremity swelling - Will get ultrasound to evaluate for any abnormalities Rash - likely 2/2 Samira syndrome in a patient with prior cutaneous lupus diagnose - Appears to be improving - Biopsy performed by Dr. Morse - Continue the betamethasone ointment 0.05% - Continue Eucerin as needed - Patient is scheduled to follow-up with Dr. Morse on Sunday; will discuss about rescheduling or having inpatient consultation History of carotid disease s/p CEA - Continue patient's home dose of aspirin 325 mg by mouth daily Hypothyroid - c/w Levothyroxine Depression / LILIYA - Patient appears to display increased levels of anxiety - c/w Sertraline, Alprazolam; s/p Diazepam - Will increase dose of sertraline; continue with adjusted dose of alprazolam Osteoarthritis - c/w Tylenol PRN Subacute cutaneous lupus erythematosus - Diagnosed in 2006 by biopsy of left arm - Currently not on medications DVT prophylaxis - c/w Lovenox Disposition: - Will get ultrasound of left upper extremity - Continue with physical therapy VS,Fishbone, I+O VS, Fishbone, I+O Laboratory Tests 05/12/18 05:03 Red Blood Count 2.83 L, Mean Corpuscular Volume 98.2 H, Mean Corpuscular Hemoglobin 32.9, Mean Corpuscular Hemoglobin Concent 33.5, Red Cell Distribution Width 15.0 H, Neutrophils (%) (Auto) 65.1, Lymphocytes (%) (Auto) 20.2 L, Monocytes (%) (Auto) 12.4 H, Eosinophils (%) (Auto) 1.5, Basophils (%) (Auto) 0.4, Neutrophils # (Auto) 3.5, Lymphocytes # (Auto) 1.1 L, Monocytes # (Auto) 0.7, Eosinophils # (Auto) 0.1, Basophils # (Auto) 0.0, Calcium Level 7.5 L Vital Signs Date Time Temp Pulse Resp B/P (MAP) Pulse Ox O2 Delivery O2 Flow Rate FiO2 05/12/18 12:14 178/64 05/12/18 12:00 98.5 74 18 97 I&O- Last 24 Hours up to 6 AM 05/12/18 06:00 Intake Total 1600 ml Output Total 2775 ml Balance -1175 ml KAIT ELDRIDGE MD May 12, 2018 14:52
[2018-05-12] MEDS ORDERED: CLOPIDOGREL 75 MG TAB PO ONE (15:00)
[2018-05-12 15:50] VITALS: BP 198/90
--- NOTE | 2018-05-12 16:10 | REP ---
Left upper extremity duplex veins History: Swelling There are no filling defects in the deep venous system. The deep venous system is patent. Edema is present in the soft tissue overlying the distal humerus. A small hematoma is present in the tissue of the distal humerus. This measures 3 by 0.7 x 1.9 cm. Impression: There is no deep venous thrombosis. Electronically Signed by Anmol Granado MD 05/12/2018 04:01 P
[2018-05-12] MEDS: RAMELTEON 8 MG TAB (ROZEREM) PO SCH (21:08)
[2018-05-12] MEDS: ENOXAPARIN 40 MG/0.4 ML SYRINGE (J1650) SC SCH (21:09)
[2018-05-12] MEDS: ESTROGENS VAGINAL CREAM 30GM PV SCH (21:09)
[2018-05-12] MEDS: ALPRAZolam 0.5 MG TAB PO SCH (21:09)
[2018-05-12] MEDS: amLODIPine 10 MG TAB PO SCH (21:09)
[2018-05-12 22:00] VITALS: BP 158/82
[2018-05-13] MEDS: ISOSORBIDE DIN (ISORDIL) 10 MG TAB PO SCH ×4 (00:17→17:06)
[2018-05-13] MEDS: cefTRIAXone SOD 1 GM in D5W MINI-BAG PLUS 50 ML IV SCH (02:23)
[2018-05-13] MEDS: LEVOTHYROXINE 75MCG TABLET (0.075MG) PO SCH (05:33)
[2018-05-13] MEDS: SLF 3 ML SYR IV SCH ×3 (05:34→22:00)
[2018-05-13 06:00] VITALS: BP 162/74
[2018-05-13 06:58] LABS: BASO % 0.4 % (0.0-1.0); EOS % 0.8 % (0.0-3.0); HEMOGLOBIN 9.5 g/dl (12.0-15.5); LYMPH # 0.9 10^3/uL (1.5-4.5); LYMPH % 18.2 % (24.0-44.0); MEAN CORPUSCULAR HEMOGLOBIN 33.3 pg (27.0-33.0); MEAN CORPUSCULAR HGB CONC 33.9 g/dl (32.0-36.5); MEAN CORPUSCULAR VOLUME 98.2 fl (80.0-96.0); MONO # 0.6 10^3/uL (0.0-0.8); MONO % 12.6 % (0.0-5.0); NEUTROPHILS # 3.4 10^3/uL (1.8-7.7); NEUTROPHILS % 67.6 % (36.0-66.0); PLATELET COUNT, AUTOMATED 161 10^3/uL (150-450); RED BLOOD COUNT 2.85 10^6/uL (4.00-5.40); WHITE BLOOD COUNT 5.1 10^3/uL (4.0-10.0)
[2018-05-13 07:20] LABS: BLOOD UREA NITROGEN 8 MG/DL (7-18); CALCIUM LEVEL 7.8 MG/DL (8.8-10.2); CARBON DIOXIDE LEVEL 29 MEQ/L (21-32); CHLORIDE LEVEL 98 MEQ/L (98-107); CREATININE FOR GFR 0.56 MG/DL (0.55-1.30); GLOMERULAR FILTRATION RATE > 60.0 (>32); GLUCOSE, FASTING 98 MG/DL (70-100); POTASSIUM SERUM 3.6 MEQ/L (3.5-5.1); SODIUM LEVEL 134 MEQ/L (136-145)
[2018-05-13] MEDS: SENOKOT S TAB PO SCH ×2 (08:39→20:46)
[2018-05-13] MEDS: VITAMIN D 1,000 INTERNATIONAL UNITS TABLET PO SCH (08:39)
[2018-05-13] MEDS: SERTRALINE HCL 50 MG TAB PO SCH (08:39)
[2018-05-13] MEDS: CLOPIDOGREL 75 MG TAB PO SCH (08:39)
[2018-05-13] MEDS: ASCORBIC ACID 500 MG TAB PO SCH (08:39)
[2018-05-13] MEDS: MULTIVITAMINS/MINERALS THERAP 1 TAB PO SCH (08:39)
[2018-05-13] MEDS: ASPIRIN 81 MG ENTERIC TAB PO SCH (08:40)
--- NOTE | 2018-05-13 09:55 | IPNPDOC ---
Text Note Date of Service The patient was seen on 05/13/18. NOTE Subjective: Patient is an 87 year old female with a PMHx of Labile HTN, Carotid endarterectomy, Hypothyroidism, Discoid Lupus, Hx of UTIs (Klebsiella), Generalized anxiety disorder, Diverticulosis, OA of hips, who presented to the ER with complaints of elevated blood pressure and not feeling well. 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 Patient was admitted to the spitalist service for further evaluation and treatment. Patient interviewed and examined at bedside. She reports frustration with nursing and PT staff. She feels as though she is being asked to perform tasks she is not able to complete given her current medical conditions. She continues to share that she is overwhelmed with her limitations. Her L arm hematoma is causing her a great deal of distress despite assurances. She says that it is painful and limits her range of motion. She is also concerned that she does not have 2-person assist when ambulating to the commode. She did have an instance of momentary L-sided weakness when on PCU and she is very concerned that it may re- occur. She continues to use a walker. She denies chest pain/pressure or squeezing sensation. She has not been coughing and denies difficulty breathing. No abdominal pain. She does report not moving her bowels since 05/11/18. She is aware that she has PRN bowel care medications. She is concerned regarding the number of medications she is on despite reassurance. No difficulty urinating. Patient denies nausea, vomiting. Objective: Vitals (See below) General: Laying upright in bed eating breakfast, no acute distress, does appear anxious HEENT: Normocephalic, atraumatic CVS: Regular rate and rythmn, normal S1 and S2, no murmurs Lungs: Fair air entry bilaterally, no rhonchi, rales or wheezing. Abdomen: Soft, nontender, no guarding or masses Extremities: Lower extremities are free of edema and calf swelling/tenderness bilaterally. LUE does demonstrate a resolving hematoma gravity-dependent at the L elbow. Fair range of motion in the joint. Painful to palpation. Imaging: Renal US (04/15/18): Findings suggest likely left renal artery stenosis with significantly elevated acceleration x in the antrum renal arteries. The extrarenal artery is not seen due to extensive gas shadowing. 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 Suspect right renal artery stenosis as well. MRA or CTA renal arteries might give more information. Abd CTA (04/19/18): Extensive calcifications in the abdominal aorta and pelvic vessels. The origins of the renal arteries show significant areas of calcifications with good filling beyond that areas of calcifications. The degree of stenosis cannot be determined on this study. Head CT (05/06/18): Small vessel ischemic disease. Mild volume loss. L UE U/S (05/12/18): No DVT Assessment and plan: 1. Hypertensive urgency / Labile hypertension; possibly 2/2 renal artery stenosis - Clinically the patient remains asymptomatic with her blood pressures between 150 and 170; will continue to pursue this target - Patient has had several admissions for uncontrolled blood pressure - Patient become symptomatic with blood pressures less than 150 - Patient has been strongly advised about importance of medication compliance - c/w Isosorbide dinitrate and Amlodipine; with holding parameters - Dr. Johnston on consultation; s/p Angiography and bilateral renal artery stenting on 05/10 - c/w ASA and Plavix 2. Hypotonic hyponatremia - likely euvolemic - Placed on 2 gram sodium diet - Cortisol level pending - TSH level noted - Will continue with fluid restrictions 3. Left upper extremity swelling - U/S performed did not indicate any DVTs 4. Rash - likely 2/2 Samira syndrome in a patient with prior cutaneous lupus diagnose - Appears to be improving - Biopsy performed by Dr. Morse - 2 sutures removed on 05/09 from biopsy site on patient's R thigh, healing well - Continue the betamethasone ointment 0.05% - Continue Eucerin as needed - Patient is scheduled to follow-up with Dr. Morse today; will reschedule 5. History of carotid disease s/p CEA - D/C ASA 325 mg - Patient was placed on ASA 81 and started on Plavix 75mg JEAN PIERRE per vascular surgery for recent stent Hypothyroid - c/w Levothyroxine Depression / LILIYA - Patient appears to display increased levels of anxiety - c/w Sertraline, Alprazolam; s/p Diazepam - Sertraline increased from 25 mg to 50 mg, patient denies any GI side-effects - c/w adjusted dose of alprazolam Osteoarthritis - c/w Tylenol PRN Subacute cutaneous lupus erythematosus - Diagnosed in 2006 by biopsy of left arm - Currently not on medications DVT prophylaxis - c/w Lovenox Disposition: - c/w with physical therapy - Will likely require placement for continued rehabilitation VS,Fishbone, I+O VS, Fishbone, I+O Laboratory Tests 05/13/18 06:07 Red Blood Count 2.85 L, Mean Corpuscular Volume 98.2 H, Mean Corpuscular Hemoglobin 33.3 H, Mean Corpuscular Hemoglobin Concent 33.9, Red Cell Distribution Width 15.1 H, Neutrophils (%) (Auto) 67.6 H, Lymphocytes (%) (Auto) 18.2 L, Monocytes (%) (Auto) 12.6 H, Eosinophils (%) (Auto) 0.8, Basophils (%) (Auto) 0.4, Neutrophils # (Auto) 3.4, Lymphocytes # (Auto) 0.9 L, Monocytes # (Auto) 0.6, Eosinophils # (Auto) 0.0, Basophils # (Auto) 0.0, Calcium Level 7.8 L Vital Signs Date Time Temp Pulse Resp B/P (MAP) Pulse Ox O2 Delivery O2 Flow Rate FiO2 05/13/18 06:00 97.4 72 20 162/74 (103) 95 I&O- Last 24 Hours up to 6 AM 05/13/18 06:00 Intake Total 530 ml Output Total 1000 ml Balance -470 ml GME ATTESTATION GME ATTESTATION My faculty preceptor for this patient encounter was physically present during the encounter and was fully available. All aspects of the patient interview, examination, medical decision making process, and medical care plan development were reviewed and approved by the faculty preceptor. The faculty preceptor is aware and concurs with the plan as stated in the body of this note and will attest to such by his/her cosignature. ATTENDING NOTE I, Alfonso Gordon, have both independently examined this patient as well as reviewed the documentation. I have discussed in detail with the resident the findings and plan of treatment as documented in the residents documentation. I will continue to follow the patient and offer further guidance to the patients care as necessary during this hospital stay. PEDRO PABLO NEWMAN DO May 13, 2018 09:55 ALFONSO GORDON MD May 13, 2018 14:05
[2018-05-13 10:12] LABS: CORTISOL BASELINE 22.1 UG/DL (4.3-22.4)
[2018-05-13 14:00] VITALS: BP 140/62
[2018-05-13] MEDS: RAMELTEON 8 MG TAB (ROZEREM) PO SCH (20:45)
[2018-05-13] MEDS: amLODIPine 10 MG TAB PO SCH (20:46)
[2018-05-13] MEDS: ACETAMINOPHEN TAB 650MG DOSE (2X325MG) PO PRN (20:46)
[2018-05-13] MEDS: ENOXAPARIN 40 MG/0.4 ML SYRINGE (J1650) SC SCH (20:47)
[2018-05-13] MEDS: ALPRAZolam 0.5 MG TAB PO SCH (20:47)
[2018-05-13] MEDS: ESTROGENS VAGINAL CREAM 30GM PV SCH (20:47)
[2018-05-13 22:00] VITALS: BP 142/62
[2018-05-14] VITALS: BP 162/86
[2018-05-14] MEDS: ISOSORBIDE DIN (ISORDIL) 10 MG TAB PO SCH ×4 (00:51→18:00)
[2018-05-14] MEDS: cefTRIAXone SOD 1 GM in D5W MINI-BAG PLUS 50 ML IV SCH (03:27)
[2018-05-14 06:00] VITALS: BP 168/78
[2018-05-14] MEDS: SLF 3 ML SYR IV SCH ×3 (06:00→22:00)
[2018-05-14] MEDS: LEVOTHYROXINE 75MCG TABLET (0.075MG) PO SCH (06:11)
[2018-05-14 06:54] LABS: BASO % 0.7 % (0.0-1.0); EOS # 0.1 10^3/uL (0.0-0.50); EOS % 1.5 % (0.0-3.0); HEMATOCRIT 29.1 % (36.0-47.0); HEMOGLOBIN 10.2 g/dl (12.0-15.5); LYMPH # 0.8 10^3/uL (1.5-4.5); LYMPH % 20.3 % (24.0-44.0); MEAN CORPUSCULAR HGB CONC 35.1 g/dl (32.0-36.5); MONO # 0.6 10^3/uL (0.0-0.8); MONO % 15.3 % (0.0-5.0); NEUTROPHILS # 2.5 10^3/uL (1.8-7.7); NEUTROPHILS % 61.7 % (36.0-66.0); PLATELET COUNT, AUTOMATED 180 10^3/uL (150-450)
[2018-05-14 07:15] LABS: BLOOD UREA NITROGEN 7 MG/DL (7-18); CALCIUM LEVEL 8.1 MG/DL (8.8-10.2); CARBON DIOXIDE LEVEL 29 MEQ/L (21-32); CHLORIDE LEVEL 97 MEQ/L (98-107); CREATININE FOR GFR 0.55 MG/DL (0.55-1.30); GLOMERULAR FILTRATION RATE > 60.0 (>32); GLUCOSE, FASTING 99 MG/DL (70-100); MAGNESIUM LEVEL 1.9 MG/DL (1.8-2.4); SODIUM LEVEL 133 MEQ/L (136-145)
[2018-05-14 07:57] VITALS: BP 110/60
[2018-05-14] MEDS: LISINOPRIL *2.5 MG* TAB PO SCH ×2 (09:00→22:07)
[2018-05-14] MEDS: amLODIPine 5 MG TAB PO SCH ×2 (09:00→22:07)
[2018-05-14] MEDS: SENOKOT S TAB PO SCH ×2 (09:22→22:06)
[2018-05-14] MEDS: CLOPIDOGREL 75 MG TAB PO SCH (09:22)
[2018-05-14] MEDS: ASCORBIC ACID 500 MG TAB PO SCH (09:22)
[2018-05-14] MEDS: ASPIRIN 81 MG ENTERIC TAB PO SCH (09:22)
[2018-05-14] MEDS: SERTRALINE HCL 50 MG TAB PO SCH (09:22)
[2018-05-14] MEDS: VITAMIN D 1,000 INTERNATIONAL UNITS TABLET PO SCH (09:22)
[2018-05-14] MEDS: MULTIVITAMINS/MINERALS THERAP 1 TAB PO SCH (09:22)
[2018-05-14] MEDS: ALPRAZolam 0.25 MG TAB PO PRN (09:27)
--- NOTE | 2018-05-14 11:33 | IPNPDOC ---
Date Seen The patient was seen on 05/14/18. Progress Note SUBJECTIVE: pt c/o expanding hematoma on the left antecubital fossa with increasing pain on asa and plavix. s/p renal stenting 05/10/18. on asa plavix. per dr. nava bid standing bp and hold meds for sbp<120mmHg. change norvasc to bid dosing. Per Dr. Nava, pt has been increasingly confused and demented and may benefit from snf placement. Per RN, left ue increasingly erythematous and swollen, negative dvt on doppler yesterday. on iv ceftriaxone. she also c/o bilateral le pain when she stands and tremors, and requesting along with her son for a neurologist to see her. PHYSICAL EXAMINATION: VITAL SIGNS: PLS SEE BELOW GENERAL APPEARANCE: Awake, alert, oriented 3, in no acute distress HEENT: Normocephalic atraumatic, sclera nonicteric, EOMI, PERRLA, mild JVD appreciated, no lymphadenopathy CARDIOVASCULAR: Regular rate and rhythm, normal S1/S2, no murmurs gallops or rubs LUNGS: Clear to auscultation bilaterally, no wheezing rhonchi or rales ABDOMEN: Soft, nontender, no masses palpated, active bowel sounds MUSCULOSKELETAL: 5 out of 5 strength in all extremities, no weakness on the left as reported by the patient EXTREMITIES: Moves all extremities equally and freely bilaterally. left upper extremity 3cm hematoma with erythema and swelling. slight tenderness NEUROLOGICAL: No facial weakness or asymmetry, no focal neurologic deficits, no weakness PSYCHIATRIC: Anxious mood and flat affect noted SKIN: Resolving disseminated erythematous nonblanching rash, no bruising, status post cutaneous biopsy of right thigh (2 stitches remain) LABORATORY DATA: See below. IMAGING: Renal artery ultrasound (04/16/18): Consistent with left renal artery stenosis with recommended follow-up CTA CT angiogram abdomen (04/19/18): Extensive calcifications in the abdominal aorta and pelvic vessels. Origins of the renal arteries show significant areas of calcifications with good filling beyond that areas calcifications. The degree of stenosis could not be determined Chest x-ray (05/04/18): No acute cardiopulmonary findings, stable chronic changes. ASSESSMENT/PLAN: Kristi Grayson is an 87-year-old female who presented to the emergency department this afternoon via EMS with a chief complaint of dyspnea and hypertension per home blood pressure monitor.Patient was previously admitted to the hospital on 04/07/2018 and discharged 2 weeks later on 04/23/2018. At that time she was diag nosed with a CVA. Patient has a history of labile orthostatic hypotension and is being followed by Dr. Saldana. During her previous hospitalization the patient presented with diffuse erythematous rash. That time it was questioned whether it was related to viral etiology or cutaneous lupus. Per patient, following biopsy, it was confirmed the rash to be of lupoid origin. She was also diagnosed and treated for a UTI.While in the emergency department, the patient was given 10 mg of labetalol initially and a subsequent 20 mg dose IV stat. A chest x-ray was performed and read as negative. BMP shows mildly decreased sodium: 131, good renal function, and negative cardiac enzymes. No white count per CBC. Hemoglobin and hematocrit are stable. Patient will be admitted to the PCU for further evaluation and management of her blood pressure. Hypertensive urgency s/p b/l renal stent placed 05/10/[address]. nava bid standing bp and hold meds for sbp<120mmHg. change norvasc to bid dosing. Per Dr. Nava, pt has been increasingly confused and demented and may benefit from snf placement. Left UE hematoma Per RN, left ue increasingly erythematous and swollen, negative dvt on doppler yesterday. sand bags. dr. don consulted for mgt. 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 - Continue the betamethasone ointment 0.05% - Continue Eucerin as needed History of carotid disease s/p CEA -on asa and plavix s/p renal artery stents -defer to vascular surgery. currently no TIA symptoms Hypothyroid -Continue patient's home medication of levothyroxine 75 mcg by mouth daily Depression -Continue patient's home medication of sertraline 25 mg by mouth daily Generalized anxiety disorder -Continue patient's home medication of Diazepam 10 mg by mouth at night Osteoarthritis -Acetaminophen 650 mg as needed for pain Subacute cutaneous lupus erythematosus (diagnosed in 2006 by biopsy of left arm, on Plaquenil 200 mg per day) Significant vaginal atrophy history of Diverticulitis history of Recurrent UTIs Osteoarthritis of the hips Generalized anxiety disorder DVT Proph: Lovenox 40 mg VS, I&O, 24H, Fishbone Vital Signs/I&O Vital Signs Date Time Temp Pulse Resp B/P (MAP) Pulse Ox O2 Delivery O2 Flow Rate FiO2 05/14/18 07:57 I&O- Last 24 Hours up to 6 AM 05/14/18 06:00 Intake Total 874 ml Output Total 440 ml Balance 434 ml Laboratory Data 24H LABS Laboratory Tests 2 05/14/18 06:11: Immature Granulocyte % (Auto) 0.5, White Blood Count 4.0, Red Blood Count 3.00L, Hemoglobin 10.2L, Hematocrit 29.1L, Mean Corpuscular Volume 97.0H, Mean Corpuscular Hemoglobin 34.0H, Mean Corpuscular Hemoglobin Concent 35.1, Red Cell Distribution Width 15.1H, Platelet Count 180, Neutrophils (%) (Auto) 61.7, Lymphocytes (%) (Auto) 20.3L, Monocytes (%) (Auto) 15.3H, Eosinophils (%) (Auto) 1.5, Basophils (%) (Auto) 0.7, Neutrophils # (Auto) 2.5, Lymphocytes # (Auto) 0.8L, Monocytes # (Auto) 0.6, Eosinophils # (Auto) 0.1, Basophils # (Auto) 0.0, Nucleated Red Blood Cells % (auto) 0.0, Anion Gap 7L, Glomerular Filtration Rate > 60.0, Blood Urea Nitrogen 7, Creatinine 0.55, Sodium Level 133L, Potassium Level 3.0L, Chloride Level 97L, Carbon Dioxide Level 29, Calcium Level 8.1L, Magnesium Level 1.9 CBC/BMP Laboratory Tests 05/14/18 06:11 Red Blood Count 3.00 L, Mean Corpuscular Volume 97.0 H, Mean Corpuscular H emoglobin 34.0 H, Mean Corpuscular Hemoglobin Concent 35.1, Red Cell Distribution Width 15.1 H, Neutrophils (%) (Auto) 61.7, Lymphocytes (%) (Auto) 20.3 L, Monocytes (%) (Auto) 15.3 H, Eosinophils (%) (Auto) 1.5, Basophils (%) (Auto) 0.7, Neutrophils # (Auto) 2.5, Lymphocytes # (Auto) 0.8 L, Monocytes # (Auto) 0.6, Eosinophils # (Auto) 0.1, Basophils # (Auto) 0.0, Calcium Level 8.1 L Microbiology Microbiology 05/11/18 Urine Culture - Final, Complete Escherichia Coli LIANNE DOWNS MD May 14, 2018 10:45
[2018-05-14 14:00] VITALS: BP 162/80
[2018-05-14] MEDS: ESTROGENS VAGINAL CREAM 30GM PV SCH (21:00)
[2018-05-14 22:00] VITALS: BP 164/80
[2018-05-14] MEDS: ENOXAPARIN 40 MG/0.4 ML SYRINGE (J1650) SC SCH (22:06)
[2018-05-14] MEDS: RAMELTEON 8 MG TAB (ROZEREM) PO SCH (22:07)
[2018-05-14] MEDS: ALPRAZolam 0.5 MG TAB PO SCH (22:07)
[2018-05-15] VITALS: BP 160/76
[2018-05-15] MEDS: ISOSORBIDE DIN (ISORDIL) 10 MG TAB PO SCH ×4 (00:31→18:00)
[2018-05-15] MEDS: SLF 3 ML SYR IV SCH ×3 (05:57→21:33)
[2018-05-15] MEDS: LEVOTHYROXINE 75MCG TABLET (0.075MG) PO SCH (05:57)
[2018-05-15 06:00] VITALS: BP 160/72
[2018-05-15 06:10] LABS: BASO % 0.3 % (0.0-1.0); EOS % 0.2 % (0.0-3.0); HEMATOCRIT 28.7 % (36.0-47.0); HEMOGLOBIN 9.8 g/dl (12.0-15.5); LYMPH # 0.9 10^3/uL (1.5-4.5); LYMPH % 15.1 % (24.0-44.0); MEAN CORPUSCULAR HEMOGLOBIN 32.9 pg (27.0-33.0); MEAN CORPUSCULAR HGB CONC 34.1 g/dl (32.0-36.5); MEAN CORPUSCULAR VOLUME 96.3 fl (80.0-96.0); MONO # 0.8 10^3/uL (0.0-0.8); MONO % 13.4 % (0.0-5.0); NEUTROPHILS # 4.1 10^3/uL (1.8-7.7); NEUTROPHILS % 70.5 % (36.0-66.0); PLATELET COUNT, AUTOMATED 187 10^3/uL (150-450); RED BLOOD COUNT 2.98 10^6/uL (4.00-5.40); WHITE BLOOD COUNT 5.9 10^3/uL (4.0-10.0)
[2018-05-15 06:37] LABS: BLOOD UREA NITROGEN 12 MG/DL (7-18); CALCIUM LEVEL 8.4 MG/DL (8.8-10.2); CARBON DIOXIDE LEVEL 27 MEQ/L (21-32); CHLORIDE LEVEL 98 MEQ/L (98-107); CREATININE FOR GFR 0.77 MG/DL (0.55-1.30); GLOMERULAR FILTRATION RATE > 60.0 (>32); GLUCOSE, FASTING 103 MG/DL (70-100); MAGNESIUM LEVEL 2.1 MG/DL (1.8-2.4); POTASSIUM SERUM 3.3 MEQ/L (3.5-5.1); SODIUM LEVEL 133 MEQ/L (136-145)
--- NOTE | 2018-05-15 07:37 | CR ---
DATE OF CONSULTATION: 05/14/2018 REFERRING PHYSICIAN: Dr. Zo Martinez REASON FOR CONSULTATION: Left leg tremor and difficulty walking. HISTORY OF PRESENT ILLNESS: Kristi Grayson is an 87-year-old woman with a history of labile blood pressure. On admission her blood pressure was 252/110. Her blood pressure suddenly decreases to 100/65 when she stands up. She was found to have renal artery stenosis and hand bilateral artery stents placed on May 10, 2018 hoping that it will prevent peaks of her blood pressure and she may not need too many blood pressure medications. The patient states that for the last 2 years she has been using a walker off and on. She has developed tremor in the left leg for last years. It happens only when she stands up and it makes her fall down. And tremor in her left leg also seems to correlate when her blood pressure drops as well and standing up. She has been following with Dr. Saldana. She was taking midodrine which is being held because of her high blood pressure. She also takes lisinopril, isosorbide and amlodipine. See she was admitted at [facility] in [id number] due to transient ischemic attack. She had similar acute issues at bedtime as well. He is scheduled see Dr. Samaniego in few days but requested to be seen by neurology in the hospital. During her last admission she was found to have extensive vascular disease of central nervous system. 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 MRI cervical, thoracic and lumbosacral spine showed multilevel cervical, thoracic and lumbosacral disk disease with mild lumbosacral stenosis. The patient feels numbness, tingling and tremor of her left leg if she stands for more than couple of minutes. Her left leg tends to buckle and she falls. This was seen on examination today. PAST MEDICAL HISTORY: Hypertension, bilateral renal artery stenosis status post renal artery stents, labile blood pressure with orthostatic hypertension, congestive heart failure. Carotid artery disease with carotid endarterectomy on right side, cutaneous lupus urinary tract infection, osteoarthritis hip joints, right hip replacement, total hysterectomy, bilateral cataract surgery. SOCIAL HISTORY: She lives alone. She is a . She has two sons and two daughters. 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 She smoked one half pack per day of cigarettes. FAMILY HISTORY: Father had Alzheimer's dementia. Mother had stroke and hypertension. There is no family history of Parkinson's disease. ALLERGIES: Sulfa, penicillin and adhesive tape. REVIEW OF SYSTEMS: All systems were reviewed and found to be noncontributory except as mentioned history present illness. PHYSICAL EXAMINATION: Temperature 98.5, pulse 78, respiratory 18, blood pressure 162/80, 95% saturation on room air. Heart: Regular rate and rhythm. Lungs: Clear to auscultation. Abdomen: Soft, nontender, nondistended. No pedal edema. No musculoskeletal abnormalities. No signs of meningeal irritation. No tremor. No dysmetria. The patient is awake, alert, oriented to place, person and time. Normal speech comprehension and repetition. Extraocular muscles are intact. No facial weakness. Tongue and uvula midline. Visual canales are full to confrontation. Recent and distant memory is intact. 5/5 strength in all four extremities. Deep tendon flexes are 1+ throughout. Normal sensation. Gait is unsteady. The patient walked with me for 10 steps and suddenly her left leg started to shake and tended to give out. She needed assistance from me and her daughter to get her back to bed with her walker. There is no rash. No signs of meningeal irritation. When she was walking. She had clear tremor of her left leg. ASSESSMENT: 1. Left leg orthostatic tremor. 2. Multifactorial gait difficulty. 3. Labile blood pressure. 4. 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 5. Multilevel lumbosacral disk disease and mild lumbosacral stenosis with cervical and thoracic spondylosis. 6. Small vessel ischemic disease of brain. 7. Lower body parkinsonism is a possibility but I suspect that her labile blood pressure with orthostasis causes relative ischemia in the brain stem when she stands up due to occlusion of her basilar artery and she develops left sided leg numbness, weakness and tremor when walking. PLAN: 1. Patient declined trial of Sinemet. Sinemet can aggravate orthostatic hypotension in some cases. 2. The patient is to follow with Dr. Saldana for management of her labile hypertension. I hope that prevention of low blood pressure can improve her gait and orthostatic tremor. She had bilateral renal artery stents last week. 3. Consider manual or motorized wheelchair for her gait difficulty. She is a fall risk and it can result in the body injury. She must use a walker all the time. The patient will follow up with Dr. Samaniego scheduled to see him depending upon when she gets discharged from the hospital this time.
[2018-05-15] MEDS: ASPIRIN 81 MG ENTERIC TAB PO SCH (10:03)
[2018-05-15] MEDS: amLODIPine 5 MG TAB PO SCH ×2 (10:03→21:33)
[2018-05-15] MEDS: LISINOPRIL *2.5 MG* TAB PO SCH ×2 (10:03→21:30)
[2018-05-15] MEDS: MULTIVITAMINS/MINERALS THERAP 1 TAB PO SCH (10:03)
[2018-05-15] MEDS: SERTRALINE HCL 50 MG TAB PO SCH (10:04)
[2018-05-15] MEDS: ASCORBIC ACID 500 MG TAB PO SCH (10:04)
[2018-05-15] MEDS: SENOKOT S TAB PO SCH ×2 (10:04→21:30)
[2018-05-15] MEDS: CLOPIDOGREL 75 MG TAB PO SCH (10:04)
[2018-05-15] MEDS: VITAMIN D 1,000 INTERNATIONAL UNITS TABLET PO SCH (10:04)
[2018-05-15 14:00] VITALS: BP 136/62
--- NOTE | 2018-05-15 17:26 | IPNPDOC ---
Date Seen The patient was seen on 05/15/18. Progress Note SUBJECTIVE: Family has been working with [facility] for SNF placement. Per [facility], pt has been very anxious about falling if she gets up. Per Physical therapy, pt is managing well, with contact guard, and has been progressing along. Left ARM hematoma is getting better with yellowish discoloration. Yesterday pt c/o expanding hematoma on the left antecubital fossa with increasing pain on asa and plavix. s/p renal stenting 05/10/18. on asa plavix. per dr. nava bid standing bp and hold meds for sbp<120mmHg. change norvasc to bid dosing. Per Dr. Nava, pt has been increasingly confused and demented and should be placed in a snf. She was seen by Neurology Dr. Singh for the LE tremors.This morning she c/o "I can't take my pills," dysphagia, but refuses to have her pills be taken with applesauce or crushed. She is also reluctant to have workup for the dysphagia. Per her daughter at the bedside, "my mother has been very angry. You have to understand, this is a woman who has lived in [facility] same house since she was 21 and had the same job all her life. She may benefit from a psychiatrist." PHYSICAL EXAMINATION: VITAL SIGNS: PLS SEE BELOW GENERAL APPEARANCE: Awake, alert, oriented 3, in no acute distress HEENT: Normocephalic atraumatic, sclera nonicteric, EOMI, PERRLA, mild JVD appreciated, no lymphadenopathy CARDIOVASCULAR: Regular rate and rhythm, normal S1/S2, no murmurs gallops or rubs LUNGS: Clear to auscultation bilaterally, no wheezing rhonchi or rales ABDOMEN: Soft, nontender, no masses palpated, active bowel sounds MUSCULOSKELETAL: 5 out of 5 strength in all extremities, no weakness on the left as reported by the patient EXTREMITIES: Moves all extremities equally and freely bilaterally. left upper extremity 3cm hematoma with erythema and swelling. slight tenderness NEUROLOGICAL: No facial weakness or asymmetry, no focal neurologic deficits, no weakness PSYCHIATRIC: Anxious mood and flat affect noted SKIN: Resolving disseminated erythematous nonblanching rash, no bruising, status post cutaneous biopsy of right thigh (2 stitches remain) LABORATORY DATA: See below. IMAGING: Renal artery ultrasound (04/16/18): Consistent with left renal artery stenosis with recommended follow-up CTA CT angiogram abdomen (04/19/18): Extensive calcifications in the abdominal aorta and pelvic vessels. Origins of the renal arteries show significant areas of calcifications with good filling beyond that areas calcifications. The degree of stenosis could not be determined Chest x-ray (05/04/18): No acute cardiopulmonary findings, stable chronic changes. ASSESSMENT/PLAN: Kristi Grayson is an 87-year-old female who presented to the emergency department this afternoon via EMS with a chief complaint of dyspnea and hypertension per home blood pressure monitor.Patient was previously admitted to the hospital on 04/07/2018 and discharged 2 weeks later on 04/23/2018. At that time she was diagnosed with a CVA. Patient has a history of labile orthostatic hypotension and is being followed by Dr. Saldana. During her previous hospitalization the patient presented with diffuse erythematous rash. That time it was questioned whether it was related to viral etiology or cutaneous lupus. Per patient, following biopsy, it was confirmed the rash to be of lupoid origin. She was also diagnosed and treated for a UTI.While in the emergency department, the patient was given 10 mg of labetalol initially and a subsequent 20 mg dose IV stat. A chest x-ray was performed and read as negative. BMP shows mildly decreased sodium: 131, good renal function, and negative cardiac enzymes. No white count per CBC. Hemoglobin and hematocrit are stable. Patient will be admitted to the PCU for further evaluation and management of her blood pressure. Hypertensive urgency, resolved s/p b/l renal stent placed 05/10/[address] per dr. nava bid standing bp and hold meds for sbp<120mmHg. change norvasc to bid dosing. Per Dr. Nava, pt has been increasingly confused and demented and may benefit from snf placement. Family agrees with SNF placement and also requesting psychiatric evaluation, but pt has not agreed with psychiatrist referral. Left UE hematoma, improving Per RN, left ue increasingly erythematous and swollen, negative dvt on doppler. Per vascular surgery dr. don continue asa and plavix. 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 - Continue the betamethasone ointment 0.05% - Continue Eucerin as needed History of carotid disease s/p CEA -on asa and plavix s/p renal artery stents -defer to vascular surgery. currently no TIA symptoms Hypothyroid -Continue patient's home medication of levothyroxine 75 mcg by mouth daily Depression -Continue patient's home medication of sertraline 25 mg by mouth daily Generalized anxiety disorder -Continue patient's home medication of Diazepam 10 mg by mouth at night PRN xanax. Osteoarthritis -Acetaminophen 650 mg as needed for pain Subacute cutaneous lupus erythematosus (diagnosed in 2006 by biopsy of left arm, on Plaquenil 200 mg per day) Significant vaginal atrophy history of Diverticulitis history of Recurrent UTIs Osteoarthritis of the hips Dysphagia no c/o weight loss, hematemesis, and refuses workup. disposition: medically stable for hospital discharge. awaiting placement. outpt fu for dysphagia and PAD if persistent b/l LE pain. VS, I&O, 24H, Fishbone Vital Signs/I&O Vital Signs Date Time Temp Pulse Resp B/P (MAP) Pulse Ox O2 Delivery O2 Flow Rate FiO2 05/15/18 14:00 97.6 62 16 136/62 (86) 97 I&O- Last 24 Hours up to 6 AM 05/15/18 06:00 Intake Total 570 ml Output Total 775 ml Balance -205 ml Laboratory Data 24H LABS Laboratory Tests 2 05/15/18 05:48: Immature Granulocyte % (Auto) 0.5, White Blood Count 5.9, Red Blood Count 2.98L, Hemoglobin 9.8L, Hematocrit 28.7L, Mean Corpuscular Volume 96.3H, Mean Corpuscular Hemoglobin 32.9, Mean Corpuscular Hemoglobin Concent 34.1, Red Cell Distribution Width 14.9H, Platelet Count 187, Neutrophils (%) (Auto) 70.5H, Lymphocytes (%) (Auto) 15.1L, Monocytes (%) (Auto) 13.4H, Eosinophils (%) (Auto) 0.2, Basophils (%) (Auto) 0.3, Neutrophils # (Auto) 4.1, Lymphocytes # (Auto) 0.9L, Monocytes # (Auto) 0.8, Eosinophils # (Auto) 0.0, Basophils # (Auto) 0.0, Nucleated Red Blood Cells % (auto) 0.0, Anion Gap 8, Glomerular Filtration Rate > 60.0, Blood Urea Nitrogen 12#, Creatinine 0.77, Sodium Level 133L, Potassium Level 3.3L, Chloride Level 98, Carbon Dioxide Level 27, Calcium Level 8.4L, Magnesium Level 2.1 CBC/BMP Laboratory Tests 05/15/18 05:48 Red Blood Count 2.98 L, Mean Corpuscular Volume 96.3 H, Mean Corpuscular Hemoglobin 32.9, Mean Corpuscular Hemoglobin Concent 34.1, Red Cell Distribution Width 14.9 H, Neutrophils (%) (Auto) 70.5 H, Lymphocytes (%) (Auto) 15.1 L, M onocytes (%) (Auto) 13.4 H, Eosinophils (%) (Auto) 0.2, Basophils (%) (Auto) 0.3, Neutrophils # (Auto) 4.1, Lymphocytes # (Auto) 0.9 L, Monocytes # (Auto) 0.8, Eosinophils # (Auto) 0.0, Basophils # (Auto) 0.0, Calcium Level 8.4 L Microbiology Microbiology 05/11/18 Urine Culture - Final, Complete Escherichia Coli LIANNE DOWNS MD May 15, 2018 17:26
[2018-05-15 18:00] VITALS: BP 155/69
[2018-05-15] MEDS: ESTROGENS VAGINAL CREAM 30GM PV SCH (21:00)
[2018-05-15] MEDS: ENOXAPARIN 40 MG/0.4 ML SYRINGE (J1650) SC SCH (21:30)
[2018-05-15] MEDS: ALPRAZolam 0.5 MG TAB PO SCH (21:30)
[2018-05-15] MEDS: RAMELTEON 8 MG TAB (ROZEREM) PO SCH (21:30)
[2018-05-15 22:00] VITALS: BP 148/64
[2018-05-16] MEDS: LEVOTHYROXINE 75MCG TABLET (0.075MG) PO SCH (05:49)
[2018-05-16] MEDS: ISOSORBIDE DIN (ISORDIL) 10 MG TAB PO SCH ×4 (05:49→16:54)
[2018-05-16] MEDS: SLF 3 ML SYR IV SCH ×3 (05:49→22:00)
[2018-05-16 06:23] LABS: BASO % 0.7 % (0.0-1.0); EOS % 0.5 % (0.0-3.0); HEMOGLOBIN 10.6 g/dl (12.0-15.5); MEAN CORPUSCULAR HEMOGLOBIN 33.3 pg (27.0-33.0); MEAN CORPUSCULAR HGB CONC 34.2 g/dl (32.0-36.5); MEAN CORPUSCULAR VOLUME 97.5 fl (80.0-96.0); MONO # 0.9 10^3/uL (0.0-0.8); MONO % 14.5 % (0.0-5.0); NEUTROPHILS # 3.9 10^3/uL (1.8-7.7); PLATELET COUNT, AUTOMATED 204 10^3/uL (150-450); RED BLOOD COUNT 3.18 10^6/uL (4.00-5.40); WHITE BLOOD COUNT 5.9 10^3/uL (4.0-10.0)
[2018-05-16 06:52] LABS: BLOOD UREA NITROGEN 13 MG/DL (7-18); CALCIUM LEVEL 8.5 MG/DL (8.8-10.2); CARBON DIOXIDE LEVEL 28 MEQ/L (21-32); CHLORIDE LEVEL 96 MEQ/L (98-107); CREATININE FOR GFR 0.72 MG/DL (0.55-1.30); GLOMERULAR FILTRATION RATE > 60.0 (>32); GLUCOSE, FASTING 92 MG/DL (70-100); POTASSIUM SERUM 2.9 MEQ/L (3.5-5.1); SODIUM LEVEL 134 MEQ/L (136-145)
[2018-05-16] MEDS ORDERED: POTASSIUM CHLORIDE 10 MEQ SR TABLET PO ONE ×2 (08:00→09:00)
[2018-05-16] MEDS: CLOPIDOGREL 75 MG TAB PO SCH (09:00)
[2018-05-16] MEDS: MULTIVITAMINS/MINERALS THERAP 1 TAB PO SCH (09:00)
[2018-05-16] MEDS: ASPIRIN 81 MG ENTERIC TAB PO SCH (09:16)
[2018-05-16] MEDS: amLODIPine 5 MG TAB PO SCH ×2 (09:16→21:00)
[2018-05-16] MEDS: LISINOPRIL *2.5 MG* TAB PO SCH ×2 (09:16→22:00)
[2018-05-16] MEDS: ASCORBIC ACID 500 MG TAB PO SCH (09:16)
[2018-05-16] MEDS: VITAMIN D 1,000 INTERNATIONAL UNITS TABLET PO SCH (09:17)
[2018-05-16] MEDS: SENOKOT S TAB PO SCH ×2 (09:17→21:00)
[2018-05-16] MEDS: SERTRALINE HCL 50 MG TAB PO SCH (09:17)
--- NOTE | 2018-05-16 10:54 | IPNPDOC ---
Text Note Date of Service The patient was seen on 05/16/18. NOTE SUBJECTIVE: Patient was interviewed and examined in her hospital room. The patient was found laying seated upright in her hospital chair. She reports being extremely weak. She is aware that the current plan is to transition to a SNF for further rehabilitation. This makes her extremely anxious as she is worried that she will require a higher level of care than can be provided at the SNF. She is also concerned that there are no beds available in the [facility] that she may need to seek placement in [place]. She does have a daughter, who is the healthcare proxy, who lives in [place]. She expresses concern based on the fact she has remained largely independent so she was 21 years old. Patient continues to complain of pain in her left elbow regarding her hematoma. Patient is being continued on her aspirin and Plavix S/P bilateral renal stent placement. She reports having taken her pills crushed and with applesauce. She continues to complain of difficulty swallowing but insists that she does not wish further workup. She denies chest pain or trouble breathing. She denies belly pain or difficulty stooling. She is urinating without any difficulty. She continues to complain of bilateral weakness left greater than the right. She is ambulating with a single assist in continuing physical therapy. Saline lock removed. PHYSICAL EXAMINATION: VITAL SIGNS: PLS SEE BELOW GENERAL APPEARANCE: Awake, alert, oriented 3, in no acute distress HEENT: Normocephalic atraumatic, sclera nonicteric, EOMI, PERRLA, mild JVD appreciated, no lymphadenopathy CARDIOVASCULAR: Regular rate and rhythm, normal S1 and S2, no murmurs gallops or rubs LUNGS: Clear to auscultation bilaterally, no wheezing rhonchi or rales ABDOMEN: Soft, nontender, no masses palpated, active bowel sounds in all 4 quadrants MUSCULOSKELETAL: 5 out of 5 strength in all extremities, no weakness on the left as reported by the patient EXTREMITIES: Moves all extremities equally and freely bilaterally. Large left elbow hematoma, yellowing of peripheral margins, slightly tender to palpation NEUROLOGICAL: No facial weakness or asymmetry, no focal neurologic deficits, no weakness PSYCHIATRIC: Anxious mood and flat affect noted SKIN: Resolving disseminated erythematous nonblanching rash, no bruising LABORATORY DATA: See below. IMAGING: Renal artery ultrasound (04/16/18): Consistent with left renal artery stenosis with recommended follow-up CTA CT angiogram abdomen (04/19/18): Extensive calcifications in the abdominal aorta and pelvic vessels. Origins of the renal arteries show significant areas of calcifications with good filling beyond that areas calcifications. The degree of stenosis could not be determined Chest x-ray (05/04/18): No acute cardiopulmonary findings, stable chronic change s. ASSESSMENT/PLAN: Kristi Grayson is an 87-year-old female who presented to the emergency department this afternoon via EMS with a chief complaint of dyspnea and hypertension per home blood pressure monitor.Patient was previously admitted to the hospital on 04/07/2018 and discharged 2 weeks later on 04/23/2018. At that time she was diagnosed with a CVA. Patient has a history of labile orthostatic hypotension and is being followed by Dr. Saldana. During her previous hospitalization the patient presented with diffuse erythematous rash. That time it was questioned whether it was related to viral etiology or cutaneous lupus. Per patient, following biopsy, it was confirmed the rash to be of lupoid origin. She was also diagnosed and treated for a UTI.While in the emergency department, the patient was given 10 mg of labetalol initially and a subsequent 20 mg dose IV stat. A chest x-ray was performed and read as negative. BMP shows mildly decreased sodium: 131, good renal function, and negative cardiac enzymes. No white count per CBC. Hemoglobin and hematocrit are stable. Patient will be admitted to the PCU for further evaluation and management of her blood pressure. 1. Hypertensive urgency, resolved - s/p b/l renal stent placed 05/10/[address] Johnston. - Patient will have her BP measured while standing twice daily. Per dr. Nava, hold Bp medications if SBP <120 mmHg - c/w Norvasc BID per Dr. Nava 2. 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 Singh yesterday. He hypothesized that the patient's symptoms may be a manifestation of either lower body parkinsonism but more likely related to relative ischemia in the brainstem when she stands due to occlusion of her basilar artery. Dr. Singh suggested to the patient a trial of Sinemet, which she declined at this time 3. Dementia - Patient has become increasingly demented since prior admission - Will likely benefit from SNF placement for further rehabilitation - May require psychiatry consult in the future, patient not willing to talk to psychiatry at this time. 4. Left UE hematoma, improving - s/p LUE Doppler, negative for DVT - resolving hematoma of [place] s/p renal stent placement. Peripheral yellowing noted, mild tenderness on examination - c/w ASA and Plavix s/p stent placement. 5. 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 - Continue the betamethasone ointment 0.05% - Continue Eucerin as needed 6. History of carotid disease s/p CEA - on asa and Plavix s/p renal artery stents - defer to vascular surgery. currently no TIA symptoms 7. Hypothyroid - Continue patient's home medication of levothyroxine 75 mcg by mouth daily 8. Depression - Continue patient's home medication of sertraline 25 mg by mouth daily 9. Generalized anxiety disorder - Continue patient's home medication of Diazepam 10 mg by mouth at night - PRN Xanax. 10. Osteoarthritis -Acetaminophen 650 mg as needed for pain 11 .Subacute cutaneous lupus erythematosus - diagnosed in 2006 by biopsy of left arm, on Plaquenil 200 mg per day 12. Significant vaginal atrophy 13. history of Diverticulitis 14. history of Recurrent UTIs 15. Osteoarthritis of the hips 16. Dysphagia - no c/o weight loss, hematemesis - patient continues to decline further workup or evaluation 17. Hypokalemia - Patient given 40 mEq of K PO, repeat dose 1 hour later DISPOSITION: Medically stable for hospital discharge. awaiting placement. Outpatient follow-up for dysphagia and PAD if persistent b/l LE pain. VS,Fishbone, I+O VS, Fishbone, I+O Laboratory Tests 05/16/18 05:52 Red Blood Count 3.18 L, Mean Corpuscular Volume 97.5 H, Mean Corpuscular Hemoglobin 33.3 H, Mean Corpuscular Hemoglobin Concent 34.2, Red Cell Distribution Width 14.9 H, Neutrophils (%) (Auto) 67.0 H, Lymphocytes (%) (Auto) 17.0 L, Monocytes (%) (Auto) 14.5 H, Eosinophils (%) (Auto) 0.5, Basophils (%) (Auto) 0.7, Neutrophils # (Auto) 3.9, Lymphocytes # (Auto) 1.0 L, Monocytes # (Auto) 0.9 H, Eosinophils # (Auto) 0.0, Basophils # (Auto) 0.0, Calcium Level 8.5 L Vital Signs Date Time Temp Pulse Resp B/P (MAP) Pulse Ox O2 Delivery O2 Flow Rate FiO2 05/16/18 09:16 158/60 05/16/18 06:00 97.9 60 18 95 I&O- Last 24 Hours up to 6 AM 05/16/18 06:00 Intake Total 810 ml Output Total 0 ml Balance 810 ml GME ATTESTATION GME ATTESTATION My faculty preceptor for this patient encounter was physically present during the encounter and was fully available. All aspects of the patient interview, examination, medical decision making process, and medical care plan development were reviewed and approved by the faculty preceptor. The faculty preceptor is aware and concurs with the plan as stated in the body of this note and will attest to such by his/her cosignature. PEDRO PABLO NEWMAN DO May 16, 2018 10:54
[2018-05-16 14:00] VITALS: BP 180/73
[2018-05-16] MEDS: ESTROGENS VAGINAL CREAM 30GM PV SCH (21:00)
[2018-05-16] MEDS ORDERED: ALPR0.25 PO (21:25)
[2018-05-16] MEDS ORDERED: ALPR0.5T3 PO (21:25)
[2018-05-16] MEDS ORDERED: ASPI81TAEC PO (21:25)
[2018-05-16] MEDS ORDERED: CLOP75TA2 PO (21:25)
[2018-05-16] MEDS ORDERED: Docusate Sod/Senna PO (21:25)
[2018-05-16] MEDS ORDERED: AMLO5TAB6 PO (21:25)
[2018-05-16] MEDS ORDERED: SERT-141 PO (21:26)
[2018-05-16] MEDS ORDERED: ROZE8TAB16 PO (21:26)
[2018-05-16] MEDS ORDERED: ISOS10TA PO (21:32)
[2018-05-16] MEDS ORDERED: LISI-1046 PO (21:32)
[2018-05-16] MEDS: ALPRAZolam 0.5 MG TAB PO SCH (21:59)
[2018-05-16] MEDS: RAMELTEON 8 MG TAB (ROZEREM) PO SCH (21:59)
[2018-05-16 22:00] VITALS: BP 178/64
[2018-05-16] MEDS: ENOXAPARIN 40 MG/0.4 ML SYRINGE (J1650) SC SCH (22:00)
[2018-05-17] MEDS: SLF 3 ML SYR IV SCH (05:38)
[2018-05-17] MEDS: LEVOTHYROXINE 75MCG TABLET (0.075MG) PO SCH (05:48)
[2018-05-17 06:00] VITALS: BP 179/80
[2018-05-17 06:11] LABS: BASO % 0.5 % (0.0-1.0); EOS % 0.4 % (0.0-3.0); HEMATOCRIT 30.6 % (36.0-47.0); HEMOGLOBIN 10.5 g/dl (12.0-15.5); LYMPH # 0.9 10^3/uL (1.5-4.5); LYMPH % 16.2 % (24.0-44.0); MEAN CORPUSCULAR HEMOGLOBIN 32.9 pg (27.0-33.0); MEAN CORPUSCULAR HGB CONC 34.3 g/dl (32.0-36.5); MEAN CORPUSCULAR VOLUME 95.9 fl (80.0-96.0); MONO % 17.1 % (0.0-5.0); NEUTROPHILS # 3.6 10^3/uL (1.8-7.7); NEUTROPHILS % 65.4 % (36.0-66.0); PLATELET COUNT, AUTOMATED 214 10^3/uL (150-450); RED BLOOD COUNT 3.19 10^6/uL (4.00-5.40); WHITE BLOOD COUNT 5.5 10^3/uL (4.0-10.0)
[2018-05-17 06:41] LABS: BLOOD UREA NITROGEN 10 MG/DL (7-18); CALCIUM LEVEL 8.4 MG/DL (8.8-10.2); CARBON DIOXIDE LEVEL 27 MEQ/L (21-32); CHLORIDE LEVEL 99 MEQ/L (98-107); CREATININE FOR GFR 0.57 MG/DL (0.55-1.30); GLOMERULAR FILTRATION RATE > 60.0 (>32); GLUCOSE, FASTING 104 MG/DL (70-100); MAGNESIUM LEVEL 1.9 MG/DL (1.8-2.4); POTASSIUM SERUM 3.6 MEQ/L (3.5-5.1); SODIUM LEVEL 133 MEQ/L (136-145)
[2018-05-17] MEDS ORDERED: ISOSORBIDE DIN (ISORDIL) 10 MG TAB PO SCH (07:00)
--- NOTE | 2018-05-17 08:20 | DS.PDOC ---
Discharge Summary General Date of Admission May 04, 2018 at 13:58 Date of Discharge May 17, 2018 Primary Care Physician: JIMI ALEGRIA DO Attending Physician: LIANNE DOWNS MD Discharge Summary PROCEDURES PERFORMED DURING STAY: Aortic angiography with bilateral renal stent placement performed by Dr. Johnston on 05/10/18. CONSULTATIONS: Dr. Johnston of vascular surgery Dr. Nava of cardiology Dr. Singh of neurology DISCHARGE DIAGNOSES: 1. Hypertensive urgency, resolved 2. Lower extremity weakness 3. Dementia 4. 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 Hypothyroid 7. History of carotid disease s/p CEA 8. Generalized anxiety disorder 9 Osteoarthritis 10. Dysphasia COMPLICATIONS/CHIEF COMPLAINT: Hypertensive Urgency. HISTORY OF PRESENT ILLNESS: Kristi Grayson is an 87-year-old female who presented to the emergency department via EMS with a chief complaint of dyspnea and hypertension per home blood pres sure monitor. Patient was previously admitted to the hospital on 04/07/2018 and discharged 2 weeks later on 04/23/2018. At that time she was diagnosed with a CVA. Patient has a history of labile orthostatic hypotension and is being followed by Dr. Saldana. During her previous hospitalization the patient presented with diffuse erythematous rash. That time it was questioned whether it was related to viral etiology or cutaneous lupus. Per patient, following biopsy, it was confirmed the rash to be of lupoid origin, specifically Samira syndrome. She was also diagnosed and treated for a UTI. While in the emergency department, the patient was given 10 mg of labetalol initially and a subsequent 20 mg dose IV stat. A chest x-ray was performed and read as negative. BMP showed mildly decreased sodium: 131, good renal function, and negative cardiac enzymes. No white count per CBC. Hemoglobin and hematocrit were stable. Patient will be admitted to the PCU for further evaluation and management of her blood pressure. HOSPITAL COURSE: Given the patient's elevated blood pressures and previous evidence of renal artery stenosis, vascular surgery was consulted. Patient underwent angiography and subsequent bilateral renal stenting on 05/10/[address] Johnston. Patient was started on aspirin and Plavix. She subsequently developed a left elbow hematoma. Left upper extremity Doppler ultrasound was performed negative for DVT. The hematoma is noted as resolving at the time of discharge. Following stent placement and focused medical management, patient's blood pressures have remained stable. Dr. Saldana had been consulted during the patient's admission. It is recommended that the patient takes her blood pressure while standing and that she holds her blood pressure medications for a systolic pressure less than 120 mmHg. Neurologist, Dr. Singh, was also consulted for the patient's left lower extremity tremors/weakness. 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 A trial of Sinemet was offered to the patient, which she declined. On 05/15 patient began complaining of a new dysphasia and difficulty swallowing her medications. Patient was offered a workup but she declined. Subsequently her medications have been crushed and given with applesauce. Possibility of discharge to penitentiary facility was discussed with the patient earlier in the week. Family indicated they were on board in order to optimize patient's return to her previous level of functioning. Placement was obtained at [facility] in [facility]. Patient's daughter and healthcare proxy is located in [place]. DISCHARGE MEDICATIONS: Please see below. ALLERGIES: Please see below. PHYSICAL EXAMINATION ON DISCHARGE: VITAL SIGNS: Please see below. GENERAL APPEARANCE: Awake, alert, oriented 3, in no acute distress HEENT: Normocephalic atraumatic, sclera nonicteric, EOMI, PERRLA, mild JVD appreciated, no lymphadenopathy CARDIOVASCULAR: Regular rate and rhythm, normal S1 and S2, no murmurs gallops or rubs LUNGS: Clear to auscultation bilaterally, no wheezing rhonchi or rales ABDOMEN: Soft, nontender, no masses palpated, active bowel sounds in all 4 quadrants MUSCULOSKELETAL: 5 out of 5 strength in all extremities, no weakness on the left as reported by the patient EXTREMITIES: Moves all extremities equally and freely bilaterally. Large left elbow hematoma, yellowing of peripheral margins, improved compared to yesterday. Remains slightly tender to palpation. NEUROLOGICAL: No facial weakness or asymmetry, no focal neurologic deficits, no weakness PSYCHIATRIC: Anxious mood and flat affect noted SKIN: Resolving disseminated erythematous nonblanching rash, no bruising LABORATORY DATA: Please see below. IMAGING: Renal artery ultrasound (04/16/18): Consistent with left renal artery stenosis with recommended follow-up CTA CT angiogram abdomen (04/19/18): Extensive calcifications in the abdominal aorta and pelvic vessels. Origins of the renal arteries show significant areas of calcifications with good filling beyond that areas calcifications. The degree of stenosis could not be determined Chest x-ray (05/04/18): No acute cardiopulmonary findings, stable chronic changes. LUE US (05/12/18): No deep venous thrombosis ACTIVITY: As tolerated DIET: Low-sodium diet 1800 mL fluid restriction DISCHARGE PLAN: Discharge to penitentiary facility for further rehabilitation DISPOSITION: Patient will be discharged to a penitentiary facility for further rehabilitation DISCHARGE INSTRUCTIONS: Patient is being discharged to [facility] in [facility]. Continue with aspirin and Plavix for renal stent placement Please continue to check standing blood pressures and hold amlodipine, isosorbide, and lisinopril for systolic blood pressures less than 120 mmHg Continue to elevate left arm and apply heating pad while awake every 4 hours Please follow-up with Dr. Alegria in one week Follow-up with Dr. Morse for diagnosis of Samira syndrome Outpatient follow-up with vascular surgeon, Dr. Johnston as recommended Outpatient follow-up with cardiology, Dr. Nava in 1 week DISCHARGE CONDITION: Stable TIME SPENT ON DISCHARGE: Greater than 25 minutes. Vital Signs/I&Os Vital Signs Date Time Temp Pulse Resp B/P (MAP) Pulse Ox O2 Delivery O2 Flow Rate FiO2 05/17/18 06:00 97.8 74 20 179/80 (113) 96 I&O- Last 24 Hours up to 6 AM 05/17/18 06:00 Intake Total 1110 ml Output Total 550 ml Balance 560 ml Laboratory Data Labs 24H Laboratory Tests 2 05/17/18 05:49: Immature Granulocyte % (Auto) 0.4, White Blood Count 5.5, Red Blood Count 3.19L, Hemoglobin 10.5L, Hematocrit 30.6L, Mean Corpuscular Volume 95.9, Mean Corpuscular Hemoglobin 32.9, Mean Corpuscular Hemoglobin Concent 34.3, Red Cell Distribution Width 15.0H, Platelet Count 214, Neutrophils (%) (Auto) 65.4, Lymphocytes (%) (Auto) 16.2L, Monocytes (%) (Auto) 17.1H, Eosinophils (%) (Auto) 0.4, Basophils (%) (Auto) 0.5, Neutrophils # (Auto) 3.6, Lymphocytes # (Auto) 0.9L, Monocytes # (Auto) 1.0H, Eosinophils # (Auto) 0.0, Basophils # (Auto) 0.0, Nucleated Red Blood Cells % (auto) 0.0, Anion Gap 7L, Glomerular Filtration Rate > 60.0, Blood Urea Nitrogen 10, Creatinine 0.57, Sodium Level 133L, Potassium Level 3.6#, Chloride Level 99, Carbon Dioxide Level 27, Calcium Level 8.4L, Magnesium Level 1.9 CBC/BMP Laboratory Tests 05/17/18 05:49 Red Blood Count 3.19 L, Mean Corpuscular Volume 95.9, Mean Corpuscular Hemoglobin 32.9, Mean Corpuscular Hemoglobin Concent 34.3, Red Cell Distribution Width 15.0 H, Neutrophils (%) (Auto) 65.4, Lymphocytes (%) (Auto) 16.2 L, Monocytes (%) (Auto) 17.1 H, Eosinophils (%) (Auto) 0.4, Basophils (%) (Auto) 0.5, Neutrophils # (Auto) 3.6, Lymphocytes # (Auto) 0.9 L, Monocytes # (Auto) 1.0 H, Eosinophils # (Auto) 0.0, Basophils # (Auto) 0.0, Calcium Level 8.4 L Microbiology Microbiology 05/11/18 Urine Culture - Final, Complete Escherichia Coli Discharge Medications Scheduled (Calcium 600 + D 600-200 mg-Unit) 1 Tab Tab, 1 TAB PO DAILY, (Reported) Alprazolam (Alprazolam) 0.5 Mg Tab, 0.5 MG PO QHS Amlodipine Besylate (Amlodipine Besylate) 5 Mg Tab, 5 MG PO BID Ascorbic Acid (Ascorbic Acid) 500 Mg Tab, 500 MG PO DAILY, (Reported) Aspirin (Aspirin EC) 81 Mg Tabec, 81 MG PO DAILY Cholecalciferol (Vitamin D3) 1,000 Unit Tab, 1,000 UNIT PO DAILY, (Reported) Clopidogrel Bisulfate (Clopidogrel) 75 Mg Tab, 75 MG PO DAILY Conjugated Estrogens (Premarin) 1 Dose/30 Gm Cr, 1.5 GRAMS PV QHS, (Reported) PT CURRENTLY USING EVERY NIGHT Diazepam (Diazepam) 10 Mg Tab, 10 MG PO QHS, (Reported) Isosorbide Dinitrate (Isosorbide Dinitrate) 10 Mg Tab, 10 MG PO TID@07,12,17 Levothyroxine Sodium (Synthroid) 75 Mcg Tab, 75 MCG PO DAILY, (Reported) Lisinopril (Lisinopril) 2.5 Mg Tab, 2.5 MG PO BID Multivitamins *[facility] STOCKED* (Thera M Plus *[facility] STOCKED*) 1 Tab Tab, 1 TAB PO DAILY, (Reported) Ramelteon (Rozerem) 8 Mg Tab, 8 MG PO QHS Sertraline Hcl (Sertraline HCl) 50 Mg Tab, 50 MG PO DAILY [Docusate Sod/Senna] 1 TAB TAB, 2 TAB PO BID Scheduled PRN Acetaminophen (Acetaminophen Extra Stren) 500 Mg Tab, 500 MG PO Q6H PRN for PAIN / FEVER, (Reported) Alprazolam (Alprazolam) 0.25 Mg Tab, 0.25 MG PO TIDP PRN for ANXIETY Allergies Coded Allergies: Hydralazine (Verified Allergy, Mild, RASH, 04/07/18) Shellfish Allergy (Verified Allergy, Unknown, PT HAD ? REACTION AFTER EATING SHELLFISH, 03/01/18) TAPE (Verified Adverse Reaction, Intermediate, SKIN FRAGILE, 01/27/15) Amoxicillin (Verified Adverse Reaction, Mild, NAUSEA AT HIGH DOSAGE, 04/07/18) Diphenhydramine (Unverified Adverse Reaction, Mild, SEVERE NAUSEA/DIARHHEA, 04/07/18) Naproxen (Verified Adverse Reaction, Mild, nausea, 08/24/17) Sulfa Drugs (Unverified Adverse Reaction, Mild, GI UPSET, 04/07/18) PEDRO PABLO NEWMAN DO May 17, 2018 08:20
--- NOTE | 2018-05-29 09:26 | REPIR ---
DATE OF PROCEDURE: 05/10/2018 ATTENDING SURGEON: Dr. Ross Johnston ASSISTANTS: Royer Rice and Anitha Limon. PREOPERATIVE DIAGNOSES: Hypertension, renal artery stenosis. POSTOPERATIVE DIAGNOSES: Hypertension, renal artery stenosis. PROCEDURE: Ultrasound-guided left brachial artery cannulation, selective left renal artery catheter placement with angiogram, selective right renal artery catheter placement with angiogram, left renal artery angioplasty and stent with 6 x 18 Express SD stent postdilated with a 6 x 60 balloon, right renal artery angioplasty and stent with a 6 x 18 Express SD stent postdilated with a 6 x 60 balloon, left renal artery angioplasty with 3 x 40 balloon, Mynx closure of the left brachial artery. INDICATION: The patient is an 87-year-old female with hypertension was found to have renal artery stenosis. The patient will undergo a renal artery angiogram with possible angioplasty and stent. Risks, benefits and alternative treatment options were discussed with the patient. ANESTHESIA: Local with sedation with 1 mg of Versed, 50 mcg of fentanyl, and 10 mL of 2% lidocaine. FLUOROSCOPY TIME: 34.9 minutes. CONTRAST: 16 mL of Isovue-300. SEDATION TIME: From 1759 hours to 1904 hours for a total of 65 minutes. HEPARIN: 6000 units followed by an additional 3000 unit bolus. PROTAMINE: 50 mg. BENADRYL: 50 mg. COMPLICATIONS: None. DRAINS: None. SPECIMENS: None. IMPLANTS: Left renal artery angioplasty and stent with a 6 x 18 Express SD stent, right renal artery angioplasty and stent with 6 x 18 Express SD stent, Mynx closure of the left brachial artery. DESCRIPTION OF PROCEDURE: The patient was taken to the angiography suite, placed supine on the angiography table and then prepped and draped in a standard surgical fashion. The ultrasound was used to evaluate the left brachial artery, which was widely patent, easily compressible and free of thrombus. Ultrasound was then used to guide cannulation with real-time concurrent visualization of the entry of the needle into the left brachial artery. A catheter was then advanced into the aorta. The right renal artery was selectively cannulated and angiogram performed, which showed high-grade calcific occlusive disease. The right renal artery was then angioplastied and stented with 6 x 18 Express SD stent with inability to fully effaced balloon. The right renal artery stent was then further angioplastied with a 6 x 60 balloon, which was fully effaced with full flow in the right renal artery on followup angiography. The left renal artery was high-grade stenosis as well with calcific disease and was inability to pass the catheter into the left renal artery beyond the stenosis after an angiogram was performed showing the high grade stenosis. The left renal artery was then angioplastied with a 3 x 40 balloon, after which, the left renal artery was angioplastied and stented with 6 x 18 Express SD stent. Followup angiography showed resolution of the stenosis with good flow into the left renal artery. Catheters and wires were removed and a Mynx closure device was used close the arteriotomy in the left brachial artery with an additional 10 minutes of adjunctive pressure applied for hemostasis. Dressings were then applied. The patient tolerated the procedure well. All instrument, sponge and needle counts were correct at the end the case. There were no complications. Dr. Johnston was present for and directed the entire case. The patient was transferred to the holding area and subsequently discharged in stable condition. RADIOLOGIC SUPERVISION INTERPRETATION: The ultrasound was used to cannulate the left brachial artery after the ultrasound showed the left brachial artery to be widely patent, easily compressible and free of thrombus. Ultrasound was used to guide cannulation with real-time concurrent visualization of the entry of the needle into the left brachial artery. Renal artery angiograms were performed bilaterally and followed by renal artery angioplasty and stenting. The left renal artery was significantly atherosclerotic and calcified and required pre-dilatation with a 3 x 40 mm balloon prior to angioplasty and stenting with a 6 x 18 Express SD stent. Final angiographic evaluation showed both stents to be widely patent with good flow into both renal arteries. Mynx closure device was used to close the arteriotomy in the left brachial artery.
== END 2018-05-17 09:08 | DRG 253 ==
LOC: M ED 11:00 → EDBD 11:00 → M ED INP 13:58 → M PCU 15:17 → M MSPAV 05-12 15:00
PROVIDERS: ADMIT Internal Medicine; ATTEND General Practice
PROC: 047A3DZ Dilation of Left Renal Artery with Intraluminal Device, Percutaneous Approach (ICD-10-PCS; principal; 2018-05-10)
PROC: 04793DZ Dilation of Right Renal Artery with Intraluminal Device, Percutaneous Approach (ICD-10-PCS; 2018-05-10)
PROC: B4181ZZ Fluoroscopy of Bilateral Renal Arteries using Low Osmolar Contrast (ICD-10-PCS; 2018-05-10)
DX: I16.0 Hypertensive urgency (principal); N39.0 Urinary tract infection, site not specified; K57.32 Diverticulitis of large intestine without perforation or abscess without bleeding; E87.1 Hypo-osmolality and hyponatremia; L93.1 Subacute cutaneous lupus erythematosus; I70.1 Atherosclerosis of renal artery; I11.0 Hypertensive heart disease with heart failure; F03.90 Unspecified dementia, unspecified severity, without behavioral disturbance, psychotic disturbance, mood disturbance, and anxiety; E03.9 Hypothyroidism, unspecified; F41.1 Generalized anxiety disorder; R13.10 Dysphagia, unspecified; Z79.899 Other long term (current) drug therapy; Z79.82 Long term (current) use of aspirin; Z88.2 Allergy status to sulfonamides; Z88.8 Allergy status to other drugs, medicaments and biological substances; Z91.013 Allergy to seafood; Z88.0 Allergy status to penicillin; I50.9 Heart failure, unspecified; Z96.641 Presence of right artificial hip joint; M16.4 Bilateral post-traumatic osteoarthritis of hip; Z87.891 Personal history of nicotine dependence; R58 Hemorrhage, not elsewhere classified; R26.89 Other abnormalities of gait and mobility; E87.6 Hypokalemia